=== PATIENT | male | born 1950 | race African-American/Black ===

== ENCOUNTER 2022-03-20 16:54 | Emergency (ER) | payer OTHER ==
[2022-03-20 17:55] LABS: Absolute Lymphocytes (CBC) 1.6 K/uL (0.7-4.9); Hematocrit 47.9 % (39.6-49.0); Lymphocytes % 35.6 % (15.3-44.8); MCV 83.7 fL (80-100); MPV 8.8 fL (7.6-11.3); RBC Red Blood Cell Count 5.72 M/uL (4.33-5.43)
[2022-03-20 18:05] LABS: BUN Blood Urea Nitrogen 21 mg/dL (7-18); Bicarbonate 26 mmol/L (21-32); Glomerular Filtration Rate 26 ml/min (=/>90); Potassium 4.1 mmol/L (3.5-5.1); Sodium Level 133 mmol/L (136-145)
[2022-03-20 18:06] LABS: Glucose Level 418 mg/dL (74-106)
[2022-03-20] MEDS ORDERED: INSULIN -REGULAR HUMAN 50 UNIT/0.5 ML ML ONE (20:18)
[2022-03-20] MEDS ORDERED: NA CHLORIDE 0.9% 1,000 ML ONE (20:18)
--- NOTE | 2022-03-20 21:08 | ER ---
Nurse's Notes [facility] Name: Eric Espinal Age: 71 yrs Sex: Male : 1950 Arrival Date: 03/20/2022 Time: 16:58 Bed 30 Private MD: Diagnosis: Hyperglycemia, unspecified Presentation: 03/20 17:28 Chief complaint: Patient states: high BS , over 500 today, took his insulin , went to the doctor was told to come to the hospital. Coronavirus screen: At this time, the client does not indicate any symptoms associated with coronavirus-19. Ebola Screen: Patient negative for fever greater than or equal to 101.5 degrees Fahrenheit, and additional compatible Ebola Virus Disease symptoms Patient denies exposure to infectious person. Patient denies travel to an Ebola-affected area in the 21 days before illness onset. No symptoms or risks identified at this time. Initial Sepsis Screen: Does the patient meet any 2 criteria? No. Patient's initial sepsis screen is negative. Does the patient have a suspected source of infection? No. Patient's initial sepsis screen is negative. Risk Assessment: Do you want to hurt yourself or someone else? Patient reports no desire to harm self or others. Onset of symptoms was March 20, 2022. 17:28 Method Of Arrival: Ambulatory 17:28 Acuity: BRENDA 3 iw Historical: - Allergies: 17:30 No Known Allergies; iw - Home Meds: 17:30 Lantus U-100 Insulin 100 unit/mL subcutaneous soln [Active]; iw - PMHx: 17:30 asthma-denies issues in a while; Diabetes - NIDDM; iw - Immunization history:: Adult Immunizations up to date. - Social history:: Smoking status: . Screenin:14 Abuse screen: Denies threats or abuse. Denies injuries from another. Nutritional lg3 screening: No deficits noted. Tuberculosis screening: No symptoms or risk factors identified. Fall Risk None identified. Assessment: 20:14 General: Appears in no apparent distress. comfortable, Behavior is calm, cooperative. lg3 Pain: Denies pain. Neuro: No deficits noted. Level of Consciousness is awake, alert, obeys commands, Oriented to person, place, time, situation. Cardiovascular: No deficits noted. Denies chest pain, shortness of breath, Capillary refill < 3 seconds Clubbing of nail beds is absent JVD is absent Patient's skin is warm and dry. Respiratory: No deficits noted. Airway is patent Trachea midline Respiratory effort is even, unlabored, Respiratory pattern is regular, symmetrical. GI: No deficits noted. No signs and/or symptoms were reported involving the gastrointestinal system. Abdomen is round non-distended, Bowel sounds present X 4 quads. : No deficits noted. No signs and/or symptoms were reported regarding the genitourinary system. EENT: No deficits noted. No signs and/or symptoms were reported regarding the EENT system. Derm: No deficits noted. No signs and/or symptoms reported regarding the dermatologic system. Skin is intact, is healthy with good turgor, Skin is dry, Skin temperature is warm. Musculoskeletal: No deficits noted. No signs and/or symptoms reported regarding the musculoskeletal system. Circulation, motion, and sensation intact. Range of motion: intact in all extremities. 21:15 Reassessment: Patient appears in no apparent distress at this time. No changes from lg3 previously documented assessment. Patient and/or family updated on plan of care and expected duration. Pain level reassessed. Patient is alert, oriented x 3, equal unlabored respirations, skin warm/dry/pink. Patient denies pain at this time. Patient states feeling better. Vital Signs: 17:28 BP 117 / 64; Pulse 69; Resp 16; Temp 98.2; Pulse Ox 99% on R/A; iw 21:15 BP 126 / 72; Pulse 71; Resp 16 S; Pulse Ox 99% on R/A; lg3 ED Course: 16:58 Patient arrived in ED. as 17:30 Triage completed. iw 17:30 Arm band placed on. iw 17:41 Initial lab(s) drawn, by ri, sent to lab. Inserted saline lock: 20 gauge in left iw antecubital area, using aseptic technique. 18:16 Beka Villafana NP is PHCP. pm1 18:16 Mirza Beach MD is Attending Physician. pm1 19:52 Vane Reyes, STEPHANIE is Primary Nurse. lg3 20:14 Patient has correct armband on for positive identification. Bed in low position. Call lg3 light in reach. Side rails up X 1. Client placed on continuous cardiac and pulse oximetry monitoring. NIBP monitoring applied. Door closed. Noise minimized. Warm blanket given. 21:15 No provider procedures requiring assistance completed. IV discontinued, intact, lg3 bleeding controlled, No redness/swelling at site. Pressure dressing applied. Administered Medications: 20:08 CANCELLED (Physician Discretion): Insulin Regular Human 10 units IVP once pm1 20:14 Drug: NS 0.9% 1000 ml Route: IV; Rate: 1000 ml; Site: left antecubital; lg3 20:46 Follow up: IV Status: Completed infusion; IV Intake: 1000ml lg3 21:06 CANCELLED (Physician Discretion): Insulin Regular Human 5 units IVP once pm1 Medication: 21:15 VIS not applicable for this client. lg3 Intake: 20:46 IV: 1000ml; Total: 1000ml. lg3 Outcome: 21:07 Discharge ordered by . pm1 21:15 Discharged to home ambulatory. lg3 21:15 Condition: stable 21:15 Discharge instructions given to patient, Instructed on discharge instructions, Demonstrated understanding of instructions. 21:16 Patient left the ED. lg3 Signatures: Casandra Paez Irene, STEPHANIE RN iw Beka Villafana NP RIB BENDER pm1 Vane Reyes RN RN lg3
--- NOTE | 2022-03-20 21:08 | EDPHYS ---
Physician Documentation [facility] Name: Eric Espinal Age: 71 yrs Sex: Male : 1950 Arrival Date: 03/20/2022 Time: 16:58 Bed 30 Private MD: ED Physician Mirza Beach HPI: 03/20 18:22 This 71 yrs old Black Male presents to ER via Ambulatory with complaints of High Blood pm1 Sugar. 18:22 The patient or guardian reports hyperglycemia, Treatment prior to arrival includes: pm1 taking additional insulin. Onset: The symptoms/episode began/occurred today. Associated signs and symptoms: Pertinent negatives: None. Current symptoms: In the emergency department the patient's symptoms are unchanged from the initial presentation. It is unknown whether or not the patient has had similar symptoms in the past. The patient has been recently seen by a physician: the patient's primary care provider, with similar presenting complaints, and was sent to the [facility] Emergency Department for further evaluation. Patient reports blood sugar over 500 and was seen by PCP and instructed to report to the ER for evaluation and treatment. Historical: - Allergies: 17:30 No Known Allergies; iw - Home Meds: 17:30 Lantus U-100 Insulin 100 unit/mL subcutaneous soln [Active]; iw - PMHx: 17:30 asthma-denies issues in a while; Diabetes - NIDDM; iw - Immunization history:: Adult Immunizations up to date. - Social history:: Smoking status: . ROS: 18:22 Constitutional: Negative for fever, chills, and weight loss, Cardiovascular: Negative pm1 for chest pain, palpitations, and edema, Respiratory: Negative for shortness of breath, cough, wheezing, and pleuritic chest pain, Abdomen/GI: Negative for abdominal pain, nausea, vomiting, diarrhea, and constipation, Back: Negative for injury and pain, MS/Extremity: Negative for injury and deformity, Skin: Negative for injury, rash, and discoloration, Neuro: Negative for headache, weakness, numbness, tingling, and seizure. 18:22 All other systems are negative. Exam: 18:22 Constitutional: This is a well developed, well nourished patient who is awake, alert, pm1 and in no acute distress. 18:22 Head/Face: Normocephalic, atraumatic. pm1 18:22 Back: No spinal tenderness. No costovertebral tenderness. Full range of motion. Skin: Warm, dry with normal turgor. Normal color with no rashes, no lesions, and no evidence of cellulitis. MS/ Extremity: Pulses equal, no cyanosis. Neurovascular intact. Full, normal range of motion. 18:22 Eyes: Exam is negative for acute changes, Extraocular movements: intact throughout, Conjunctiva: no acute changes, no injection. 18:22 ENT: Exam is negative for acute changes, Mouth: no acute changes, Lips: normal, moist, Oral mucosa: normal, pink and intact, moist. 18:22 Cardiovascular: Exam negative for acute changes, Rate: normal, Rhythm: regular, Pulses: no pulse deficits are appreciated. 18:22 Respiratory: Exam negative for acute changes, respiratory distress, shortness of breath. 18:22 Neuro: Exam negative for acute changes, Orientation: is normal, Mentation: is normal, Motor: is normal, moves all fours. Vital Signs: 17:28 BP 117 / 64; Pulse 69; Resp 16; Temp 98.2; Pulse Ox 99% on R/A; iw 21:15 BP 126 / 72; Pulse 71; Resp 16 S; Pulse Ox 99% on R/A; lg3 MDM: 18:21 Counseling: I had a detailed discussion with the patient and/or guardian regarding: lab pm1 results, pending ER bed for treatment with fluids and insulin. 18:36 Patient medically screened. pm1 21:06 Data reviewed: vital signs. Data interpreted: Pulse oximetry: on room air is 99 %. pm1 Interpretation: normal. Counseling: I had a detailed discussion with the patient and/or guardian regarding: the historical points, exam findings, and any diagnostic results supporting the discharge/admit diagnosis, lab results, the need for outpatient follow up, to return to the emergency department if symptoms worsen or persist or if there are any questions or concerns that arise at home. 03/20 17:32 Order name: CBC with Diff; Complete Time: 17:58 [facility] 03/20 17:32 Order name: Basic Metabolic Panel; Complete Time: 18:16 [facility] 03/20 17:32 Order name: Acetone, Serum; Complete Time: 18:16 [facility] 03/20 20:18 Order name: Glucose, Ancillary Testing; Complete Time: 20:30 [facility] 03/20 19:19 Order name: Glucose Level; Complete Time: 20:06 pm1 Administered Medications: 20:08 CANCELLED (Physician Discretion): Insulin Regular Human 10 units IVP once pm1 20:14 Drug: NS 0.9% 1000 ml Route: IV; Rate: 1000 ml; Site: left antecubital; lg3 20:46 Follow up: IV Status: Completed infusion; IV Intake: 1000ml lg3 21:06 CANCELLED (Physician Discretion): Insulin Regular Human 5 units IVP once pm1 Disposition Summary: 03/20/22 21:07 Discharge Ordered Location: Home pm1 Problem: new pm1 Symptoms: have improved pm1 Condition: Stable pm1 Diagnosis - Hyperglycemia, unspecified pm1 Followup: pm1 - With: Emergency Department - When: As needed - Reason: Worsening of condition Followup: pm1 - With: Private Physician - When: 2 - 3 days - Reason: Recheck today's complaints, Continuance of care, Re-evaluation by your physician Discharge Instructions: - Discharge Summary Sheet pm1 - Hyperglycemia pm1 - Blood Glucose Monitoring, Adult pm1 - Diabetes Mellitus and Exercise pm1 - Diabetes Mellitus and Nutrition, Adult pm1 Forms: - Medication Reconciliation Form pm1 - Thank You Letter pm1 - Antibiotic Education pm1 - Prescription Opioid Use pm1 Signatures: Dispatcher [employer]OK Alize Gupta, RN RN Mirza Barber PA PA Beka Mayfield, JD [employer] HELPER pm1 Vane Reyes RN RN lg3 Corrections: (The following items were deleted from the chart) 20:08 19:19 Insulin Regular Human 10 units IVP once ordered. pm1 pm1 21:06 20:08 Insulin Regular Human 5 units IVP once ordered. pm1 pm1
[2022-03-20 23:05] VITALS: TEMP 98.2; O2SAT 99
[2022-03-20 23:08] VITALS: BP 126/72
== END 2022-03-20 21:16 | disposition home or self-care (01) ==
LOC: ER 16:54
DX: E11.65 Type 2 diabetes mellitus with hyperglycemia (principal); Z79.4 Long term (current) use of insulin
CPT/HCPCS: 85025; 80048; 36415; 82010; 82947 ×2; 96360; 99283; J1815; J7030

== ENCOUNTER 2023-12-26 18:03 | Inpatient (IN) | payer OTHER ==
--- OUTSIDE RECORDS SUMMARY | 2023-12-26 18:08 | XMS REPORT | Continuity of Care Document ---
Author Name Unknown Address [address] [facility] [address] [place] [address] [facility] Address [address] [facility] [place] [address] Care Team Providers Care Pathology Lab Technician Name Role Phone ERWINANA ARCHIE Primary Care Physician Unavailab Isaias Odonnell Attending Clinician Unavailable Nisreen Patel RN Attending Clinician Unavailable JEROME PIEDRA Attending Clinician Unavailable Vern Johns DO Attending Clinician [phone] Amado Herring MD Attending Clinician [phone] Jerome Piedra MD Attending Clinician [phone] MOOKIE Attending Clinician Unavailable KNOW, DOES_NOT Attending Clinician Unavailable Jignesh Vargas Attending Clinician Unavailable JEROME PIEDRA Admitting Clinician Unavailable Jerome Piedra MD Admitting Clinician [phone] MOOKIE Admitting Clinician Unavailable Physician, No Primary or Family Admitting Clinic hans Unavailable Payers Payer Name Policy Type Policy Number Effective Date Expirati on Date Source ALEJANDRA C1 [id number] 2020 00:00:00 [facility] HUMANA C1 [id number] 2020 00:00:00 [facility] HUMANA C1 [id number] 2020 00:00:00 [facility] Problems Condition Name Condition Details Condition Category Status Onset Date Resolution Date Last Treatment Date Treating Clinician Comments Source Altered mental status Altered mental status Disease Active 03-17 00:00: 00 [facility] Hyperglyce demond Hyperglyce demond Disease Active 03-17 00:00: 00 [facility] Chronic kidney disease stage 3B (disorder) Stage 3b chronic kidney disease Problem [facility] [id number] Encounter for examinatio n of eyes and vision without abnormal findings Problem [facility] [id number] Other obesity due to excess calories Problem [facility] Amnesia Memory changes Problem [facility] [id number] [employer] current use of insulin Problem [facility] [id number] Type 2 diabetes mellitus with diabetic chronic kidney disease Problem [facility] [id number] Onychomyco sis Problem [facility] Emphysema Emphysema Problem Comm on [facility] Seasonal allergic rhinitis Allergic rhinitis, seasonal Problem [facility] Hyperlipid emia Hyperlipid emia Problem [facility] Chronic pain syndrome Chronic pain syndrome Problem [facility] Impotence of organic origin ED (erectile dysfunctio n) Problem [facility] Diabetic renal disease Chronic kidney disease in type 2 diabetes mellitus Problem [facility] Essential hypertensi on Benign essential HTN Problem [facility] [id number] Chronic obstructiv e pulmonary disease, unspecifie d COPD type Problem [facility] Vitamin D deficiency Vitamin D deficiency Problem [facility] Chronic kidney disease stage 3 (disorder) Stage 3 chronic kidney disease, unspecifie d whether stage 3a or 3b CKD Problem [facility] [id number] Alcohol abuse Problem [facility] [id number] Current every day smoker Problem [facility] [id number] Acute exacerbati on of emphysema Problem [facility] Allergies, Adverse Reactions, Alerts Allergy Name Allergy Type Status Severity Reaction(s) Onset Date Inactive Date Treating Clinician Comments Source No Known Allergie s DA Active U 01-20 00:00: 00 [facility] No Known Allergie s DA Active U 01-20 00:00: 00 [facility] NO KNOWN ALLERGIE S Drug Class Active [facility] Social History Social Habit Start Date Stop Date Quantity Comments Source History of Tobacco Use Current Smoker [facility] Sex Assigned At [facility] Exposure to SARS-CoV-2 (event) 2022-03-07 00:00:00 2022-03-17 17:21:00 Not sure [facility] Alcohol intake 2022-03-17 00:00:00 2022-03-17 00:00:00 Current drinker of alcohol (finding) [facility] Tobacco use and exposure 2022-03-17 00:00:00 2022-03-17 00:00:00 Smokeless tobacco non-user [facility] Smoking Status Start Date Stop Date Source Current Smoker 2023-09-23 00:00:00 [facility] Medications Ordered Medication Name Filled Medication Name Start Date Stop Date Current Medication? Ordering Clinician Indication Dosage Frequency Signature (SIG) Comments Components Source Carvedilol 25 MG Carvedilol 25 MG 09-23 00:00: 00 No 1{table t_with_ food} BID Carvedilol 25 MG Carvedilol 25 MG Carvedilol 25 MG 09-23 00:00: 00 No 1{table t_with_ food} BID Carvedilol 25 MG Carvedilol 25 MG Carvedilol 25 MG 09-23 00:00: 00 No 1{table t_with_ food} BID Carvedilol 25 MG Carvedilol 25 MG Carvedilol 25 MG 09-23 00:00: 00 No 1{table t_with_ food} BID Carvedilol 25 MG Carvedilol 25 MG Carvedilol 25 MG 09-23 00:00: 00 No 1{table t_with_ food} BID Carvedilol 25 MG Carvedilol 25 MG Carvedilol 25 MG 09-23 00:00: 00 No 1{table t_with_ food} BID Carvedilol 25 MG metFORMIN HCl ER 750 MG metFORMIN HCl ER 750 MG 2021-08 2-05 00:00: 00 No 1{table t_with_ evening _meal} QD metFORMIN HCl ER 750 MG aspirin 81 mg chewable tablet 03-18 19:32: 07 03-18 00:00 :00 No 81mg Take 81 mg by mouth in the morning. [facility] insulin glargine,jameson cedenorecAkhilanlog (LANTUS SC) 03-18 19:32: 07 03-18 00:00 :00 No 20U inject 20 Units under the skin daily. [facility] Sliding Scale Insulin - Lispro (HumaLOG) + Fsbg Testing 03-18 17:00: 00 Yes Subcutaneo us, TID MEALS+HS, First dose (after last modificati on) on Thu03/18/22 at 1200, Until Discontinu ed, Routine [facility] insulin glargine (LANTUS U-100) injection 20 Units 03-18 15:00: 00 Yes 20U 20 Units, Subcutaneo us, DAILY, First dose on Thu03/18/22 at 1000, Until Discontinu ed, Routine [facility] aspirin chewable tablet 81 mg 03-18 14:00: 00 Yes 81mg 81 mg, Oral, DAILY, First dose on Thu03/18/22 at 0900, Until Discontinu ed, Routine [facility] insulin glargine (LANTUS U-100) injection 20 Units 03-18 14:00: 00 03-18 13:50 :26 No 20U 20 Units, Subcutaneo us, DAILY, First dose (after last modificati on) on Thu03/18/22 at 0900, Until Discontinu ed [facility] Sliding Scale Insulin - Lispro (HumaLOG) + Fsbg Testing 03-18 02:00: 00 03-18 13:50 :43 No Subcutaneo us, TID MEALS+HS, First dose (after last modificati on) on Thu03/17/22 at 2100, Until Discontinu ed, Routine [facility] amLODIPine (NORVASC) tablet 5 mg 03-18 00:45: 00 Yes 5mg 5 mg, Oral, DAILY, First dose on Thu03/17/22 at 1945, Until Discontinu ed, Routine [facility] enoxaparin (LOVENOX) injection 40 mg 03-17 22:00: 00 Yes 40mg 40 mg, Subcutaneo us, DAILY, First dose on Thu03/17/22 at 1700, Until Discontinu ed, Routine [facility] NaCl 0.45% (1/2NS) IV infusion 1,000 mL 03-17 21:00: 00 Yes 1000mL at 125 mL/hr, 1,000 mL, IV Infusion, CONTINUOUS , Starting on Thu03/17/22 at 1600, Until Discontinu ed, Routine [facility] Sliding Scale Insulin - Lispro (HumaLOG) + Fsbg Testing 03-17 20:00: 00 03-18 00:50 :54 No Subcutaneo us, Q4H, First dose on Thu03/17/22 at 1500, Until Discontinu ed, Routine [facility] HYDROcodone -acetaminop hen (NORCO) 10-325 mg tablet 1 tablet 03-17 19:51: 46 Yes 1{tbl} 1 tablet, Oral, Q6HPRN, Starting on Thu03/17/22 at 1451, Until Discontinu ed, Routine, Pain (scale 7-10) [facility] HYDROcodone -acetaminop hen (NORCO 5) 5-325 mg tablet 1 tablet 03-17 19:51: 44 03-19 19:50 :44 No 1{tbl} 1 tablet, Oral, Q6HPRN, Starting on Thu03/17/22 at 1451, Until Thu03/19/22 at 1450, Routine, Pain (scale 4-6) [facility] acetaminoph en (TYLENOL) tablet 650 mg 03-17 19:51: 42 Yes 650mg 650 mg, Oral, Q6HPRN, Starting on Thu03/17/22 at 1451, Until Discontinu ed, Routine, Pain (scale 1-3) [facility] dextrose 10% (D10W) bolus infusion 250 mL 03-17 19:49: 05 Yes 250mL 250 mL, IV Infusion, PRN - SEE INSTRUCTIO NS, Administer over 60 Minutes, Other, If blood glucose is < or = 70 mg/dL and patient is unable to swallow or has mental status changes, Starting on Thu03/17/22 at 1449
If blood glucose is < or = 70 mg/dL and patient is unable to swallow or has mental status changes (Give glucagon order if patient needs fluid restrictio n): IF IV access available: Dextrose 10%. 1. 125 mL (? bag) of D10W IV infusion - equivalent to 12.5 g dextrose 2. Blood glucose - draw blood glucose 15 minutes after D10W Administra tion. 3. If blood glucose is < 80 mg/dL, repeat.
[facility] glucagon (GLUCAGEN DIAGNOSTIC KIT) injection 1 mg 03-17 19:49: 02 Yes 1mg 1 mg, Intramuscu lar, PRN, Starting on Thu03/17/22 at 1449, Until Discontinu ed, TATI, Blood Glucose < or = 70 mg/dL and patient is unable to swallow or has mental changes. [facility] insulin regular human (HUMULIN R) injection 12 Units 03-17 19:30: 00 03-17 18:41 :00 No 12U 12 Units, Subcutaneo us, ONCE, 1 dose, On Thu03/17/22 at 1430, Routine [facility] No known medications 03-17 17:21: 51 No No known medication s [facility] Pen Kaufman 32G X 4 MM Pen Kaufman 32G X 4 MM 03-01 00:00: 00 No QD Pen Kaufman 32G X 4 MM Pen Kaufman 32G X 4 MM Pen Kaufman 32G X 4 MM 0 03-01 00:00: 00 No QD Pen Kaufman 32G X 4 MM Pen Kaufman 32G X 4 MM Pen Kaufman 32G X 4 MM 0 03-01 00:00: 00 No QD Pen Kaufman 32G X 4 MM Pen Kaufman 32G X 4 MM Pen [place]aufman 32G X 4 MM 0 03-01 00:00: 00 No QD Pen Kaufman 32G X 4 MM Pen [place]aufman 32G X 4 MM Pen [place]aufman 32G X 4 MM 0 03-01 00:00: 00 No QD Pen Kaufman 32G X 4 MM Pen Kaufman 32G X 4 MM Pen Kaufman 32G X 4 MM 2020-0 03-01 00:00: 00 No QD Pen Kaufman 32G X 4 MM Pen Kaufman 32G X 4 MM Pen Kaufman 32G X 4 MM 2020-0 03-01 00:00: 00 No QD Pen Kaufman 32G X 4 MM Pen Kaufman 32G X 4 MM Pen Kaufman 32G X 4 MM 2020-0 03-01 00:00: 00 No QD Pen Kaufman 32G X 4 MM Pen Kaufman 32G X 4 MM Pen Kaufman 32G X 4 MM 2020-0 03-01 00:00: 00 No QD Pen Kaufman 32G X 4 MM Pen Kaufman 32G X 4 MM Pen Kaufman 32G X 4 MM 2020-0 03-01 00:00: 00 No QD Pen Kaufman 32G X 4 MM Pen [place]aufman 32G X 4 MM Pen Kaufman 32G X 4 MM 2020-0 03-01 00:00: 00 No QD Pen Kaufman 32G X 4 MM Pen Kaufman 32G X 4 MM Pen Kaufman 32G X 4 MM 2020-0 03-01 00:00: 00 No QD Pen Kaufman 32G X 4 MM Pen Kaufman 32G X 4 MM Pen Kaufman 32G X 4 MM 2020-0 03-01 00:00: 00 No QD Pen Kaufman 32G X 4 MM Pen Kaufman 32G X 4 MM Pen Kaufman 32G X 4 MM 2020-0 03-01 00:00: 00 No QD Pen Kaufman 32G X 4 MM Pen Kaufman 32G X 4 MM Pen Kaufman 32G X 4 MM 2020-0 03-01 00:00: 00 No QD Pen Kaufman 32G X 4 MM Pen Kaufman 32G X 4 MM Pen Kaufman 32G X 4 MM 2020-0 03-01 00:00: 00 No QD Pen Kaufman 32G X 4 MM Pen Kaufman 32G X 4 MM Pen Kaufman 32G X 4 MM 2020-0 03-01 00:00: 00 No QD Pen Kaufman 32G X 4 MM Pen Kaufman 32G X 4 MM Pen Kaufman 32G X 4 MM 2020-0 03-01 00:00: 00 No QD Pen Kaufman 32G X 4 MM Pen Kaufman 32G X 4 MM Pen Kaufman 32G X 4 MM 0 03-01 00:00: 00 No QD Pen Kaufman 32G X 4 MM Pen Kaufman 32G X 4 MM Pen Kaufman 32G X 4 MM 2020-0 03-01 00:00: 00 No QD Pen Kaufman 32G X 4 MM Pen Kaufman 32G X 4 MM Pen Kaufman 32G X 4 MM 2020-0 03-01 00:00: 00 No QD Pen Kaufman 32G X 4 MM Pen Kaufman 32G X 4 MM Pen Kaufman 32G X 4 MM 2020-0 03-01 00:00: 00 No QD Pen Kaufman 32G X 4 MM Pen Kaufman 32G X 4 MM Pen Kaufman 32G X 4 MM 2020-0 03-01 00:00: 00 No QD Pen Kaufman 32G X 4 MM Accu-Chek Bonnie Plus - Accu-Chek Bonnie Plus - 2020-0 - 00:00: 00 No BID Accu-Chek Bonnie Plus - Glucometer n/s Glucometer n/s 2020-0 4- 00:00: 00 No Glucometer n/s Accu-Chek Bonnie Plus - Accu-Chek Bonnie Plus - 2020-0 4- 00:00: 00 No BID Accu-Chek Bonnie Plus - Glucometer n/s Glucometer n/s 2020-0 4- 00:00: 00 No Glucometer n/s Glucometer n/s Glucometer n/s 2020-0 4- 00:00: 00 No Glucometer n/s Accu-Chek Bonnie Plus - Accu-Chek Bonnie Plus - 1-0 4- 00:00: 00 No BID Accu-Chek Bonnie Plus - Glucometer n/s Glucometer n/s 1-0 4- 00:00: 00 No Glucometer n/s Accu-Chek Bonnie Plus - Accu-Chek Bonnie Plus - 1-0 4- 00:00: 00 No BID Accu-Chek Bonnie Plus - Glucometer n/s Glucometer n/s 1-0 4- 00:00: 00 No Glucometer n/s Glucometer n/s Glucometer n/s 1-0 4- 00:00: 00 No Glucometer n/s Glucometer n/s Glucometer n/s 1-0 4- 00:00: 00 No Glucometer n/s Glucometer n/s Glucometer n/s 1-0 4- 00:00: 00 No Glucometer n/s Glucometer n/s Glucometer n/s 1-0 4- 00:00: 00 No Glucometer n/s Glucometer n/s Glucometer n/s 1-0 4- 00:00: 00 No Glucometer n/s Glucometer n/s Glucometer n/s 1-0 4- 00:00: 00 No Glucometer n/s Glucometer n/s Glucometer n/s 1-0 4- 00:00: 00 No Glucometer n/s Glucometer n/s Glucometer n/s 1-0 4- 00:00: 00 No Glucometer n/s Glucometer n/s Glucometer n/s 1-0 4- 00:00: 00 No Glucometer n/s Glucometer n/s Glucometer n/s 1-0 4- 00:00: 00 No Glucometer n/s Glucometer n/s Glucometer n/s 1-0 4- 00:00: 00 No Glucometer n/s Glucometer n/s Glucometer n/s 1-0 4- 00:00: 00 No Glucometer n/s Glucometer n/s Glucometer n/s 2021-0 4- 00:00: 00 No Glucometer n/s Glucometer n/s Glucometer n/s 0 4- 00:00: 00 No Glucometer n/s Glucometer n/s Glucometer n/s 0 4- 00:00: 00 No Glucometer n/s Glucometer n/s Glucometer n/s 0 4- 00:00: 00 No 1{puff} BID Glucometer n/s Accu-Chek Bonnie Plus - Accu-Chek Bonnie Plus - 0 4- 00:00: 00 No Accu-Chek Bonnie Plus - Accu-Chek Bonnie Plus w/Device Accu-Chek Bonnie Plus w/Device 0 4- 00:00: 00 No Accu-Chek Bonnie Plus w/Device Accu-Chek Bonnie Plus - Accu-Chek Bonnie Plus - 2020-0 4- 00:00: 00 No Accu-Chek Bonnie Plus - Accu-Chek Bonnie Plus w/Device Accu-Chek Bonnie Plus w/Device 2020-0 4- 00:00: 00 No Accu-Chek Bonnie Plus w/Device Accu-Chek Bonnie Plus w/Device Accu-Chek Bonnie Plus w/Device 2020-0 4- 00:00: 00 No Accu-Chek Bonnie Plus w/Device Accu-Chek Bonnie Plus - Accu-Chek Bonnie Plus - 2020-0 4- 00:00: 00 No Accu-Chek Bonnie Plus - Accu-Chek Bonnie Plus - Accu-Chek Bonnie Plus - 2020-0 4- 00:00: 00 No Accu-Chek Bonnie Plus - Accu-Chek Bonnie Plus w/Device Accu-Chek Bonnie Plus w/Device 0 4- 00:00: 00 No Accu-Chek Bonnie Plus w/Device Accu-Chek Bonnie Plus - Accu-Chek Bonnie Plus - 2020-0 4- 00:00: 00 No Accu-Chek Bonnie Plus - Accu-Chek Bonnie Plus w/Device Accu-Chek Bonnie Plus w/Device 2020-0 4- 00:00: 00 No Accu-Chek Bonnie Plus w/Device Accu-Chek Bonnie Plus - Accu-Chek Bonnie Plus - 0 4- 00:00: 00 No Accu-Chek Bonnie Plus - Accu-Chek Bonnie Plus w/Device Accu-Chek Bonnie Plus w/Device 0 4- 00:00: 00 No Accu-Chek Bonnie Plus w/Device Accu-Chek Bonnie Plus - Accu-Chek Bonnie Plus - 0 4- 00:00: 00 No Accu-Chek Bonnie Plus - Accu-Chek Bonnie Plus w/Device Accu-Chek Bonnie Plus w/Device 0 4- 00:00: 00 No Accu-Chek Bonnie Plus w/Device Accu-Chek Bonnie Plus - Accu-Chek Bonnie Plus - 0 4- 00:00: 00 No Accu-Chek Bonnie Plus - Accu-Chek Bonnie Plus w/Device Accu-Chek Bonnie Plus w/Device 0 4- 00:00: 00 No Accu-Chek Bonnie Plus w/Device Accu-Chek Bonnie Plus - Accu-Chek Bonnie Plus - 0 4- 00:00: 00 No Accu-Chek Bonnie Plus - Accu-Chek Bonnie Plus w/Device Accu-Chek Bonnie Plus w/Device 0 4- 00:00: 00 No Accu-Chek Bonnie Plus w/Device Accu-Chek Bonnie Plus - Accu-Chek Bonnie Plus - 2020-0 4- 00:00: 00 No Accu-Chek Bonnie Plus - Accu-Chek Bonnie Plus w/Device Accu-Chek Bonnie Plus w/Device 0 4- 00:00: 00 No Accu-Chek Bonnie Plus w/Device Accu-Chek Bonnie Plus - Accu-Chek Bonnie Plus - 2020-0 4- 00:00: 00 No Accu-Chek Bonnie Plus - Accu-Chek Bonnie Plus w/Device Accu-Chek Bonnie Plus w/Device 2020-0 4-01 00:00: 00 No Accu-Chek Bonnie Plus w/Device Accu-Chek Bonnie Plus w/Device Accu-Chek Bonnie Plus w/Device 0 4- 00:00: 00 No Accu-Chek Bonnie Plus w/Device Accu-Chek Bonnie Plus - Accu-Chek Bonnie Plus - 2020-0 4- 00:00: 00 No Accu-Chek Bonnie Plus - Accu-Chek Bonnie Plus w/Device Accu-Chek Bonnie Plus w/Device 2020-0 4- 00:00: 00 No Accu-Chek Bonnie Plus w/Device Accu-Chek Bonnie Plus - Accu-Chek Bonnie Plus - 0 4- 00:00: 00 No Accu-Chek Bonnie Plus - Accu-Chek Bonnie Plus w/Device Accu-Chek Bonnie Plus w/Device 0 4- 00:00: 00 No Accu-Chek Bonnie Plus w/Device Accu-Chek Bonnie Plus - Accu-Chek Bonnie Plus - 0 4- 00:00: 00 No Accu-Chek Bonnie Plus - Accu-Chek Bonnie Plus w/Device Accu-Chek Bonnie Plus w/Device 0 4- 00:00: 00 No Accu-Chek Bonnie Plus w/Device Accu-Chek Bonnie Plus - Accu-Chek Bonnie Plus - 2020-0 4- 00:00: 00 No Accu-Chek Bonnie Plus - Accu-Chek Bonnie Plus - Accu-Chek Bonnie Plus - 2020-0 4- 00:00: 00 No Accu-Chek Bonnie Plus - Accu-Chek Bonnie Plus w/Device Accu-Chek Bonnie Plus w/Device 2020-0 4- 00:00: 00 No Accu-Chek Bonnie Plus w/Device Accu-Chek Bonnie Plus - Accu-Chek Bonnie Plus - 2020-0 4-01 00:00: 00 No Accu-Chek Bonnie Plus - Accu-Chek Bonnie Plus w/Device Accu-Chek Bonnie Plus w/Device 0 4- 00:00: 00 No Accu-Chek Bonnie Plus w/Device Accu-Chek Bonnie Plus - Accu-Chek Bonnie Plus - 0 4- 00:00: 00 No Accu-Chek Bonnie Plus - Accu-Chek Bonnie Plus w/Device Accu-Chek Bonnie Plus w/Device 2020-0 4- 00:00: 00 No Accu-Chek Bonnie Plus w/Device Accu-Chek Bonnie Plus - Accu-Chek Bonnie Plus - 0 4- 00:00: 00 No Accu-Chek Bonnie Plus - Accu-Chek Bonnie Plus w/Device Accu-Chek Bonnie Plus w/Device 2020-0 4- 00:00: 00 No Accu-Chek Bonnie Plus w/Device Accu-Chek Bonnie Plus - Accu-Chek Bonnie Plus - 2020-0 4- 00:00: 00 No Accu-Chek Bonnie Plus - Accu-Chek Bonnie Plus w/Device Accu-Chek Bonnie Plus w/Device 0 4- 00:00: 00 No Accu-Chek Bonnie Plus w/Device Accu-Chek Bonnie Plus w/Device Accu-Chek Bonnie Plus w/Device 2020-0 4- 00:00: 00 No Accu-Chek Bonnie Plus w/Device Accu-Chek Bonnie Plus - Accu-Chek Bonnie Plus - 2020-0 4- 00:00: 00 No Accu-Chek Bonnie Plus - Kenalog (Triamcinol one) Kenalog (Triamcinol one) 2018-08 0-15 00:00: 00 No 40mg [facility] Kenalog (Triamcinol one) Kenalog (Triamcinol one) 2018-08 0-15 00:00: 00 No 40mg [facility] Kenalog (Triamcinol one) Kenalog (Triamcinol one) 2018-08 015 00:00: 00 No 40mg [facility] Kenalog (Triamcinol one) Kenalog (Triamcinol one) 2018-08 015 00:00: 00 No 40mg [facility] Kenalog (Triamcinol one) Kenalog (Triamcinol one) 2018-08 015 00:00: 00 No 40mg [facility] Kenalog (Triamcinol one) Kenalog (Triamcinol one) 2018-0815 00:00: 00 No 40mg [facility] Kenalog (Triamcinol one) Kenalog (Triamcinol one) 2018-08 00:00: 00 No 40mg [facility] Kenalog (Triamcinol one) Kenalog (Triamcinol one) 2018-08 00:00: 00 No 40mg [facility] Kenalog (Triamcinol one) Kenalog (Triamcinol one) 2018-0815 00:00: 00 No 40mg [facility] Kenalog (Triamcinol one) Kenalog (Triamcinol one) 2018-0815 00:00: 00 No 40mg [facility] Kenalog (Triamcinol one) Kenalog (Triamcinol one) 2018-0815 00:00: 00 No 40mg [facility] Kenalog (Triamcinol one) Kenalog (Triamcinol one) 2018-0815 00:00: 00 No 40mg [facility] Kenalog (Triamcinol one) Kenalog (Triamcinol one) 2018-08 015 00:00: 00 No 40mg [facility] Kenalog (Triamcinol one) Kenalog (Triamcinol one) 2018-08 015 00:00: 00 No 40mg [facility] Kenalog (Triamcinol one) Kenalog (Triamcinol one) 2018-08 00:00: 00 No 40mg [facility] Kenalog (Triamcinol one) Kenalog (Triamcinol one) 2018-08 00:00: 00 No 40mg [facility] Kenalog (Triamcinol one) Kenalog (Triamcinol one) 2018-08 00:00: 00 No 40mg [facility] Kenalog (Triamcinol one) Kenalog (Triamcinol one) 2018-08 00:00: 00 No 40mg [facility] Kenalog (Triamcinol one) Kenalog (Triamcinol one) 2018-08 00:00: 00 No 40mg [facility] Kenalog (Triamcinol one) Kenalog (Triamcinol one) 2018-08 00:00: 00 No 40mg [facility] Advair Diskus 250-50 MCG/DOSE Advair Diskus 250-50 MCG/DOSE No 1{puff} BID Advair Diskus 250-50 MCG/DOSE Lantus SoloStar 100 UNIT/ML Lantus SoloStar 100 UNIT/ML No QD Lantus SoloStar 100 UNIT/ML Simvastatin 20 MG Simvastatin 20 MG No Simvastati n 20 MG Tradjenta 5 MG Tradjenta 5 MG No 1{table t} QD Tradjenta 5 MG Carvedilol 25 mg Carvedilol 25 mg No 1{table t_with_ food} BID Carvedilol 25 mg Lisinopril 20 MG Lisinopril 20 MG No Lisinopril 20 MG Simvastatin 20 MG Simvastatin 20 MG No Simvastati n 20 MG Simvastatin 20 MG Simvastatin 20 MG No 1{table t_in_th e_eveni ng} QD Simvastati n 20 MG Advair Diskus 250-50 MCG/DOSE Advair Diskus 250-50 MCG/DOSE No 1{puff} BID Advair Diskus 250-50 MCG/DOSE Lantus SoloStar 100 UNIT/ML Lantus SoloStar 100 UNIT/ML No QD Lantus SoloStar 100 UNIT/ML Lisinopril 20 MG Lisinopril 20 MG No Lisinopril 20 MG Tradjenta 5 MG Tradjenta 5 MG No 1{table t} QD Tradjenta 5 MG Lisinopril 40 MG Lisinopril 40 MG No 1{table t} QD Lisinopril 40 MG Carvedilol 25 mg Carvedilol 25 mg No 1{table t_with_ food} BID Carvedilol 25 mg GNP Aspirin Low Dose 81 MG GNP Aspirin Low Dose 81 MG No GNP Aspirin Low Dose 81 MG Vitamin D (Ergocalcif clarisa) 12750 UNIT Vitamin D (Ergocalcif clarisa) 93721 UNIT No 1{capsu le} Vitamin D (Ergocalci ferol) 89530 UNIT Lantus SoloStar 100 UNIT/ML Lantus SoloStar 100 UNIT/ML No QD Lantus SoloStar 100 UNIT/ML GNP Aspirin Low Dose 81 MG GNP Aspirin Low Dose 81 MG No GNP Aspirin Low Dose 81 MG Simvastatin 20 MG Simvastatin 20 MG No Simvastati n 20 MG Lisinopril 20 MG Lisinopril 20 MG No Lisinopril 20 MG Vitamin D (Ergocalcif clarisa) 46581 UNIT Vitamin D (Ergocalcif clarisa) 81279 UNIT No 1{capsu le} Vitamin D (Ergocalci ferol) 78007 UNIT Carvedilol 25 MG Carvedilol 25 MG No Carvedilol 25 MG Lisinopril 40 MG Lisinopril 40 MG No 1{table t} QD Lisinopril 40 MG Simvastatin 20 MG Simvastatin 20 MG No Simvastati n 20 MG GNP Aspirin Low Dose 81 MG GNP Aspirin Low Dose 81 MG No GNP Aspirin Low Dose 81 MG Simvastatin 20 MG Simvastatin 20 MG No Simvastati n 20 MG Lisinopril 20 MG Lisinopril 20 MG No Lisinopril 20 MG Lantus SoloStar 100 UNIT/ML Lantus SoloStar 100 UNIT/ML No QD Lantus SoloStar 100 UNIT/ML Lisinopril 40 MG Lisinopril 40 MG No Lisinopril 40 MG Carvedilol 25 MG Carvedilol 25 MG No Carvedilol 25 MG Lantus SoloStar 100 UNIT/ML Lantus SoloStar 100 UNIT/ML No QD Lantus SoloStar 100 UNIT/ML GNP Aspirin Low Dose 81 MG GNP Aspirin Low Dose 81 MG No GNP Aspirin Low Dose 81 MG Simvastatin 20 MG Simvastatin 20 MG No 1{table t_in e_eveni ng} QD Simvastati n 20 MG metFORMIN HCl ER 750 MG metFORMIN HCl ER 750 MG No 1{table t_with_ evening _meal} QD metFORMIN HCl ER 750 MG Lisinopril 40 MG Lisinopril 40 MG No 1{table t} QD Lisinopril 40 MG Carvedilol 25 MG Carvedilol 25 MG No Carvedilol 25 MG Lantus SoloStar 100 UNIT/ML Lantus SoloStar 100 UNIT/ML No QD Lantus SoloStar 100 UNIT/ML GNP Aspirin Low Dose 81 MG GNP Aspirin Low Dose 81 MG No GNP Aspirin Low Dose 81 MG Simvastatin 20 MG Simvastatin 20 MG No 1{table t_in e_eveni ng} QD Simvastati n 20 MG metFORMIN HCl ER 750 MG metFORMIN HCl ER 750 MG No 1{table t_with_ evening _meal} QD metFORMIN HCl ER 750 MG Lisinopril 40 MG Lisinopril 40 MG No 1{table t} QD Lisinopril 40 MG Carvedilol 25 MG Carvedilol 25 MG No Carvedilol 25 MG Lantus SoloStar 100 UNIT/ML Lantus SoloStar 100 UNIT/ML No QD Lantus SoloStar 100 UNIT/ML GNP Aspirin Low Dose 81 MG GNP Aspirin Low Dose 81 MG No GNP Aspirin Low Dose 81 MG Simvastatin 20 MG Simvastatin 20 MG No 1{table t_in e_eveni ng} QD Simvastati n 20 MG metFORMIN HCl ER 750 MG metFORMIN HCl ER 750 MG No 1{table t_with_ evening _meal} QD metFORMIN HCl ER 750 MG Lisinopril 40 MG Lisinopril 40 MG No 1{table t} QD Lisinopril 40 MG Carvedilol 25 MG Carvedilol 25 MG No Carvedilol 25 MG Lantus SoloStar 100 UNIT/ML Lantus SoloStar 100 UNIT/ML No QD Lantus SoloStar 100 UNIT/ML GNP Aspirin Low Dose 81 MG GNP Aspirin Low Dose 81 MG No GNP Aspirin Low Dose 81 MG Simvastatin 20 MG Simvastatin 20 MG No 1{table t_in e_eveni ng} QD Simvastati n 20 MG metFORMIN HCl ER 750 MG metFORMIN HCl ER 750 MG No 1{table t_with_ evening _meal} QD metFORMIN HCl ER 750 MG Lisinopril 40 MG Lisinopril 40 MG No 1{table t} QD Lisinopril 40 MG Carvedilol 25 MG Carvedilol 25 MG No Carvedilol 25 MG Lantus SoloStar 100 UNIT/ML Lantus SoloStar 100 UNIT/ML No QD Lantus SoloStar 100 UNIT/ML GNP Aspirin Low Dose 81 MG GNP Aspirin Low Dose 81 MG No GNP Aspirin Low Dose 81 MG Simvastatin 20 MG Simvastatin 20 MG No 1{table t_in e_eveni ng} QD Simvastati n 20 MG metFORMIN HCl ER 750 MG metFORMIN HCl ER 750 MG No 1{table t_with_ evening _meal} QD metFORMIN HCl ER 750 MG Lisinopril 40 MG Lisinopril 40 MG No 1{table t} QD Lisinopril 40 MG Carvedilol 25 MG Carvedilol 25 MG No Carvedilol 25 MG Lantus SoloStar 100 UNIT/ML Lantus SoloStar 100 UNIT/ML No QD Lantus SoloStar 100 UNIT/ML GNP Aspirin Low Dose 81 MG GNP Aspirin Low Dose 81 MG No GNP Aspirin Low Dose 81 MG Simvastatin 20 MG Simvastatin 20 MG No 1{table t_in e_eveni ng} QD Simvastati n 20 MG metFORMIN HCl ER 750 MG metFORMIN HCl ER 750 MG No 1{table t_with_ evening _meal} QD metFORMIN HCl ER 750 MG Lisinopril 40 MG Lisinopril 40 MG No 1{table t} QD Lisinopril 40 MG Carvedilol 25 MG Carvedilol 25 MG No Carvedilol 25 MG GNP Aspirin Low Dose 81 MG GNP Aspirin Low Dose 81 MG No GNP Aspirin Low Dose 81 MG Lantus SoloStar 100 UNIT/ML Lantus SoloStar 100 UNIT/ML No Lantus SoloStar 100 UNIT/ML Carvedilol 25 MG Carvedilol 25 MG No Carvedilol 25 MG Simvastatin 20 MG Simvastatin 20 MG No 1{table t_in e_eveni ng} QD Simvastati n 20 MG Aspirin 81 81 MG Aspirin 81 81 MG No 1{table t} QD Aspirin 81 81 MG Lisinopril 40 MG Lisinopril 40 MG No 1{table t} QD Lisinopril 40 MG metFORMIN HCl ER 750 MG metFORMIN HCl ER 750 MG No 1{table t_with_ evening _meal} QD metFORMIN HCl ER 750 MG Carvedilol 25 MG Carvedilol 25 MG No Carvedilol 25 MG Lantus SoloStar 100 UNIT/ML Lantus SoloStar 100 UNIT/ML No QD Lantus SoloStar 100 UNIT/ML Lisinopril 40 MG Lisinopril 40 MG No 1{table t} QD Lisinopril 40 MG GNP Aspirin Low Dose 81 MG GNP Aspirin Low Dose 81 MG No GNP Aspirin Low Dose 81 MG Simvastatin 20 MG Simvastatin 20 MG No 1{table t_in e_eveni ng} QD Simvastati n 20 MG metFORMIN HCl ER 750 MG metFORMIN HCl ER 750 MG No 1{table t_with_ evening _meal} QD metFORMIN HCl ER 750 MG Carvedilol 25 MG Carvedilol 25 MG No Carvedilol 25 MG Lantus SoloStar 100 UNIT/ML Lantus SoloStar 100 UNIT/ML No QD Lantus SoloStar 100 UNIT/ML Lisinopril 40 MG Lisinopril 40 MG No 1{table t} QD Lisinopril 40 MG GNP Aspirin Low Dose 81 MG GNP Aspirin Low Dose 81 MG No GNP Aspirin Low Dose 81 MG Simvastatin 20 MG Simvastatin 20 MG No 1{table t_in e_eveni ng} QD Simvastati n 20 MG metFORMIN HCl ER 750 MG metFORMIN HCl ER 750 MG No 1{table t_with_ evening _meal} QD metFORMIN HCl ER 750 MG Carvedilol 25 MG Carvedilol 25 MG No Carvedilol 25 MG Lantus SoloStar 100 UNIT/ML Lantus SoloStar 100 UNIT/ML No QD Lantus SoloStar 100 UNIT/ML Lisinopril 40 MG Lisinopril 40 MG No 1{table t} QD Lisinopril 40 MG GNP Aspirin Low Dose 81 MG GNP Aspirin Low Dose 81 MG No GNP Aspirin Low Dose 81 MG Simvastatin 20 MG Simvastatin 20 MG No 1{table t_in e_eveni ng} QD Simvastati n 20 MG metFORMIN HCl ER 750 MG metFORMIN HCl ER 750 MG No 1{table t_with_ evening _meal} QD metFORMIN HCl ER 750 MG Carvedilol 25 MG Carvedilol 25 MG No Carvedilol 25 MG Lantus SoloStar 100 UNIT/ML Lantus SoloStar 100 UNIT/ML No QD Lantus SoloStar 100 UNIT/ML Lisinopril 40 MG Lisinopril 40 MG No 1{table t} QD Lisinopril 40 MG GNP Aspirin Low Dose 81 MG GNP Aspirin Low Dose 81 MG No GNP Aspirin Low Dose 81 MG Simvastatin 20 MG Simvastatin 20 MG No 1{table t_in e_eveni ng} QD Simvastati n 20 MG metFORMIN HCl ER 750 MG metFORMIN HCl ER 750 MG No 1{table t_with_ evening _meal} QD metFORMIN HCl ER 750 MG metFORMIN HCl ER 750 MG metFORMIN HCl ER 750 MG No 1{table t_with_ evening _meal} QD metFORMIN HCl ER 750 MG Simvastatin 20 MG Simvastatin 20 MG No 1{table t_in e_eveni ng} QD Simvastati n 20 MG Aspirin 81 81 MG Aspirin 81 81 MG No 1{table t} QD Aspirin 81 81 MG Lisinopril 40 MG Lisinopril 40 MG No 1{table t} QD Lisinopril 40 MG Lantus SoloStar 100 UNIT/ML Lantus SoloStar 100 UNIT/ML No QD Lantus SoloStar 100 UNIT/ML metFORMIN HCl ER 750 MG metFORMIN HCl ER 750 MG No 1{table t_with_ evening _meal} QD metFORMIN HCl ER 750 MG Simvastatin 20 MG Simvastatin 20 MG No 1{table t_in e_eveni ng} QD Simvastati n 20 MG Aspirin 81 81 MG Aspirin 81 81 MG No 1{table t} QD Aspirin 81 81 MG Lisinopril 40 MG Lisinopril 40 MG No 1{table t} QD Lisinopril 40 MG Lantus SoloStar 100 UNIT/ML Lantus SoloStar 100 UNIT/ML No QD Lantus SoloStar 100 UNIT/ML metFORMIN HCl ER 750 MG metFORMIN HCl ER 750 MG No 1{table t_with_ evening _meal} QD metFORMIN HCl ER 750 MG Simvastatin 20 MG Simvastatin 20 MG No 1{table t_in e_eveni ng} QD Simvastati n 20 MG Aspirin 81 81 MG Aspirin 81 81 MG No 1{table t} QD Aspirin 81 81 MG Lisinopril 40 MG Lisinopril 40 MG No 1{table t} QD Lisinopril 40 MG Lantus SoloStar 100 UNIT/ML Lantus SoloStar 100 UNIT/ML No QD Lantus SoloStar 100 UNIT/ML metFORMIN HCl ER 750 MG metFORMIN HCl ER 750 MG No 1{table t_with_ evening _meal} QD metFORMIN HCl ER 750 MG Simvastatin 20 MG Simvastatin 20 MG No 1{table t_in e_eveni ng} QD Simvastati n 20 MG Aspirin 81 81 MG Aspirin 81 81 MG No 1{table t} QD Aspirin 81 81 MG Lisinopril 40 MG Lisinopril 40 MG No 1{table t} QD Lisinopril 40 MG Lantus SoloStar 100 UNIT/ML Lantus SoloStar 100 UNIT/ML No QD Lantus SoloStar 100 UNIT/ML metFORMIN HCl ER 750 MG metFORMIN HCl ER 750 MG No 1{table t_with_ evening _meal} QD metFORMIN HCl ER 750 MG Simvastatin 20 MG Simvastatin 20 MG No 1{table t_in e_eveni ng} QD Simvastati n 20 MG Aspirin 81 81 MG Aspirin 81 81 MG No 1{table t} QD Aspirin 81 81 MG Lisinopril 40 MG Lisinopril 40 MG No 1{table t} QD Lisinopril 40 MG Lantus SoloStar 100 UNIT/ML Lantus SoloStar 100 UNIT/ML No QD Lantus SoloStar 100 UNIT/ML Simvastatin 20 MG Simvastatin 20 MG No 1{table t_in e_eveni ng} QD Simvastati n 20 MG metFORMIN HCl ER 750 MG metFORMIN HCl ER 750 MG No 1{table t_with_ evening _meal} QD metFORMIN HCl ER 750 MG Lisinopril 40 MG Lisinopril 40 MG No 1{table t} QD Lisinopril 40 MG Lantus SoloStar 100 UNIT/ML Lantus SoloStar 100 UNIT/ML No QD Lantus SoloStar 100 UNIT/ML Aspirin 81 81 MG Aspirin 81 81 MG No 1{table t} QD Aspirin 81 81 MG Immunizations Ordered Immunization Name Filled Immunization Name Date Status Comments Source FluAD FluAD 2020-05-31 15:02:00 Completed [facility] FluAD FluAD 2020-05-31 15:02:00 Completed [facility] FluAD FluAD 2020-05-31 15:02:00 Completed [facility] FluAD FluAD 2020-05-31 15:02:00 Completed [facility] FluAD FluAD 2020-05-31 15:02:00 Completed [facility] FluAD FluAD 2020-05-31 15:02:00 Completed [facility] FluAD FluAD 2020-05-31 15:02:00 Completed [facility] FluAD FluAD 2020-05-31 15:02:00 Completed [facility] FluAD FluAD 2020-05-31 15:02:00 Completed [facility] FluAD FluAD 2020-05-31 15:02:00 Completed [facility] FluAD FluAD 2020-05-31 15:02:00 Completed [facility] FluAD FluAD 2020-05-31 15:02:00 Completed [facility] FluAD FluAD 2020-05-31 15:02:00 Completed [facility] FluAD FluAD 2020-05-31 15:02:00 Completed [facility] FluAD FluAD 2020-05-31 15:02:00 Completed [facility] Kenalog (Triamcinolone) Kenalog (Triamcinolone) 2019-06-07 08:39:00 Completed [facility] Kenalog (Triamcinolone) Kenalog (Triamcinolone) 2019-06-07 08:39:00 Completed [facility] FluAD FluAD Unknown Completed [facility] FluAD FluAD Unknown Completed [facility] FluAD FluAD Unknown Completed [facility] FluAD FluAD Unknown Completed [facility] FluAD FluAD Unknown Completed [facility] FluAD FluAD Unknown Completed [facility] FluAD FluAD Unknown Completed [facility] FluAD FluAD Unknown Completed [facility] FluAD FluAD Unknown Completed [facility] FluAD FluAD Unknown Completed [facility] FluAD FluAD Unknown Completed [facility] FluAD FluAD Unknown Completed [facility] FluAD FluAD Unknown Completed [facility] FluAD FluAD Unknown Completed [facility] FluAD FluAD Unknown Completed [facility] FluAD FluAD Unknown Completed [facility] FluAD FluAD Unknown Completed [facility] Vital Signs Vital Name Observation Time Observation Value Comments S reddyce height 2023-09-23 14:10:00 67.5 [in_i] Comm on [facility] weight 2023-09-23 14:10:00 183.6 [lb_av] Co mmon [facility] temperature 2023-09-23 14:10:00 97.8 [degF] Com mon [facility] bmi 2023-09-23 14:10:00 28.33 kg/m2 Comm on [facility] oximetry 2023-09-23 14:10:00 99 % Commo n [facility] blood pressure systolic 2023-09-23 14:10:00 144 mm[Hg] Common [facility] blood pressure diastolic 2023-09-23 14:10:00 87 mm[Hg] Common [facility] height 2023-09-23 14:20:00 67.5 [in_i] Comm on [facility] weight 2023-09-23 14:20:00 183.6 [facility] 14:20:00 97.8 [degF] Com [facility] bmi 2023-09-23 14:20:00 28.33 kg/m2 Comm on [facility] oximetry 2023-09-23 14:20:00 99 % Commo n [facility] blood pressure systolic 2023-09-23 14:20:00 135 mm[Hg] [facility] blood pressure diastolic 2023-09-23 14:20:00 71 mm[Hg] [facility] height 2023-05-13 14:40:00 67.5 [in_i] Comm on [facility] weight 2023-05-13 14:40:00 186.0 [lb_av] Co mmon [facility] temperature 2023-05-13 14:40:00 97.7 [degF] Com [facility] bmi 2023-05-13 14:40:00 28.7 kg/m2 Commo n [facility] oximetry 2023-05-13 14:40:00 98 % Commo n [facility] respiratory rate 2023-05-13 14:40:00 18 /min Common [facility] blood pressure systolic 2023-05-13 14:40:00 124 mm[Hg] [facility] blood pressure diastolic 2023-05-13 14:40:00 70 mm[Hg] [facility] height 2022-10-09 11:20:00 67.5 [in_i] Comm on [facility] weight 2022-10-09 11:20:00 186.1 [lb_av] Co mmon [facility] temperature 2022-10-09 11:20:00 97.3 [degF] Com [facility] bmi 2022-10-09 11:20:00 28.71 kg/m2 Comm on [facility] oximetry 2022-10-09 11:20:00 98 % Commo n [facility] respiratory rate 2022-10-09 11:20:00 18 /min Common [facility] blood pressure systolic 2022-10-09 11:20:00 142 mm[Hg] [facility] blood pressure diastolic 2022-10-09 11:20:00 77 mm[Hg] [facility] height 2022-10-09 11:20:00 67.5 [in_i] Comm on [facility] weight 2022-10-09 11:20:00 186.1 [lb_av] Co mmon [facility] temperature 2022-10-09 11:20:00 97.3 [degF] Com [facility] bmi 2022-10-09 11:20:00 28.71 kg/m2 Comm on [facility] oximetry 2022-10-09 11:20:00 98 % Commo n [facility] respiratory rate 2022-10-09 11:20:00 18 /min Common [facility] blood pressure systolic 2022-10-09 11:20:00 142 mm[Hg] [facility] blood pressure diastolic 2022-10-09 11:20:00 77 mm[Hg] Common [facility] height 2022-07-28 13:00:00 67.5 [in_i] Comm on [facility] weight 2022-07-28 13:00:00 183.3 [lb_av] Co mmon [facility] temperature 2022-07-28 13:00:00 97.8 [degF] Com [facility] bmi 2022-07-28 13:00:00 28.28 kg/m2 Comm on [facility] oximetry 2022-07-28 13:00:00 96 % Commo n [facility] respiratory rate 2022-07-28 13:00:00 17 /min Common [facility] blood pressure systolic 2022-07-28 13:00:00 138 mm[Hg] [facility] blood pressure diastolic 2022-07-28 13:00:00 76 mm[Hg] [facility] height 2022-04-25 09:40:00 67.5 [in_i] Comm on [facility] weight 2022-04-25 09:40:00 179 [lb_av] Comm on [facility] temperature 2022-04-25 09:40:00 97.9 [degF] Com mon [facility] bmi 2022-04-25 09:40:00 27.62 kg/m2 Comm on [facility] oximetry 2022-04-25 09:40:00 97 % Commo n [facility] respiratory rate 2022-04-25 09:40:00 18 /min [facility] blood pressure systolic 2022-04-25 09:40:00 137 mm[Hg] [facility] blood pressure diastolic 2022-04-25 09:40:00 67 mm[Hg] [facility] Systolic blood pressure 2022-03-18 21:23:00 168 mm[Hg] [facility] Diastolic blood pressure 2022-03-18 21:23:00 90 mm[Hg] [facility] Heart rate 2022-03-18 21:23:00 63 /min [facility] Body temperature 2022-03-18 21:23:00 36.72 Corry [facility] Respiratory rate 2022-03-18 21:23:00 16 /min [facility] Oxygen saturation in Arterial blood by Pulse oximetry 2022-03-18 21:23:00 97 /min [facility] Body weight 2022-03-18 09:04:[address] [facility] BMI 2022-03-18 09:04:00 26.81 kg/m2 [facility] Body height 2022-03-17 22:24:[address] [facility] height 2022-01-31 08:40:00 68 [in_i] Commo n [facility] weight 2022-01-31 08:40:00 182.4 [lb_av] Co on [facility] temperature 2022-01-31 08:40:00 98.2 [degF] Com [facility] bmi 2022-01-31 08:40:00 27.73 kg/m2 Comm on [facility] oximetry 2022-01-31 08:40:00 98 % Commo n [facility] respiratory rate 2022-01-31 08:40:00 17 /min Common [facility] blood pressure systolic 2022-01-31 08:40:00 133 mm[Hg] Common [facility] blood pressure diastolic 2022-01-31 08:40:00 72 mm[Hg] Common [facility] height 2021-11-04 11:50:00 68 [in_i] Commo n [facility] weight 2021-11-04 11:50:00 188 [lb_av] Comm on [facility] temperature 2021-11-04 11:50:00 98 [degF] Comm on [facility] bmi 2021-11-04 11:50:00 28.58 kg/m2 Comm on [facility] blood pressure systolic 2021-11-04 11:50:00 132 mm[Hg[facility] blood pressure diastolic 2021-11-04 11:50:00 77 mm[Hg] Common [facility] height 2021-07-30 15:50:00 68 [in_i] Commo n [facility] weight 2021-07-30 15:50:00 189.4 [lb_av] Co on [facility] temperature 2021-07-30 15:50:00 97.2 [degF] Com [facility] bmi 2021-07-30 15:50:00 28.8 kg/m2 Commo n [facility] oximetry 2021-07-30 15:50:00 99 % Comm n [facility] respiratory rate 2021-07-30 15:50:00 17 /min [facility] blood pressure systolic 2021-07-30 15:50:00 142 mm[Hg] [facility] blood pressure diastolic 2021-07-30 15:50:00 80 mm[Hg] [facility] Procedures Procedure Date / Time Performed Performing Clinician Source POCT GLUCOSE (AUTOMATED) 2022-03-18 21:49:00 Bobo Piedar [facility] POCT GLUCOSE (AUTOMATED) 2022-03-18 16:35:00 Amado Herring [facility] POCT GLUCOSE (AUTOMATED) 2022-03-18 12:32:00 Amado Herring [facility] PHOSPHORUS 2022-03-18 11:21:00 [facility] MAGNESIUM 2022-03-18 11:21:00 Amado Herring [facility] BASIC METABOLIC PANEL (NA, K, CL, CO2, GLUCOSE, BUN, CREATININE, CA) 2022-03-18 11:21:00 Amado Herring [facility] CBC WITH DIFF 2022-03-18 08:40:[address] [facility] POCT GLUCOSE (AUTOMATED) 2022-03-18 04:34:00 Amado Herring [facility] POCT GLUCOSE (AUTOMATED) 2022-03-18 01:39:00 Amado Herring [facility] POCT GLUCOSE (AUTOMATED) 2022-03-17 22:21:00 Amado Herring [facility] POCT GLUCOSE (AUTOMATED) 2022-03-17 21:35:00 Amado Herring [facility] URINALYSIS 2022-03-17 20:15:00 Vern Johns [facility] URINE DRUG (IMMUNOASSAY) - COMPREHENSIVE DRUG SCREEN W/O REFLEX 2022-03-17 20:15:00 [facility] COVID-19 (ID NOW RAPID TESTING) 2022-03-17 20:02:00 Singer [facility] LAB ONLY COVID INTERPRETATION 2022-03-17 20:02:00 [facility] POCT GLUCOSE(AGE >30DAYS) 2022-03-17 19:49:00 [facility] POCT GLUCOSE (AUTOMATED) 2022-03-17 19:46:00 Amado Herring [facility] CT HEAD WO CONTRAST 2022-03-17 18:29:00 Mckayla Johns [facility] THYROID STIMULATING HORMONE 2022-03-17 18:15[facility] COMP. METABOLIC PANEL ([id number]) 2022-03-17 18:15:00 [facility] SALICYLATE 2022-03-17 18:15:00 Singer [facility] ETHANOL 2022-03-17 18:15:00 Singer [facility] CBC WITH DIFF 2022-03-17 18:15:00 [facility] GLYCOSYLATED HEMOGLOBIN (A1C) 2022-03-17 18:15[facility]00 [facility]+[id number]+[id number]+ 2022-03-17 18:15:00 , Karla [facility] LACTIC ACID WHOLE BLOOD 2022-03-17 18:15:00 Karla Johns [facility] XR CHEST 1 VW 2022-03-17 18:13:15 [facility] Encounters Start Date/Time End Date/Time Encounter Type Admission Type Attending Clinicians Care Facility Care Department Encounter ID Source 2022-07-28 13:37:01 Outpatient Cruz, [facility] [id number] [facility] 2022-07-24 13:01:01 Outpatient Anthony [facility] [id number] [facility] 2022-04-29 14:47:02 Outpatient Cruz, Isaias [facility] [id number] [facility] 2022-04-11 12:25:01 Outpatient Cruz, Isaias [facility]C ST[facility] [id number] [facility] 2021-10-29 17:14:00 Outpatient Cruz, Isaias STLC STL[facility] [id number] [facility] 2021-09-18 14:14:25 Outpatient Cruz, Isaias [facility]C ST[facility] [id number] [facility] 2021-09-18 13:39:15 Outpatient Cruz, Isaias STLC STLMLC [id number] [facility] 2021-09-18 13:35:35 Outpatient Cruz, Isaias STLC STL[facility]C [id number] [facility] 2021-09-18 13:02:14 Outpatient Cruz, Isaias STLC STLMLC [id number] [facility] 2021-09-18 13:02:08 Outpatient Cruz, Isaias STLC STLMLC [id number] [facility] 2021-09-18 12:57:54 Outpatient Cruz, Isaias STLC STLMLC [id number] [facility] 2021-09-18 12:49:19 Outpatient Cruz, Isaias STLC STLMLC [id number] [facility] 2021-09-18 12:24:40 Outpatient Cruz, Isaias STL[facility]C STL[facility]C [id number] [facility] 2021-09-18 12:24:21 Outpatient Cruz, Isaias [facility] ST[facility] [id number] [facility] 2021-09-18 12:22:02 Outpatient Cruz, Isaias STLMLC STL[facility]C [id number] [facility] 2021-09-18 11:53:29 Outpatient Isaias Cruz STLMLC STLMLC [id number] [facility] 2020-01-21 03:16:00 Inpatient HCABM KEIRA [id number] 97 [facility] 2023-11-26 00:00:00 2023-11-26 00:00:00 (TEL) STLMLC STLMLC [id number] [facility] 2023-10-30 00:00:00 2023-10-30 00:00:00 (TEL) STLMLC STLMLC [id number] [facility] 2023-10-07 00:00:00 2023-10-07 00:00:00 (TEL) STLMLC STLMLC [id number] [facility] 2023-09-23 00:00:00 2023-09-23 00:00:00 OFFICE VISIT ESTAB PT LEVEL 4 STLMLC STLMLC [id number] [facility] 2023-09-23 00:00:00 2023-09-23 00:00:00 SUB ANNUAL [facility] WELLNESS VISIT STLMLC STLMLC [id number] [facility] 2023-09-09 00:00:00 2023-09-09 00:00:00 (TEL) STLMLC STLMLC [id number] [facility] 2023-06-25 00:00:00 2023-06-25 00:00:00 (TEL) STLMLC STLMLC [id number] [facility] 2023-05-29 00:00:00 2023-05-29 00:00:00 (TEL) STLMLC STLMLC [id number] [facility] 2023-05-13 00:00:00 2023-05-13 00:00:00 OFFICE VISIT ESTAB PT LEVEL 4 [facility]LMLC STLMLC [id number] [facility] 2023-05-13 00:00:00 2023-05-13 00:00:00 (TEL) STLMLC STLMLC [id number] [facility] 2023-02-12 00:00:00 2023-02-12 00:00:00 (TEL) STLMLC STLMLC [id number] [facility] 2022-11-12 00:00:00 2022-11-12 00:00:00 (TEL) STLMLC STLMLC [id number] [facility] 2022-11-04 00:00:00 2022-11-04 00:00:00 (TEL) STLMLC STLMLC [id number] [facility] 2022-10-22 00:00:00 2022-10-22 00:00:00 (TEL) STLMLC STLMLC [id number] [facility] 2022-10-09 00:00:00 2022-10-09 00:00:00 OFFICE VISIT ESTAB PT LEVEL 4 STLMLC STLMLC [id number] [facility] 2022-10-09 00:00:00 2022-10-09 00:00:00 SUB ANNUAL [facility] WELLNESS VISIT STLMLC STLMLC [id number] [facility] 2022-10-09 00:00:00 2022-10-09 00:00:00 (TEL) STLMLC STLMLC [id number] [facility] 2022-07-28 00:00:00 2022-07-28 00:00:00 OFFICE VISIT ESTAB PT LEVEL 4 [facility]C STLMLC [id number] [facility] 2022-04-25 00:00:00 2022-04-25 00:00:00 OFFICE VISIT ESTAB PT LEVEL 4 STL[facility]C STLMLC [id number] [facility] 2022-04-17 00:00:00 2022-04-17 00:00:00 (TEL) STLMLC STLMLC [id number] [facility] 2022-04-10 00:00:00 2022-04-10 00:00:00 (TEL) STLMLC STLMLC [id number] [facility] 2022-03-31 00:00:00 2022-03-31 00:00:00 (TEL) STLC STLC [id number] [facility] 2022-03-19 00:00:00 2022-03-19 00:00:00 Transition of Care Nisreen Patel [id number] [facility] 2022-03-17 12:54:00 2022-03-18 19:20:00 Outpatient X JEROME PIEDRA [facility] [id number] [facility] 2022-03-17 12:54:00 2022-03-18 19:20:00 Emergency JohnsVern, Jerome Angel [facility] [id number] [facility] 2022-02-05 00:00:00 2022-02-05 00:00:00 (TEL) [facility] [id number] [facility] 2022-01-31 00:00:00 2022-01-31 00:00:00 (WELLNESS) Wellness Visit [facility] [id number] [facility] 2022-01-31 00:00:00 2022-01-31 00:00:00 (TEL) STLC STLC [id number] [facility] 2022-01-30 00:00:00 2022-01-30 00:00:00 (TEL) STLC STLC [id number] [facility] 2021-11-04 00:00:00 2021-11-04 00:00:00 (TELEAUD) [facility] [id number] [facility] 2021-10-29 00:00:00 2021-10-29 00:00:00 (TEL) STLMLC STLMLC [id number] [facility] 2021-09-18 04:36:00 2021-09-18 04:36:00 Outpatient BRI MOCK YANNICK LANIER [id number] 2021-07-30 00:00:00 2021-07-30 00:00:00 OFFICE VISIT ESTAB PT LEVEL 4 STLMLC STLMLC [id number] [facility] 2021-07-17 00:00:00 2021-07-17 00:00:00 (TEL) STLMLC STLMLC [id number] [facility] 2021-05-27 00:00:00 2021-05-27 00:00:00 (TEL) STLMLC STLMLC [id number] [facility] 2021-04-29 00:00:00 2021-04-29 00:00:00 (TEL) STLMLC STLMLC [id number] [facility] 2021-04-10 00:00:00 2021-04-10 00:00:00 Outpatient STLMLC STLMLC [id number] [facility] 2021-03-14 00:00:00 2021-03-14 00:00:00 Outpatient STLMLC STLMLC [id number] [facility] 2021-03-07 00:00:00 2021-03-07 00:00:00 Outpatient STLMLC STLMLC [id number] [facility] 2021-03-01 00:00:00 2021-03-01 00:00:00 Outpatient STLMLC STLMLC [id number] [facility] 2021-01-03 00:00:00 2021-01-03 00:00:00 Outpatient STLMLC STLMLC [id number] [facility] 2020-12-13 00:00:00 2020-12-13 00:00:00 Outpatient STLMLC STLMLC [id number] [facility] 2020-11-23 00:00:00 2020-11-23 00:00:00 Outpatient STLMLC STLMLC [id number] [facility] 2020-11-21 00:00:00 2020-11-21 00:00:00 Outpatient STLMLC STLMLC [id number] [facility] 2020-09-17 00:00:00 2020-09-17 00:00:00 Outpatient STLMLC STLMLC [id number] [facility] 2020-09-12 00:00:00 2020-09-12 00:00:00 Outpatient STLMLC STLMLC [id number] [facility] 2020-06-13 00:00:00 2020-06-13 00:00:00 Outpatient STLMLC STLMLC [id number] [facility] 2020-05-31 00:00:00 2020-05-31 00:00:00 Outpatient STLMLC STLMLC [id number] [facility] 2020-03-23 12:53:00 2020-03-23 12:53:00 Outpatient KNOW, DOES_NOT HCABM ADMI [id number] 00 [facility] 2020-01-21 06:57:00 2020-01-21 06:57:00 Outpatient Jignesh Vargas HCACL LABO [id number] 91 [facility] Results Test Description Test Time Test Comments Results Result Co mments Source POCT GLUCOSE (AUTOMATED)2022-03-18 21:53:29* Test Item Value Reference Range Interpretation Comme nts POCT GLU (test code = 3348559586) 67 mg/dL 70-110 L Lab Interpretation (test cod e = 13075-5) [facility] 16:39:59* Test Item Value Reference Range Interpretation Comme nts POCT GLU (test code = 1138049174) 161 mg/dL 70-110 H Lab Interpretation (test cod e = 54041-2) Abnormal [facility] (NA, K, CL, CO2, GLUCOSE, BUN, CREATININE, CA)2022-03-18 15:12:29* Test Item Value Reference Range Interpretation Comme nts NA (test code = 1269161777) 138 mmol/L 135-145 K (test code = 3567961918) 4.0 mmol/L 3.5-5 CL (test code = 2417694027) 107 mmol/L 98-108 CO2 TOTAL (test code = 9438530343) 22 mmol/L 23-31 L AGAP (test code = 9460314724) 2-16 BUN (test code = 5398177518) 17 mg/dL 7-23 GLUCOSE (test code = 1698833725) 271 mg/dL 70-110 H CREATININE (test code = 9003308045) 1.67 mg/dL 0.6-1.25 H CALCIUM (test code = 8506220530) 9.3 mg/dL 8.6-10.6 eGFR (test code = 6248386362) mL/min/1.73m2 CAROLINE (test code = CAROLINE) Association of Glomerular Filtration Rate (GFR) and Staging of Kidney Disease* + --+ --+ ------+| GFR (mL/min/1.73 m2) ?| With Kidney Damage ?| ?Without Kidney Damage+ --------+ --------+ +| ?>90 ?| ?Stage one ?| ? Normal ?+ ---+ ---+ -------+| ?60-89 ?| ?Stage two ?| ? Decreased GFR ? + --+ --+ ------+| ?30-59 ?| ?Stage three ?| ? Stage three ? + --+ --+ ------+| ?15-29 ?| ?Stage four ? | ? Stage four ?+ ---+ ---+ -------+| ?<15 (or dialysis) ? ?| ?Stage five ? | ? Stage five ?+ ---+ ---+ -------+ *Each stage assumes the associated GFR level has been in effect for at least three months. ?Stages 1 to 5, with or without kidney disease, indicate chronic kidney disease. Notes: Determination of stages one and two (with eGFR >59mL/min/1.73 m2) requires estimation of kidney damage for at least three months as defined by structural or functional abnormalities of the kidney, manifested by either:Pathological abnormalities or Markers of kidney damage (including abnormalities in the composition of the blood or urine or abnormalities in imaging tests). Lab Interpretation (test code = 97882-1) Abnormal [facility] GLUCOSE (AUTOMATED)2022-03-18 12:38:06* Test Item Value Reference Range Interpretation Comme nts POCT GLU (test code = 8994720415) 254 mg/dL 70-110 H Lab Interpretation (test cod e = 24517-0) Abnormal [facility] CenterMagnesium [id number] 11:56:02* Test Item Value Reference Range Interpretation Comme nts MAGNESIUM (test code = 8880003470) 1.8 mg/dL 1.7-2.4 Lab Interpretation (test cod e = 56554-9) Normal [facility] CenterPhosphorus [id number] 11:55:41* Test Item Value Reference Range Interpretation Comme nts PHOSPHORUS (test code = 3669888916) 3.0 mg/dL 2.5-5 Lab Interpretation (test cod e = 17664-2) Normal [facility] GLUCOSE (AUTOMATED)2022-03-18 05:03:18* Test Item Value Reference Range Interpretation Comme nts POCT GLU (test code = 2394169755) 163 mg/dL 70-110 H Lab Interpretation (test cod e = 11593-9) Abnormal [facility] GLUCOSE (AUTOMATED)2022-03-18 01:41:35* Test Item Value Reference Range Interpretation Comme nts POCT GLU (test code = 9647956106) 158 mg/dL 70-110 H Lab Interpretation (test cod e = 11386-2) Abnormal [facility] GLUCOSE (AUTOMATED)2022-03-17 22:26:12* Test Item Value Reference Range Interpretation Comme nts POCT GLU (test code = 6950367147) 276 mg/dL 70-110 H Lab Interpretation (test cod e = 32518-0) Abnormal [facility] GLUCOSE (AUTOMATED)2022-03-17 21:37:37* Test Item Value Reference Range Interpretation Comme nts POCT GLU (test code = 1218888951) 403 mg/dL 70-110 H Lab Interpretation (test cod e = 06809-6) Abnormal [facility] GLUCOSE(AGE >30DAYS)2022-03-17 21:35:00* Test Item Value Reference Range Interpretation Comme nts POCT Glu (age>30days) (test code = 3342) 403 mg/dL 70-110 A Lab Interpretation (test cod e = 19001-8) Abnormal [facility] CenterTHYROID STIMULATING [id number] 21:32:07 * Test Item Value Reference Range Interpretation Comme nts TSH (test code = 3000679347) See_Comment Biotin has been reported to cause a negative bias, interpret results relative to patient's use of biotin. [Automated message] The system which generated this result transmitted reference range: 0.45 - 4.70 mIU/L. The reference range was not used to interpret this result as normal/abnormal. Lab Interpretation (test code = 41390-6) Normal [facility]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
[2023-12-26 19:03] LABS: Absolute Basophils 0.1 K/uL (0-0.5); Absolute Eosinophils 0.1 K/uL (0-0.5); Absolute Lymphocytes (CBC) 1.3 K/uL (0.7-4.9); Absolute Neutrophil 13.9 K/uL (1.8-8.0); Basophils % 0.6 % (0-1.3); Eosinophils % 0.4 % (0-4.4); Hematocrit 51.1 % (39.6-49.0); Hemoglobin 16.8 g/dL (13.6-17.9); Lymphocytes % 8.1 % (15.3-44.8); MCH 27.3 pg (27.0-35.0); MCV 82.8 fL (80-100); MPV 8.6 fL (7.6-11.3); Monocytes % 6.1 % (3.3-12.3); Neutrophils % 84.8 % (41.7-73.7); Platelets 255 thou/uL (152-406); RBC Red Blood Cell Count 6.17 M/uL (4.33-5.43); Red Cell Distribution Width 18.1 % (12.1-15.2)
[2023-12-26 19:06] LABS: PT Prothrombin Time 14.3 SECONDS (9.5-12.5); PTT, Activated Partial Thromb 32.3 SECONDS (24.3-36.9); Protime INR 1.31
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
--- NOTE | 2023-12-26 19:10 | RAD REPORT ---
EXAM DESCRIPTION: RAD - Hip Left 2 View - 12/26/2023 6:54 pm CLINICAL HISTORY: PAIN COMPARISON: Pelvis dated 12/26/2023 FINDINGS/IMPRESSION: Left femoral neck not well evaluated which could be secondary to either fractur e and overriding of the fragments or projectional and not fractured. Consider CT to exclude a left fe moral neck fracture if clinically indicated. The left femoral head is located. Mild left acetabular d egenerative changes.
--- NOTE | 2023-12-26 19:10 | RAD REPORT ---
EXAM DESCRIPTION: RAD - Chest Single View - 12/26/2023 6:54 pm CLINICAL HISTORY: DYSPNEA COMPARISON: Chest Pa And Lat (2 Views) dated 05/13/2021; Chest Pa And Lat (2 Views) dated 01/30/2018 FINDINGS: Lines: None. Lungs: No evidence of edema or pneumonia. Mild interstitial prominence but without definite acute abn ormality. Pleural: No significant pleural effusions or pneumothorax. Cardiac: The heart size is within normal limits. Mediastinum: Within normal limits. Bones: No acute fractures. Other: None IMPRESSION: No acute cardiopulmonary disease.
[2023-12-26 19:19] LABS: SARS-CoV-2 Antigen CONTROL BLUE LINE VIS/BG OK; SARS-CoV-2 Antigen Rapid Res Negative (Negative)
[2023-12-26 19:19] LABS: Albumin 3.5 g/dL (3.4-5.0); Albumin/Globulin Ratio 0.8 (1.1-1.8); Anion Gap 10.3 mEq/L (5.0-15.0); Bilirubin Total 1.7 mg/dL (0.2-1.0); Globulin 4.3 g/dL (2.3-3.5); Potassium 5.3 mEq/L (3.5-5.1); Protein, Total 7.8 g/dL (6.4-8.2)
[2023-12-26] MEDS ORDERED: ALBUTEROL 2.5 MG/3 ML NEB SOL ONE (19:59)
[2023-12-26] MEDS ORDERED: MORPHINE 4 MG/ML SYR ONE (19:59)
[2023-12-26] MEDS ORDERED: IPRATROPIUM BROM 0.5MG/2.5ML ONE (19:59)
--- NOTE | 2023-12-26 20:35 | RAD REPORT ---
EXAM DESCRIPTION: CT - Hip Left Wo Con - 12/26/2023 7:58 pm CLINICAL HISTORY: Pain COMPARISON: No comparisons FINDINGS: Minimally displaced left subcapital femoral neck fracture. . No dislocation. No other frac tures are identified. IMPRESSION: Minimally displaced left subcapital femoral neck fracture. No dislocation.
--- NOTE | 2023-12-26 20:48 | EDPHYS ---
Physician Documentation [facility] Name: Eric Espinal Age: 73 yrs Sex: Male : 1950 Arrival Date: 12/26/2023 Time: 18:03 Bed 2 Private MD: ED Physician Leonard Carter HPI: 12/25 18:11 This 73 yrs old Black Male presents to ER via Unassigned with complaints of shortness rn of breath. 18:11 The patient has shortness of breath at rest. Onset: The symptoms/episode began/occurred rn 3 day(s) ago. Duration: The symptoms are continuous. The patient's shortness of breath is aggravated by exertion, is alleviated by nebulizer treatment. Associated signs and symptoms: Pertinent positives: productive cough, Pertinent negatives: chest pain, fever, hemoptysis. Severity of symptoms: At their worst the symptoms were moderate in the emergency department the symptoms are unchanged. The patient has experienced similar episodes in the past. Patient reports shortness of breath over the last 3 days with productive cough, no fever. Reports generalized weakness. Family called 911 because patient weak all over and not able to walk. Patient also had a fall somewhat recently, landed on left hip, painful range of motion of the left hip and states can take a few steps but unable to walk normally. No head injury. No neck pain. No back pain. . Historical: - PMHx: 18:26 asthma-denies issues in a while; Diabetes - NIDDM; Chronic obstructive lung disease; me1 - Immunization history:: Adult Immunizations unknown. - Infectious Disease History:: Denies. - Family history:: not pertinent. - Social history:: Smoking status: Patient reports the use of cigarette tobacco products, smokes one pack cigarettes per day. - Hospitalizations: : No recent hospitalization is reported. ROS: 18:11 Constitutional: Negative for fever, chills, and weight loss, Neck: Negative for injury, rn pain, and swelling, Cardiovascular: Negative for chest pain, palpitations, and edema, Respiratory: Positive for cough and shortness of breath Abdomen/GI: Negative for abdominal pain, nausea, vomiting, diarrhea, and constipation, Back: Negative for injury and pain, : Negative for injury, bleeding, discharge, and swelling, MS/Extremity: Positive for left hip pain and injury Skin: Negative for injury, rash, and discoloration, Neuro: Positive for generalized weakness, negative for headache or seizure and Exam: 18:11 Constitutional: This is a well developed, well nourished patient who is awake, alert, rn and in no acute distress. Ongoing nebulizer treatment from EMS Head/Face: Normocephalic, atraumatic. ENT: Dry mucous membranes, no stridor Neck: No midline cervical tenderness Chest/axilla: No rib tenderness or ecchymosis or crepitus Cardiovascular: Regular rate and rhythm. No pulse deficits. Respiratory: Moderate tachypnea, wheezing throughout bilaterally. No retractions. Abdomen/GI: Soft, nontender Back: No spinal tenderness. MS/ Extremity: Pulses equal, no cyanosis. Neurovascular intact. Mild painful range of motion left hip with tenderness at left anterior hip. Neuro: Awake and alert, GCS 15, oriented to person, place, time, and situation. 20:38 ECG was reviewed by the Attending Physician. ms3 Vital Signs: 18:23 BP 183 / 96; Pulse 83; Resp 28; Temp 99.1; Pulse Ox 94% on 4 lpm NC; Weight 72.57 kg; me1 Height 5 ft. 8 in. ; Pain 10/10; 19:19 BP 208 / 93; Pulse 81; Pulse Ox 96% on 3 lpm NC; tm6 19:47 BP 166 / 94; Pulse 78; Resp 25; Pulse Ox 96% on 3 lpm NC; Pain 10/10; tm6 21:39 BP 197 / 98; Pulse 81; Pulse Ox 96% on 2 lpm NC; Pain 2/10; tm6 22:10 BP 177 / 84; Pulse 79; Resp 18; Temp 99.1; Pulse Ox 96% on 2 lpm NC; Pain 0/10; bm8 18:23 Body Mass Index 24.33 (72.57 kg, 172.72 cm) me1 18:23 Pain Scale: Adult me1 19:47 Pain Scale: Adult tm6 21:39 Pain Scale: Adult tm6 22:10 Pain Scale: Adult bm8 Johnathan Coma Score: 22:10 Eye Response: spontaneous(4). Motor Response: obeys commands(6). Verbal Response: bm8 oriented(5). Total: 15. MDM: 18:09 Patient medically screened. rn 19:19 Transition of care: Care assumed from Fazal Anguiano MD. ms3 12/26 00:29 Differential diagnosis: CHF exacerbation, Chronic Obstructive Pulmonary Disease ms3 Myocardial Infarction pneumonia, pulmonary edema, Pulmonary Embolism. Data reviewed: vital signs, nurses notes, lab test result(s), EKG, radiologic studies, and as a result, I will admit patient. Consideration of Admission/Observation Patient was admitted/placed on observation. Management of patient was discussed with the following: Hospitalist: Dr Barbosa. Top Frame Fitter: Dr Best. I considered the following discharge prescriptions or medication management in the emergency department Medications were administered in the Emergency Department. See MAR. Independent interpretation of the following test(s) in the Emergency Department EKG: See my EKG interpretation above CT Scan: My interpretation is CT of Left hip images reviewed by me shows fracture. Counseling: I had a detailed discussion with the patient and/or guardian regarding the historical points, exam findings, and any diagnostic results supporting the discharge/admit diagnosis, lab results, radiology results, the need for further work-up and treatment in the hospital. ED course: . 12/25 18:09 Order name: Blood Culture Adult (2) rn 12/25 18:09 Order name: CBC with Diff; Complete Time: 19:25 rn 12/25 18:09 Order name: CMP; Complete Time: 19:25 rn 12/25 18:09 Order name: Lactate w/ 2H reflex if indic.; Complete Time: 19:25 rn 12/25 18:09 Order name: Protime (+inr); Complete Time: 19:25 rn 12/25 18:09 Order name: Ptt, Activated; Complete Time: 19:25 rn 12/25 18:09 Order name: Urinalysis w/ reflexes rn 12/25 18:09 Order name: Flu; Complete Time: 20:39 rn 12/25 18:09 Order name: SARS RAPID; Complete Time: 19:25 rn 12/25 19:58 Order name: Glucose, Ancillary Testing; Complete Time: 20:39 EDMS 12/25 20:55 Order name: Urinalysis w/ reflexes EDMS 12/25 20:55 Order name: CBC with Automated Diff EDMS 12/25 20:55 Order name: CBC with Automated Diff EDMS 12/25 20:55 Order name: Comprehensive Metabolic Panel EDMS 12/25 20:55 Order name: Comprehensive Metabolic Panel EDMS 12/25 20:55 Order name: Magnesium EDMS 12/25 20:55 Order name: Magnesium EDMS 12/25 20:55 Order name: Phosphorus EDMS 12/25 20:55 Order name: Phosphorus EDMS 12/25 18:09 Order name: Chest Single View XRAY; Complete Time: 19:25 rn 12/25 18:10 Order name: XRAY Hip LEFT 2 view; Complete Time: 19:25 rn 12/25 18:10 Order name: XRAY Pelvis; Complete Time: 19:25 rn 12/25 19:34 Order name: Hip Left Wo Con; Complete Time: 20:39 EDMS 12/25 18:09 Order name: Accucheck; Complete Time: 19:47 rn 12/25 18:09 Order name: Cardiac monitoring; Complete Time: 19:44 rn 12/25 18:09 Order name: EKG - Nurse/Tech; Complete Time: 19:44 rn 12/25 18:09 Order name: IV Saline Lock - Large Bore; Complete Time: 19:01 rn 12/25 18:09 Order name: Labs collected and sent; Complete Time: 19:01 rn 12/25 18:09 Order name: O2 Per Protocol; Complete Time: 19:01 rn 12/25 18:09 Order name: O2 Sat Monitoring; Complete Time: 19:01 rn 12/25 18:09 Order name: Vital Signs; Complete Time: 18:31 rn EC/04 20:38 Rate is 80 beats/min. Rhythm is regular. QRS Mclean is Normal. WA interval is normal. QRS ms3 interval is normal. Clinical impression: Normal ECG. Interpreted by me. Reviewed by me. Administered Medications: 20:06 Drug: DuoNeb Nebulize (2.5 mg - 0.5 mg) 3 ml Nebulizer once Route: Nebulizer; tm6 22:12 Follow up: Response: No adverse reaction bm8 20:06 Drug: morphine IVP or IV 4 mg IVP once over 4 mins Route: IVP; Infused Over: 4 mins; tm6 Site: right antecubital; 22:11 Follow up: Response: No adverse reaction bm8 21:03 Drug: MethylPrednisoLONE IVP 125 mg IVP once Route: IVP; Site: right antecubital; tm6 22:11 Follow up: Response: No adverse reaction bm8 Disposition Summary: 12/26/23 20:47 Hospitalization Ordered Notes: Hospitalization Status: Inpatient Admission ms3 Provider: Tung Barbosa ms3 Location: Telemetry/MedSurg (Inpatient) ms3 Condition: Stable ms3 Problem: new ms3 Symptoms: are unchanged ms3 Bed/Room Type: Standard ms3 Room Assignment: 215(12/26/23 21:18) rv1 Diagnosis - COPD/ Chronic obstructive pulmonary disease with (acute) exacerbation ms3 - Left Subcapital femoral neck fracture with displacement ms3 Forms: - Medication Reconciliation Form ms3 - SBAR form ms3 - Leadership Thank You Letter ms3 Signatures: Dispatcher [employer] EDMS Fazal Anguiano MD MD rn Leonard Carter DO DO ms3 Andree Hanks rv1 Maria Luisa Hernandez RN RN me1 Ezar Azevedo RN RN tm6 Paramjit Best RN bm8 Corrections: (The following items were deleted from the chart) 18:10 18:10 BLOOD CULTURE*+BA.LAB.BRZ ordered. EDMS EDMS 18:10 18:10 CBC+H.LAB.BRZ ordered. EDMS EDMS 18:10 18:10 COMPREHENSIVE METABOLIC PANEL+C.LAB.BRZ ordered. EDMS EDMS 18:10 18:10 LACTATE+C.LAB.BRZ ordered. EDMS EDMS 18:10 18:10 PROTIME (+INR)+COAG.LAB.BRZ ordered. EDMS EDMS 18:10 18:10 PTT, ACTIVATED+COAG.LAB.BRZ ordered. EDMS EDMS 18:10 18:10 Urinalysis+U.LAB.BRZ ordered. EDMS EDMS 18:10 18:10 Influenza Screen (A \T\ B)+BA.LAB.BRZ ordered. EDMS EDMS 18:10 18:10 SARS-COV-2 Antigen Rapid+I.LAB.BRZ ordered. EDMS EDMS 18:11 18:11 Chest Single View+RAD.RAD.BRZ ordered. EDMS EDMS 18:11 18:11 Hip Left 2 View+RAD.RAD.BRZ ordered. EDMS EDMS 18:11 18:11 Pelvis+RAD.RAD.BRZ ordered. EDMS EDMS 19:34 19:31 CT LEFT HIP WO CONTRAST ordered. EDMS EDMS 21:18 20:47 ms3 rv1
--- NOTE | 2023-12-26 20:48 | ER ---
Nurse's Notes [facility] Name: Eric Espinal Age: 73 yrs Sex: Male : 1950 Arrival Date: 12/26/2023 Time: 18:03 Bed 2 Private MD: Diagnosis: COPD/ Chronic obstructive pulmonary disease with (acute) exacerbation;Left Subcapital femoral neck fracture with displacement Presentation: 12/25 18:23 Chief complaint: EMS states: toned out for generalized weakness, sob and L hip pain me1 from a fall yesterday. Coronavirus screen: Vaccine status: Patient reports being unvaccinated. Ebola Screen: No symptoms or risks identified at this time. Initial Sepsis Screen: Does the patient meet any 2 criteria? No. Patient's initial sepsis screen is negative. Does the patient have a suspected source of infection? No. Patient's initial sepsis screen is negative. Risk Assessment: Do you want to hurt yourself or someone else? Patient reports no desire to harm self or others. Onset of symptoms was December 26, 2023. 18:23 Method Of Arrival: EMS: [facility] wa1 18:23 Acuity: BRENDA 3 wa1 18:26 Care prior to arrival: Medication(s) given: Albuterol Neb x 1, Atrovent Neb x 1. me1 Triage Assessment: 18:26 General: Appears uncomfortable, well developed, well nourished, Behavior is calm, me1 cooperative, appropriate for age, Reports generalized weakness, unable to stand. SOB. L hip pain from a fall yesterday. Pain: Complains of pain in left hip Pain does not radiate. Pain currently is 10 out of 10 on a pain scale. Quality of pain is described as sharp, Pain began suddenly, 1 day ago. Is continuous. EENT: No signs and/or symptoms were reported regarding the EENT system. Neuro: Level of Consciousness is awake, alert, obeys commands, Oriented to person, place, time, situation, Appropriate for age. Cardiovascular: Patient's skin is warm and dry. Respiratory: Airway is patent Respiratory effort is even, labored, Respiratory pattern is regular, tachypnea. GI: No signs and/or symptoms were reported involving the gastrointestinal system. : No signs and/or symptoms were reported regarding the genitourinary system. Derm: Skin is intact, is healthy with good turgor, Skin is pink, warm \T\ dry. Musculoskeletal: Reports pain in left hip since yesterday. Injury Description: fall. Historical: - PMHx: 18:26 asthma-denies issues in a while; Diabetes - NIDDM; Chronic obstructive lung disease; me1 - Immunization history:: Adult Immunizations unknown. - Infectious Disease History:: Denies. - Family history:: not pertinent. - Social history:: Smoking status: Patient reports the use of cigarette tobacco products, smokes one pack cigarettes per day. - Hospitalizations: : No recent hospitalization is reported. Screenin:30 [facility] ED Fall Risk Assessment (Adult) History of falling in the last 3 months, wa1 including since admission Yes- single mechanical fall (1 pt) Confusion or Disorientation No (0 pts) Intoxicated or Sedated No (0 pts) Impaired Gait Yes (1 pt) Mobility Assist Device Used No (0 pt) Altered Elimination No (0 pt) Score/Fall Risk Level 0 - 2 = Low Risk Maintained a safe environment, Provided non-skid footwear, Hourly rounding (assess needs \T\ fall precautionary measures) done. Abuse screen: Denies threats or abuse. Nutritional screening: No deficits noted. Tuberculosis screening: No symptoms or risk factors identified. Assessment: 18:30 General: See triage assessment . me1 19:20 Reassessment: Patient is alert, oriented x 3, equal unlabored respirations, skin tm6 warm/dry/pink. 21:38 Reassessment: report faxed to 2nd floor. Confirmed by Felipa BROWN. tm6 21:40 Reassessment: Patient and/or family updated on plan of care and expected duration. Pain tm6 level reassessed. Patient is alert, oriented x 3, equal unlabored respirations, skin warm/dry/pink. Vital Signs: 18:23 BP 183 / 96; Pulse 83; Resp 28; Temp 99.1; Pulse Ox 94% on 4 lpm NC; Weight 72.57 kg; me1 Height 5 ft. 8 in. ; Pain 10/10; 19:19 BP 208 / 93; Pulse 81; Pulse Ox 96% on 3 lpm NC; tm6 19:47 BP 166 / 94; Pulse 78; Resp 25; Pulse Ox 96% on 3 lpm NC; Pain 10/10; tm6 21:39 BP 197 / 98; Pulse 81; Pulse Ox 96% on 2 lpm NC; Pain 2/10; tm6 22:10 BP 177 / 84; Pulse 79; Resp 18; Temp 99.1; Pulse Ox 96% on 2 lpm NC; Pain 0/10; bm8 18:23 Body Mass Index 24.33 (72.57 kg, 172.72 cm) me1 18:23 Pain Scale: Adult me1 19:47 Pain Scale: Adult tm6 21:39 Pain Scale: Adult tm6 22:10 Pain Scale: Adult bm8 Porcupine Coma Score: 22:10 Eye Response: spontaneous(4). Motor Response: obeys commands(6). Verbal Response: bm8 oriented(5). Total: 15. ED Course: 18:05 Patient arrived in ED. rn 18:05 Fazal Anguiano MD is Attending Physician. rn 18:23 Maria Luisa Hernandez, STEPHANIE is Primary Nurse. wa1 18:26 Triage completed. [facility] 18:26 Arm band placed on Patient placed in an exam room. me1 18:30 Patient has correct armband on for positive identification. Bed in low position. Call [facility] light in reach. Side rails up X2. Provided Education on: POC. Verbalized understanding. . Client placed on continuous cardiac and pulse oximetry monitoring. NIBP monitoring applied. Pulse ox on. NIBP on. 18:30 No provider procedures requiring assistance completed. me1 18:45 Initial lab(s) drawn, by wa, sent to lab. First set of blood cultures drawn by wa, [facility] COVID swab sent to lab. Flu and/or RSV swab sent to lab. 18:48 Inserted saline lock: 20 gauge in right antecubital area, using aseptic technique. me1 18:56 Chest Single View XRAY In Process Unspecified. EDMS 18:56 XRAY Hip LEFT 2 view In Process Unspecified. EDMS 18:56 XRAY Pelvis In Process Unspecified. EDMS 18:57 Second set of blood cultures drawn by wa. me1 19:01 SARS RAPID Sent. me1 19:01 Flu Sent. me1 19:01 Blood Culture Adult (2) Sent. me1 19:01 CBC with Diff Sent. me1 19:01 CMP Sent. wa1 19:01 Lactate w/ 2H reflex if indic. Sent. me1 19:01 Protime (+inr) Sent. me1 19:01 Ptt, Activated Sent. me1 19:19 Attending Physician role handed off by Fazal Anguiano MD ms3 19:19 Leonard Carter DO is Attending Physician. ms3 19:30 Cleaned of incontinence. Linen changed. One-on-one care X 30 minutes. tm6 19:44 monitor car operator on. Door closed. Noise minimized. Warm blanket given. tm6 19:44 EKG done, by ED staff, reviewed by Leonard Carter DO. tm6 20:00 Hip Left Wo Con In Process Unspecified. EDMS 20:46 Tung Barbosa MD is Hospitalizing Provider. ms3 21:40 Pillow given. PO fluids given. tm6 22:10 Patient admitted, IV remains in place. bm8 Administered Medications: 20:06 Drug: DuoNeb Nebulize (2.5 mg - 0.5 mg) 3 ml Nebulizer once Route: Nebulizer; tm6 22:12 Follow up: Response: No adverse reaction bm8 20:06 Drug: morphine IVP or IV 4 mg IVP once over 4 mins Route: IVP; Infused Over: 4 mins; tm6 Site: right antecubital; 22:11 Follow up: Response: No adverse reaction bm8 21:03 Drug: MethylPrednisoLONE IVP 125 mg IVP once Route: IVP; Site: right antecubital; tm6 22:11 Follow up: Response: No adverse reaction bm8 Medication: 18:30 VIS not applicable for this client. me1 Outcome: 20:47 Decision to Hospitalize by Provider. ms3 22:10 Admitted to Med/surg accompanied by nurse, via stretcher, room 215, bm8 22:10 Condition: stable 22:10 Instructed on the need for admit, 22:12 Patient left the ED. bm8 Signatures: Dispatcher [employer] EDMS Fazal Anguiano MD MD rn Sims, Marcus, DO DO ms3 Maria Luisa Hernandez, RN RN me1 Ezra Azevedo RN RN tm6 Paramjit Best RN RN bm8
[2023-12-26] MEDS ORDERED: ACETAMINOPHEN 325 MG TABLET PO PRN (20:51)
[2023-12-26] MEDS ORDERED: ONDANSETRON 4 MG/2 ML VIAL IV PRN (20:51)
--- NOTE | 2023-12-26 20:55 | P.HP ---
Certification for Inpatient Patient admitted to: Inpatient With expected LOS: >2 Midnights Practitioner: I am a practitioner with admitting privileges, knowledge of patient current condition, hospital course, and medical plan of care. Services: Services provided to patient in accordance with Admission requirements found in Title 42 Section 412.3 of the Code of Federal Regulations Patient History Date of Service: 12/27/23 Reason for admission: Shortness of breath , Left hip pain History of Present Illness: 73 yrs old Male with past medical history of diabetes, hypertension, COPD, came to ER with shortness of breath which has been progressively getting worse over the last 3 to 4 days. Symptoms started insidiously. Patient is a poor historian hence most of the history is obtained from the chart review and also talking to the ER physician and family member at the bedside. Denies any fever or chills. Started having shortness of breath and has been treated with nebulizers without much changes. Denies any chest pain. No fever or chills. No nausea vomiting or diarrhea. Associated with cough with mucoid expectoration denies any hemoptysis. He had a recent fall but has been moving around without much difficulty except for pain in the left hip. Denies any history of head injury. Patient was assessed in the ER and is admitted for further management of COPD exacerbation and left hip fracture. Allergies No Known Drug Allergies Allergy (Verified 12/26/23 22:30) Unknown No Known Allergies Allergy (Uncoded 08/04/17 21:40) Unknown Home medications list reviewed: Yes Home Medications: Aspirin Chewable [Aspirin Chewable*] 81 mg PO DAILY 12/26/23 Atorvastatin Calcium 40 mg PO BEDTIME 12/26/23 Insulin Glargine,Hum.rec.anlog [Lantus] 20 unit SQ BEDTIME 12/26/23 Insulin Glargine,Hum.rec.anlog [Lantus] 40 unit SQ BREAKFAST 12/26/23 Lisinopril [Zestril] 40 mg PO DAILY 12/26/23 Hydrocodone 7.5/APAP 325 [[place] 7.5/325 mg*] 1 tab PO Q6HP PRN 12/27/23 - Past Medical/Surgical History Diabetic: Yes Past Medical History: Reviewed- Non-Contributory -: Diabetes mellitus type 2 -: Hypertension -: Coronary artery disease -: Hyperlipidemia -: Chronic renal disease -: Tobacco abuse -: Alcohol use Past Surgical History: Reviewed- Non-Contributory -: Heart catheterization Psychosocial/ Personal History: Patient is . He has 2 children. He does not work. - Family History Family History: Reviewed- Non-Contributory - Family History Father -: Cancer - Social History Smoking Status: Never smoker Alcohol use: Yes CD- Drugs: No Caffeine use: No Review of Systems 10-point ROS is otherwise unremarkable Physical Examination - Vital Signs Temperature: 98.8 F Blood Pressure: 162/78 Pulse: 78 Respirations: 18 Pulse Ox (%): 94 - Physical Exam General: Alert, Oriented x3, Cooperative, Mild distress HEENT: Atraumatic, Normocephalic Neck: Supple, No Thyromegaly Respiratory: Diminished, Crackles/rales, Expiratory wheezes Cardiovascular: Regular rate/rhythm, Normal S1 S2 Capillary refill: <2 Seconds Gastrointestinal: Soft and benign, W/out hepatosplenomegaly, No ascites, No tenderness Musculoskeletal: No clubbing, No swelling Integumentary: No rashes Neurological: Normal speech, Normal strength at 5/5 x4 extr, Cranial nerves 3-12 intact, Normal reflexes 2+ Lymphatics: No axilla or inguinal lymphadenopathy - Studies Laboratory Data (last 24 hrs) 12/26/23 12/26/23 12/26/23 18:45 18:45 18:45 WBC 16.40 H Hgb 16.8 Hct 51.1 H Plt Count 255 PT 14.3 H INR 1.31 APTT 32.3 Sodium 138 Potassium 5.3 H BUN 24 H Creatinine 2.22 H Glucose 97 Total Bilirubin 1.7 H AST 18 ALT 21 Alkaline Phosphatase 90 Microbiology Data (last 24 hrs): 12/26/23 18:34 Nasopharnyx Influenza Type A Antigen Screen - Final 12/26/23 18:34 Nasopharnyx Influenza Type B Antigen Screen - Final Assessment and Plan - Problems (Diagnosis) (1) COPD (chronic obstructive pulmonary disease) Onset Date: 08/05/17 Current Visit: No Status: Suspected Plan: COPD exacerbation Monitor closely on telemetry Started on bronchodilators Oxygen supplementation Steroids added Chest x-ray findings noted Pulmonology consult if not better in the a.m. Hip fracture CT findings noted Consulted orthopedics Pain control Acute hypoxic respiratory failure Oxygen supplementation Will try to wean down oxygen requirement Hypertension Antihypertensives titrated Continue home medications and titrate as needed Hyperlipidemia Continue statin Acute kidney injury on CKD stage II Monitor renal parameters Electrolytes monitor and replace accordingly May consider nephrology consult if renal parameters are not improving Hyperkalemia Monitor closely telemetry Watch potassium levels GI/DVT prophylaxis Advanced directive full code Qualifiers: COPD type: chronic bronchitis Chronic bronchitis type: unspecified Qualified Code(s): J42 - Unspecified chronic bronchitis Discharge Plan: Home Plan to discharge in: Greater than 2 days - Advance Directives Does patient have a Living Will: No Does patient have a Durable POA for Healthcare: No - Code Status/Comfort Care Code Status: Full Code Time Spent Managing Pts Care (In Minutes): 48
[2023-12-26] MEDS ORDERED: METHYLPREDNISOLONE 125 MG INJ ONE (20:58)
[2023-12-26] MEDS: NA CHLORIDE 0.9% 1,000 ML IV SCH (21:00)
[2023-12-26 22:50] VITALS: BMI 27.9
[2023-12-26] MEDS ORDERED: BENZONATATE 100 MG CAP PO PRN (23:22)
[2023-12-26] MEDS ORDERED: MORPHINE 2 MG/ML SYR IV PRN (23:24)
[2023-12-26] MEDS ORDERED: GLUCAGON 1 MG/VIAL IM PRN (23:24)
[2023-12-26] MEDS ORDERED: D50W 25 GM/50 ML SYRINGE IV PRN (23:24)
[2023-12-26] MEDS ORDERED: D10W 125 ML IV PRN (23:36)
[2023-12-27] MEDS: CEFAZOLIN 1 GM in NA CHLORIDE 0.9% 50 ML IVPB SCH (00:27)
[2023-12-27] MEDS: ALBUTEROL 2.5 MG/3 ML NEB SOL NEB SCH ×2 (02:39→13:00)
[2023-12-27] MEDS: IPRATROPIUM BROM 0.5MG/2.5ML NEB SCH ×2 (02:39→13:00)
[2023-12-27 04:35] LABS: Absolute Lymphocytes (CBC) 0.6 K/uL (0.7-4.9); Absolute Monocytes 0.1 K/uL (0.1-1.3); Absolute Neutrophil 12.8 K/uL (1.8-8.0); Basophils % 0.3 % (0-1.3); Eosinophils % 0.1 % (0-4.4); Hematocrit 48.3 % (39.6-49.0); Hemoglobin 15.9 g/dL (13.6-17.9); Lymphocytes % 4.1 % (15.3-44.8); MCH 27.4 pg (27.0-35.0); MCHC 32.9 g/dL (32.0-36.0); MCV 83.1 fL (80-100); MPV 8.5 fL (7.6-11.3); Monocytes % 1.1 % (3.3-12.3); Neutrophils % 94.4 % (41.7-73.7); Platelets 231 thou/uL (152-406); RBC Red Blood Cell Count 5.81 M/uL (4.33-5.43); Red Cell Distribution Width 17.8 % (12.1-15.2)
[2023-12-27 05:03] LABS: Albumin/Globulin Ratio 0.8 (1.1-1.8); Anion Gap 8.6 mEq/L (5.0-15.0); Magnesium 2.2 mg/dL (1.6-2.4); Phosphorus 3.4 mg/dL (2.5-4.9); Potassium 4.6 mEq/L (3.5-5.1)
[2023-12-27 05:14] LABS: Specific Gravity 1.016 (1.005-1.030); Sqamous Epithelial <5 /HPF (None Seen); Urine Bacteria None Seen /HPF (<20); Urine Bilirubin NEGATIVE (Negative); Urine Blood 2+ (Negative); Urine Clarity Turbid (Clear); Urine Color Yellow (Yellow); Urine Culture Reflex Order NOT NEEDED; Urine Glucose NEGATIVE (Negative); Urine Ketones NEGATIVE (Negative); Urine Microscopic Reflex YN ORDER UMIC; Urine Mucus Slight /HPF (None Seen); Urine Nitrite NEGATIVE (Negative); Urine Protein 3+ (Negative); Urine RBC <5 /HPF (None Seen); Urine Urobilinogen Normal (Normal); Urine WBC <5 /HPF (<5)
[2023-12-27] MEDS: METHYLPREDNISOLONE 40 MG INJ IV ONE (07:25)
[2023-12-27] MEDS: INSULIN GLARGINE 100 UNIT/ML SQ SCH ×2 (08:08→20:29)
[2023-12-27] MEDS: DULERA 200/5 (MOMETASONE/FORMOTEROL) INHALER IH SCH (08:09)
--- NOTE | 2023-12-27 08:35 | P.PN ---
Subjective Date of Service: 12/27/23 Chief Complaint: Shortness of breath , Left hip pain ER and is admitted for further management of COPD exacerbation and left hip fracture. - Physical Exam General: Alert, Oriented x3, Cooperative, Mild distress HEENT: Atraumatic, Normocephalic Neck: Supple, No Thyromegaly Respiratory: Diminished, Crackles/rales, Expiratory wheezes Cardiovascular: Regular rate/rhythm, Normal S1 S2 Capillary refill: <2 Seconds Gastrointestinal: Soft and benign, W/out hepatosplenomegaly, No ascites, No tenderness Musculoskeletal: No clubbing, No swelling Integumentary: No rashes Neurological: Normal speech, Normal strength at 5/5 x4 extr, Cranial nerves 3-12 intact, Normal reflexes 2+ Lymphatics: No axilla or inguinal lymphadenopathy <Lexi Aldrich - Last Filed: 12/27/23 08:29> Date of Service: 12/27/23 <Jennyfer Carcamo - Last Filed: 12/28/23 16:52> Review of Systems Per HPI <Lexi Aldrich - Last Filed: 12/27/23 08:29> Physical Examination - Vital Signs Temperature: 98.8 F Blood Pressure: 162/78 Pulse: 78 Respirations: 18 Pulse Ox (%): 94 - Studies Laboratory Data (last 24 hrs) 12/26/23 12/26/23 12/26/23 18:45 18:45 18:45 WBC 16.40 H Hgb 16.8 Hct 51.1 H Plt Count 255 PT 14.3 H INR 1.31 APTT 32.3 Sodium 138 Potassium 5.3 H BUN 24 H Creatinine 2.22 H Glucose 97 Total Bilirubin 1.7 H AST 18 ALT 21 Alkaline Phosphatase 90 Microbiology Data (last 24 hrs): 12/26/23 18:34 Nasopharnyx Influenza Type A Antigen Screen - Final 12/26/23 18:34 Nasopharnyx Influenza Type B Antigen Screen - Final <Lexi Aldrich - Last Filed: 12/27/23 08:29> Assessment And Plan - Plan Assessment and Plan Acute hypoxic respiratory failure secondary to COPD exacerbation COPD exacerbation Leukocytosis likely secondary from steroid use Monitor closely on telemetry Started on bronchodilators Oxygen supplementation Steroids added Chest x-ray findings noted Pulmonology consult if not better in the a.m. Oxygen supplementation Will try to wean down oxygen requirement Chest x-ray IMPRESSION: No acute cardiopulmonary disease Hip fracture CT findings noted Consulted orthopedics Dr. Best Pain control Pelvis x-ray FINDINGS/IMPRESSION: No pelvic fracture identified. Both hips are located . Bilateral acetabular degenerative changes. Degenerate changes are also present lower spine Hip x-ray FINDINGS/IMPRESSION: Left femoral neck not well evaluated which could be secondary to either fracture and overriding of the fragments or projectional and not fractured. Consider CT to exclude a left femoral neck fracture if clinically indicated. The left femoral head is located. Mild left acetabular degenerative changes. Hip CT IMPRESSION: Minimally displaced left subcapital femoral neck fracture. No dislocation Hypertension Antihypertensives titrated Continue home medications and titrate as needed Hyperlipidemia Continue statin Acute kidney injury on CKD stage II Monitor renal parameters Electrolytes monitor and replace accordingly May consider nephrology consult if renal parameters are not improving Hyperkalemia Monitor closely telemetry Watch potassium levels GI/DVT prophylaxis Advanced directive full code - Code Status/Comfort Care Code Status: Full Code Critical Care: No Time Spent Managing PTS Care (In Minutes): 35 <Lexi Aldrich - Last Filed: 12/27/23 08:29> Date of Service: 12/27/23 Patient was seen and examined. Events of the last 24 hours have been noted. Spoke with with JAZMYN regarding patient's clinical picture after evaluating and examining the patient independently. At this time, we are awaiting for Pulmonary to see if patient's cardiopulmonary status is stable and if risk is acceptable for emergency surgery. I performed a substantial part of the MDM during this patient's care today. I personally made or approved the documented management plan and acknowledge its risk of complications. I agree with the findings and documentation provided in the JAZMYN's notes. <Jennyfer Carcamo - Last Filed: 12/28/23 16:52>
--- NOTE | 2023-12-27 11:36 | P.CNS ---
Date of Consult: 12/27/23 Reason for Consult: Shortness of breath Chief Complaint: Shortness of breath , Left hip pain History of Present Illness: Patient is 73 years of age metabolic syndrome has had progressive dyspnea and recent history of fall according to the family members patient is very noncompliant and has had progressive dyspnea prior to her recent fall he was very active to take care of himself history obtained mostly from family members he is a heavy smoker does not use any bronchodilators at home admitted with a fracture of the left hip no prior history of coronary artery disease Allergies No Known Drug Allergies Allergy (Verified 12/26/23 22:30) Unknown No Known Allergies Allergy (Uncoded 08/04/17 21:40) Unknown Home Medications: Aspirin Chewable [Aspirin Chewable*] 81 mg PO DAILY 12/26/23 Atorvastatin Calcium 40 mg PO BEDTIME 12/26/23 Insulin Glargine,Hum.rec.anlog [Lantus] 20 unit SQ BEDTIME 12/26/23 Insulin Glargine,Hum.rec.anlog [Lantus] 40 unit SQ BREAKFAST 12/26/23 Lisinopril [Zestril] 40 mg PO DAILY 12/26/23 Hydrocodone 7.5/APAP 325 [[place] 7.5/325 mg*] 1 tab PO Q6HP PRN 12/27/23 - Past Medical/Surgical History Diabetic: Yes -: Diabetes mellitus type 2 -: Hypertension -: Coronary artery disease -: Hyperlipidemia -: Chronic renal disease -: Tobacco abuse -: Alcohol use -: Heart catheterization Psychosocial/ Personal History: Patient is . He has 2 children. He does not work. - Family History Father Medical History: Cancer - Social History Smoking Status: Current every day smoker Alcohol use: Yes CD- Drugs: No Caffeine use: No Place of Residence: Home Review of Systems General: Weakness Respiratory: Shortness of Breath Musculoskeletal: Other (Pain in the left hip) Physical Examination Temp Pulse Resp BP Pulse Ox 98.8 F 78 18 162/78 H 94 12/27/23 08:35 12/27/23 08:35 12/27/23 08:35 12/27/23 08:35 12/27/23 08:35 General: Alert, Oriented x3 Respiratory: Clear to auscultation bilaterally, Expiratory wheezes Cardiovascular: No edema, Regular rate/rhythm, Normal S1 S2 Gastrointestinal: Normal bowel sounds, Soft and benign Musculoskeletal: No clubbing, No swelling Integumentary: No rashes, No breakdown Laboratory Data (last 24 hrs) 12/26/23 12/26/23 12/26/23 18:45 18:45 18:45 WBC 16.40 H Hgb 16.8 Hct 51.1 H Plt Count 255 PT 14.3 H INR 1.31 APTT 32.3 Sodium 138 Potassium 5.3 H BUN 24 H Creatinine 2.22 H Glucose 97 Total Bilirubin 1.7 H AST 18 ALT 21 Alkaline Phosphatase 90 - Problems (1) COPD (chronic obstructive pulmonary disease) Onset Date: 08/05/17 Current Visit: No Status: Suspected Plan: Patient is 73 years of age with history of heavy tobacco abuse admitted with chronic dyspnea which has been progressive most likely his underlying COPD labs chemistries reviewed patient has underlying chronic renal failure white count is mildly elevated chest x-ray no obvious evidence of pneumonia or obvious heart failure patient's blood pressure is elevated is mildly hypoxic add steroids and bronchodilators for now Qualifiers: COPD type: chronic bronchitis Chronic bronchitis type: unspecified Qualified Code(s): J42 - Unspecified chronic bronchitis (2) Chronic renal disease Onset Date: 08/05/17 Current Visit: No Status: Acute Plan: Patient has chronic renal disease will order ultrasound of the kidneys urinalysis is negative reduce rate of IV fluids continue with diuretics renal function to be monitored Qualifiers: Chronic kidney disease stage: stage 3 (moderate)
[2023-12-27] MEDS ORDERED: GLUCAGON 1 MG/VIAL IM PRN (11:40)
[2023-12-27] MEDS ORDERED: D50W 25 GM/50 ML SYRINGE IV PRN (11:40)
[2023-12-27] MEDS ORDERED: PNEUMOCOCCAL VACCINE 0.5 ML IMVAC ONE (12:00)
[2023-12-27] MEDS: FUROSEMIDE 40 MG/4 ML VIAL IV SCH (12:40)
[2023-12-27] MEDS: METHYLPREDNISOLONE 40 MG INJ IV SCH (12:41)
[2023-12-27] MEDS: INSULIN REGULAR (HUMAN) 100 UNIT/ML SQ SCH (12:49)
--- NOTE | 2023-12-27 13:53 | CON ---
Reason For Consultation: Mr. Espinal is a 73-year-old gentleman who sustained a left femoral neck fra cture. Fracture occurred a couple of days prior to his presentation. He was admitted for COPD exace rbation and secondary concern that his hip was painful. X-rays revealed a left femoral neck fracture . Plan: Will be to proceed with a left hip hemiarthroplasty after medical clearance. JOSE MIGUEL/LANE Voice ID: [id number] Report ID: [id number]
[2023-12-27] MEDS ORDERED: INSULIN REGULAR (HUMAN) 100 UNIT/ML SQ SCH ×2 (16:30)
[2023-12-27] MEDS: ATORVASTATIN 40 MG TAB PO SCH (20:29)
[2023-12-28] MEDS: HYDROCODONE/APAP 7.5/325 MG TAB PO PRN (00:08)
[2023-12-28] MEDS: INSULIN GLARGINE 100 UNIT/ML SQ SCH (07:45)
[2023-12-28] MEDS: NA CHLORIDE 0.9% 1,000 ML IV SCH (07:58)
[2023-12-28 08:09] LABS: Absolute Lymphocytes (CBC) 0.6 K/uL (0.7-4.9); Absolute Monocytes 0.7 K/uL (0.1-1.3); Absolute Neutrophil 18.8 K/uL (1.8-8.0); Basophils % 0.2 % (0-1.3); Hemoglobin 14.7 g/dL (13.6-17.9); Lymphocytes % 3.1 % (15.3-44.8); MCHC 32.7 g/dL (32.0-36.0); MCV 82.4 fL (80-100); MPV 8.7 fL (7.6-11.3); Monocytes % 3.4 % (3.3-12.3); Neutrophils % 93.3 % (41.7-73.7); Nucleated Red Blood Cells % 0.1 % (0-0); Platelets 226 thou/uL (152-406); RBC Red Blood Cell Count 5.46 M/uL (4.33-5.43); Red Cell Distribution Width 18.1 % (12.1-15.2)
[2023-12-28 08:14] LABS: Anion Gap 8.3 mEq/L (5.0-15.0); Magnesium 2.5 mg/dL (1.6-2.4); Potassium 4.3 mEq/L (3.5-5.1)
--- NOTE | 2023-12-28 08:25 | P.PN ---
Subjective Date of Service: 12/28/23 Chief Complaint: Shortness of breath , Left hip pain Subjective: Improving (doing better) Review of Systems Unremarkable Respiratory: Shortness of Breath Physical Examination - Vital Signs Temperature: 97.5 F Blood Pressure: 180/88 Pulse: 86 Respirations: 16 Pulse Ox (%): 94 - Physical Exam General: Alert, In no apparent distress, Oriented x3 Respiratory: Clear to auscultation bilaterally, Diminished Cardiovascular: No edema, Normal pulses, Regular rate/rhythm Assessment And Plan - Current Problems (Diagnosis) (1) COPD (chronic obstructive pulmonary disease) Onset Date: 08/05/17 Current Visit: No Status: Suspected Plan: Doing better dyspnea has improved. / cleared for surgery. change to PO pred. BS elevated Qualifiers: COPD type: chronic bronchitis Chronic bronchitis type: unspecified Qualified Code(s): J42 - Unspecified chronic bronchitis (2) Chronic renal disease Onset Date: 08/05/17 Current Visit: No Status: Acute Plan: Renal function worse/ US of kidneys/ Reduce IV fluids. Add amlodipine and Clonidine patch for now Qualifiers: Chronic kidney disease stage: stage 3 (moderate)
--- NOTE | 2023-12-28 08:48 | P.PN ---
Subjective Date of Service: 12/28/23 Chief Complaint: Shortness of breath , Left hip pain Subjective: Improving (awaiting surgery today for left hip) <Radha Pinedamaddie Gracia - Last Filed: 12/28/23 08:45> Date of Service: 12/28/23 <Juan C Davis Imelda - Last Filed: 12/28/23 12:46> Review of Systems 10-point ROS is otherwise unremarkable General: As per HPI Respiratory: As per HPI Musculoskeletal: As per HPI <PinedaArline Gracia - Last Filed: 12/28/23 08:45> Physical Examination - Vital Signs Temperature: 97.5 F Blood Pressure: 180/88 Pulse: 86 Respirations: 16 Pulse Ox (%): 94 - Physical Exam General: Alert, In no apparent distress, Oriented x3 HEENT: Atraumatic, Normocephalic Neck: JVD not distended Respiratory: Normal air movement, Other (no O2 presently) Cardiovascular: Normal pulses, Regular rate/rhythm Capillary refill: <2 Seconds Gastrointestinal: Soft and benign, Other (NPO for surgery today) Musculoskeletal: No clubbing, Other (left hip tenderness with movement) Integumentary: No rashes Neurological: Normal speech Lymphatics: No axilla or inguinal lymphadenopathy External genitalia: Deferred Rectal: Deferred <PinedaRadhamaddie Gracia - Last Filed: 12/28/23 08:45> Assessment And Plan - Plan (1) COPD (chronic obstructive pulmonary disease) Onset Date: 08/05/17 Current Visit: No Status: Suspected Plan: COPD exacerbation Monitor closely on telemetry Started on bronchodilators Oxygen supplementation Steroids added Chest x-ray findings noted Pulmonology consult if not better in the a.m. Hip fracture CT findings noted Consulted orthopedics Pain control Acute hypoxic respiratory failure Oxygen supplementation Will try to wean down oxygen requirement Hypertension Antihypertensives titrated Continue home medications and titrate as needed Hyperlipidemia Continue statin Acute kidney injury on CKD stage II Monitor renal parameters Electrolytes monitor and replace accordingly May consider nephrology consult if renal parameters are not improving Hyperkalemia Monitor closely telemetry Watch potassium levels GI/DVT prophylaxis Advanced directive full code Qualifiers: COPD type: chronic bronchitis Chronic bronchitis type: unspecified Qualified Code(s): J42 - Unspecified chronic bronchitis Discharge Plan: Home Plan to discharge in: Greater than 2 days - Code Status/Comfort Care Code Status Assessed: Yes (Full) <Arline Pineda - Last Filed: 12/28/23 08:45> - Plan Pt seen and examined. I agree with the note by the HR ADMINISTRATOR. Pulm cleared pt for surgery. Will monitor renal function and control blood sugar. Stop ancef due to TRUPTI. Continue rocephin. Follow up renal ultrasound. <Juan C Davis - Last Filed: 12/28/23 12:46>
[2023-12-28 08:49] LABS: Anisocytosis 2+; Blood Morphology Comment NOTED (NOT SEEN); Hypochromasia 2+; Platelet Estimate ADEQ; White Blood Cell Scan OK (OK)
[2023-12-28] MEDS: predniSONE 20 MG TAB PO SCH (09:00)
--- NOTE | 2023-12-28 09:11 | RAD REPORT ---
EXAM DESCRIPTION: Clif Single View12/28/2023 9:05 am CLINICAL HISTORY: COPD COMPARISON: December 26, 2023 FINDINGS: Lungs are mildly to moderately hyperaerated The lungs appear clear of acute infiltrate. The heart is normal size IMPRESSION: COPD without visualization of an acute abnormality
[2023-12-28] MEDS: AMLODIPINE 5 MG TAB PO SCH (09:17)
[2023-12-28] MEDS: HYDRALAZINE HCL 20 MG/ML VIAL IV ONE (09:17)
[2023-12-28] MEDS: CLONIDINE 0.1 MG/PATCH TD SCH (09:18)
--- NOTE | 2023-12-28 12:19 | RAD REPORT ---
EXAM DESCRIPTION: US - Renal Ultrasound-Complete - 12/28/2023 9:00 am CLINICAL HISTORY: Renal failure COMPARISON: 2017 FINDINGS: The evaluation of the kidneys is suboptimal. The right kidney measures 10 cm with a normal echotexture. The left kidney measures 10 cm with a normal echotexture. No gross hydronephrosis seen No gross abnormality of bladder. Prostate gland appears enlarged IMPRESSION: Suboptimal evaluation of the kidneys No gross hydronephrosis seen Unenhanced CT scan may be of value to better evaluate the kidneys
[2023-12-28] MEDS: CEFTRIAXONE 1,000 MG in NA CHLORIDE 0.9% 50 ML IVPB SCH (12:38)
--- NOTE | 2023-12-28 14:43 | EKG ---
Test Date: 2023-12-26 Test Time: 19:41:23 Reel Tender: [facility] MEASUREMENT RESULTS: Intervals: Rate: 80 ME: 160 QRSD: 86 QT: 412 QTc: 475 [place]: P: 67 ME: 160 QRS: 44 T: 77 INTERPRETIVE STATEMENTS: Normal sinus rhythm Normal ECG Compared to ECG 08/04/2017 12:50:27 Sinus tachycardia no longer present Electronically Signed On 12-28-23 14:38:30 CDT by Gabriel Mejia
[2023-12-28] MEDS: SUCCINYLCHOLINE 20 MG/ML (10 ML) IV ONE (16:22)
[2023-12-28] MEDS ORDERED: propofoL 200 MG/20 ML VIAL IV ONE (16:27)
[2023-12-28] MEDS ORDERED: ROCURONIUM 50 MG/5 ML VIAL IV ONE (16:27)
[2023-12-28] MEDS ORDERED: FENTANYL CITR 100 MCG/2 ML ONE (16:27)
[2023-12-28] MEDS: CEFAZOLIN SODIUM 2 GM/VIAL ONE (16:52)
[2023-12-28] MEDS: TRANEXAMIC ACID 1,000 MG/10 ML VIAL IV ONE ×2 (16:53→18:04)
[2023-12-28] MEDS: NA CHLORIDE 0.9% 1,000 ML ONE (17:23)
[2023-12-28] MEDS ORDERED: EPHEDRINE SULF 50 MG/ML VIAL ONE (18:06)
[2023-12-28] MEDS ORDERED: NEOSTIGMINE 1 MG/ML -10 ML VIAL ONE (18:10)
[2023-12-28] MEDS ORDERED: GLYCOPYRROLATE 0.2 MG/ML SYR ONE ×2 (18:11)
[2023-12-28] MEDS ORDERED: ONDANSETRON 4 MG/2 ML VIAL IV PRN (18:41)
[2023-12-28] MEDS: FENTANYL CITR 100 MCG/2 ML ONE (18:52)
[2023-12-28] MEDS ORDERED: NA CHLORIDE 0.9% 1,000 ML IV SCH (19:00)
[2023-12-28] MEDS: KETOROLAC 30 MG/ML INJ ONE (19:01)
[2023-12-28] MEDS: HYDROMORPHONE HCL 1 MG/ML INJ ONE (19:07)
--- NOTE | 2023-12-28 19:09 | RAD REPORT ---
EXAM DESCRIPTION: RAD - Pelvis - 12/28/2023 6:55 pm CLINICAL HISTORY: s/p left bipolar hip COMPARISON: Pelvis dated 12/26/2023 FINDINGS: Left total hip arthroplasty has been performed. Lateral skin talat noted. No hardware ab normality.
[2023-12-28] MEDS: ASPIRIN EC 325 MG TABLET PO SCH (21:32)
[2023-12-28] MEDS: MORPHINE 4 MG/ML SYR IV PRN (21:34)
[2023-12-28] MEDS: NACHLORIDE 0.45% 1,000 ML IV SCH (21:46)
[2023-12-28] MEDS: NICOTINE 14 MG/PAT TD SCH (21:48)
[2023-12-28] MEDS: LORAZEPAM 0.5 MG TABLET PO ONE (23:16)
[2023-12-29] MEDS: HYDROCODONE/APAP 10/325 TAB PO PRN (01:13)
[2023-12-29] MEDS: CEFAZOLIN 1 GM in NA CHLORIDE 0.9% 50 ML IVPB SCH (01:13)
--- NOTE | 2023-12-29 05:27 | OP ---
Surgeon: Buster Best MD Body Designer: Medical Planner, none. Preoperative Diagnosis: Left femoral neck fracture. Postoperative Diagnosis: Left femoral neck fracture. Procedure Performed: Left hip hemiarthroplasty. Anesthesia: General. Disposition: Recovery room, stable. Estimated Blood Loss: Minimal. Procedure In Detail: The patient was taken to the operative suite, placed in the supine position, in duced with anesthesia. Left hip was prepped and draped in usual sterile fashion. A posterior approa ch to the hip was utilized. External rotators tagged for later reattachment. Brogali and rejessica techni que for the femur would allow to 16. A trial with a standard offset gave excellent range of motion w ith a -6. Permanent implant was placed. The ball that was delivered was 15 mm. A -6 15 mm ball was then placed. A layered closure was performed including repair of external rotators through drill ho les in bone. The patient tolerated the procedure well. He is being reversed from anesthesia and julieta uld be in the recovery room shortly. JOSE MIGUEL/LANE Voice ID: [id number] Report ID: [id number]
[2023-12-29 06:06] LABS: Absolute Lymphocytes (CBC) 0.3 K/uL (0.7-4.9); Absolute Monocytes 0.4 K/uL (0.1-1.3); Absolute Neutrophil 18.2 K/uL (1.8-8.0); Basophils % 0.1 % (0-1.3); Eosinophils % 0.1 % (0-4.4); Hematocrit 43.4 % (39.6-49.0); Hemoglobin 14.4 g/dL (13.6-17.9); Lymphocytes % 1.5 % (15.3-44.8); MCH 27.4 pg (27.0-35.0); MCHC 33.2 g/dL (32.0-36.0); MCV 82.5 fL (80-100); MPV 8.3 fL (7.6-11.3); Monocytes % 1.9 % (3.3-12.3); Neutrophils % 96.4 % (41.7-73.7); Nucleated Red Blood Cells % 0.1 % (0-0); Platelets 222 thou/uL (152-406); RBC Red Blood Cell Count 5.26 M/uL (4.33-5.43); Red Cell Distribution Width 18.1 % (12.1-15.2)
[2023-12-29 06:21] LABS: Anion Gap 8.2 mEq/L (5.0-15.0); Potassium 4.2 mEq/L (3.5-5.1)
--- NOTE | 2023-12-29 07:38 | RAD REPORT ---
EXAM DESCRIPTION: RAD - Chest Single View - 12/29/2023 4:26 am CLINICAL HISTORY: COPD Chest pain. COMPARISON: Chest Single View dated 12/28/2023; Chest Single View dated 12/26/2023; Chest Pa And Lat (2 Views) dated 05/13/2021; Chest Pa And Lat (2 Views) dated 01/30/2018 FINDINGS: Portable technique limits examination quality. Mild bilateral interstitial prominence may represent interstitial pulmonary edema or bronchitis. The heart is mildly enlarged in size. No displaced fractures. IMPRESSION: Mild CHF pattern is possible.
[2023-12-29] MEDS: DIAZEPAM 5 MG TABLET PO ONE (08:32)
--- NOTE | 2023-12-29 08:57 | P.PN ---
Subjective Date of Service: 12/29/23 Chief Complaint: Shortness of breath , Left hip pain Subjective: No new changes (states he is restless and agitated. Lying on his back, no c/o pain, with adduction pillow in place) <Arline Pinedalen - Last Filed: 12/29/23 08:53> Date of Service: 12/29/23 <Juan C Davis Imelda - Last Filed: 12/29/23 11:51> Review of Systems 10-point ROS is otherwise unremarkable General: As per HPI Musculoskeletal: As per HPI Neurological: As per HPI <Radha Pineday Basil - Last Filed: 12/29/23 08:53> Physical Examination - Vital Signs Temperature: 97.8 F Blood Pressure: 162/82 Pulse: 66 Respirations: 21 Pulse Ox (%): 93 - Physical Exam General: Alert, In no apparent distress, Oriented x3 HEENT: Atraumatic, Normocephalic Neck: Supple Respiratory: Normal air movement Cardiovascular: Normal pulses, Regular rate/rhythm Capillary refill: <2 Seconds Gastrointestinal: Soft and benign Musculoskeletal: No swelling, No contractures, Other (adduction pillow in place, dressing to left hip dry and intact) Integumentary: No rashes Neurological: Normal speech, Normal tone Lymphatics: No axilla or inguinal lymphadenopathy External genitalia: Deferred Rectal: Deferred <Arline Pineda - Last Filed: 12/29/23 08:53> Assessment And Plan - Plan (1) COPD (chronic obstructive pulmonary disease) Onset Date: 08/05/17 Current Visit: No Status: Suspected Plan: COPD exacerbation Monitor closely on telemetry Started on bronchodilators Oxygen supplementation Steroids added Chest x-ray findings noted Pulmonology consult if not better in the a.m. Hip fracture CT findings noted Dr. Grace repaired left hip 12/28/23 in [place] 12/29/23 pt without c/o - denies pain Pain control Acute hypoxic respiratory failure Oxygen supplementation Will try to wean down oxygen requirement Hypertension Antihypertensives titrated Continue home medications and titrate as needed Hyperlipidemia Continue statin Acute kidney injury on CKD stage II Monitor renal parameters Electrolytes monitor and replace accordingly May consider nephrology consult if renal parameters are not improving Hyperkalemia Monitor closely telemetry Watch potassium levels GI/DVT prophylaxis Advanced directive full code Qualifiers: COPD type: chronic bronchitis Chronic bronchitis type: unspecified Qualified Code(s): J42 - Unspecified chronic bronchitis Discharge Plan: Home Plan to discharge in: Greater than 2 days <Arline Pineda - Last Filed: 12/29/23 08:53> - Plan Pt seen and examined. I agree with the note by the COMPENSATION MANAGER. Pt had left hip surgery on 11/28/23. He is doing well post op. Will continue aspirin, PT and prn pain med. Pt will dc home when cleared by Ortho. <Juan C Davis - Last Filed: 12/29/23 11:51>
--- NOTE | 2023-12-29 12:25 | P.PN ---
Subjective Date of Service: 12/29/23 Chief Complaint: COPD s/p left hip repair Subjective: Improving (Patient is improving doing better pain is under control shortness of breath has improved) Review of Systems Unremarkable General: Weakness Respiratory: Shortness of Breath Physical Examination - Vital Signs Temperature: 97.8 F Blood Pressure: 147/77 Pulse: 70 Respirations: 18 Pulse Ox (%): 93 - Physical Exam General: Alert, Oriented x3 Respiratory: Clear to auscultation bilaterally Cardiovascular: No edema, Normal pulses, Regular rate/rhythm, Normal S1 S2 Assessment And Plan - Current Problems (Diagnosis) (1) COPD (chronic obstructive pulmonary disease) Onset Date: 08/05/17 Current Visit: No Status: Suspected Plan: Patient admitted with COPD exacerbation doing better reduced dose of prednisone add Dulera Qualifiers: COPD type: chronic bronchitis Chronic bronchitis type: unspecified Qualified Code(s): J42 - Unspecified chronic bronchitis (2) Chronic renal disease Onset Date: 08/05/17 Current Visit: No Status: Acute Plan: Chronic renal failure no evidence of volume overload can DC diuretic Qualifiers: Chronic kidney disease stage: stage 3 (moderate)
[2023-12-29] MEDS ORDERED: ALBUTEROL 2.5 MG/3 ML NEB SOL NEB PRN (12:27)
[2023-12-29] MEDS: predniSONE 20 MG TAB PO SCH (21:17)
[2023-12-30 07:25] LABS: Absolute Basophils 0.1 K/uL (0-0.5); Absolute Lymphocytes (CBC) 0.5 K/uL (0.7-4.9); Absolute Neutrophil 9.8 K/uL (1.8-8.0); Basophils % 0.5 % (0-1.3); Eosinophils % 0.1 % (0-4.4); Hematocrit 43.9 % (39.6-49.0); Hemoglobin 14.4 g/dL (13.6-17.9); Lymphocytes % 4.7 % (15.3-44.8); MCH 27.1 pg (27.0-35.0); MCHC 32.7 g/dL (32.0-36.0); MCV 82.8 fL (80-100); MPV 8.5 fL (7.6-11.3); Monocytes % 8.9 % (3.3-12.3); Neutrophils % 85.8 % (41.7-73.7); Nucleated RBC Absolute Count 0.1 (0-0); Nucleated Red Blood Cells % 0.4 % (0-0); Platelets 198 thou/uL (152-406); Red Cell Distribution Width 18.2 % (12.1-15.2)
[2023-12-30 07:43] LABS: Anion Gap 7.2 mEq/L (5.0-15.0); Potassium 4.2 mEq/L (3.5-5.1)
[2023-12-30 08:58] VITALS: O2SAT 93
[2023-12-30 12:42] VITALS: BP 148/78; TEMP 97.8
--- NOTE | 2023-12-30 14:10 | P.DS ---
Admission Date: 12/26/23 Discharge Date: 12/30/23 Disposition: DC HOME/HOME HEALTH CARE Discharge Condition: GOOD Reason for Admission: COPD s/p left hip repair Brief History of Present Illness: 73 yrs old Male with past medical history of diabetes, hypertension, COPD, came to ER with shortness of breath which has been progressively getting worse over the last 3 to 4 days. Symptoms started insidiously. Patient is a poor historian hence most of the history is obtained from the chart review and also talking to the ER physician and family member at the bedside. Denies any fever or chills. Started having shortness of breath and has been treated with nebulizers without much changes. Denies any chest pain. No fever or chills. No nausea vomiting or diarrhea. Associated with cough with mucoid expectoration denies any hemoptysis. He had a recent fall but has been moving around without much difficulty except for pain in the left hip. Denies any history of head injury. Patient was assessed in the ER and is admitted for further management of COPD exacerbation and left hip fracture. Hospital Course: Pt is a 73 yo male with past medical history of diabetes, hypertension, and COPD who presented with SOB and left hip pain. the SOB progressively worsened and pt came to the ER for evaluation. Of note, pt started having left hip pain after a fall at home. X-ray showed left femur fracture and we consulted Ortho. We treated pt for acute COPD exacerbation with steroid, nebulizer and oxygen. Pulm cleared pt for surgery. Dr. Best did Left hip hemiarthroplasty on 12/28/23. Pt did well post-op. We continued PT and prn pain med. We repleted electrolytes and continued home med for other chronic medical problems. Pt was in NAD prior to discharge. Vital Signs/Physical Exam: Temp Pulse Resp BP Pulse Ox 97.8 F 79 16 148/78 H 96 12/30/23 12:00 12/30/23 12:00 12/30/23 12:00 12/30/23 12:00 12/30/23 12:00 Laboratory Data at Discharge: WBC 11.40 thou/uL (4.3-10.9) H 12/30/23 07:18 Hgb 14.4 g/dL (13.6-17.9) 12/30/23 07:18 Hct 43.9 % (39.6-49.0) 12/30/23 07:18 Plt Count 198 thou/uL (152-406) 12/30/23 07:18 PT 14.3 SECONDS (9.5-12.5) H 12/26/23 18:45 INR 1.31 12/26/23 18:45 APTT 32.3 SECONDS (24.3-36.9) 12/26/23 18:45 Sodium 139 mEq/L (136-145) D 12/30/23 07:18 Potassium 4.2 mEq/L (3.5-5.1) 12/30/23 07:18 BUN 51 mg/dL (7-18) H 12/30/23 07:18 Creatinine 2.25 mg/dL (0.70-1.30) H 12/30/23 07:18 Glucose 150 mg/dL (74-106) H 12/30/23 07:18 Phosphorus 3.4 mg/dL (2.5-4.9) 12/27/23 03:49 Magnesium 2.5 mg/dL (1.6-2.4) H 12/28/23 07:32 Total Bilirubin 1.0 mg/dL (0.2-1.0) 12/27/23 03:49 AST 17 U/L (15-37) 12/27/23 03:49 ALT 19 U/L (16-61) 12/27/23 03:49 Alkaline Phosphatase 81 U/L (45-117) 12/27/23 03:49 Home Medications: Aspirin Chewable [Aspirin Chewable*] 81 mg PO DAILY 12/26/23 Atorvastatin Calcium 40 mg PO BEDTIME 12/26/23 Insulin Glargine,Hum.rec.anlog [Lantus] 20 unit SQ BEDTIME 12/26/23 Insulin Glargine,Hum.rec.anlog [Lantus] 40 unit SQ BREAKFAST 12/26/23 Lisinopril [Zestril] 40 mg PO DAILY 12/26/23 Hydrocodone 7.5/APAP 325 [Lohn 7.5/325 mg*] 1 tab PO Q6HP PRN 12/27/23 Aspirin Enteric Coated [Ecotrin*] 325 mg PO BID 30 Days #60 tab 12/30/23 Atorvastatin Calcium [Lipitor] 40 mg PO BEDTIME 30 Days #30 tab 12/30/23 Hydrocodone 10/APAP 325 [Lohn 10/325*] 1 tab PO Q4HP PRN 3 Days #18 tab 12/30/23 Nicotine [Nicoderm*] 14 mg TD Q24H 42 Days #42 patch 12/30/23 predniSONE [Prednisone*] 10 mg PO BID 3 Days #6 tab 12/30/23 New Medications: Hydrocodone 10/APAP 325 [Lohn 10/325*] 1 tab PO Q4HP PRN 3 Days #18 tab PRN Reason: Pain Scale 5-7 (Moderate) Aspirin Enteric Coated [Ecotrin*] 325 mg PO BID 30 Days #60 tab Atorvastatin Calcium [Lipitor] 40 mg PO BEDTIME 30 Days #30 tab Nicotine [Nicoderm*] 14 mg TD Q24H 42 Days #42 patch predniSONE [Prednisone*] 10 mg PO BID 3 Days #6 tab Physician Discharge Instructions: Continue ad april activity with a rolling walker. Take prn pain med and other home meds. Follow up with Dr. Best and PCP in 2 weeks [facility] P:[phone] F:[phone] [facility] Patient P:[phone] Diet: AHA Activity: Ad april Followup: Buster Best MD [ACTIVE - CAN ADMIT] - 1-2 Weeks Isaias Cruz DO [Primary Care Provider] - 1-2 Weeks
== END 2023-12-30 15:46 | disposition home health service (06) | DRG 981 ==
LOC: ER 18:03 → ERHOLD 20:51 → 2ND 22:05
PROVIDERS: ADMIT Family Medicine; ATTEND Hospitalist
PROC: 0SRS0JZ Replacement of Left Hip Joint, Femoral Surface with Synthetic Substitute, Open Approach (ICD-10-PCS; principal; 2023-12-28 16:30)
DX: J44.1 Chronic obstructive pulmonary disease with (acute) exacerbation (principal); J96.01 Acute respiratory failure with hypoxia; S72.012A Unspecified intracapsular fracture of left femur, initial encounter for closed fracture; N17.9 Acute kidney failure, unspecified; I12.9 Hypertensive chronic kidney disease with stage 1 through stage 4 chronic kidney disease, or unspecified chronic kidney disease; N18.30 Chronic kidney disease, stage 3 unspecified; E11.22 Type 2 diabetes mellitus with diabetic chronic kidney disease; E87.5 Hyperkalemia; E78.5 Hyperlipidemia, unspecified; D72.829 Elevated white blood cell count, unspecified; I25.10 Atherosclerotic heart disease of native coronary artery without angina pectoris; T38.0X5A Adverse effect of glucocorticoids and synthetic analogues, initial encounter; F17.210 Nicotine dependence, cigarettes, uncomplicated; Z79.4 Long term (current) use of insulin; Z11.52 Encounter for screening for COVID-19; Z79.82 Long term (current) use of aspirin; Z79.899 Other long term (current) drug therapy; Z91.199 Patient's noncompliance with other medical treatment and regimen due to unspecified reason; W18.30XA Fall on same level, unspecified, initial encounter; Y93.9 Activity, unspecified; Y92.019 Unspecified place in single-family (private) house as the place of occurrence of the external cause; Y99.9 Unspecified external cause status
CPT/HCPCS: 36415; 71045; 72170; 73700; 76770; 80048; 80053; 81001; 82947; 83605; 83735; 84100; 85025; 85610; 85730; 87040; 87804; 87811; 88305; 88311; 93005; 93306; 94640; 94760; 96374; 96375; 97110; 97116; 97161; 97530; 99285; J0360; J0690; J0696; J1170; J1815; J1940; J2704; J2710; J2919; J2920; J3010; J3535; J7030; J7512; J7613; J7644

== ENCOUNTER 2024-05-01 21:43 | Inpatient (IN) | payer OTHER ==
--- OUTSIDE RECORDS SUMMARY | 2024-05-01 21:47 | XMS REPORT | Continuity of Care Document ---
Author Name Unknown Address [address] [facility] [address] [place] [address] [facility] Address [address] [facility] [address] [place] [address] Care Team Providers Care Physicist [employer] Name Role Phone Franko Jessica Primary Care Physician [phone] Isaias Cruz Attending Clinician Unavailable Chhaya Morocho MD Attending Clinician [phone] CHHAYA MOROCHO Attending Clinician UnavailCHHAYA Lindquist Attending Clinician Unavaillesly Patel RN, Nisreen Attending Clinician Unavailable JEROME PIEDRA Attending Clinician Unavailable Vern Johns DO Attending Clinician [phone] Amado Herring MD Attending Clinician [phone] Jerome Piedra MD Attending Clinician [phone] MOOKIE Attending Clinician Unavailable KNOW, DOES_NOT Attending Clinician Unavailable Jignesh Vargas Attending Clinician Unavailable JEROME PIEDRA Admitting Clinician Unavailable Jerome Piedra MD Admitting Clinician [phone] MOOKIE Admitting Clinician Unavailable Physician, No Primary or Family Admitting Clinic hans Unavailable Payers Payer Name Policy Type Policy Number Effective Date Expirati on Date Source [employer] 53 [id number] 2023 00:00:00 [facility] C1 [id number] 2020 00:00:00 [facility] C1 [id number] 2020 00:00:00 [facility] C1 [id number] 2020 00:00:00 [facility] Problems Condition Name Condition Details Condition Category Status Onset Date Resolution Date Last Treatment Date Treating Clinician Comments Source Altered mental status Altered mental status Disease Active 03-17 00:00: 00 [facility] Hyperglyce demond Hyperglyce demond Disease Active 03-17 00:00: 00 [facility] Chronic kidney disease stage 3B (disorder) Stage 3b chronic kidney disease Problem [facility] [id number] Encounter for examinatio n of eyes and vision without abnormal findings Problem [facility] [id number] Other obesity due to excess calories Problem [facility] Amnesia Memory changes Problem [facility] [id number] [facility] current use of insulin Problem [facility] [id number] Type 2 diabetes mellitus with diabetic chronic kidney disease Problem [facility] [id number] Onychomyco sis Problem [facility] Emphysema Emphysema Problem Comm on [facility] Seasonal allergic rhinitis Allergic rhinitis, seasonal Problem [facility] Hyperlipid emia Hyperlipid emia Problem [facility] Chronic pain syndrome Chronic pain syndrome Problem [facility] Impotence of organic origin ED (erectile dysfunctio n) Problem [facility] Diabetic renal disease Chronic kidney disease in type 2 diabetes mellitus Problem [facility] Essential hypertensi on Benign essential HTN Problem [facility] [id number] Chronic obstructiv e pulmonary disease, unspecifie d COPD type Problem [facility] Vitamin D deficiency Vitamin D deficiency Problem [facility] Chronic kidney disease stage 3 (disorder) Stage 3 chronic kidney disease, unspecifie d whether stage 3a or 3b CKD Problem [facility] [id number] Alcohol abuse Problem [facility] [id number] Current every day smoker Problem [facility] [id number] Acute exacerbati on of emphysema Problem [facility] Allergies, Adverse Reactions, Alerts Allergy Name Allergy Type Status Severity Reaction(s) Onset Date Inactive Date Treating Clinician Comments Source No Known Allergie s DA Active U 01-20 00:00: 00 [facility] No Known Allergie s DA Active U 01-20 00:00: 00 [facility] NO KNOWN ALLERGIE S Drug Class Active [facility] Social History Social Habit Start Date Stop Date Quantity Comments Source Sexual orientation U [facility] History of Tobacco Use Current Smoker [facility] Sex Assigned At [facility] Alcoholic beverage intake 2024-02-15 00:00:00 2024-02-15 00:00:00 Current drinker of alcohol (finding) [facility] History of Social function 2024-02-15 00:00:00 2024-02-15 00:00:00 [facility] Exposure to SARS-CoV-2 (event) 2022-03-07 00:00:00 2022-03-17 17:21:[address] [facility] Alcohol intake 2022-03-17 00:00:00 2022-03-17 00:00:00 Current drinker of alcohol (finding) [facility] Tobacco use and exposure 2022-03-17 00:00:00 2022-03-17 00:00:00 Smokeless tobacco non-user [facility] Smoking Status Start Date Stop Date Source Smokes tobacco daily 2022-03-17 00:00:00 [facility] Medications Ordered Medication Name Filled Medication Name [...] _meal} QD metFORMIN HCl ER 750 MG lisinopriL 40 mg tablet 03-18 19:32: 03-18 00:00 :00 No 40mg Take 40 mg by mouth in the morning. [facility] aspirin 81 mg chewable tablet 03-18 19:32: 03-18 00:00 :00 No 81mg Take 81 mg by mouth in the morning. [facility] simvastatin 20 mg tablet 03-18 19:: 03-18 00:00 :00 No 20mg Take 20 mg by mouth at bedtime. [facility] insulin glarginejamesonrec.anlog (LANTUS SC) 03-18 19:: 03-18 00:00 :00 No 20U inject 20 Units under the skin daily. [facility] Sliding Scale Insulin - Lispro (HumaLOG) + Fsbg Testing 03-18 17:00: 00 Yes Subcutaneo us, TID MEALS+HS, First dose (after last modificati on) on Thu03/18/22 at 1200, Until Discontinu ed, Routine [facility] insulin glargine (LANTUS U-100) injection 20 Units 03-18 15:00: 00 Yes 20U 20 Units, Subcutaneo us, DAILY, First dose on Thu03/18/22 at 1000, Until Discontinu ed, Routine [facility] aspirin chewable tablet 81 mg 03-18 14:00: 00 Yes 81mg 81 mg, Oral, DAILY, First dose on Thu03/18/22 at 0900, Until Discontinu ed, Routine [facility] insulin glargine (LANTUS U-100) injection 20 Units 03-18 14:00: 00 03-18 13:50 :26 No 20U 20 Units, Subcutaneo us, DAILY, First dose (after last modificati on) on Thu03/18/22 at 0900, Until Discontinu ed [facility] simvastatin (ZOCOR) tablet 20 mg 03-18 02:00: 00 Yes 20mg 20 mg, Oral, QHS, First dose on Thu03/17/22 at 2100, Until Discontinu ed, Routine [facility] Sliding Scale Insulin - Lispro (HumaLOG) + Fsbg Testing 03-18 02:00: 00 03-18 13:50 :43 No Subcutaneo us, TID MEALS+HS, First dose (after last modificati on) on Thu03/17/22 at 2100, Until Discontinu ed, Routine [facility] amLODIPine (NORVASC) tablet 5 mg 03-18 00:45: 00 Yes 5mg 5 mg, Oral, DAILY, First dose on Thu03/17/22 at 1945, Until Discontinu ed, Routine [facility] enoxaparin (LOVENOX) injection 40 mg 03-17 22:00: 00 Yes 40mg 40 mg, Subcutaneo us, DAILY, First dose on Thu03/17/22 at 1700, Until Discontinu ed, Routine [facility] NaCl 0.45% (1/2NS) IV infusion 1,000 mL 03-17 21:00: 00 Yes 1000mL at 125 mL/hr, 1,000 mL, IV Infusion, CONTINUOUS , Starting on Thu03/17/22 at 1600, Until Discontinu ed, Routine [facility] Sliding Scale Insulin - Lispro (HumaLOG) + Fsbg Testing 03-17 20:00: 00 03-18 00:50 :54 No Subcutaneo us, Q4H, First dose on Thu03/17/22 at 1500, Until Discontinu ed, Routine [facility] HYDROcodone -acetaminop hen (NORCO) 10-325 mg tablet 1 tablet 03-17 19:51: 46 Yes 1{tbl} 1 tablet, Oral, Q6HPRN, Starting on Thu03/17/22 at 1451, Until Discontinu ed, Routine, Pain (scale 7-10) [facility] HYDROcodone -acetaminop hen (NORCO 5) 5-325 mg tablet 1 tablet 03-17 19:51: 44 03-19 19:50 :44 No 1{tbl} 1 tablet, Oral, Q6HPRN, Starting on Thu03/17/22 at 1451, Until Thu03/19/22 at 1450, Routine, Pain (scale 4-6) [facility] acetaminoph en (TYLENOL) tablet 650 mg 03-17 19:51: 42 Yes 650mg 650 mg, Oral, Q6HPRN, Starting on Thu03/17/22 at 1451, Until Discontinu ed, Routine, Pain (scale 1-3) [facility] dextrose 10% (D10W) bolus infusion 250 mL [...] blood glucose is < 80 mg/dL, repeat.
[facility] glucagon (GLUCAGEN DIAGNOSTIC KIT) injection 1 mg 03-17 19:49: 02 Yes 1mg 1 mg, Intramuscu lar, PRN, Starting on Thu03/17/22 at 1449, Until Discontinu ed, TATI, Blood Glucose < or = 70 mg/dL and patient is unable to swallow or has mental changes. [facility] insulin regular human (HUMULIN R) injection 12 Units 03-17 19:30: 00 03-17 18:41 :00 No 12U 12 Units, Subcutaneo us, ONCE, 1 dose, On Thu03/17/22 at 1430, Routine [facility] No known medications 03-17 17:21: 51 No No known medication s [facility] Pen [place] 32G X 4 MM [place] 32G X 4 MM 03-01 00:00: 00 No QD [place] 32G X 4 MM Accu-Chek SoftClix Lancet 1 Accu-Chek SoftClix Lancet 1 - 00:00: 00 No 1{puff} BID Accu-Chek SoftClix Lancet 1 Accu-Chek Bonnie Plus - Accu-Chek Bonnie Plus - - 00:00: 00 No Accu-Chek Bonnie Plus - Accu-Chek Bonnie Plus w/Device Accu-Chek Bonnie Plus w/Device 4- 00:00: 00 No Accu-Chek Bonnie Plus w/Device Kenalog (Triamcinol one) Kenalog (Triamcinol one) 2018-08 0-15 00:00: 00 No 40mg [facility] Lantus SoloStar 100 UNIT/ML Lantus SoloStar 100 UNIT/ML No QD Lantus SoloStar 100 UNIT/ML Simvastatin 20 MG Simvastatin 20 MG No 1{table t_in_th e_eveni ng} QD Simvastati n 20 MG Lisinopril 40 MG Lisinopril 40 MG No 1{table t} QD Lisinopril 40 MG Aspirin 81 81 MG Aspirin 81 81 MG No 1{table t} QD Aspirin 81 81 MG Immunizations Ordered Immunization Name Filled Immunization Name Date Status Comments Source FluAD FluAD 2020-05-31 15:02:00 Completed [facility] FluAD FluAD 2020-05-31 15:02:00 Completed [facility] FluAD FluAD 2020-05-31 15:02:00 Completed [facility] FluAD FluAD 2020-05-31 15:02:00 Completed [facility] FluAD FluAD 2020-05-31 15:02:00 Completed [facility] FluAD FluAD 2020-05-31 15:02:00 Completed [facility] FluAD FluAD 2020-05-31 15:02:00 Completed [facility] FluAD FluAD 2020-05-31 15:02:00 Completed [facility] FluAD FluAD 2020-05-31 15:02:00 Completed [facility] FluAD FluAD 2020-05-31 15:02:00 Completed [facility] FluAD FluAD 2020-05-31 15:02:00 Completed [facility] FluAD FluAD 2020-05-31 15:02:00 Completed [facility] FluAD FluAD 2020-05-31 15:02:00 Completed [facility] FluAD FluAD 2020-05-31 15:02:00 Completed [facility] FluAD FluAD 2020-05-31 15:02:00 Completed [facility] Kenalog (Triamcinolone) Kenalog (Triamcinolone) 2019-06-07 08:39:00 Completed [facility] Kenalog (Triamcinolone) Kenalog (Triamcinolone) 2019-06-07 08:39:00 Completed [facility] FluAD FluAD Unknown Completed [facility] FluAD FluAD Unknown Completed [facility] FluAD FluAD Unknown Completed [facility] FluAD FluAD Unknown Com[facility] FluAD FluAD Unknown Com[facility] FluAD FluAD Unknown Com[facility] FluAD FluAD Unknown Completed [facility] FluAD FluAD Unknown Completed [facility] FluAD FluAD Unknown Completed [facility] FluAD FluAD Unknown Completed [facility] FluAD FluAD Unknown Completed [facility] FluAD FluAD Unknown Completed [facility] FluAD FluAD Unknown Completed [facility] FluAD FluAD Unknown Completed [facility] FluAD FluAD Unknown Completed [facility] FluAD FluAD Unknown Completed [facility] FluAD FluAD Unknown Completed [facility] FluAD FluAD Unknown Completed [facility] FluAD FluAD Unknown Completed [facility] Vital Signs Vital Name Observation Time Observation Value Comments S ource Body height 2024-02-15 20:49:00 172.7 cm [facility] Body weight 2024-02-15 20:49:00 82.101 kg [facility] BMI 2024-02-15 20:49:00 27.52 kg/m2 [facility] height 2023-09-23 14:10:00 67.5 [in_i] Comm on [facility] weight 2023-09-23 14:10:00 183.6 [lb_av] Co mmon [facility] temperature 2023-09-23 14:10:00 97.8 [degF] Com mon [facility] bmi 2023-09-23 14:10:00 28.33 kg/m2 Comm on [facility] oximetry 2023-09-23 14:10:00 99 % Commo n [facility] blood pressure systolic 2023-09-23 14:10:00 144 mm[Hg] [facility] blood pressure diastolic 2023-09-23 14:10:00 87 mm[Hg] [facility] height 2023-09-23 14:20:00 67.5 [in_i] Comm on [facility] weight 2023-09-23 14:20:00 183.6 [lb_av] Co mmon [facility] temperature 2023-09-23 14:20:00 97.8 [degF] Com mon [facility] bmi 2023-09-23 14:20:00 28.33 kg/m2 Comm on [facility] oximetry 2023-09-23 14:20:00 99 % Commo n [facility] blood pressure systolic 2023-09-23 14:20:00 135 mm[Hg] [facility] blood pressure diastolic 2023-09-23 14:20:00 71 mm[Hg] [facility] height 2023-05-13 14:40:00 67.5 [in_i] Comm on [facility] weight 2023-05-13 14:40:00 186.0 [lb_av] Co mmon [facility] temperature 2023-05-13 14:40:00 97.7 [degF] Com mon [facility] bmi 2023-05-13 14:40:00 28.7 kg/m2 Commo n [facility] oximetry 2023-05-13 14:40:00 98 % Commo n [facility] respiratory rate 2023-05-13 14:40:00 18 /min [facility] blood pressure systolic 2023-05-13 14:40:00 124 mm[Hg] [facility] blood pressure diastolic 2023-05-13 14:40:00 70 mm[Hg] [facility] height 2022-10-09 11:20:00 67.5 [in_i] Comm on [facility] weight 2022-10-09 11:20:00 186.1 [lb_av] Co mmon [facility] temperature 2022-10-09 11:20:00 97.3 [degF] Com [facility] bmi 2022-10-09 11:20:00 28.71 kg/m2 Comm on [facility] oximetry 2022-10-09 11:20:00 98 % Commo n [facility] respiratory rate 2022-10-09 11:20:00 18 /min Common [facility] blood pressure systolic 2022-10-09 11:20:00 142 mm[Hg] [facility] blood pressure diastolic 2022-10-09 11:20:00 77 mm[Hg] [facility] height 2022-10-09 11:20:00 67.5 [in_i] Comm on [facility] weight 2022-10-09 11:20:00 186.1 [lb_av] Co mmon [facility] temperature 2022-10-09 11:20:00 97.3 [degF] Com [facility] bmi 2022-10-09 11:20:00 28.71 kg/m2 Comm on [facility] oximetry 2022-10-09 11:20:00 98 % Commo n [facility] respiratory rate 2022-10-09 11:20:00 18 /min [facility] blood pressure systolic 2022-10-09 11:20:00 142 mm[Hg] [facility] blood pressure diastolic 2022-10-09 11:20:00 77 mm[Hg] [facility] height 2022-07-28 13:00:00 67.5 [in_i] Comm on [facility] weight 2022-07-28 13:00:00 183.3 [lb_av] Co mmon [facility] temperature 2022-07-28 13:00:00 97.8 [degF] Com [facility] bmi 2022-07-28 13:00:00 28.28 kg/m2 Comm on [facility] oximetry 2022-07-28 13:00:00 96 % Commo n [facility] respiratory rate 2022-07-28 13:00:00 17 /min [facility] blood pressure systolic 2022-07-28 13:00:00 138 mm[Hg] [facility] blood pressure diastolic 2022-07-28 13:00:00 76 mm[Hg] [facility] height 2022-04-25 09:40:00 67.5 [in_i] Comm on [facility] weight 2022-04-25 09:40:00 179 [lb_av] Comm on [facility] temperature 2022-04-25 09:40:00 97.9 [degF] Com mon [facility] bmi 2022-04-25 09:40:00 27.62 kg/m2 Comm on [facility] oximetry 2022-04-25 09:40:00 97 % Commo n [facility] respiratory rate 2022-04-25 09:40:00 18 /min [facility] blood pressure systolic 2022-04-25 09:40:00 137 mm[Hg] [facility] blood pressure diastolic 2022-04-25 09:40:00 67 mm[Hg] [facility] Systolic blood pressure 2022-03-18 21:23:00 168 mm[Hg] [facility] Diastolic blood pressure 2022-03-18 21:23:00 90 mm[Hg] [facility] Heart rate 2022-03-18 21:23:00 63 /min [facility]ive [facility] Body temperature 2022-03-18 21:23:[address] [facility] Respiratory rate 2022-03-18 21:23:00 16 /min [facility] Oxygen saturation in Arterial blood by Pulse oximetry 2022-03-18 21:23:00 97 /min [facility] Body weight 2022-03-18 09:04:00 79.969 kg [facility] BMI 2022-03-18 09:04:00 26.81 kg/m2 [facility] Body height 2022-03-17 22:24:00 172.7 cm [facility] height 2022-01-31 08:40:00 68 [in_i] Commo n [facility] weight 2022-01-31 08:40:00 182.4 [lb_av] Co mmon [facility] temperature 2022-01-31 08:40:00 98.2 [degF] Com mon [facility] bmi 2022-01-31 08:40:00 27.73 kg/m2 Comm on [facility] oximetry 2022-01-31 08:40:00 98 % Commo n [facility] respiratory rate 2022-01-31 08:40:00 17 /min [facility] blood pressure systolic 2022-01-31 08:40:00 133 mm[Hg] [facility] blood pressure diastolic 2022-01-31 08:40:00 72 mm[Hg] [facility] height 2021-11-04 11:50:00 68 [in_i] Commo n [facility] weight 2021-11-04 11:50:00 188 [lb_av] Comm on [facility] temperature 2021-11-04 11:50:00 98 [degF] Comm on [facility] bmi 2021-11-04 11:50:00 28.58 kg/m2 Comm on [facility] blood pressure systolic 2021-11-04 11:50:00 132 mm[Hg] [facility] blood pressure diastolic 2021-11-04 11:50:00 77 mm[Hg] [facility] height 2021-07-30 15:50:00 68 [in_i] Commo n [facility] weight 2021-07-30 15:50:00 189.4 [lb_av] Co mmon [facility] temperature 2021-07-30 15:50:00 97.2 [degF] Com mon [facility] bmi 2021-07-30 15:50:00 28.8 kg/m2 Commo n [facility] oximetry 2021-07-30 15:50:00 99 % Commo n [facility] respiratory rate 2021-07-30 15:50:00 17 /min [facility] blood pressure systolic 2021-07-30 15:50:00 142 mm[Hg] [facility] blood pressure diastolic 2021-07-30 15:50:00 80 mm[Hg] [facility] Procedures Procedure Date / Time Performed Performing Clinician Source POCT GLUCOSE (AUTOMATED) 2022-03-18 21:49:[address] [facility] POCT GLUCOSE (AUTOMATED) 2022-03-18 16:35:[address] [facility] POCT GLUCOSE (AUTOMATED) 2022-03-18 12:32:[address] [facility] PHOSPHORUS 2022-03-18 11:21:00 Amado Herring [facility] MAGNESIUM 2022-03-18 11:21:00 Amado Herring [facility] BASIC METABOLIC PANEL (NA, K, CL, CO2, GLUCOSE, BUN, CREATININE, CA) 2022-03-18 11:21:[address] [facility] CBC WITH DIFF 2022-03-18 08:40:00 Amado Herring [facility] POCT GLUCOSE (AUTOMATED) 2022-03-18 04:34:[address] [facility] POCT GLUCOSE (AUTOMATED) 2022-03-18 01:39:[address] [facility] POCT GLUCOSE (AUTOMATED) 2022-03-17 22:21:[address] [facility] POCT GLUCOSE (AUTOMATED) 2022-03-17 21:35:[address] [facility] URINALYSIS 2022-03-17 20:15:[address] [facility] URINE DRUG (IMMUNOASSAY) - COMPREHENSIVE DRUG SCREEN W/O REFLEX 2022-03-17 20:15:00 Singer [facility] COVID-19 (ID NOW RAPID TESTING) 2022-03-17 20:02:00 Singer [facility] LAB ONLY COVID INTERPRETATION 2022-03-17 20:02:00 Singer [facility] POCT GLUCOSE(AGE >30DAYS) 2022-03-17 19:49:00 Singer [facility] POCT GLUCOSE (AUTOMATED) 2022-03-17 19:46[facility] 2022-03-17 18:29:[address] [facility] THYROID STIMULATING HORMONE 2022-03-17 18:15:[facility] COMP. METABOLIC PANEL ([id number]) 2022-03-17 18:15:00 Singer [facility] SALICYLATE 2022-03-17 18:15:[address] [facility] ETHANOL 2022-03-17 18:15:00 [facility] CBC WITH DIFF 2022-03-17 18:15:00 Singer [facility] GLYCOSYLATED HEMOGLOBIN (A1C) 2022-03-17 18:15:[address] [facility] VBG+VCOOX+NA+K+GLU+CA2+ 2022-03-17 18:15:00 Karla Johns [facility] LACTIC ACID WHOLE BLOOD 2022-03-17 18:15:00 Karla Johns [facility] XR CHEST 1 VW 2022-03-17 18:13:15 Singer [facility] Encounters Start Date/Time End Date/Time Encounter Type Admission Type [facility] Care Department Encounter ID Source 2024-02-22 14:35:00 Outpatient Cruz, Isaias STLMLC ST[facility] [id number] [facility] 2024-02-11 14:48:00 Outpatient Cruz, Isaias STLML[facility] ST[facility] [id number] [facility] 2024-02-05 13:59:00 Outpatient Cruz, Isaias STLMLC STL[facility] [id number] [facility] 2022-07-28 13:37:01 Outpatient Cruz, Isaias STLMLC STL[facility] [id number] [facility] 2022-07-24 13:01:01 Outpatient Cruz, Isaias STLMLC STLMLC [id number] [facility] 2022-04-29 14:47:02 Outpatient Cruz, Isaias STLC STLMLC [id number] [facility] 2022-04-11 12:25:01 Outpatient Cruz, Isaias STLC STLMLC [id number] [facility] 2021-10-29 17:14:00 Outpatient Cruz, Isaias STLC STLMLC [id number] [facility] 2021-09-18 14:14:25 Outpatient Cruz, Isaias STLC STLMLC [id number] [facility] 2021-09-18 13:39:15 Outpatient Cruz, Isaias STLMLC STLMLC [id number] [facility] 2021-09-18 13:35:35 Outpatient Cruz, Isaias STLMLC STLMLC [id number] [facility] 2021-09-18 13:02:14 Outpatient Cruz, Isaias STLMLC STLMLC [id number] [facility] 2021-09-18 13:02:08 Outpatient Cruz, Isaias STLMLC STLMLC [id number] [facility] 2021-09-18 12:57:54 [facility] [id number] [facility] 2021-09-18 12:49:19 [facility] [id number] [facility] 2021-09-18 12:24:40 [facility] [id number] [facility] 2021-09-18 12:24:21 [facility] [id number] [facility] 2021-09-18 12:22:02 [facility] [id number] [facility] 2021-09-18 11:53:29 [facility] [id number] [facility] 2020-01-21 03:16:00 Inpatient HCABM KEIRA [id number] [facility] 2024-03-24 00:00:00 2024-03-24 00:00:00 (TEL) STLMLC STLMLC [id number] [facility] 2024-02-22 00:00:00 2024-02-22 00:00:00 (TEL) STLC STLMLC [id number] [facility] 2024-02-16 00:00:00 2024-02-16 16:26:55 Telephone Chhaya Morocho [facility] 1.2.840.114 350.1.13.10 4.2.7.2.686 [id number] [facility] 2024-02-15 15:49:13 2024-02-15 23:59:00 Outpatient R CHHAYA MOROCHO [facility] [id number] [facility] 2024-02-15 15:49:13 2024-02-15 23:59:00 Hospital Encounter Chhaya Morocho [facility] 1.2.840.114 350.1.13.10 4.2.7.2.686 [id number] [facility] 2024-02-15 15:30:00 2024-02-15 15:45:00 Office Visit Chhaya Morocho [facility] 1.2.840.114 350.1.13.10 4.2.7.2.686 [id number] [facility] 2024-02-05 00:00:00 2024-02-05 00:00:00 (TEL) STLMLC STLMLC [id number] [facility] 2024-01-28 00:00:00 2024-01-29 10:55:53 [facility] 1.2.840.114 350.1.13.10 4.2.7.2.686 [id number] [facility] 2024-01-20 00:00:00 2024-01-20 00:00:00 (TEL) STLMLC STLMLC [id number] [facility] 2024-01-14 00:00:00 2024-01-14 00:00:00 (TEL) STLMLC STLMLC [id number] [facility] 2024-01-12 00:00:00 2024-01-12 12:18:13 Telephone Chhaya Morocho [facility] 1.2.840.114 350.1.13.10 4.2.7.2.686 [id number] [facility] 2024-01-12 00:00:00 2024-01-12 00:00:00 (TEL) STLMLC STLMLC [id number] [facility] - [facility] 2024-01-01 00:00:00 2024-01-01 09:18:37 [facility] 1.2.840.114 350.1.13.10 4.2.7.2.686 [id number] [facility] 2023-11-26 00:00:00 2023-11-26 00:00:00 (TEL) STLMLC STLMLC [id number] [facility] 2023-10-30 00:00:00 2023-10-30 00:00:00 (TEL) STLMLC STLMLC [id number] [facility] 2023-10-07 00:00:00 2023-10-07 00:00:00 (TEL) STLMLC STLMLC [id number] [facility] 2023-09-23 00:00:00 2023-09-23 00:00:00 OFFICE VISIT ESTAB PT LEVEL 4 STLMLC STLMLC [id number] [facility] 2023-09-23 00:00:00 2023-09-23 00:00:00 [facility] STLMLC STLMLC [id number] [facility] 2023-09-09 00:00:00 2023-09-09 00:00:00 (TEL) STLMLC STLMLC [id number] [facility] 2023-06-25 00:00:00 2023-06-25 00:00:00 (TEL) STLMLC STLMLC [id number] [facility] 2023-05-29 00:00:00 2023-05-29 00:00:00 (TEL) STLMLC STLMLC [id number] [facility] 2023-05-13 00:00:00 2023-05-13 00:00:00 OFFICE VISIT ESTAB PT LEVEL 4 STLMLC STLMLC [id number] [facility] 2023-05-13 00:00:00 2023-05-13 00:00:00 (TEL) STLMLC STLMLC [id number] [facility] 2023-02-12 00:00:00 2023-02-12 00:00:00 (TEL) STLMLC STLMLC [id number] [facility] 2022-11-12 00:00:00 2022-11-12 00:00:00 (TEL) STLMLC STLMLC [id number] [facility] 2022-11-04 00:00:00 2022-11-04 00:00:00 (TEL) STLMLC STLMLC [id number] [facility] 2022-10-22 00:00:00 2022-10-22 00:00:00 (TEL) STLMLC STLMLC [id number] [facility] 2022-10-09 00:00:00 2022-10-09 00:00:00 OFFICE VISIT ESTAB PT LEVEL 4 STLMLC STLMLC [id number] [facility] 2022-10-09 00:00:00 2022-10-09 00:00:00 [facility] STLMLC STLMLC [id number] [facility] 2022-10-09 00:00:00 2022-10-09 00:00:00 (TEL) STLMLC STLMLC [id number] [facility] 2022-07-28 00:00:00 2022-07-28 00:00:00 OFFICE VISIT ESTAB PT LEVEL 4 STLMLC STLMLC [id number] [facility] 2022-04-25 00:00:00 2022-04-25 00:00:00 OFFICE VISIT ESTAB PT LEVEL 4 STLMLC STLMLC [id number] [facility] 2022-04-17 00:00:00 2022-04-17 00:00:00 (TEL) STLMLC STLMLC [id number] [facility] 2022-04-10 00:00:00 2022-04-10 00:00:00 (TEL) STLMLC STLMLC [id number] [facility] 2022-03-31 00:00:00 2022-03-31 00:00:00 (TEL) STLMLC STLMLC [id number] [facility] 2022-03-19 00:00:00 2022-03-19 00:00:00 Transition of Care Nisreen Patel 1.2.840.114 350.1.13.10 4.2.7.2.686 [id number] [facility] 2022-03-17 12:54:00 2022-03-18 19:20:00 Outpatient X JEROME PIEDRA [facility] [id number] [facility] 2022-03-17 12:54:00 2022-03-18 19:20:00 Emergency JohnsVern Yaman [place], Jelani [facility] 1.2.840.114 350.1.13.10 4.2.7.2.686 [id number] [facility] 2022-02-05 00:00:00 2022-02-05 00:00:00 (TEL) STLMLC STLMLC [id number] [facility] 2022-01-31 00:00:00 2022-01-31 00:00:00 (WELLNESS) Wellness Visit STLMLC STLMLC [id number] [facility] 2022-01-31 00:00:00 2022-01-31 00:00:00 (TEL) STLMLC STLMLC [id number] [facility] 2022-01-30 00:00:00 2022-01-30 00:00:00 (TEL) STLMLC STLMLC [id number] [facility] 2021-11-04 00:00:00 2021-11-04 00:00:00 (TELEAUD) AUDIO TELEMEDICI NE STLMLC STLMLC [id number] [facility] 2021-10-29 00:00:00 2021-10-29 00:00:00 (TEL) STLMLC STLMLC [id number] [facility] 2021-09-18 04:36:00 2021-09-18 04:36:00 Outpatient BRI MOCK YANNICK LANIER [id number] [facility] 2021-07-30 00:00:00 2021-07-30 00:00:00 OFFICE VISIT ESTAB PT LEVEL 4 STLMLC STLMLC [id number] [facility] 2021-07-17 00:00:00 2021-07-17 00:00:00 (TEL) STLMLC STLMLC [id number] [facility] 2021-05-27 00:00:00 2021-05-27 00:00:00 (TEL) STLMLC STLMLC [id number] [facility] 2021-04-29 00:00:00 2021-04-29 00:00:00 (TEL) STLMLC STLMLC [id number] [facility] 2021-04-10 00:00:00 2021-04-10 00:00:00 Outpatient STLMLC STLMLC [id number] [facility] 2021-03-14 00:00:00 2021-03-14 00:00:00 Outpatient STLMLC STLMLC [id number] [facility] 2021-03-07 00:00:00 2021-03-07 00:00:00 Outpatient STLMLC STLMLC [id number] [facility] 2021-03-01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
--- NOTE | 2024-05-01 22:11 | RAD REPORT ---
EXAM DESCRIPTION: CT - Ct Stroke Brain Wo Cont - 05/01/2024 9:56 pm CLINICAL HISTORY: STROKE ALERT Headache, CVA COMPARISON: No comparisons TECHNIQUE: All CT scans are performed using dose optimization technique as appropriate and may inclu de automated exposure control or mA/KV adjustment according to patient size. FINDINGS: No intracranial hemorrhage, hydrocephalus or extra-axial fluid collection.Mild generalized brain atrophy is present with moderate periventricular and deep white matter chronic microvascular i schemic changes.No areas of brain edema or evidence of midline shift. Imej-wm-mdgimxos polypoid mucosal thickening involves the paranasal sinuses. The calvarium is intact. IMPRESSION: No acute intracranial abnormality. The findings were discussed with Dr. Andino On 05/01/24 at 10:06 p.m. by telephone.
--- NOTE | 2024-05-01 22:12 | RAD REPORT ---
EXAM DESCRIPTION: CT - Head angio - 05/01/2024 10:06 pm CLINICAL HISTORY: STROKE ALERT Headache, CVA COMPARISON: Ct Stroke Brain Wo Cont dated 05/01/2024 TECHNIQUE: CT angiography of the head was performed with MIPs. All CT scans are performed using dose optimization technique as appropriate and may include automated exposure control or mA/KV adjustment according to patient size. FINDINGS: No evidence of large vessel occlusion. No evidence of aneurysm is detected. No flow-limiti ng stenosis or vascular malformation identified. Antegrade flow is seen in the vertebral arteries. The right vertebral artery is mildly dominant. The visualized dural venous sinuses are patent. IMPRESSION: No significant flow abnormality is detected.
--- NOTE | 2024-05-01 22:13 | RAD REPORT ---
EXAM DESCRIPTION: CT - Neck Angio - 05/01/2024 10:06 pm CLINICAL HISTORY: stroke aler Headache, drowsiness, CVA symptomology COMPARISON: No comparisons TECHNIQUE: CT angiography of the neck vessels was performed with MIPs. All CT scans are performed using dose optimization technique as appropriate and may include automated exposure control or mA/KV adjustment according to patient size. FINDINGS: A left aortic arch is identified with normal three vessel configuration of the great vesse ls. No significant flow abnormality is seen of the common carotid bilaterally. No significant stenosis is identified involving the cervical segments of both internal carotid arteri es. Mild mixed plaque is seen proximal left ICA. The right vertebral artery is dominant. Antegrade flow is present in both vertebral arteries. IMPRESSION: No significant flow abnormality of the neck vessels is identified. NASCET criteria used. Mild 0-49% stenosis Moderate 50-69% stenosis Severe 70-99% stenosis
[2024-05-01 22:22] LABS: Absolute Basophils 0.1 K/uL (0-0.5); Absolute Lymphocytes (CBC) 1.5 K/uL (0.7-4.9); Absolute Monocytes 0.6 K/uL (0.1-1.3); Absolute Neutrophil 6.4 K/uL (1.8-8.0); Basophils % 0.7 % (0-1.3); Eosinophils % 0.4 % (0-4.4); Hematocrit 50.2 % (39.6-49.0); Hemoglobin 16.4 g/dL (13.6-17.9); Lymphocytes % 17.8 % (15.3-44.8); MCH 26.8 pg (27.0-35.0); MCHC 32.7 g/dL (32.0-36.0); MCV 81.9 fL (80-100); MPV 7.9 fL (7.6-11.3); Monocytes % 6.5 % (3.3-12.3); Neutrophils % 74.6 % (41.7-73.7); Nucleated Red Blood Cells % 0.1 % (0-0); Platelets 336 thou/uL (152-406); RBC Red Blood Cell Count 6.13 M/uL (4.33-5.43); Red Cell Distribution Width 19.1 % (12.1-15.2)
[2024-05-01 22:24] LABS: PT Prothrombin Time 11.5 SECONDS (9.4-12.5); PTT, Activated Partial Thromb 31.7 SECONDS (24.3-36.9); Protime INR 1.03
--- NOTE | 2024-05-01 22:33 | RAD REPORT ---
EXAM DESCRIPTION: RAD - Chest Single View - 05/01/2024 10:25 pm CLINICAL HISTORY: stroke aler Chest pain. COMPARISON: Chest Single View dated 12/29/2023; Chest Single View dated 12/28/2023; Chest Single View da ruby 12/26/2023; Chest Pa And Lat (2 Views) dated 05/13/2021 FINDINGS: Portable technique limits examination quality. Mild interstitial pulmonary edema suspected. The heart is mildly prominent in size. No displaced frac tures. IMPRESSION: Mild CHF.
[2024-05-01 22:44] LABS: Albumin 3.4 g/dL (3.4-5.0); Albumin/Globulin Ratio 0.8 (1.1-1.8); Alkaline Phosphatase 97 U/L (45-117); Anion Gap 11.5 mEq/L (5.0-15.0); BUN Blood Urea Nitrogen 14 mg/dL (7-18); Bicarbonate 23 mEq/L (21-32); Bilirubin Direct 0.2 mg/dL (0-0.2); Bilirubin Indirect, Calculated 0.4 mg/dL (0.2-0.8); Bilirubin Total 0.6 mg/dL (0.2-1.0); Globulin 4.3 g/dL (2.3-3.5); Glomerular Filtration Rate 38 ml/min (=/>90); Glucose Level 86 mg/dL (74-106); Potassium 3.5 mEq/L (3.5-5.1); Protein, Total 7.7 g/dL (6.4-8.2); Sodium Level 139 mEq/L (136-145); Troponin High Sensitivity 19.6 pg/mL (<58.9)
[2024-05-01 22:48] LABS: ALT/SGPT < 14 U/L (16-61); AST/SGOT < 10 U/L (15-37)
--- NOTE | 2024-05-01 23:53 | EDPHYS ---
Physician Documentation [facility] Name: Eric Espinal Age: 73 yrs Sex: Male : 1950 Arrival Date: 05/01/2024 Time: 21:43 Bed 4 Private MD: ED Physician Dustin Andino HPI: 05/01 21:48 This 73 yrs old Black Male presents to ER via Ambulatory with complaints of slurred ec2 speech. 21:48 Patient arrives with concern for strokelike symptoms with a last known well prior to ec2 arrival. Patient reportedly with sudden onset slurred speech as well as facial droop. History limited due to patient's poor articulation. Family en route.. Historical: - Allergies: 21:43 No Known Allergies; al5 - PMHx: 21:43 asthma-denies issues in a while; Chronic obstructive lung disease; Diabetes - NIDDM; al5 - PSHx: 21:43 None; al5 - Immunization history:: Adult Immunizations up to date. - Infectious Disease History:: Denies. - Social history:: Smoking status: Patient denies any tobacco usage or history of. ROS: 21:49 Constitutional: as per hpi ec2 Exam: 21:49 Constitutional: GEN: NAD Head: atraumatic Eyes: EOMI Ears: External ears are ec2 normal. CV: regular rate LUNGS: no respiratory distress ABD: non-distended SKIN: no evidence of rashes MSK: no evidence of trauma. Neuro: Facial droop noted in the right face, diminished right strength in the right upper extremity Vital Signs: 22:15 BP 191 / 113; Pulse 90; Resp 19; Pulse Ox 96% ; vc1 22:30 BP 213 / 106; Pulse 91; Resp 16; Pulse Ox 96% on R/A; al5 23:00 BP 208 / 108; Pulse 89; Resp 16; Pulse Ox 96% on R/A; al5 23:20 Temp 98.4(O); Weight 83.01 kg; al5 23:30 BP 198 / 101; Pulse 90; Resp 15; Pulse Ox 96% on R/A; al5 05/02 00:00 BP 206 / 103; Pulse 93; Resp 19; Pulse Ox 95% on R/A; al5 00:30 BP 208 / 107; Pulse 92; Resp 17; Pulse Ox 98% on R/A; al5 01:00 BP 182 / 105; Pulse 92; Resp 19; Pulse Ox 96% on R/A; al5 01:30 BP 199 / 96; Pulse 102; Resp 19; Pulse Ox 96% on R/A; al5 05/01 22:30 md aware of BP, parameter to treat sbp of 220 al5 NIH Stroke Scale Scores: 21:44 NIHSS Score: 2 al5 21:49 NIHSS Score: 5 ec2 MDM: 21:47 Patient medically screened. ec2 21:49 Data reviewed: vital signs. ED course: Patient arrives today with strokelike symptoms ec2 with NIH of 5 and neurologic examination as noted above. Will obtain stroke workup, obtain additional history from family. 21:56 ED course: Additional history gathered from , patient with last known well of ec2 approximately 12 hours prior to arrival. Patient at baseline has some slurred speech however worsened today.. 22:14 ED course: EKG independently reviewed and interpreted by me, shows normal sinus rhythm, ec2 rate of 90, no acute ST segment elevations, intervals are nonactionable. . 22:15 ED course: I discussed the CT scan of the head with radiology who reports a negative ec2 image.. 22:26 ED course: CBC is reassuring. Coagulation profile nonactionable, CT angio of the head ec2 and neck showed no flow-limiting stenosis. CT of the head shows no acute intracranial abnormality. . 23:50 ED course: On reassessment patient remains with slurred speech and facial droop, will ec2 admit to hospitalist for further neurowork-up. Return precautions given.. 05/01 21:48 Order name: Basic Metabolic Panel; Complete Time: 23:28 ec2 05/01 21:48 Order name: CBC with Diff; Complete Time: 22:25 ec2 05/01 21:48 Order name: High Sensitivity Troponin; Complete Time: 23:28 ec2 05/01 21:48 Order name: Protime (+inr); Complete Time: 22:25 ec2 05/01 21:48 Order name: Ptt, Activated; Complete Time: 22:25 ec2 05/01 21:48 Order name: UDS ec2 05/01 21:48 Order name: LFT's; Complete Time: 23:28 ec2 05/01 21:48 Order name: UAM ec2 05/01 22:00 Order name: Glucose, Ancillary Testing; Complete Time: 22:03 EDMS 05/02 00:32 Order name: Anti-Thrombin III Activity EDMS 05/02 00:32 Order name: C-ANCA Anti-Proteinase 3 EDMS 05/02 00:32 Order name: Cardiolipin Antibodies G,M EDMS 05/02 00:32 Order name: Factor V Leiden Mutation EDMS 05/02 00:32 Order name: Homocysteine EDMS 05/02 00:32 Order name: Miscellaneous Test Lab EDMS 05/02 00:32 Order name: P-ANCA Anti-Myeloperoxidase Ab EDMS 05/02 00:32 Order name: Protein C Antigen EDMS 05/02 00:32 Order name: Protein Electo w/M Bharath Serum EDMS 05/02 00:32 Order name: Protein S (Total EDMS 05/02 00:32 Order name: PROTHROMBIN GENE ANALYSIS (F2) EDMS 05/02 00:32 Order name: RPR EDMS 05/02 00:32 Order name: Vitamin B12 Level EDMS 05/02 00:32 Order name: Vitamin D, 25 (OH), TOTAL EDMS 05/02 00:32 Order name: CBC with Automated Diff EDMS 05/02 00:32 Order name: CBC with Automated Diff EDMS 05/02 00:32 Order name: Comprehensive Metabolic Panel EDMS 05/02 00:32 Order name: Comprehensive Metabolic Panel EDMS 05/02 00:32 Order name: Lipid Profile EDMS 05/02 00:32 Order name: Lipid Profile EDMS 05/02 00:32 Order name: Magnesium EDMS 05/02 00:32 Order name: Magnesium EDMS 05/02 00:32 Order name: Troponin High Sensitivity EDMS 05/02 00:32 Order name: Troponin High Sensitivity EDMS 05/01 21:48 Order name: CT Neck Angio; Complete Time: 22:25 ec2 05/01 21:48 Order name: CT Stroke Brain w/o Contrast; Complete Time: 22:25 ec2 05/01 21:48 Order name: Stroke CXR 1 View; Complete Time: 22:34 ec2 05/01 21:57 Order name: Head angio; Complete Time: 22:25 EDMS 05/02 00:32 Order name: Echo with Doppler EDMS 05/02 00:32 Order name: Stroke Protocol EDMS 05/02 00:32 Order name: CONS Physician Consult EDDC 05/02 00:32 Order name: IRF Screen EDDC 05/02 00:32 Order name: Physical Therapy Consult EDDC 05/02 00:32 Order name: EKG Electrocardiogram EDDC 05/02 00:32 Order name: Speech Therapy Consult [facility] 05/01 21:48 Order name: Accucheck; Complete Time: 22:07 ec2 05/01 21:48 Order name: Cardiac monitoring; Complete Time: 22:28 ec2 05/01 21:48 Order name: EKG - Nurse/Tech; Complete Time: 22:13 ec2 05/01 21:48 Order name: IV Saline Lock; Complete Time: 22:07 ec2 05/01 21:48 Order name: Labs collected and sent; Complete Time: 22:07 ec2 05/01 21:48 Order name: NPO; Complete Time: 22:07 ec2 05/01 21:48 Order name: O2 Per Protocol; Complete Time: 22:07 ec2 05/01 21:48 Order name: O2 Sat Monitoring; Complete Time: 22:28 ec2 05/01 21:48 Order name: Stroke Swallow Screen; Complete Time: 23:23 ec2 05/01 21:48 Order name: Cath; Complete Time: 22:27 ec2 Administered Medications: No medications were administered Point of Care Testing: Blood Glucose: 21:48 Blood Glucose: 98 mg/dL; al5 Ranges: Critical Glucose Levels:Adult <50 mg/dl or >400 mg/dl <40 mg/dl or >180 mg/dl Disposition Summary: 05/01/24 23:52 Hospitalization Ordered Notes: Hospitalization Status: Inpatient Admission ec2 Provider: Sanjay Capone ec2 Location: Telemetry/MedSurg (Inpatient) ec2 Condition: Stable ec2 Problem: an acute exacerbation ec2 Symptoms: are unchanged ec2 Bed/Room Type: Standard ec2 Room Assignment: 415(05/02/24 00:53) kl Diagnosis - Slurred speech ec2 Forms: - Medication Reconciliation Form ec2 - SBAR form ec2 - Leadership Thank You Letter ec2 NIH Stroke Scale - NIH Stroke Score Date: 05/01/2024 Time: 21:44 Total Score = 2 10. Dysarthria (speech clarity - read or repeat words) - 1(Mild to Moderate) 11. Extinction and Inattention (visual/tactile/auditory/spatial/personal) - 0(No abnormality) 1a. Level of Consciousness (LOC) - 0(Alert) 1b. Level of Consciousness (LOC) (Month \T\ Age) - 0(Both) 1c. LOC Commands (Open \T\ Closes Eyes/Biogeographer) - 0(Both) 2. Best Gaze (Lateral Gaze Paresis) - 0(Normal) 3. Visual Field Loss - 0(No visual loss) 4. Facial Palsy - 1(Minor Paralysis) 5a. Left Arm: Motor (10-second hold) - 0(No drift) 5b. Right Arm: Motor (10-second hold) - 0(No drift) 6a. Left Leg: Motor (5-second hold - always test supine) - 0(No drift) 6b. Right Leg: Motor (5-second hold - always test supine) - 0(No drift) 7. Limb Ataxia (finger/nose \T\ heel/garvey - test with eyes open) - 0(Absent) 8. Sensory Loss (pinprick arms/legs/face) - 0(Normal) 9. Best Language: Aphasia (description/naming/reading) - 0(No aphasia) Initials: al5 NIH Stroke Scale - NIH Stroke Score Date: 05/01/2024 Time: 21:49 Total Score = 5 10. Dysarthria (speech clarity - read or repeat words) - 2(Severe) 11. Extinction and Inattention (visual/tactile/auditory/spatial/personal) - 0(No abnormality) 1a. Level of Consciousness (LOC) - 0(Alert) 1b. Level of Consciousness (LOC) (Month \T\ Age) - 0(Both) 1c. LOC Commands (Open \T\ Closes Eyes/Biogeographer) - 0(Both) 2. Best Gaze (Lateral Gaze Paresis) - 0(Normal) 3. Visual Field Loss - 0(No visual loss) 4. Facial Palsy - 2(Partial paralysis) 5a. Left Arm: Motor (10-second hold) - 0(No drift) 5b. Right Arm: Motor (10-second hold) - 1(Drift) 6a. Left Leg: Motor (5-second hold - always test supine) - 0(No drift) 6b. Right Leg: Motor (5-second hold - always test supine) - 0(No drift) 7. Limb Ataxia (finger/nose \T\ heel/garvey - test with eyes open) - 0(Absent) 8. Sensory Loss (pinprick arms/legs/face) - 0(Normal) 9. Best Language: Aphasia (description/naming/reading) - 0(No aphasia) Initials: ec2 Signatures: Dispatcher [employer] EDDC Margoth Dash RN RN kl Mary Velásquez Edwin, MD MD 2 Alycia Sebastian RN RN al5 Corrections: (The following items were deleted from the chart) 21:49 21:49 BASIC METABOLIC PANEL+C.LAB.BRZ ordered. EDDC EDDC 21:49 21:49 CBC+H.LAB.BRZ ordered. EDDC EDDC 21:49 21:49 Troponin High Sensitivity+C.LAB.BRZ ordered. EDDC EDDC 21:49 21:49 PROTIME (+INR)+COAG.LAB.BRZ ordered. EDDC EDDC 21:49 21:49 PTT, ACTIVATED+COAG.LAB.BRZ ordered. EDDC EDDC 21:49 21:49 URINE DRUG SCREEN+UC.LAB.BRZ ordered. EDDC EDDC 21:49 21:49 HEPATIC FUNCTION+C.LAB.BRZ ordered. EDDC EDDC 21:49 21:49 Urinalysis W/Microscopic+U.LAB.BRZ ordered. EDDC EDDC 21:49 21:49 Neck Angio+CT.RAD.BRZ ordered. EDDC EDDC 21:49 21:49 CT-STROKE BRAIN W/O CONTRAST+CT.RAD.BRZ ordered. EDDC EDDC 21:49 21:49 Chest Single View+RAD.RAD.BRZ ordered. EDDC EDDC 21:49 21:48 Patient arrives with concern for strokelike symptoms with a last known ec2 well prior to arrival. Patient reportedly with sudden onset slurred speech as well as facial droop. History limited due to patient's poor articulation. Family and route.. ec2 05/02 00:47 05/01 23:52 ec2 sp 05/02 00:49 00:32 Chest Pa And Lat (2 Views) ordered. [facility] EDDC 00:49 00:47 228 sp kl 00:50 00:49 kl sp 00:53 00:50 228 sp kl
--- NOTE | 2024-05-01 23:53 | ER ---
Nurse's Notes [facility] Name: Eric Espinal Age: 73 yrs Sex: Male : 1950 Arrival Date: 05/01/2024 Time: 21:43 Bed 4 Private MD: Diagnosis: Slurred speech Presentation: 05/01 21:43 Chief complaint: Spouse and/or significant other states: He started slurring his speech al5 and having right sided weakness around dinner. 21:43 Coronavirus screen: Client denies travel out of the [place] in the last 14 days. At this al5 time, the client does not indicate any symptoms associated with coronavirus-19. Ebola Screen: Patient negative for fever greater than or equal to 101.5 degrees Fahrenheit, and additional compatible Ebola Virus Disease symptoms Patient denies exposure to infectious person. Patient denies travel to an Ebola-affected area in the 21 days before illness onset. No symptoms or risks identified at this time. An acute neurological deficit is present. The charge nurse has been notified. The patient has been moved to a treatment area. Pre-hospital glucose is not applicable to this patient. Initial Sepsis Screen: Does the patient meet any 2 criteria? RR > 20 per min. Does the patient have a suspected source of infection? No. Patient's initial sepsis screen is negative. Risk Assessment: Do you want to hurt yourself or someone else? Patient reports no desire to harm self or others. Onset of symptoms was May 01, 2024 at 10:00. Care prior to arrival: None. Activity prior to arrival: slurred speech. Mechanism of Injury: No Mechanism of Injury. Transition of care: patient was not received from another setting of care. 21:43 Method Of Arrival: Wheelchair al5 21:43 Acuity: BRENDA 2 al5 Triage Assessment: 21:44 The onset of the patients symptoms was May 01, 2024 at 10:00. General: Appears in al5 no apparent distress. Behavior is cooperative. Pain: Denies pain. EENT: No signs and/or symptoms were reported regarding the EENT system. Neuro: Level of Consciousness is awake, alert, obeys commands, Oriented to person, place, time, situation, Machine Stuffer Automatic are equal bilaterally Moves all extremities. Speech is slurred, Facial droop on right, Pupils are PERRLA, Intact. Cardiovascular: Capillary refill < 3 seconds Patient's skin is warm and dry. Respiratory: Airway is patent Respiratory effort is even, unlabored, Respiratory pattern is regular, symmetrical. GI: No signs and/or symptoms were reported involving the gastrointestinal system. : No signs and/or symptoms were reported regarding the genitourinary system. Derm: Skin is intact, Skin is pink, warm \T\ dry. normal. Musculoskeletal: No signs and/or symptoms reported regarding the musculoskeletal system. 21:44 Neuro: Reports per , patient was last seen normal at 1000 this morning but got al5 worse around dinner time.. Stroke Activation: Symptom onset > 6 hours Physician: ED Attending; Name: Dr. Dustin Andino; Notified At: 21:43; Arrived At: 21:43 Physician: Mid-Level Provider; Name: ; Notified At: 21:43; Arrived At: Physician: [not used]; Name: ; Notified At: ; Arrived At: Physician: [not used]; Name: ; Notified At: ; Arrived At: Physician: [not used]; Name: ; Notified At: ; Arrived At: Historical: - Allergies: 21:43 No Known Allergies; al5 - PMHx: 21:43 asthma-denies issues in a while; Chronic obstructive lung disease; Diabetes - NIDDM; al5 - PSHx: 21:43 None; al5 - Immunization history:: Adult Immunizations up to date. - Infectious Disease History:: Denies. - Social history:: Smoking status: Patient denies any tobacco usage or history of. Screenin:21 [facility] ED Fall Risk Assessment (Adult) History of falling in the last 3 months, al5 including since admission No falls in past 3 months (0 pts) Confusion or Disorientation No (0 pts) Intoxicated or Sedated No (0 pts) Impaired Gait Yes (1 pt) Mobility Assist Device Used No (0 pt) Altered Elimination No (0 pt) Score/Fall Risk Level 3 or more points = High Risk Oriented to surroundings, Maintained a safe environment, Provided non-skid footwear, Hourly rounding (assess needs \T\ fall precautionary measures) done, Apply high fall risk patient identification: yellow non skid footwear/ fall signage. Abuse screen: Denies threats or abuse. Denies injuries from another. Nutritional screening: No deficits noted. Tuberculosis screening: No symptoms or risk factors identified. Assessment: 21:44 VAN Scoring: Arm Drift: Patients demonstrates NO arm weakness. Patient is VAN Negative. al5 Visual Disturbance: No visual disturbance noted. Aphasia: No aphasia noted. Neglect: No neglect noted. [employer] Swallow Protocol Exclusion Criteria: NPO for medical/surgical reason by provider order Yes Brief Cognitive Screen What is your name? Oral Mechanism Examination Facial Symmetry: r side facial droop Motion: Note can move tongue more over to the l side than r side Lip Closure: Note was able to puff cheeks out but unable to hold the air in Result: FAIL MD Notified: Dustin Andino MD. [employer] Swallow Protocol Exclusion Criteria: Brief Cognitive Screen What is your name? Normal, Where are you right now? Normal, What year is it? Normal. TNKase (Tenecteplase) Screening: Contraindications: Patient reports onset of signs and symptoms of stroke greater than 6 hours ago: Yes. General: Appears in no apparent distress. Behavior is calm, cooperative. Pain: Denies pain. Neuro: Level of Consciousness is awake, alert, obeys commands, Oriented to person, place, time, situation, Machine Stuffer Automatic are equal bilaterally Moves all extremities. Speech is normal, Facial droop on right, Pupils are PERRLA, Intact slurred speech, but is comprehensible.. Cardiovascular: Capillary refill < 3 seconds Patient's skin is warm and dry. Respiratory: Airway is patent Respiratory effort is even, unlabored, Respiratory pattern is regular, symmetrical. GI: No signs and/or symptoms were reported involving the gastrointestinal system. : No signs and/or symptoms were reported regarding the genitourinary system. EENT: No signs and/or symptoms were reported regarding the EENT system. Derm: Skin is intact, Skin is pink, warm \T\ dry. normal. Musculoskeletal: No signs and/or symptoms reported regarding the musculoskeletal system. 23:00 Reassessment: Patient appears in no apparent distress at this time. No changes from al5 previously documented assessment. Patient and/or family updated on plan of care and expected duration. Pain level reassessed. Patient is alert, oriented x 3, equal unlabored respirations, skin warm/dry/pink. 05/02 01:36 Reassessment: Patient appears in no apparent distress at this time. No changes from al5 previously documented assessment. Patient and/or family updated on plan of care and expected duration. Pain level reassessed. Patient is alert, oriented x 3, equal unlabored respirations, skin warm/dry/pink. Vital Signs: 05/01 22:15 BP 191 / 113; Pulse 90; Resp 19; Pulse Ox 96% ; vc1 22:30 BP 213 / 106; Pulse 91; Resp 16; Pulse Ox 96% on R/A; al5 23:00 BP 208 / 108; Pulse 89; Resp 16; Pulse Ox 96% on R/A; al5 23:20 Temp 98.4(O); Weight 83.01 kg; al5 23:30 BP 198 / 101; Pulse 90; Resp 15; Pulse Ox 96% on R/A; al5 05/02 00:00 BP 206 / 103; Pulse 93; Resp 19; Pulse Ox 95% on R/A; al5 00:30 BP 208 / 107; Pulse 92; Resp 17; Pulse Ox 98% on R/A; al5 01:00 BP 182 / 105; Pulse 92; Resp 19; Pulse Ox 96% on R/A; al5 01:30 BP 199 / 96; Pulse 102; Resp 19; Pulse Ox 96% on R/A; al5 05/01 22:30 md aware of BP, parameter to treat sbp of 220 al5 NIH Stroke Scale Scores: 21:44 NIHSS Score: 2 al5 21:49 NIHSS Score: 5 ec2 ED Course: 21:44 Arm band placed on right wrist. Patient placed in the treatment room, on a stretcher. al5 21:47 Patient arrived in ED. ec2 21:47 Dustin Andino MD is Attending Physician. ec2 21:54 No provider procedures requiring assistance completed. Inserted saline lock: 20 gauge al5 in right antecubital area, using aseptic technique. 21:58 CT Stroke Brain w/o Contrast In Process Unspecified. EDMS 22:06 Alycia Sebastian, STEPHANIE is Primary Nurse. al5 22:08 CT Neck Angio In Process Unspecified. EDMS 22:08 Head angio In Process Unspecified. EDMS 22:30 Stroke CXR 1 View In Process Unspecified. EDMS 22:30 Triage completed. al5 23:21 Patient has correct armband on for positive identification. Placed in gown. Bed in low al5 position. Call light in reach. Side rails up X2. Provided Education on: processes and procedures. 23:52 Sanjay Capone MD is Hospitalizing Provider. ec2 05/02 01:35 Patient admitted, IV remains in place. al5 Administered Medications: No medications were administered Medication: 01:35 VIS not applicable for this client. al5 Point of Care Testing: Blood Glucose: 05/01 21:48 Blood Glucose: 98 mg/dL; al5 Ranges: Outcome: 23:52 Decision to Hospitalize by Provider. ec2 05/02 02:15 Admitted to Tele accompanied by tech, via stretcher, room 415, with chart, Report al5 called to stephanie crain Condition: stable Instructed on the need for admit, 02:15 Patient left the ED. al5 NIH Stroke Scale - NIH Stroke Score Date: 05/01/2024 Time: 21:44 Total Score = 2 10. Dysarthria (speech clarity - read or repeat words) - 1(Mild to Moderate) 11. Extinction and Inattention (visual/tactile/auditory/spatial/personal) - 0(No abnormality) 1a. Level of Consciousness (LOC) - 0(Alert) 1b. Level of Consciousness (LOC) (Month \T\ Age) - 0(Both) 1c. LOC Commands (Open \T\ Closes Eyes/Fruit And Vegetable Packer) - 0(Both) 2. Best Gaze (Lateral Gaze Paresis) - 0(Normal) 3. Visual Field Loss - 0(No visual loss) 4. Facial Palsy - 1(Minor Paralysis) 5a. Left Arm: Motor (10-second hold) - 0(No drift) 5b. Right Arm: Motor (10-second hold) - 0(No drift) 6a. Left Leg: Motor (5-second hold - always test supine) - 0(No drift) 6b. Right Leg: Motor (5-second hold - always test supine) - 0(No drift) 7. Limb Ataxia (finger/nose \T\ heel/garvey - test with eyes open) - 0(Absent) 8. Sensory Loss (pinprick arms/legs/face) - 0(Normal) 9. Best Language: Aphasia (description/naming/reading) - 0(No aphasia) Initials: al5 NIH Stroke Scale - NIH Stroke Score Date: 05/01/2024 Time: 21:49 Total Score = 5 10. Dysarthria (speech clarity - read or repeat words) - 2(Severe) 11. Extinction and Inattention (visual/tactile/auditory/spatial/personal) - 0(No abnormality) 1a. Level of Consciousness (LOC) - 0(Alert) 1b. Level of Consciousness (LOC) (Month \T\ Age) - 0(Both) 1c. LOC Commands (Open \T\ Closes Eyes/Fruit And Vegetable Packer) - 0(Both) 2. Best Gaze (Lateral Gaze Paresis) - 0(Normal) 3. Visual Field Loss - 0(No visual loss) 4. Facial Palsy - 2(Partial paralysis) 5a. Left Arm: Motor (10-second hold) - 0(No drift) 5b. Right Arm: Motor (10-second hold) - 1(Drift) 6a. Left Leg: Motor (5-second hold - always test supine) - 0(No drift) 6b. Right Leg: Motor (5-second hold - always test supine) - 0(No drift) 7. Limb Ataxia (finger/nose \T\ heel/garvey - test with eyes open) - 0(Absent) 8. Sensory Loss (pinprick arms/legs/face) - 0(Normal) 9. Best Language: Aphasia (description/naming/reading) - 0(No aphasia) Initials: ec2 Signatures: Dispatcher [employer] Dana Vargas RN RN vc1 Dustin Andino MD MD ec2 Alycia Sebastian RN RN al5 Corrections: (The following items were deleted from the chart) 01:39 05/01 22:31 Neuro: Reports al5 al5
[2024-05-02] MEDS ORDERED: ZOLPIDEM TARTRATE 5 MG TABLET PO PRN (00:23)
[2024-05-02] MEDS ORDERED: ONDANSETRON 4 MG/2 ML VIAL IV PRN (00:23)
[2024-05-02] MEDS ORDERED: MAGNESIUM HYDROXIDE 8% 30 ML PO PRN (00:23)
[2024-05-02] MEDS ORDERED: MORPHINE 2 MG/ML SYR IV PRN (00:23)
--- NOTE | 2024-05-02 00:23 | P.HP ---
Certification for Inpatient With expected LOS: >2 Midnights Patient will require the following post-hospital care: None Practitioner: I am a practitioner with admitting privileges, knowledge of patient current condition, hospital course, and medical plan of care. Services: Services provided to patient in accordance with Admission requirements found in Title 42 Section 412.3 of the Code of Federal Regulations Patient History Date of Service: 05/02/24 Reason for admission: Right facial droop and right-sided weakness History of Present Illness: 74-year-old male with past medical history of hypertension/diabetes/CAD/COPD, recent COPD exacerbation 3 months ago who developed slurred speech as well as right-sided weakness while at dinner with the family. Symptoms started about 3 hours prior to presenting. symptoms were noted by the family and patient was brought to the emergency room. No similar episodes in the past. No reported headache loss of consciousness or dizziness. reports patient was fine this morning at 9 AM when she gave him his medications. Patient has been with the daughter all day and reportedly had a poor p.o. intake. Daughter did not notice the facial droop on the spouse return back from work this evening and noticed DVT. On arrival in the ED blood pressure was elevated at 191/113, pulse of 90 respiratory rate of 18. Afebrile. Head CT shows no acute intracranial pathology. CT of the head and neck also was normal with normal flow. CBC was unremarkable, BMP shows creatinine of 1.87 about baseline EKG was unremarkable. Initial NIH score of 5 Patient has been admitted for presumed right-sided CVA Allergies No Known Drug Allergies Allergy (Verified 05/02/24 02:26) Unknown Home Medications: Aspirin Chewable [Aspirin Chewable*] 81 mg PO DAILY 12/26/23 Insulin Glargine,Hum.rec.anlog [Lantus] 20 unit SQ BEDTIME 12/26/23 Insulin Glargine,Hum.rec.anlog [Lantus] 40 unit SQ BREAKFAST 12/26/23 Lisinopril [Zestril] 40 mg PO DAILY 12/26/23 Hydrocodone 7.5/APAP 325 [[place] 7.5/325 mg*] 1 tab PO BID 12/27/23 Atorvastatin Calcium [Lipitor] 40 mg PO BEDTIME 30 Days #30 tab 12/30/23 - Past Medical/Surgical History Diabetic: Yes -: Diabetes mellitus type 2 -: Hypertension -: Coronary artery disease -: Hyperlipidemia -: Chronic renal disease -: Tobacco abuse -: Alcohol use -: Heart catheterization Psychosocial/ Personal History: Patient is . He has 2 children. He does not work. - Family History Father -: Cancer - Social History Smoking Status: Former smoker Counseled patient to stop smoking for: less than 10 minutes Smoking therapy provided: No Patient receptive to therapy: No Alcohol use: Yes CD- Drugs: No Caffeine use: No Place of Residence: Home Review of Systems Neurological: Weakness Physical Examination - Physical Exam General: Alert, In no apparent distress, Oriented x3, Cooperative HEENT: Atraumatic, Normocephalic, PERRLA Neck: Supple, 2+ carotid pulse no bruit, JVD not distended Respiratory: Clear to auscultation bilaterally, Normal air movement Cardiovascular: Normal pulses, Regular rate/rhythm, Normal S1 S2 Gastrointestinal: Normal bowel sounds, Soft and benign, Non-distended, No ascites, No tenderness Musculoskeletal: No clubbing, No swelling Integumentary: No rashes, No breakdown, No significant lesion Neurological: Abnormal speech (Mild dysphasia), Abnormal strength (Mild right- sided pronator drift, right facial droop), Abnormal cranial nerve function (Right facial droop) - Studies Laboratory Data (last 24 hrs) 05/01/24 05/01/24 05/01/24 21:50 21:50 21:50 WBC 8.50 Hgb 16.4 Hct 50.2 H Plt Count 336 PT 11.5 INR 1.03 APTT 31.7 Sodium 139 Potassium 3.5 BUN 14 Creatinine 1.87 H Glucose 86 Total Bilirubin 0.6 AST < 10 L ALT < 14 L Alkaline Phosphatase 97 Assessment and Plan - Problems (Diagnosis) (1) Alcohol use Onset Date: 08/05/17 Current Visit: No Status: Chronic (2) Diabetes mellitus Onset Date: 08/05/17 Current Visit: No Status: Chronic Qualifiers: (3) Hyperlipidemia Onset Date: 08/05/17 Current Visit: No Status: Chronic Qualifiers: (4) COPD (chronic obstructive pulmonary disease) Onset Date: 08/05/17 Current Visit: No Status: Suspected Qualifiers: - Plan Impression Right facial drooplikely due to right CVA versus TIA Hypertension Diabetes mellitus History of COPD History of CAD History of tobacco use CKD stage III Plan Will admit patient to inpatient Neurology consult in a.m. Plan MRI Start patient on aspirin and Plavix Allow for permissive hypertension but initiate hydralazine as needed MAP being above 110 Neurochecks Q6 Bedside swallow eval Full code Subcutaneous Lovenox for DVT prophylaxis Plan for echo in a.m. if CVA PT and OT eval Total time spent in evaluation greater than 65 minutes Addendum2:40 AM Patient continues to have persistent elevated blood pressure with systolic above 210, status post IV hydralazine but still high blood pressure, IV labetalol given. Patient had a bedside swallow eval weakness by me, swallowing appears to be okay but seems to be slow. We hold off p.o. intake for now until formal speech swallow eval. Also noted with low glucose at 64, IV fluids switched to D5 LR - Advance Directives Does patient have a Living Will: No Does patient have a Durable POA for Healthcare: No
[2024-05-02] MEDS: NA CHLORIDE 0.9% 1,000 ML IV SCH ×2 (01:00)
[2024-05-02] MEDS ORDERED: HYDRALAZINE HCL 20 MG/ML VIAL ONE (01:20)
[2024-05-02] MEDS: HYDRALAZINE HCL 20 MG/ML VIAL IV PRN (01:20)
[2024-05-02 02:33] LABS: Barbiturates NEGATIVE (NEGATIVE); Benzodiazepines NEGATIVE (NEGATIVE); Cocaine NEGATIVE (NEGATIVE); METHAMPHETAM NEGATIVE (NEGATIVE); Methadone NEGATIVE (NEGATIVE); Opiates NEGATIVE (NEGATIVE); Phencyclidine NEGATIVE (NEGATIVE); Specific Gravity > 1.030 (1.005-1.030); Sqamous Epithelial None Seen /HPF (None Seen); THC Cannibis NEGATIVE (NEGATIVE); Urine Bacteria None Seen /HPF (<20); Urine Bilirubin NEGATIVE (Negative); Urine Blood Trace (Negative); Urine Clarity Clear (Clear); Urine Color Light-Yellow (Yellow); Urine Culture Reflex Order NOT NEEDED; Urine Glucose NEGATIVE (Negative); Urine Ketones NEGATIVE (Negative); Urine Micro Reflex YN NO BILL MICROSCOPIC; Urine Mucus Slight /HPF (None Seen); Urine Nitrite NEGATIVE (Negative); Urine Protein 2+ (Negative); Urine Urobilinogen 1+ (Normal); Urine pH 6.5 (5.0-7.0)
[2024-05-02] MEDS: ASPIRIN 325 MG TAB ONE (02:41)
[2024-05-02] MEDS: CLOPIDOGREL 75 MG TABLET ONE (02:41)
[2024-05-02] MEDS: NICOTINE 14 MG/PAT TD SCH (02:47)
[2024-05-02] MEDS: ASPIRIN 325 MG TAB PO ONE (02:48)
[2024-05-02] MEDS: CLOPIDOGREL 75 MG TABLET PO SCH (02:48)
[2024-05-02] MEDS ORDERED: Ringers Lactate 1,000 ML IV SCH (03:00)
[2024-05-02] MEDS: LABETALOL 20 MG/4ML SYRINGE IV ONE ×2 (03:25→21:36)
[2024-05-02] MEDS: D5LR 1,000 ML IV SCH (03:25)
[2024-05-02 04:11] VITALS: BMI 27.8
[2024-05-02] MEDS: INSULIN REGULAR (HUMAN) 100 UNIT/ML SQ SCH (06:00)
[2024-05-02 07:43] LABS: Magnesium 2.1 mg/dL (1.6-2.4); Phosphorus 2.8 mg/dL (2.5-4.9); Potassium 3.5 mEq/L (3.5-5.1)
[2024-05-02] MEDS: ASPIRIN EC 81 MG TAB PO SCH (08:21)
[2024-05-02] MEDS: lisinopriL 20 MG TAB PO SCH (08:23)
[2024-05-02] MEDS: FAMOTIDINE 20 MG/2 ML VIAL IV SCH (08:23)
[2024-05-02] MEDS: ENOXAPARIN 40 MG/0.4 ML SQ SCH (08:23)
--- NOTE | 2024-05-02 12:32 | P.PN ---
Date of Service: 05/02/24 Pt seen and examined. Pt is a 73 yo male with past medical history of hypertension/diabetes/CAD/COPD, and COPD exacerbation who developed slurred speech and right-sided weakness while at dinner with the family. A/P: Right facial drooplikely due to right CVA versus TIA: CT head and CTA head and neck are unremarkable. Will f/u MRI brain. Allow permissive Htn. Continue prn hydralazine for BP > 220/120. Consulted Neurology/ PT/ Speech therapist. Will f/u Echo. Continue aspirin, plavix, and statin when able to swallow. Hypertension: Will allow permissive htn Diabetes mellitus: Continue accuchek, SSI and ADA diet. History of COPD: stable. Not in exacerbation. History of CAD: Continue home meds when cleared to swallow. History of tobacco use: Pt was advised to quit smoking. Will give nicotine patch. CKD stage III: cr is 1.87. Will avoid nephrotoins and monitor renal function. Code: Full code DVT ppx: Lovenox Dispo: pending hospital course.
--- NOTE | 2024-05-02 15:26 | RAD REPORT ---
EXAM DESCRIPTION: MRI - Brain Wo Cont - 05/02/2024 3:06 pm CLINICAL HISTORY: CVA COMPARISON: Head CT May 01, 2024 TECHNIQUE: Axial, sagittal, and coronal magnetic resonance images of the brain were obtained. FINDINGS: Moderate signal within periventricular, deep and subcortical white matter probably ischemi c changes secondary to small vessel disease Diffusion-weighted/ADC mapping demonstrates a 2.7 centimeter area of abnormal signal within the left basal ganglia extending into left periventricular white matter compatible with acute infarction A couple of punctate areas of low signal are present within the brain bilaterally probably old micro bleeds The ventricles are normal caliber. An extra-axial fluid collection is not noted. Acute sinusitis IMPRESSION: 2.7 centimeter acute infarction left basal ganglia/left periventricular white matter
[2024-05-02] MEDS: ATORVASTATIN 20 MG TAB PO SCH (20:36)
[2024-05-03 02:16] LABS: RPR (Rapid Plasma Reagin) NON-REACT (NON-REACT)
[2024-05-03 06:24] LABS: Absolute Basophils 0.1 K/uL (0-0.5); Absolute Eosinophils 0.1 K/uL (0-0.5); Absolute Lymphocytes (CBC) 2.2 K/uL (0.7-4.9); Absolute Neutrophil 5.6 K/uL (1.8-8.0); Basophils % 0.7 % (0-1.3); Eosinophils % 0.8 % (0-4.4); Hematocrit 48.6 % (39.6-49.0); Hemoglobin 15.9 g/dL (13.6-17.9); Lymphocytes % 24.6 % (15.3-44.8); MCH 26.7 pg (27.0-35.0); MCHC 32.8 g/dL (32.0-36.0); MCV 81.5 fL (80-100); MPV 7.7 fL (7.6-11.3); Monocytes % 11.2 % (3.3-12.3); Neutrophils % 62.7 % (41.7-73.7); Nucleated Red Blood Cells % 0.1 % (0-0); Platelets 322 thou/uL (152-406); RBC Red Blood Cell Count 5.96 M/uL (4.33-5.43); Red Cell Distribution Width 19.5 % (12.1-15.2)
[2024-05-03 07:14] LABS: Albumin 3.1 g/dL (3.4-5.0); Albumin/Globulin Ratio 0.7 (1.1-1.8); Anion Gap 12.8 mEq/L (5.0-15.0); Bilirubin Total 0.9 mg/dL (0.2-1.0); Globulin 4.2 g/dL (2.3-3.5); Magnesium 1.9 mg/dL (1.6-2.4); Potassium 3.8 mEq/L (3.5-5.1); Protein, Total 7.3 g/dL (6.4-8.2); Troponin High Sensitivity 33.6 pg/mL (<58.9)
[2024-05-03] MEDS: POTASSIUM 25 MEQ EFFERV TAB PO ONE (09:00)
--- NOTE | 2024-05-03 09:53 | P.PN ---
Subjective Date of Service: 05/03/24 Chief Complaint: Right facial droop and right-sided weakness Pt is resting comfortably in bed. He was sleeping when I saw him. Pt has rightfacial droop. 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 BP is elevated. Will optimize BP regimen with lisinopril and meto prolol. Pt will benefit from rehab placement. No other complaints. Review of Systems General: Unremarkable Eyes: Unremarkable ENT: Unremarkable Respiratory: Unremarkable Cardiovascular: Unremarkable Gastrointestinal: Unremarkable Genitourinary: Unremarkable Musculoskeletal: Unremarkable Integumentary: Unremarkable Neurological: Weakness, Other (right facial droop) Lymphatics: Unremarkable Physical Examination - Vital Signs Temperature: 98.0 F Blood Pressure: 205/94 Pulse: 75 Respirations: 20 Pulse Ox (%): 98 - Physical Exam General: In no apparent distress, Oriented x3 HEENT: Atraumatic, Normocephalic, PERRLA Neck: Supple, 2+ carotid pulse no bruit Respiratory: Clear to auscultation bilaterally, Normal air movement Cardiovascular: No edema, Normal pulses, Regular rate/rhythm, Normal S1 S2 Capillary refill: <2 Seconds Gastrointestinal: Normal bowel sounds, Soft and benign, Non-distended Musculoskeletal: No clubbing, No swelling, No contractures Integumentary: No rashes, No breakdown, No significant lesion, No tenderness/swelling Neurological: Other (right facial droop), Abnormal strength Lymphatics: No axilla or inguinal lymphadenopathy Assessment And Plan - Plan Right facial drooplikely due to right CVA versus TIA: CT head and CTA head and neck are unremarkable. MRI brain shows 2.7cm acute infacrtion in the left basal ganglia. Allow permissive Htn. Continue prn hydralazine for BP > 220/120. Consulted Neurology/ PT/ Speech therapist. Will f/u Echo. Continue aspirin, plavix, and statin when able to swallow. Hypertension: Will allow permissive htn Diabetes mellitus: Continue accuchek, SSI and ADA diet. History of COPD: stable. Not in exacerbation. History of CAD: Continue home meds when cleared to swallow. History of tobacco use: Pt was advised to quit smoking. Will give nicotine patch. CKD stage III: Cr is 1.75<- 1.87. Will avoid nephrotoins and monitor renal function. Code: Full code DVT ppx: Lovenox Dispo: pending hospital course.
[2024-05-03] MEDS: METOPROLOL XL 25 MG TAB PO SCH (11:47)
[2024-05-03] MEDS: FOLIC ACID 1 MG TABLET PO SCH (11:47)
--- NOTE | 2024-05-03 14:36 | ECHO ---
HEIGHT: 5 ft 8 in WEIGHT: 183 lb 0 oz DATE OF STUDY: 05/03/[address]: Sanjay Capone MD 2-DIMENSIONAL: YES M.MODE: YES DOPPLER: YES COLOR FLOW: YES TDS: PORTABLE: YES DEFINITY: BUBBLE STUDY: DIAGNOSIS: STROKE CARDIAC HISTORY: CATHERIZATION: NO SURGERY: NO PROSTHETIC VALVE: NO PACEMAKER: NO MEASUREMENTS (cm) DIASTOLIC (NORMALS) SYSTOLIC (NORMALS) IVSd 1.3 (0.6-1.2) LA Diam 2.7 (1.9-4.0) LVEF 60-65% LVIDd 3.3 (3.5-5.7) LVIDs 2.4 (2.0-3.5) %FS 26% LVPWd 1.3 (0.6-1.2) Ao Diam 2.9 (2.0-3.7) 2 DIMENSIONAL ASSESSMENT: RIGHT ATRIUM: NORMAL LEFT ATRIUM: NORMAL RIGHT VENTRICLE: NORMAL LEFT VENTRICLE: NORMAL TRICUSPID VALVE: NORMAL MITRAL VALVE: NORMAL PULMONIC VALVE: NORMAL AORTIC VALVE: NORMAL PERICARDIAL EFFUSION: NONE AORTIC ROOT: NORMAL LEFT VENTRICULAR WALL MOTION: NORMAL DOPPLER/COLOR FLOW: GRADE I DIASTOLIC DYSFUNCTION COMMENTS: 1. NORMAL LEFT VENTRICULAR SYSTOLIC FUNCTION, EJECTION FRACTION 60-65%, NORMAL WALL MOTION 2. GRADE I DIASTOLIC DYSFUNCTION TECHNOLOGIST: GONZALES MONTALVO
--- NOTE | 2024-05-03 16:58 | EKG ---
Test Date: 2024-05-01 Test Time: 22:10:36 Non Destructive Evaluation Manager: KARIE MEASUREMENT RESULTS: Intervals: Rate: 90 MA: 172 QRSD: 80 QT: 394 QTc: 481 [place]: P: 68 MA: 172 QRS: 55 T: 33 INTERPRETIVE STATEMENTS: Normal sinus rhythm Prolonged QT Abnormal ECG Compared to ECG 12/26/2023 19:41:23 Prolonged QT interval now present Electronically Signed On 05-03-24 16:53:35 CDT by Gabriel Mejia
[2024-05-03] MEDS: AMLODIPINE 10 MG TAB PO SCH (18:42)
[2024-05-04] MEDS: LORazepam 2 MG/ML VIAL IV ONE (00:11)
[2024-05-04 07:15] LABS: Absolute Basophils 0.1 K/uL (0-0.5); Absolute Eosinophils 0.2 K/uL (0-0.5); Absolute Lymphocytes (CBC) 1.9 K/uL (0.7-4.9); Absolute Monocytes 0.8 K/uL (0.1-1.3); Absolute Neutrophil 4.3 K/uL (1.8-8.0); Basophils % 0.9 % (0-1.3); Eosinophils % 2.3 % (0-4.4); Hematocrit 45.6 % (39.6-49.0); Hemoglobin 15.4 g/dL (13.6-17.9); Lymphocytes % 26.3 % (15.3-44.8); MCH 27.3 pg (27.0-35.0); MCHC 33.7 g/dL (32.0-36.0); MCV 80.9 fL (80-100); MPV 7.6 fL (7.6-11.3); Monocytes % 10.7 % (3.3-12.3); Neutrophils % 59.8 % (41.7-73.7); Nucleated Red Blood Cells % 0.1 % (0-0); Platelets 314 thou/uL (152-406); RBC Red Blood Cell Count 5.63 M/uL (4.33-5.43); Red Cell Distribution Width 18.9 % (12.1-15.2)
[2024-05-04 07:30] LABS: Albumin 2.9 g/dL (3.4-5.0); Albumin/Globulin Ratio 0.8 (1.1-1.8); Anion Gap 11.9 mEq/L (5.0-15.0); Bilirubin Total 0.8 mg/dL (0.2-1.0); Globulin 3.7 g/dL (2.3-3.5); Magnesium 1.9 mg/dL (1.6-2.4); Phosphorus 2.9 mg/dL (2.5-4.9); Potassium 3.9 mEq/L (3.5-5.1); Protein, Total 6.6 g/dL (6.4-8.2)
[2024-05-04 09:47] LABS: Blood Morphology Comment NOT SEEN (NOT SEEN); Platelet Estimate ADEQ; White Blood Cell Scan OK (OK)
--- NOTE | 2024-05-04 11:51 | P.PN ---
Subjective Date of Service: 05/04/24 Chief Complaint: Right facial droop and right-sided weakness Pt is resting comfortably in bed. He was sleeping when I saw him. Pt has right facial droop. 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 BP is elevated. Will optimize BP regimen. Echo shows EF 60 - 65% with grade I diastolic dysfunction. Pt will benefit from rehab placement. No other complaints. Review of Systems General: Unremarkable Eyes: Unremarkable ENT: Unremarkable Respiratory: Unremarkable Cardiovascular: Unremarkable Gastrointestinal: Unremarkable Genitourinary: Unremarkable Musculoskeletal: Unremarkable Integumentary: Unremarkable Neurological: Weakness Lymphatics: Unremarkable Physical Examination - Vital Signs Temperature: 97.7 F Blood Pressure: 171/90 Pulse: 76 Respirations: 16 Pulse Ox (%): 96 - Physical Exam General: Alert, In no apparent distress, Oriented x2 HEENT: Atraumatic, Normocephalic, PERRLA Neck: Supple, 2+ carotid pulse no bruit, JVD not distended Respiratory: Clear to auscultation bilaterally, Normal air movement Cardiovascular: No edema, Normal pulses, Regular rate/rhythm Capillary refill: <2 Seconds Gastrointestinal: Normal bowel sounds, Soft and benign, Non-distended Musculoskeletal: No clubbing, No swelling, No contractures, No erythema Integumentary: No rashes, No breakdown, No significant lesion, No tenderness/swelling Neurological: Normal gait, Normal speech, Normal strength at 5/5 x4 extr Lymphatics: No axilla or inguinal lymphadenopathy Assessment And Plan - Plan Right facial drooplikely due to right CVA versus TIA: CT head and CTA head and neck are unremarkable. 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 Allow permissive Htn. Continue prn hydralazine for BP > 220/120. Consulted Neurology/ PT/ Speech therapist. Echo shows EF 60 -65 % with grade I diastolic dysfuntion. Continue aspirin, plavix, and statin when able to swallow. Hypertension: Will allow permissive htn Diabetes mellitus: Continue accuchek, SSI and ADA diet. History of COPD: stable. Not in exacerbation. History of CAD: Continue home meds when cleared to swallow. History of tobacco use: Pt was advised to quit smoking. Will give nicotine patch. CKD stage III: Cr is 1.78<- 1.75<- 1.87. Will avoid nephrotoins and monitor renal function. Code: Full code DVT ppx: Lovenox Dispo: pending hospital course. Will benefit from rehab placement
[2024-05-04 19:02] LABS: Phosphatidylser & Prothrom IgG <9 U (<=30); Phosphatidylser & Prothrom IgM <9 U (<=30)
[2024-05-04 19:35] LABS: Abnormal Protein Band 1 REPORT; Albumin, (SPE) 3.9 g/dL (3.8-4.8); Alpha-1-Globulins 0.3 g/dL (0.2-0.3); Alpha-2-Globulins 0.8 g/dL (0.5-0.9); Beta 1 Globulin 0.4 g/dL (0.4-0.6); Gamma Globulins 1.3 g/dL (0.8-1.7); INTERPRETATION REPORT; Total Protein 7.1 g/dL (6.1-8.1)
[2024-05-04] MEDS: HYDRALAZINE HCL 20 MG/ML VIAL IV PRN (23:50)
[2024-05-05] MEDS: ALBUTEROL 2.5 MG/3 ML NEB SOL NEB PRN (00:38)
[2024-05-05 03:22] LABS: C-ANCA Anti-Proteinase 3 <1.0 AI (<1.0); P-ANCA Anti-Myeloperoxidase Ab <1.0 AI (<1.0)
[2024-05-05 06:08] LABS: Anti-Thrombin III Activity 100 % normal (80-135)
[2024-05-05 07:07] LABS: Absolute Basophils 0.1 K/uL (0-0.5); Absolute Eosinophils 0.2 K/uL (0-0.5); Absolute Lymphocytes (CBC) 2.5 K/uL (0.7-4.9); Absolute Monocytes 1.1 K/uL (0.1-1.3); Absolute Neutrophil 6.2 K/uL (1.8-8.0); Basophils % 0.8 % (0-1.3); Eosinophils % 1.8 % (0-4.4); Hemoglobin 15.3 g/dL (13.6-17.9); Lymphocytes % 24.7 % (15.3-44.8); MCHC 33.2 g/dL (32.0-36.0); MCV 81.3 fL (80-100); MPV 7.5 fL (7.6-11.3); Neutrophils % 61.7 % (41.7-73.7); Nucleated Red Blood Cells % 0.1 % (0-0); Platelets 331 thou/uL (152-406); RBC Red Blood Cell Count 5.65 M/uL (4.33-5.43); Red Cell Distribution Width 19.6 % (12.1-15.2)
[2024-05-05 07:23] LABS: AST/SGOT 12 U/L (15-37); Albumin/Globulin Ratio 0.7 (1.1-1.8); Alkaline Phosphatase 82 U/L (45-117); BUN Blood Urea Nitrogen 19 mg/dL (7-18); Bicarbonate 23 mEq/L (21-32); Globulin 4.1 g/dL (2.3-3.5); Glomerular Filtration Rate 38 ml/min (=/>90); Glucose Level 128 mg/dL (74-106); Protein, Total 7.1 g/dL (6.4-8.2); Sodium Level 141 mEq/L (136-145)
[2024-05-05 07:29] LABS: ALT/SGPT < 14 U/L (16-61)
--- NOTE | 2024-05-05 11:40 | P.PN ---
Subjective Date of Service: 05/05/24 Chief Complaint: Right facial droop and right-sided weakness Pt is resting comfortably in bed. He was sleeping when I saw him. Pt has right facial droop. 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 BP is elevated. Will optimize BP regimen. Echo shows EF 60 - 65% with grade I diastolic dysfunction. Waiting for inpatient rehab placement. Continue PT. No other complaints. Review of Systems is unable to be obtained Physical Examination - Vital Signs Temperature: 97.5 F Blood Pressure: 176/82 Pulse: 81 Respirations: 18 Pulse Ox (%): 96 - Physical Exam General: Alert, In no apparent distress, Confused HEENT: Atraumatic, Normocephalic, PERRLA Neck: Supple, 2+ carotid pulse no bruit, JVD not distended Respiratory: Clear to auscultation bilaterally, Normal air movement Cardiovascular: No edema, Normal pulses, Regular rate/rhythm, Normal S1 S2 Capillary refill: <2 Seconds Gastrointestinal: Normal bowel sounds, Soft and benign, Non-distended Musculoskeletal: No clubbing, No swelling, No contractures Integumentary: No rashes, No breakdown, No significant lesion Neurological: Normal gait, Normal speech, Normal strength at 5/5 x4 extr Lymphatics: No axilla or inguinal lymphadenopathy Assessment And Plan - Plan Right facial drooplikely due to right CVA versus TIA: CT head and CTA head and neck are unremarkable. 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 Allow permissive Htn. Continue prn hydralazine for BP > 220/120. Consulted Neurology/ PT/ Speech therapist. Echo shows EF 60 -65 % with grade I diastolic dysfuntion. Continue aspirin, plavix, and statin when able to swallow. Hypertension: Will allow permissive htn Diabetes mellitus: Continue accuchek, SSI and ADA diet. History of COPD: stable. Not in exacerbation. History of CAD: Continue home meds when cleared to swallow. History of tobacco use: Pt was advised to quit smoking. Will give nicotine patch. CKD stage III: Cr is 1.85<- 1.78<- 1.75<- 1.87. Will avoid nephrotoxins and monitor renal function. Code: Full code DVT ppx: Lovenox Dispo: pending hospital course. Will benefit from inpatient rehab placement
[2024-05-05 18:57] LABS: Homocysteine 21.5 umol/L (<11.4)
[2024-05-06 06:26] LABS: Absolute Basophils 0.1 K/uL (0-0.5); Absolute Eosinophils 0.2 K/uL (0-0.5); Absolute Lymphocytes (CBC) 2.3 K/uL (0.7-4.9); Absolute Monocytes 1.1 K/uL (0.1-1.3); Absolute Neutrophil 4.8 K/uL (1.8-8.0); Basophils % 0.9 % (0-1.3); Eosinophils % 2.3 % (0-4.4); Hematocrit 44.1 % (39.6-49.0); Hemoglobin 14.8 g/dL (13.6-17.9); Lymphocytes % 27.2 % (15.3-44.8); MCH 27.3 pg (27.0-35.0); MCHC 33.6 g/dL (32.0-36.0); MCV 81.5 fL (80-100); MPV 8.1 fL (7.6-11.3); Monocytes % 13.2 % (3.3-12.3); Neutrophils % 56.4 % (41.7-73.7); Nucleated Red Blood Cells % 0.2 % (0-0); Platelets 270 thou/uL (152-406); RBC Red Blood Cell Count 5.41 M/uL (4.33-5.43); Red Cell Distribution Width 19.1 % (12.1-15.2)
[2024-05-06 06:32] LABS: AST/SGOT 15 U/L (15-37); Albumin 2.9 g/dL (3.4-5.0); Albumin/Globulin Ratio 0.8 (1.1-1.8); Alkaline Phosphatase 79 U/L (45-117); Anion Gap 11.7 mEq/L (5.0-15.0); BUN Blood Urea Nitrogen 19 mg/dL (7-18); Bicarbonate 22 mEq/L (21-32); Globulin 3.8 g/dL (2.3-3.5); Glomerular Filtration Rate 43 ml/min (=/>90); Glucose Level 173 mg/dL (74-106); Potassium 3.7 mEq/L (3.5-5.1); Protein, Total 6.7 g/dL (6.4-8.2); Sodium Level 142 mEq/L (136-145)
[2024-05-06 06:35] LABS: ALT/SGPT < 14 U/L (16-61)
[2024-05-06 07:10] LABS: Blood Morphology Comment NOT SEEN (NOT SEEN); Platelet Estimate ADEQ; White Blood Cell Scan OK (OK)
--- NOTE | 2024-05-06 11:45 | P.PN ---
Subjective Date of Service: 05/06/24 Chief Complaint: Right facial droop and right-sided weakness Pt is resting comfortably in bed. He is awake and interactive. Pt has right facial droop. 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 BP is elevated. Will optimize BP regimen. Echo shows EF 60 - 65% with grade I diastolic dysfunction. Waiting for inpatient rehab placement. Continue PT. No other complaints. Review of Systems General: Unremarkable Eyes: Unremarkable ENT: Unremarkable Respiratory: Unremarkable Cardiovascular: Unremarkable Gastrointestinal: Unremarkable Genitourinary: Unremarkable Musculoskeletal: Unremarkable Integumentary: Unremarkable Neurological: Other (facial droop) Lymphatics: Unremarkable Physical Examination - Vital Signs Temperature: 97.6 F Blood Pressure: 182/87 Pulse: 71 Respirations: 19 Pulse Ox (%): 93 - Physical Exam General: Alert, In no apparent distress, Oriented x3 HEENT: Atraumatic, Normocephalic, PERRLA Neck: Supple, 2+ carotid pulse no bruit, JVD not distended Respiratory: Clear to auscultation bilaterally, Normal air movement Cardiovascular: No edema, Normal pulses, Regular rate/rhythm, Normal S1 S2 Capillary refill: <2 Seconds Gastrointestinal: Normal bowel sounds, Soft and benign, Non-distended Musculoskeletal: No clubbing, No swelling, No contractures Integumentary: No rashes, No breakdown, No significant lesion Neurological: Normal gait, Normal speech, Normal strength at 5/5 x4 extr Lymphatics: No axilla or inguinal lymphadenopathy Assessment And Plan - Plan Right facial drooplikely due to right CVA versus TIA: CT head and CTA head and neck are unremarkable. 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 Allow permissive Htn. Continue prn hydralazine for BP > 220/120. Consulted Neurology/ PT/ Speech therapist. Echo shows EF 60 -65 % with grade I diastolic dysfuntion. Continue aspirin, plavix, and statin when able to swallow. Diastolic heart failure: Echo shows EF 60 -65 % with grade I diastolic dysfunction. Will monitor BP and volume status. Hypertension: Will allow permissive htn Diabetes mellitus: Continue accuchek, SSI and ADA diet. History of COPD: stable. Not in exacerbation. History of CAD: Continue home meds when cleared to swallow. History of tobacco use: Pt was advised to quit smoking. Will give nicotine patch. CKD stage III: Cr is 1.69 <- 1.85<- 1.78<- 1.75<- 1.87. Will avoid nephrotoxins and monitor renal function. Code: Full code DVT ppx: Lovenox Dispo: pending hospital course. Will transfer to inpatient rehab tomorrow
[2024-05-06 13:54] LABS: Protein C Antigen 103 % normal (70-140)
--- NOTE | 2024-05-06 20:51 | CON ---
Reason For Consultation: Consultation called because of a stroke affecting the right body and left b rain. History Of Present Illness: Mr. Espinal is a 73-year-old right-handed patient with h ypertension, diabetes, COPD, coronary artery disease, who developed slurred speech, right-sided weakn ess while at dinner with his family on 05/02. Symptoms began around 3 hours prior to him arriving in the emergency room. At [facility], blood pressure was 191/113 with pulse of 90, respirator y rate 18. A CT scan of the head showed no acute ischemic or hemorrhagic changes. NIH Stroke Scale was 5. Although the patient apparently did get to the hospital as noted about 3 hours around the paul e of symptoms, it was actually not clear when the symptoms began and it was felt to be beyond the win aissatou. The patient therefore did not receive TNKs. He was managed medically with aspirin, Plavix, Lip itor, Lovenox, folic acid, and blood pressure is adjusted to be below 170.. Past Medical History: As noted. Allergies: NO KNOWN DRUG ALLERGIES. Past Surgical History: None. Social History: No alcohol, tobacco, or IV drug use. Family History: Noncontributory. Review of Systems: No recent fevers, chills, nausea, vomiting, myalgias, arthralgias, rash. Physical Examination: Vital Signs: Blood pressure 197/93, pulse 63, respiratory rate of 16, temperature 97.6, oxygen satur ation 100% on room air. General: Mr. Espinal is sitting in chair. Family at bedside. HEENT: He appears normocephalic and atraumatic. Sclerae anicteric. Oropharynx moist. Neck: Supple. Chest: Clear. Heart: Regular. No significant edema, cyanosis or clubbing. Neurological: He has a moderate right facial drooping with mild excursion noted in the right nasolab ial fold, drooping of the right corner of the mouth. His right upper extremity, he is at least 3-4 s trength proximally and distally and the right lower extremity similarly so on 3-4 strength and the le ft side 5/5 proximally distally. There is decreased light touch temperature on the right compared to the left upper and lower extremities. With his gait, he was able to ambulate about 15 feet, require d moderate assistance, had some difficulty getting to the right, had to be corrected by cuing to shif t his weight. Laboratory Studies: White blood cell count 8.5, hemoglobin 14.8, platelets 270. INR 1.03. His anti thrombin 3 activity is 100. Total protein S 109, free protein S 91. Protein C antigen 103. Factor 5 Leiden is pending. Creatinine 1.69, BUN 19, chloride 112, glucose ranged from 115-247, calcium 8.8 , total bilirubin 1.0, AST 15, ALT less than 14, albumin 2.9, globulin is 3.8. LDL cholesterol 92, H DL 49, total cholesterol 153, cholesterol to HDL ratio was 3.12. Homocysteine level is elevated at 2 1.5. Vitamin D level is 41.8. Urinalysis did show 500 esterase, red blood cells 5-10, urobilinogen 1+ blood is a trace, total protein 2+. His urine drug screen was negative. Anti-protease 3 less bebo n 1. Anti-myeloperoxidase is less than 1. IgG less than 9. RPR nonreactive. His echoca rdiogram showed ejection fraction 60%-65% with a normal study except for grade 1 diastolic dysfunctio n. The brain MRI done on 05/02/2024 shows a 2.7 cm acute infarct in the left basal ganglia and left periventricular white matter. His CT angiogram of the head showed no significant flow abnormalities and CT angiogram of his neck also showed no significant abnormalities. His chest x-ray showed mild C HF and his electrocardiogram showed normal sinus rhythm, prolonged QT. Assessment: Mr. Espinal is a 73-year-old patient with multiple stroke risk factors as noted, who has a stroke 2.7 cm in the left basal ganglia, periventricular white matter producing right face, arm, an d leg numbness, weakness, dysarthria as well as dysphagia. Plan: He may be a candidate for aggressive physical/occupational therapy. At this point, the patien t and family rather be at home and to continue therapy for speech on outpatient basis with physical t herapy. He should continue with aggressive management of his blood pressures, folic acid to reduce t he homocysteine levels. Plavix and aspirin to continue along with his statin, Lipitor 80 mg at bedti mi. He may follow up in Dr. Alexandre's clinic within the month. LB/MODL Voice ID: [id number] Report ID: [id number]
[2024-05-07 07:54] LABS: Absolute Eosinophils 0.2 K/uL (0-0.5); Absolute Lymphocytes (CBC) 1.8 K/uL (0.7-4.9); Absolute Neutrophil 3.8 K/uL (1.8-8.0); Basophils % 0.5 % (0-1.3); Eosinophils % 2.5 % (0-4.4); Hematocrit 44.4 % (39.6-49.0); Hemoglobin 14.5 g/dL (13.6-17.9); Lymphocytes % 26.5 % (15.3-44.8); MCH 26.6 pg (27.0-35.0); MCHC 32.7 g/dL (32.0-36.0); MCV 81.3 fL (80-100); MPV 7.4 fL (7.6-11.3); Monocytes % 14.3 % (3.3-12.3); Neutrophils % 56.2 % (41.7-73.7); Platelets 299 thou/uL (152-406); RBC Red Blood Cell Count 5.46 M/uL (4.33-5.43); Red Cell Distribution Width 19.2 % (12.1-15.2)
[2024-05-07 08:01] LABS: Albumin 2.8 g/dL (3.4-5.0); Albumin/Globulin Ratio 0.8 (1.1-1.8); Anion Gap 8.7 mEq/L (5.0-15.0); Bilirubin Total 0.8 mg/dL (0.2-1.0); Globulin 3.5 g/dL (2.3-3.5); Potassium 3.7 mEq/L (3.5-5.1); Protein, Total 6.3 g/dL (6.4-8.2)
[2024-05-07] MEDS ORDERED: ALBUTEROL 2.5 MG/3 ML NEB SOL NEB PRN (09:02)
--- NOTE | 2024-05-07 09:56 | P.PN ---
Subjective Date of Service: 05/07/24 Chief Complaint: Right facial droop and right-sided weakness Pt is resting comfortably in bed. He is awake and interactive. Pt has right facial droop. 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 BP is elevated. Will optimize BP regimen. Echo shows EF 60 - 65% with grade I diastolic dysfunction. Waiting to trasnfer to inpatient rehab today. Continue PT. No other complaints. Review of Systems General: Unremarkable Eyes: Unremarkable ENT: Unremarkable Respiratory: Unremarkable Cardiovascular: Unremarkable Gastrointestinal: Unremarkable Genitourinary: Unremarkable Musculoskeletal: Unremarkable Integumentary: Unremarkable Neurological: Change in Speech Lymphatics: Unremarkable Physical Examination - Vital Signs Temperature: 98.8 F Blood Pressure: 155/74 Pulse: 75 Respirations: 20 Pulse Ox (%): 96 - Physical Exam General: Alert, In no apparent distress, Oriented x3 HEENT: Atraumatic, Normocephalic, PERRLA Neck: Supple, 2+ carotid pulse no bruit, JVD not distended Respiratory: Clear to auscultation bilaterally, Normal air movement Cardiovascular: No edema, Normal pulses, Regular rate/rhythm Capillary refill: <2 Seconds Gastrointestinal: Normal bowel sounds, Soft and benign, Non-distended Musculoskeletal: No clubbing, No swelling, No contractures Integumentary: No rashes, No breakdown, No significant lesion, No tenderness/swelling Neurological: Normal gait, Normal speech, Normal strength at 5/5 x4 extr Lymphatics: No axilla or inguinal lymphadenopathy Assessment And Plan - Plan Right facial drooplikely due to right CVA versus TIA: CT head and CTA head and neck are unremarkable. 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 Allow permissive Htn. Continue prn hydralazine for BP > 220/120. Consulted Neurology/ PT/ Speech therapist. Echo shows EF 60 -65 % with grade I diastolic dysfuntion. Continue aspirin, plavix, and statin. Diastolic heart failure: Echo shows EF 60 -65 % with grade I diastolic dysfunction. Will monitor BP and volume status. Hypertension: Will continue amlodipine, lisinopril and metoprolol. Diabetes mellitus: Continue accuchek, SSI and ADA diet. History of COPD: stable. Not in exacerbation. History of CAD: Continue home meds History of tobacco use: Pt was advised to quit smoking. Will give nicotine patch. CKD stage III: Cr is 1.73 <- 1.69 <- 1.85<- 1.78<- 1.75<- 1.87. Will avoid nephrotoxins and monitor renal function. Code: Full code DVT ppx: Lovenox Dispo: pending hospital course. Will transfer to inpatient rehab today
--- NOTE | 2024-05-07 11:28 | P.DS ---
Admission Date: 05/02/24 Discharge Date: 05/07/24 Disposition: TRANSFER TO INPATIENT REHAB Discharge Condition: GOOD Reason for Admission: Right facial droop and right-sided weakness Brief History of Present Illness: 74-year-old male with past medical history of hypertension/diabetes/CAD/COPD, recent COPD exacerbation 3 months ago who developed slurred speech as well as right-sided weakness while at dinner with the family. Symptoms started about 3 hours prior to presenting. symptoms were noted by the family and patient was brought to the emergency room. No similar episodes in the past. No reported headache loss of consciousness or dizziness. reports patient was fine this morning at 9 AM when she gave him his medications. Patient has been with the daughter all day and reportedly had a poor p.o. intake. Daughter did not notice the facial droop on the spouse return back from work this evening and noticed DVT. On arrival in the ED blood pressure was elevated at 191/113, pulse of 90 respiratory rate of 18. Afebrile. Head CT shows no acute intracranial pathology. CT of the head and neck also was normal with normal flow. CBC was unremarkable, BMP shows creatinine of 1.87 about baseline EKG was unremarkable. Initial NIH score of 5. Patient has been admitted for presumed right-sided CVA Hospital Course: Pt is a 74 yo male with past medical history of hypertension, diabetes, CAD, and COPD who developed slurred speech and right-sided weakness while at dinner with the family. Symptoms started about 3 hours prior to presenting. His daughter noticed poor oral intake during the day but did not notice any facial droop. On admission, his BP was 191/113. CT head was unremarkable. CTA head and neck was unremarkable. Lab studies show cr 1.87. We admitted pt for CVA symptoms. MRI br ain showed a 2.7cm acute infarction in the left basal ganglia. We allowed permissive htn but gave prn hydralazine for BP > 220/120. We consulted Neurology/ PT/ Speech therapist. Echo showed EF 60 -65 % with grade I diastolic dysfunction. We continued aspirin, plavix, folic acid, and statin. Cr trended down with IVF. We continued home med for other chronic medical problems. Physical therapy worked with pt and deemed him a good candidate for inpatient rehab. Pt was in NAD prior to discharge to inpatient rehab. Vital Signs/Physical Exam: Temp Pulse Resp BP Pulse Ox 98.8 F 75 20 155/74 H 96 05/07/24 09:56 05/07/24 09:56 05/07/24 09:56 05/07/24 09:56 05/07/24 09:56 Laboratory Data at Discharge: WBC 6.80 thou/uL (4.3-10.9) 05/07/24 06:48 Hgb 14.5 g/dL (13.6-17.9) 05/07/24 06:48 Hct 44.4 % (39.6-49.0) 05/07/24 06:48 Plt Count 299 thou/uL (152-406) 05/07/24 06:48 PT 11.5 SECONDS (9.4-12.5) 05/01/24 21:50 INR 1.03 05/01/24 21:50 APTT 31.7 SECONDS (24.3-36.9) 05/01/24 21:50 Sodium 142 mEq/L (136-145) 05/07/24 06:48 Potassium 3.7 mEq/L (3.5-5.1) 05/07/24 06:48 BUN 17 mg/dL (7-18) 05/07/24 06:48 Creatinine 1.73 mg/dL (0.70-1.30) H 05/07/24 06:48 Glucose 201 mg/dL (74-106) H 05/07/24 06:48 Phosphorus 2.9 mg/dL (2.5-4.9) 05/04/24 07:06 Magnesium 1.9 mg/dL (1.6-2.4) 05/04/24 07:06 Total Bilirubin 0.8 mg/dL (0.2-1.0) 05/07/24 06:48 AST 15 U/L (15-37) 05/07/24 06:48 ALT 16 U/L (16-61) 05/07/24 06:48 Alkaline Phosphatase 79 U/L (45-117) 05/07/24 06:48 Triglycerides 59 mg/dL (<150) 05/03/24 05:50 Cholesterol 153 mg/dL (<200) 05/03/24 05:50 LDL Cholesterol Direct 110 mg/dL (100-129) 05/02/24 06:50 HDL Cholesterol 49 mg/dL (40-60) 05/03/24 05:50 Cholesterol/HDL Ratio 3.12 05/03/24 05:50 Home Medications: Aspirin Chewable [Aspirin Chewable*] 81 mg PO DAILY 12/26/23 Insulin Glargine,Hum.rec.anlog [Lantus] 20 unit SQ BEDTIME 12/26/23 Insulin Glargine,Hum.rec.anlog [Lantus] 40 unit SQ BREAKFAST 12/26/23 Lisinopril [Zestril] 40 mg PO DAILY 12/26/23 Hydrocodone 7.5/APAP 325 [[place] 7.5/325 mg*] 1 tab PO BID 12/27/23 Atorvastatin Calcium [Lipitor] 40 mg PO BEDTIME 30 Days #30 tab 12/30/23 Amlodipine [Norvasc*] 10 mg PO DAILY 60 Days #60 tab 05/07/24 Aspirin 81 mg PO DAILY 90 Days #90 tab.chew 05/07/24 Atorvastatin Calcium [Lipitor*] 80 mg PO BEDTIME 90 Days #90 tab 05/07/24 Clopidogrel Bisulfate [Plavix*] 75 mg PO DAILY 30 Days #30 tab 05/07/24 Folic Acid 1 mg PO DAILY 30 Days #30 tab 05/07/24 Metoprolol Succinate [Toprol Xl*] 25 mg PO DAILY 30 Days #30 tab 05/07/24 Nicotine [Nicoderm*] 14 mg TD Q24H 42 Days #42 patch 05/07/24 New Medications: Aspirin 81 mg PO DAILY 90 Days #90 tab.chew Folic Acid 1 mg PO DAILY 30 Days #30 tab Atorvastatin Calcium [Lipitor*] 80 mg PO BEDTIME 90 Days #90 tab Nicotine [Nicoderm*] 14 mg TD Q24H 42 Days #42 patch Amlodipine [Norvasc*] 10 mg PO DAILY 60 Days #60 tab Clopidogrel Bisulfate [Plavix*] 75 mg PO DAILY 30 Days #30 tab Metoprolol Succinate [Toprol Xl*] 25 mg PO DAILY 30 Days #30 tab Physician Discharge Instructions: Continue ad april activity as tolerated in inpatient rehab. Take home meds as prescribed. Follow up with PCP withing 1 - 2 weeks Diet: AHA Activity: Ad april Followup: Isaias Cruz, [Primary Care Provider] - 1-2 Weeks (Call for appointment.)
[2024-05-07 12:19] VITALS: O2SAT 98
[2024-05-07 12:46] VITALS: BP 164/84; TEMP 98.6
[2024-05-09 19:03] LABS: Factor V (Leiden) Interp REPORT; Factor V (Leiden) Result NEGATIVE
== END 2024-05-07 12:40 | DRG 64 ==
LOC: ER 21:43 → 4TH 05-02 00:23
PROVIDERS: ADMIT Internal Medicine; ATTEND Hospitalist
DX: I63.9 Cerebral infarction, unspecified (principal); I50.33 Acute on chronic diastolic (congestive) heart failure; G81.91 Hemiplegia, unspecified affecting right dominant side; I13.0 Hypertensive heart and chronic kidney disease with heart failure and stage 1 through stage 4 chronic kidney disease, or unspecified chronic kidney disease; N18.30 Chronic kidney disease, stage 3 unspecified; E11.22 Type 2 diabetes mellitus with diabetic chronic kidney disease; E78.5 Hyperlipidemia, unspecified; J44.9 Chronic obstructive pulmonary disease, unspecified; I25.10 Atherosclerotic heart disease of native coronary artery without angina pectoris; R29.702 NIHSS score 2; R29.810 Facial weakness; Z79.4 Long term (current) use of insulin; Z79.82 Long term (current) use of aspirin; Z79.899 Other long term (current) drug therapy; Z87.891 Personal history of nicotine dependence
CPT/HCPCS: 36415; 70450; 70496; 70498; 70551; 71045; 80048; 80053; 80061; 80076; 80307; 81001; 81240; 81241; 82306; 82565; 82607; 82947; 83090; 83516; 83735; 84100; 84132; 84165; 84484; 85025; 85300; 85302; 85305; 85306; 85610; 85730; 86021; 86146; 86147; 86592; 86593; 92507; 92523; 92610; 93005; 93306; 94640; 97110; 97112; 97116; 97161; 97165; 97530; 99285; J0360; J1650; J7121; J7613; Q9967

== ENCOUNTER 2024-05-10 15:37 | Inpatient (IN) | payer OTHER ==
--- OUTSIDE RECORDS SUMMARY | 2024-05-10 15:42 | XMS REPORT | Continuity of Care Document ---
Author Name Unknown Address [address] [facility] [address] [place] [address] [facility] thconnect Address [address] [facility] [address] [place] [address] Care Team Providers Care Methods Specialist Engineer Name Role Phone Franko Jessica Primary Care Physician [phone] Isaias Cruz Attending Clinician Unavailable Chhaya Morocho MD Attending Clinician [phone] CHHAYA MOROCHO Attending Clinician UnavailCHHAYA Lindquist Attending Clinician Unavaillesly Patel RN, Nisreen Attending Clinician Unavailable JEROME PIEDRA Attending Clinician Unavailable Vern oJhns DO Attending Clinician [phone] Amado Herring MD Attending Clinician [phone] Jerome Piedra MD Attending Clinician [phone] MOOKIE Attending Clinician Unavailable KNOW, DOES_NOT Attending Clinician Unavailable Jignesh Vargas Attending Clinician Unavailable JEROME PIEDRA Admitting Clinician Unavailable Jerome Piedra MD Admitting Clinician [phone] MOOKIE Admitting Clinician Unavailable Physician, No Primary or Family Admitting Clinic hans Unavailable Payers Payer Name Policy Type Policy Number Effective Date Expirati on Date Source [employer] 53 [id number] 2023 00:00:00 [place] [address] [id number] 2020 00:00:00 [facility] C1 [id number] 2020 00:00:00 [place] [address] [id number] 2020 00:00:00 [facility] Problems Condition Name Condition Details Condition Category Status Onset Date Resolution Date Last Treatment Date Treating Clinician Comments Source Altered mental status Altered mental status Disease Active 03-17 00:00: 00 [facility] Hyperglyce demond Hyperglyce demond Disease Active 03-17 00:00: 00 [facility] Chronic kidney disease stage 3B (disorder) Stage 3b chronic kidney disease Problem [facility] [id number] Encounter for examinatio n of eyes and vision without abnormal findings Problem [facility] [id number] Other obesity due to excess calories Problem [facility] Amnesia Memory changes Problem [facility] [id number] half-way current use of insulin Problem [facility] [id number] Type 2 diabetes mellitus with diabetic chronic kidney disease Problem [facility] [id number] Onychomyco sis Problem [facility] Emphysema Emphysema Problem [facility] Seasonal allergic rhinitis Allergic rhinitis, seasonal Problem [facility] Hyperlipid emia Hyperlipid emia Problem [facility] Chronic pain syndrome Chronic pain syndrome Problem [facility] Impotence of organic origin ED (erectile dysfunctio n) Problem [facility] Diabetic renal disease Chronic kidney disease in type 2 diabetes mellitus Problem [facility] Essential hypertensi on Benign essential HTN Problem [facility] [id number] Chronic obstructiv e pulmonary disease, unspecifie d COPD type Problem [facility] Vitamin D deficiency Vitamin D deficiency Problem [facility] Chronic kidney disease stage 3 (disorder) Stage 3 chronic kidney disease, unspecifie d whether stage 3a or 3b CKD Problem [facility] [id number] Alcohol abuse Problem [facility] [id number] Current every day smoker Problem [facility] [id number] Acute exacerbati on of emphysema Problem [facility] Allergies, Adverse Reactions, Alerts Allergy Name Allergy Type Status Severity Reaction(s) Onset Date Inactive Date Treating Clinician Comments Source No Known Allergie s DA Active U 01-20 00:00: 00 [facility] No Known Allergie s DA Active U 01-20 00:00: 00 [facility] NO KNOWN ALLERGIE S Drug Class Active [facility] Social History Social Habit Start Date Stop Date Quantity Comments Source Sexual orientation U [facility] History of Tobacco Use Current Smoker [facility] Sex Assigned At [facility] Alcoholic beverage intake 2024-02-15 00:00:00 2024-02-15 00:00:00 Current drinker of alcohol (finding) [facility] History of Social function 2024-02-15 00:00:00 2024-02-15 00:00:00 [facility] Exposure to SARS-CoV-2 (event) 2022-03-07 00:00:00 2022-03-17 17:21:00 Not sure [facility] Alcohol intake 2022-03-17 00:00:00 2022-03-17 00:00:00 Current drinker of alcohol (finding) [facility] Tobacco use and exposure 2022-03-17 00:00:00 2022-03-17 00:00:00 Smokeless tobacco non-user [facility] Smoking Status Start Date Stop Date Source Smokes tobacco daily 2022-03-17 00:00:00 [facility] Medications Ordered Medication Name Filled Medication Name Start Date Stop Date Current Medication? Ordering Clinician Indication Dosage Frequency Signature (SIG) Comments Components Source Carvedilol 25 MG Carvedilol 25 MG 1- 00:00: 00 No 1{table t_with_ food} BID Carvedilol 25 MG metFORMIN HCl ER 750 MG metFORMIN HCl ER 750 MG 2021-08 2-05 00:00: 00 No 1{table t_with_ evening _meal} QD metFORMIN HCl ER 750 MG lisinopriL 40 mg tablet 03-18 19:32: 03-18 00:00 :00 No 40mg Take 40 mg by mouth in the morning. [facility] aspirin 81 mg chewable tablet 03-18 19:32: 03-18 00:00 :00 No 81mg Take 81 mg by mouth in the morning. [facility] simvastatin 20 mg tablet 03-18 19:32: 03-18 00:00 :00 No 20mg Take 20 mg by mouth at bedtime. [facility] insulin glarginejamesonanlog (LANTUS SC) 03-18 19:32: 03-18 00:00 :00 No 20U inject 20 Units under the skin daily. [facility] Sliding Scale Insulin - Lispro (HumaLOG) + Fsbg Testing 03-18 17:00: 00 Yes Subcutaneo us, TID MEALS+HS, First dose (after last modificati on) on Thu03/18/22 at 1200, Until Discontinu ed, Routine [facility] insulin glargine (LANTUS U-100) injection 20 Units 03-18 15:00: 00 Yes 20U 20 Units, Subcutaneo us, DAILY, First dose on Thu03/18/22 at 1000, Until Discontinu ed, Routine [facility] aspirin chewable tablet 81 mg 03-18 14:00: 00 Yes 81mg 81 mg, Oral, DAILY, First dose on Thu03/18/22 at 0900, Until Discontinu ed, Routine [facility] insulin glargine (LANTUS U-100) injection 20 Units 03-18 14:00: 00 03-18 13:50 :26 No 20U 20 Units, Subcutaneo us, DAILY, First dose (after last modificati on) on Thu03/18/22 at 0900, Until Discontinu ed [facility] simvastatin (ZOCOR) tablet 20 mg 03-18 02:00: 00 Yes 20mg 20 mg, Oral, QHS, First dose on Thu03/17/22 at 2100, Until Discontinu ed, Routine [facility] Sliding Scale Insulin - Lispro (HumaLOG) + Fsbg Testing 03-18 02:00: 00 03-18 13:50 :43 No Subcutaneo us, TID MEALS+HS, First dose (after last modificati on) on Thu03/17/22 at 2100, Until Discontinu ed, Routine [facility] amLODIPine (NORVASC) tablet 5 mg 03-18 00:45: 00 Yes 5mg 5 mg, Oral, DAILY, First dose on Thu03/17/22 at 1945, Until Discontinu ed, Routine [facility] enoxaparin (LOVENOX) injection 40 mg 03-17 22:00: 00 Yes 40mg 40 mg, Subcutaneo us, DAILY, First dose on Thu03/17/22 at 1700, Until Discontinu ed, Routine [facility] NaCl 0.45% (1/2NS) IV infusion 1,000 mL 03-17 21:00: 00 Yes 1000mL at 125 mL/hr, 1,000 mL, IV Infusion, CONTINUOUS , Starting on Thu03/17/22 at 1600, Until Discontinu ed, Routine [facility] Sliding Scale Insulin - Lispro (HumaLOG) + Fsbg Testing 03-17 20:00: 00 03-18 00:50 :54 No Subcutaneo us, Q4H, First dose on Thu03/17/22 at 1500, Until Discontinu ed, Routine [facility] HYDROcodone -acetaminop hen (NORCO) 10-325 mg tablet 1 tablet 03-17 19:51: 46 Yes 1{tbl} 1 tablet, Oral, Q6HPRN, Starting on Thu03/17/22 at 1451, Until Discontinu ed, Routine, Pain (scale 7-10) [facility] HYDROcodone -acetaminop hen (NORCO 5) 5-325 mg tablet 1 tablet 03-17 19:51: 44 03-19 19:50 :44 No 1{tbl} 1 tablet, Oral, Q6HPRN, Starting on Thu03/17/22 at 1451, Until Thu03/19/22 at 1450, Routine, Pain (scale 4-6) [facility] acetaminoph en (TYLENOL) tablet 650 mg 03-17 19:51: 42 Yes 650mg 650 mg, Oral, Q6HPRN, Starting on Thu03/17/22 at 1451, Until Discontinu ed, Routine, Pain (scale 1-3) [facility] dextrose 10% (D10W) bolus infusion 250 mL [...] blood glucose is < 80 mg/dL, repeat.
[facility] glucagon (GLUCAGEN DIAGNOSTIC KIT) injection 1 mg 03-17 19:49: 02 Yes 1mg 1 mg, Intramuscu lar, PRN, Starting on Thu03/17/22 at 1449, Until Discontinu ed, TATI, Blood Glucose < or = 70 mg/dL and patient is unable to swallow or has mental changes. [facility] insulin regular human (HUMULIN R) injection 12 Units 03-17 19:30: 00 03-17 18:41 :00 No 12U 12 Units, Subcutaneo us, ONCE, 1 dose, On Thu03/17/22 at 1430, Routine [facility] No known medications 03-17 17:21: 51 No No known medication s [facility] Pen [place]nard 32G X 4 MM Pen [place] 32G X 4 MM 03-01 00:00: 00 No QD Pen [place] 32G X 4 MM Accu-Chek SoftClix Lancet [...] one) 2018-08 0-15 00:00: 00 No 40mg [facility] Lantus SoloStar 100 UNIT/ML Lantus SoloStar 100 [...] Comments Source FluAD FluAD 2020-05-31 15:02:00 Completed [facility] FluAD FluAD 2020-05-31 15:02:00 Completed [facility] FluAD FluAD 2020-05-31 15:02:00 Completed [facility] FluAD FluAD 2020-05-31 15:02:00 Completed [facility] FluAD FluAD 2020-05-31 15:02:00 Completed [facility] FluAD FluAD 2020-05-31 15:02:00 Completed [facility] FluAD FluAD 2020-05-31 15:02:00 Completed [facility] FluAD FluAD 2020-05-31 15:02:00 Completed [facility] FluAD FluAD 2020-05-31 15:02:00 Completed [facility] FluAD FluAD 2020-05-31 15:02:00 Completed [facility] FluAD FluAD 2020-05-31 15:02:00 Completed [facility] FluAD FluAD 2020-05-31 15:02:00 Completed [facility] FluAD FluAD 2020-05-31 15:02:00 Completed [facility] FluAD FluAD 2020-05-31 15:02:00 Completed [facility] FluAD FluAD 2020-05-31 15:02:00 Completed [facility] Kenalog (Triamcinolone) Kenalog (Triamcinolone) 2019-06-07 08:39:00 Completed [facility] Kenalog (Triamcinolone) Kenalog (Triamcinolone) 2019-06-07 08:39:00 Completed [facility] FluAD FluAD Unknown Completed [facility] FluAD Unknown Completed [facility] FluAD FluAD Unknown Completed [facility] FluAD FluAD Unknown Completed [facility] FluAD FluAD Unknown Completed [facility] FluAD FluAD Unknown [facility]pleted [facility] FluAD FluAD Unknown Completed [facility] FluAD FluAD Unknown Completed [facility] FluAD FluAD Unknown Completed [facility] FluAD FluAD Unknown Completed [facility] FluAD Unknown Completed [facility]AD FluAD Unknown Completed [facility] FluAD FluAD Unknown Completed [facility] FluAD FluAD Unknown Completed [facility] FluAD FluAD Unknown Completed [facility] FluAD FluAD Unknown Completed [facility] FluAD FluAD Unknown Completed [facility] FluAD FluAD Unknown Completed [facility] FluAD FluAD Unknown Completed [facility] Vital Signs Vital Name Observation Time Observation Value Comments S ource Body height 2024-02-15 20:49:00 172.7 cm [facility] Body weight 2024-02-15 20:49:00 82.101 kg [facility] BMI 2024-02-15 20:49:00 27.52 kg/m2 [facility] height 2023-09-23 14:10:00 67.5 [in_i] [facility] weight 2023-09-23 14:10:00 183.6 [lb_av] Co mmon [facility] temperature 2023-09-23 14:10:00 97.8 [degF] Com mon [facility] bmi 2023-09-23 14:10:00 28.33 kg/m2 [facility] oximetry 2023-09-23 14:10:00 99 % Commo n [facility] blood pressure systolic 2023-09-23 14:10:00 144 mm[Hg] [facility] blood pressure diastolic 2023-09-23 14:10:00 87 mm[Hg] [facility] height 2023-09-23 14:20:00 67.5 [in_i] Comm on [facility] weight 2023-09-23 14:20:00 183.6 [lb_av] Co [facility] temperature 2023-09-23 14:20:00 97.8 [degF] Com [facility] bmi 2023-09-23 14:20:00 28.33 kg/m2 [facility] oximetry 2023-09-23 14:20:00 99 % Commo n [facility] blood pressure systolic 2023-09-23 14:20:00 135 mm[Hg] [facility] blood pressure diastolic 2023-09-23 14:20:00 71 mm[Hg] [facility] height 2023-05-13 14:40:00 67.5 [in_i] [facility] on [facility] weight 2023-05-13 14:40:00 186.0 [lb_av] Co on [facility] temperature 2023-05-13 14:40:00 97.7 [degF] Com [facility] bmi 2023-05-13 14:40:00 28.7 kg/m2 Com[facility] oximetry 2023-05-13 14:40:00 98 % Commo [facility] respiratory rate 2023-05-13 14:40:00 18 /min [facility] blood pressure systolic 2023-05-13 14:40:00 124 mm[Hg] [facility] blood pressure diastolic 2023-05-13 14:40:00 70 mm[Hg] [facility] height 2022-10-09 11:20:00 67.5 [in_i] Comm on [facility] weight 2022-10-09 11:20:00 186.1 [lb_av] Co on [facility] temperature 2022-10-09 11:20:00 97.3 [degF] Com [facility] bmi 2022-10-09 11:20:00 28.71 kg/m2 Comm on [facility] oximetry 2022-10-09 11:20:00 98 % Commo n [facility] respiratory rate 2022-10-09 11:20:00 18 /min Common [facility] blood pressure systolic 2022-10-09 11:20:00 142 mm[Hg] [facility] blood pressure diastolic 2022-10-09 11:20:00 77 mm[Hg] [facility] height 2022-10-09 11:20:00 67.5 [in_i] Comm on [facility] weight 2022-10-09 11:20:00 186.1 [lb_av] Co mmon [facility] temperature 2022-10-09 11:20:00 97.3 [degF] Com [facility] bmi 2022-10-09 11:20:00 28.71 kg/m2 [facility] oximetry 2022-10-09 11:20:00 98 % Commo n [facility] respiratory rate 2022-10-09 11:20:00 18 /min Common [facility] blood pressure systolic 2022-10-09 11:20:00 142 mm[Hg] [facility] blood pressure diastolic 2022-10-09 11:20:00 77 mm[Hg] [facility] height 2022-07-28 13:00:00 67.5 [in_i] Comm on [facility] weight 2022-07-28 13:00:00 183.3 [lb_av] Co mmon [facility] temperature 2022-07-28 13:00:00 97.8 [degF] Com [facility] bmi 2022-07-28 13:00:00 28.28 kg/m2 [facility] oximetry 2022-07-28 13:00:00 96 % Commo n [facility] respiratory rate 2022-07-28 13:00:00 17 /min [facility] blood pressure systolic 2022-07-28 13:00:00 138 mm[Hg] [facility] blood pressure diastolic 2022-07-28 13:00:00 76 mm[Hg] [facility] height 2022-04-25 09:40:00 67.5 [in_i] Comm on [facility] weight 2022-04-25 09:40:00 179 [lb_av] Comm on [facility] temperature 2022-04-25 09:40:00 97.9 [degF] Com mon [facility] bmi 2022-04-25 09:40:00 27.62 kg/m2 [facility] oximetry 2022-04-25 09:40:00 97 % Commo n [facility] respiratory rate 2022-04-25 09:40:00 18 /min [facility] blood pressure systolic 2022-04-25 09:40:00 137 mm[Hg] [facility] blood pressure diastolic 2022-04-25 09:40:00 67 mm[Hg] [facility] Systolic blood pressure 2022-03-18 21:23:00 168 mm[Hg] [facility] Diastolic blood pressure 2022-03-18 21:23:00 90 mm[Hg] [facility] Heart rate 2022-03-18 21:23:00 63 /min [facility] Body temperature 2022-03-18 21:23:00 36.72 Corry [facility] Respiratory rate 2022-03-18 21:23:00 16 /min [facility] Oxygen saturation in Arterial blood by Pulse oximetry 2022-03-18 21:23:00 97 /min [facility] Body weight 2022-03-18 09:04:00 79.969 kg [facility] BMI 2022-03-18 09:04:00 26.81 kg/m2 [facility] Body height 2022-03-17 22:24:00 172.7 cm [facility] height 2022-01-31 08:40:00 68 [in_i] Commo n [facility] weight 2022-01-31 08:40:00 182.4 [lb_av] Co mmon [facility] temperature 2022-01-31 08:40:00 98.2 [degF] Com mon [facility] bmi 2022-01-31 08:40:00 27.73 kg/m2 Comm on [facility] oximetry 2022-01-31 08:40:00 98 % Commo n [facility] respiratory rate 2022-01-31 08:40:00 17 /min Common [facility] blood pressure systolic 2022-01-31 08:40:00 133 mm[Hg] [facility] blood pressure diastolic 2022-01-31 08:40:00 72 mm[Hg] Common [facility] height 2021-11-04 11:50:00 68 [in_i] Commo n [facility] weight 2021-11-04 11:50:00 188 [lb_av] Comm on [facility] temperature 2021-11-04 11:50:00 98 [degF] Comm on [facility] bmi 2021-11-04 11:50:00 28.58 kg/m2 [facility] blood pressure systolic 2021-11-04 11:50:00 132 mm[Hg] [facility] blood pressure diastolic 2021-11-04 11:50:00 77 mm[Hg] [facility] height 2021-07-30 15:50:00 68 [in_i] Commo n [facility] weight 2021-07-30 15:50:00 189.4 [lb_av] Co mmon [facility] temperature 2021-07-30 15:50:00 97.2 [degF] Com mon [facility] bmi 2021-07-30 15:50:00 28.8 kg/m2 Commo n [facility] oximetry 2021-07-30 15:50:00 99 % Commo n [facility] respiratory rate 2021-07-30 15:50:00 17 /min Common [facility] blood pressure systolic 2021-07-30 15:50:00 142 mm[Hg] [facility] blood pressure diastolic 2021-07-30 15:50:00 80 mm[Hg] [facility] Procedures Procedure Date / Time Performed Performing Clinician Source POCT GLUCOSE (AUTOMATED) 2022-03-18 21:49:00 Bobo Piedra [facility] POCT GLUCOSE (AUTOMATED) 2022-03-18 16:35:00 Amado Herring [facility] POCT GLUCOSE (AUTOMATED) 2022-03-18 12:32:00 Amado Herring [facility] PHOSPHORUS 2022-03-18 11:21:00 [facility] MAGNESIUM 2022-03-18 11:21:00 Amado Herring [facility] BASIC METABOLIC PANEL (NA, K, CL, CO2, GLUCOSE, BUN, CREATININE, CA) 2022-03-18 11:21:00 Amado Herring [facility] CBC WITH DIFF 2022-03-18 08:40:00 Amado Herring [facility] POCT GLUCOSE (AUTOMATED) 2022-03-18 04:34:00 Amado Herring [facility] POCT GLUCOSE (AUTOMATED) 2022-03-18 01:39:00 Amado Herring [facility] POCT GLUCOSE (AUTOMATED) 2022-03-17 22:21:00 Amado Herring [facility] POCT GLUCOSE (AUTOMATED) 2022-03-17 21:35:00 Amado Herring [facility] URINALYSIS 2022-03-17 20:15:00 Vern Johns [facility] URINE DRUG (IMMUNOASSAY) - COMPREHENSIVE DRUG SCREEN W/O REFLEX 2022-03-17 20:15:00 Singer [facility] COVID-19 (ID NOW RAPID TESTING) 2022-03-17 20:02:00 Singer [facility] LAB ONLY COVID INTERPRETATION 2022-03-17 20:02:00 Singer [facility] POCT GLUCOSE(AGE >30DAYS) 2022-03-17 19:49:00 Singer [facility] POCT GLUCOSE (AUTOMATED) 2022-03-17 19:46:00 Amado Herring [facility] CT HEAD WO CONTRAST 2022-03-17 18:29:00 Mckayla Johns [facility] THYROID STIMULATING HORMONE 2022-03-17 18:15[facility] METABOLIC PANEL ([id number]) 2022-03-17 18:15:00 Singer [facility] SALICYLATE 2022-03-17 18:15:00 Vern Johns [facility] ETHANOL 2022-03-17 18:15:00 Vern Johns [facility] CBC WITH DIFF 2022-03-17 18:15[facility] GL[facility]EMOGLOBIN (A1C) 2022-03-17 18:15:00 Amado Herring [facility] VBG+VCOOX+NA+K+GLU+CA2+ 2022-03-17 18:15:00 , Karla [facility] LACTIC ACID WHOLE BLOOD 2022-03-17 18:15:00 , Karla [facility] XR CHEST 1 VW 2022-03-17 18:13:15 Singer [facility] Encounters Start Date/Time End Date/Time Encounter Type Admission Type Attending [facility] Care Facility Care Department Encounter ID Source 2024-02-22 14:35:00 Outpatient Cruz, Isaias STLMLC ST[facility] [id number] [facility] 2024-02-11 14:48:00 Outpatient Cruz, Isaias ST[facility] STLMLC [id number] [facility] 2024-02-05 13:59:00 Outpatient Cruz, Isaias ST[facility] STLMLC [id number] [facility] 2022-07-28 13:37:01 Outpatient Cruz, Isaias ST[facility] STLMLC [id number] [facility] 2022-07-24 13:01:01 Outpatient Cruz, Isaias [facility] ST[facility] [id number] [facility] 2022-04-29 14:47:02 Outpatient Cruz, Isaias ST[facility] ST[facility] [id number] [facility] 2022-04-11 12:25:01 Outpatient Cruz, Isaias ST[facility] ST[facility] [id number] [facility] 2021-10-29 17:14:00 Outpatient Cruz, Isaias [facility] ST[facility] [id number] [facility] 2021-09-18 14:14:25 Outpatient Cruz, Isaias ST[facility] STLMLC [id number] [facility] 2021-09-18 13:39:15 Outpatient Cruz, Isaias [facility] STLMLC [id number] [facility] 2021-09-18 13:35:35 Outpatient Cruz, Isaias ST[facility] STLMLC [id number] [facility] 2021-09-18 13:02:14 Outpatient Cruz, Isaias ST[facility] STLMLC [id number] [facility] 2021-09-18 13:02:08 Outpatient Cruz, Isaias ST[facility] STLMLC [id number] [facility] 2021-09-18 12:57:54 [facility] [id number] 2021-09-18 12:49:19 Outpatient Cruz, [facility] [id number] [facility] 2021-09-18 12:24:40 Outpatient Cruz, [facility] [id number] [facility] 2021-09-18 12:24:21 Outpatient Cruz, [facility] [id number] [facility] 2021-09-18 12:22:02 Outpatient Cruz, [facility] [id number] [facility] 2021-09-18 11:53:29 Outpatient Cruz, [facility] [id number] [facility] 2020-01-21 03:16:00 Inpatient HCABM KEIRA [id number] [facility] 2024-03-24 00:00:00 2024-03-24 00:00:00 (TEL) STLMLC STLMLC [id number] [facility] 2024-02-22 00:00:00 2024-02-22 00:00:00 (TEL) STLMLC STLMLC [id number] [facility] 2024-02-16 00:00:00 2024-02-16 16:26:55 Telephone Chhaya [place] [facility] 1.2.840.114 350.1.13.10 4.2.7.2.686 [id number] [facility] 2024-02-15 15:49:13 2024-02-15 23:59:00 Outpatient R CHHAYA MOROCHO [facility] [id number] [facility] 2024-02-15 15:49:13 2024-02-15 23:59:00 Hospital Encounter Chhaya [place]ocho [facility] 1.2.840.114 350.1.13.10 4.2.7.2.686 [id number] [facility] 2024-02-15 15:30:00 2024-02-15 15:45:00 Office Visit Chhaya [facility]o [facility] 1.2.840.114 350.1.13.10 4.2.7.2.686 [id number] [facility] 2024-02-05 00:00:00 2024-02-05 00:00:00 (TEL) STLMLC STLMLC [id number] [facility] 2024-01-28 00:00:00 2024-01-29 10:55:53 Telephone Chhaya [facility]o [facility] 1.2.840.114 350.1.13.10 4.2.7.2.686 [id number] [facility] 2024-01-20 00:00:00 2024-01-20 00:00:00 (TEL) STLMLC STLMLC [id number] [facility] 2024-01-14 00:00:00 2024-01-14 00:00:00 (TEL) STLMLC STLMLC [id number] [facility] 2024-01-12 00:00:00 2024-01-12 12:18:13 Telephone Chhaya [place]o [facility] 1.2.840.114 350.1.13.10 4.2.7.2.686 [id number] [facility] 2024-01-12 00:00:00 2024-01-12 00:00:00 (TEL) STLMLC STLMLC [id number] [facility] 2024-01-01 00:00:00 2024-01-01 09:18:37 [facility]phone [facility] 1.2.840.114 350.1.13.10 4.2.7.2.686 [id number] [facility] 2023-11-26 00:00:00 2023-11-26 00:00:00 (TEL) STLMLC STLMLC [id number] [facility] 2023-10-30 00:00:00 2023-10-30 00:00:00 (TEL) STLMLC STLMLC [id number] [facility] 2023-10-07 00:00:00 2023-10-07 00:00:00 (TEL) STLMLC STLMLC [id number] [facility] 2023-09-23 00:00:00 2023-09-23 00:00:00 OFFICE VISIT ESTAB PT LEVEL 4 STLMLC STLMLC [id number] [facility] 2023-09-23 00:00:00 2023-09-23 00:00:00 SUB ANNUAL [facility] WELLNESS VISIT STLMLC STLMLC [id number] [facility] 2023-09-09 00:00:00 2023-09-09 00:00:00 (TEL) STLMLC STLMLC [id number] [facility] 2023-06-25 00:00:00 2023-06-25 00:00:00 (TEL) STLMLC STLMLC [id number] [facility] 2023-05-29 00:00:00 2023-05-29 00:00:00 (TEL) STLMLC STLMLC [id number] [facility] 2023-05-13 00:00:00 2023-05-13 00:00:00 OFFICE VISIT ESTAB PT LEVEL 4 STLMLC STLMLC [id number] [facility] 2023-05-13 00:00:00 2023-05-13 00:00:00 (TEL) STLMLC STLMLC [id number] [facility] 2023-02-12 00:00:00 2023-02-12 00:00:00 (TEL) STLMLC STLMLC [id number] [facility] 2022-11-12 00:00:00 2022-11-12 00:00:00 (TEL) STLMLC STLMLC [id number] [facility] 2022-11-04 00:00:00 2022-11-04 00:00:00 (TEL) STLMLC STLMLC [id number] [facility] 2022-10-22 00:00:00 2022-10-22 00:00:00 (TEL) STLMLC STLMLC [id number] [facility] 2022-10-09 00:00:00 2022-10-09 00:00:00 OFFICE VISIT ESTAB PT LEVEL 4 STLMLC STLMLC [id number] [facility] 2022-10-09 00:00:00 2022-10-09 00:00:00 SUB ANNUAL [facility] WELLNESS VISIT STLMLC STLMLC [id number] [facility] 2022-10-09 00:00:00 2022-10-09 00:00:00 (TEL) STLMLC STLMLC [id number] [facility] 2022-07-28 00:00:00 2022-07-28 00:00:00 OFFICE VISIT ESTAB PT LEVEL 4 STLMLC STLMLC [id number] [facility] 2022-04-25 00:00:00 2022-04-25 00:00:00 OFFICE VISIT ESTAB PT LEVEL 4 STLMLC STLMLC [id number] [facility] 2022-04-17 00:00:00 2022-04-17 00:00:00 (TEL) STLMLC STLMLC [id number] [facility] 2022-04-10 00:00:00 2022-04-10 00:00:00 (TEL) STLMLC STLMLC [id number] [facility] 2022-03-31 00:00:00 2022-03-31 00:00:00 (TEL) STLMLC STLMLC [id number] [facility] 2022-03-19 00:00:00 2022-03-19 00:00:00 Transition of Care Nisreen Patel 1.2.840.114 350.1.13.10 4.2.7.2.686 [id number] [facility] 2022-03-17 12:54:00 2022-03-18 19:20:00 Outpatient X JEROME PIEDRA [facility] [id number] [facility] 2022-03-17 12:54:00 2022-03-18 19:20:00 Emergency [facility] Angel [facility] 1.2.840.114 350.1.13.10 4.2.7.2.686 [id number] [facility] 2022-02-05 00:00:00 2022-02-05 00:00:00 (TEL) STLC STLC [id number] [facility] 2022-01-31 00:00:00 2022-01-31 00:00:00 (WELLNESS) Wellness Visit STLC STLC [id number] [facility] 2022-01-31 00:00:00 2022-01-31 00:00:00 (TEL) STLMLC STLMLC [id number] [facility] 2022-01-30 00:00:00 2022-01-30 00:00:00 (TEL) STLMLC STLMLC [id number] [facility] 2021-11-04 00:00:00 2021-11-04 00:00:00 (TELEAUD) AUDIO TELEMEDICI NE STLC STLC [id number] [facility] 2021-10-29 00:00:00 2021-10-29 00:00:00 (TEL) STLMLC STLMLC [id number] [facility] 2021-09-18 04:36:00 2021-09-18 04:36:00 Outpatient BRI LANIER YANNICK [id number] [facility] 2021-07-30 00:00:00 2021-07-30 00:00:00 OFFICE VISIT ESTAB PT LEVEL 4 STLMLC STLMLC [id number] [facility] 2021-07-17 00:00:00 2021-07-17 00:00:00 (TEL) STLMLC STLMLC [id number] [facility] 2021-05-27 00:00:00 2021-05-27 00:00:00 (TEL) STLMLC STLMLC [id number] [facility] 2021-04-29 00:00:00 2021-04-29 00:00:00 (TEL) STLMLC STLMLC [id number] [facility] 2021-04-10 00:00:00 2021-04-10 00:00:00 Outpatient STLMLC STLMLC [id number] [facility] 2021-03-14 00:00:00 2021-03-14 00:00:00 Outpatient STLMLC STLMLC [id number] [facility] 2021-03-07 00:00:00 2021-03-07 00:00:00 Outpatient STLMLC STLMLC [id number] [facility] 2021-03-01 00:00:00 2021-03-01 00:00:00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 Coll[place]worth # (Auto) (0 - 0.8 K/mm3) 0.95 [...] best of my knowledge. at 1442 RPT #:[id number] END OF REPORT [facility] 2020-01-23 14:39:00 [facility] ([facility] Hospitalist Discharge Summary REPORT#:[id number] REPORT STATUS: Signed DATE:01/23/20 TIME: 1439 PATIENT: KATERINA LEE UNIT #: [id number] ROOM/BED: [address] : [birth year] AGE: 69 SEX: M [...] PRN IV (DCD) Sodium Chloride 1,000 ML .[id number] IV (DCD) Tramadol HCl 50 MG Q6H [...] rebound Extremities: moves all Musculoskeletal: normal inspection Neuro/KINESIOLOGY INTERNSHIP: alert, oriented X 3, CNII-XII intact, normal speech Skin: dry, intact Psychiatry: normal affect Results Findings/Data: Laboratory Tests 01/22 01/22 01/22 01/22 01/21 1111 0549 0547 0547 2035 Chemistry Sodium (136 - 145 mmol/L) 141 [...] (Auto) (25.0 - 55.0 %) 20.0 L Collingsworth % (Auto) (0.0 - 10.0 %) 14.4 H Eos % (Auto) (0.0 - 5.0 %) 1.2 Baso % (Auto) (0.0 - 1.0 %) 0.3 Neut # (Auto) (1.8 - 7.7 K/mm3) 4.20 Lymph # (Auto) (1.0 - 5.0 K/mm3) 1.32 Collingsworth # (Auto) (0 - 0.8 K/mm3) 0.95 [...] best of my knowledge. at 1442 at 6842 RPT #:[id number] END OF REPORT [facility] 2020-01-22 16:05:00 [facility] ([facility]) Neurosurgical Progress Note REPORT#:[id number] REPORT STATUS: Signed DATE:01/22/20 TIME: 1605 PATIENT: KATERINA LEE UNIT #: [id number] ROOM/BED: : 51 AGE: 69 SEX: M [...] I will sign off. at 1607 RPT #:[id number] END OF REPORT [facility] 2020-01-22 13:40:00 [facility]) Hospitalist Progress Note REPORT#:[id number] REPORT STATUS: Signed DATE:01/22/20 TIME: 1340 PATIENT: KATERINA LEE UNIT #: [id number] ROOM/BED: : 51 AGE: 69 SEX: M ATTEND: Poncho Dumont MD ADM AUTHOR: Jordyn Robison ELECTRIC APPLIANCE INSTALLER * ALL edits or amendments must be [...] PRN PRN IV Sodium Chloride 1,000 ML .[id number] IV Tramadol HCl 50 MG Q6H PRN [...] rebound Extremities: moves all Musculoskeletal: normal inspection Neuro/KINESIOLOGY INTERNSHIP: alert, oriented X 3, CNII-XII intact, normal [...] best of my knowledge. at 1426 RPT #:[id number] END OF REPORT [facility] 2020-01-22 13:40:00 [facility] ([facility]) Hospitalist Progress Note REPORT#:[id number] REPORT STATUS: Signed DATE:01/22/20 TIME: 1340 PATIENT: KATERINA LEE UNIT #: [id number] ROOM/BED: [address] : [birth year] AGE: 69 SEX: M [...] PRN PRN IV Sodium Chloride 1,000 ML .[id number] IV Tramadol HCl 50 MG Q6H PRN [...] rebound Extremities: moves all Musculoskeletal: normal inspection Neuro/KINESIOLOGY INTERNSHIP: alert, oriented X 3, CNII-XII intact, normal [...] best of my knowledge. at 1426 RPT #:[id number] END OF REPORT [facility] 2020-01-22 13:40:00 [facility] Hospitalist Progress Note REPORT#:[id number] REPORT STATUS: Signed DATE:01/22/20 TIME: 1340 PATIENT: KATERINA LEE UNIT #: [id number] ROOM/BED: [address] : [birth year] AGE: 69 SEX: M [...] PRN PRN IV Sodium Chloride 1,000 ML .[id number] IV Tramadol HCl 50 MG Q6H PRN [...] rebound Extremities: moves all Musculoskeletal: normal inspection Neuro/KINESIOLOGY INTERNSHIP: alert, oriented X 3, CNII-XII intact, normal [...] best of my knowledge. at 1426 at 6297 RPT #:[id number] END OF REPORT [facility] 2020-01-21 16:09:00 [id number] [facility] PATIENT NAME: KATERINA LEE ADMIT DATE: 01/21/20 ACCOUNT NO: [id number] ROOM NO: [facility] AGE: 69 REPORT TYPE: eECHOCARDIOGRAM REPORT SEX: M DATE OF : 52 ADMITTING PHYSICIAN:Poncho Dumont MD ATTENDING PHYSICIAN:Poncho Dumont MD *[facility]* [address] [place], [place] [address] Transthoracic Echocardiogram Patient: Katerina Lee Study Date: 01/21/2020 BP: Location: [facility] URN: [id number] : 1950 Age: 69 Height: 68 in / 172.7 cm Gender: M Weight: 177.6 lb / 80.7 kg BMI/BSA: 27.1 kg/m 2 / 1.95 m 2 *Ordering Physician: * Jignesh Vargas *Interpreting Physician: * Andreas Peres MD *Loader Magazine Grinder: * [facility] -------- Indications: SYNCOPAL EPISODE. -------- Study data: [...] Peak grad, S 3 mm Hg --------- ME v, ED 1.48 m/sec ---- Mean grad, S 1 mm Hg --------- ME grad, ED 9 mm Hg ---- SV [...] 16:09 at 1609 PATIENT NAME: KATERINA LEE [facility] 2020-01-21 10:27:00 [facility] ([facility]) Neurosurgical Consultation REPORT#:[id number] REPORT STATUS: Signed DATE:01/21/20 TIME: 1027 PATIENT: KATERINA LEE UNIT #: [id number] ROOM/BED: [address] : [birth year] AGE: 69 SEX: M [...] Delivery Room air 01/21 920 Temp 97.7 01/21 920 Pulse 67 01/20 09 Resp 14 01/21 [...] Results were verbally communicated by telephone to Cloette Vergara MD on 01/21/2020 4:38 AM. FOR INTERNAL CODING PURPOSES ONLY RESULT CODE: CVR Impression By: Jose [email or web address] - Jennyfer Mcclain M.D. CAT SCAN - CT HEAD/BRAIN W/O CONT 01/200 Report Impression - Status: SIGNED Entered: 01/21/2020441 [...] RESULT CODE: CVR Impression By: Jose [email or web address] Lacy Mcclain M.D. Diagnosis, Assessment Plan Free Text A P: C4 and C5 nondisplaced spinous process fracture and C7 transverse process fracture. These do not require any intervention. We will proceed with MRI of the cervical spine to rule out any associated injury. at 1031 RPT #:[id number] END OF REPORT [facility] 2020-01-21 09:32:00 [facility] ([facility]) Clinical Note REPORT#:[id number] REPORT STATUS: Signed DATE:01/21/20 TIME: 931 PATIENT: KATERINA LEE UNIT #: [id number] ROOM/BED: : 51 AGE: 69 SEX: M [...] 5. DVT ppx lovenox at 0938 RPT #:[id number] END OF REPORT [facility] 2020-01-21 09:32:00 [facility] ([facility]) Clinical Note REPORT#:[id number] REPORT STATUS: Signed DATE:01/21/20 TIME: 931 PATIENT: KATERINA LEE UNIT #: [id number] ROOM/BED: : 51 AGE: 69 SEX: M [...] ppx lovenox at 0938 at 1737 RPT #:[id number] END OF REPORT [facility] 2020-01-21 04:44:00 [facility] ([facility]) Hospitalist History Physical REPORT#:[id number] REPORT STATUS: Signed DATE:01/21/20 TIME: 0444 PATIENT: KATERINA LEE UNIT #: [id number] ROOM/BED: [address] : [birth year] AGE: 69 SEX: M [...] rebound Extremities: moves all Musculoskeletal: normal inspection Neuro/KINESIOLOGY INTERNSHIP: alert, oriented X 3, CNII-XII intact, normal [...] IMPRESSION: No active pulmonary findings. Impression By: Yesenia Mcclain M.D. CAT SCAN - CT C-SPINE [...] Swallow studyPrior to feeding at 0411 RPT #:[id number] END OF REPORT [facility] 2020-01-21 04:29:00 [facility] ([facility]) EMERGENCY PROVIDER REPORT REPORT#:[id number] REPORT STATUS: Signed DATE:01/21/20 TIME: 042 PATIENT: KATERINA LEE UNIT #: [id number] ROOM/BED: [address] AGE: 69 SEX: M PCP PHYS: No Primary or Family Physician SERVICE AUTHOR: Colette Vergara MD * ALL edits or amendments must be made on the electronic/computer document * HPI-Neck Pain General Initial Greet Date/Time 01/21/207 Presentation Chief Complaint Neck injury Hx Obtained [...] with EMS. Patient was taken to [facility] emergency department. He was found to [...] Diagnostics Lab Results Interpretation Results Laboratory Tests 01/21/20 0420: [Embedded Image Not Available] 01/21/20 042: [Embedded Image Not Available] Laboratory Tests: 01/20 [...] Ox 96 01/20 317 B/P 154/88 01/20 031 B/P Mean 110 01/20 317 O2 Delivery Room air 01/20 317 Temp 36.7 01/20 317 Pulse 66 01/20 317 Resp 16 01/20 317 Last Documented: Result Date Time Pulse Ox 98 01/20 0426 B/P 154/88 01/20 0317 B/P Mean 110 01/20 317 O2 Delivery Room air 01/20 317 Temp 36.7 01/20 317 Pulse 66 05316 Resp 16 01/20 317 All vital signs available at the time of this entry have been reviewed. Condition Stable Clinical Impression Clinical Impression Primary Impression: Cervical spine fracture Secondary Impressions: Hypoglycemia, Syncope Disposition Decision Admit Admit Physician Name Jignesh Vargas MD Admit Physician Hospitalist Request Time 05 Request Date 01/21/20 )( Admission Accepts Yes )( Accepted Time 05 )( Accepted Date 01/21/20 Discharge/Care Plan Counseled Regarding Diagnosis, Lab results, Imaging studies Referrals No Primary or Family Physician (PCP/Family) at 0832 RPT #:[id number] END OF REPORT [facility]
[2024-05-10] MEDS ORDERED: NA CHLORIDE 0.9% 500 ML IV PRN (15:46)
[2024-05-10] MEDS ORDERED: ONDANSETRON 4 MG/2 ML VIAL IV PRN (15:46)
[2024-05-10] MEDS ORDERED: ACETAMINOPHEN 500 MG TAB PO PRN (15:46)
[2024-05-10] MEDS ORDERED: ALBUTEROL 2.5 MG/3 ML NEB SOL NEB PRN (15:46)
[2024-05-10] MEDS ORDERED: GLUCAGON 1 MG/VIAL IM PRN (15:59)
[2024-05-10] MEDS ORDERED: D10W 125 ML IV PRN (15:59)
--- NOTE | 2024-05-10 16:06 | P.HP ---
Certification for Inpatient Patient admitted to: Inpatient With expected LOS: >2 Midnights Practitioner: I am a practitioner with admitting privileges, knowledge of patient current condition, hospital course, and medical plan of care. Services: Services provided to patient in accordance with Admission requirements found in Title 42 Section 412.3 of the Code of Federal Regulations Patient History Date of Service: 05/10/24 Reason for admission: Altered mental status History of Present Illness: 73-year-old gentleman with a history of COPD, diabetes, coronary artery disease recently hospitalized for basal ganglia stroke with right-sided weakness, right facial paralysis and dysarthria, discharged to inpatient rehab to continue rehabilitation became confused since yesterday. Patient also noted to be febrile with temperature up to 100.7. UA suggest the presence of UTI. Patient seen and noted to be lethargic. According to report, patient was ambulatory yesterday with PT but there has been significant change in his functional status since then. He is hospitalized for further management. Allergies No Known Drug Allergies Allergy (Verified 05/07/24 13:01) Unknown Home Medications: Albuterol Neb [Proventil 0.083% Neb Soln] 2.5 mg NEB C0ENDDE PRN amp 05/10/24 Amlodipine [Norvasc*] 10 mg PO DAILY tab 05/10/24 Aspirin Chewable [Aspirin Chewable*] 81 mg PO DAILY tab.chew 05/10/24 Atorvastatin Calcium [Lipitor] 80 mg PO BEDTIME tab 05/10/24 Clopidogrel Bisulfate [Plavix*] 75 mg PO DAILY 05/10/24 Enoxaparin Sodium [Lovenox 40 MG INJ*] 40 mg SQ DAILY syr 05/10/24 Furosemide [Lasix*] 10 mg PO DAILY tab 05/10/24 Hydrocodone 7.5/APAP 325 [Eldridge 7.5/325 mg*] 1 tab PO BID PRN tab 05/10/24 Insulin Glargine,Hum.rec.anlog [Semglee] 20 unit SQ BEDTIME ml 05/10/24 Insulin Regular, Human [Novolin R] See Protocol SQ ACHS ml 05/10/24 Metoprolol Succinate [Toprol Xl*] 25 mg PO BID tab 05/10/24 Nicotine [Nicoderm*] 14 mg TD DAILY 05/10/24 Potassium Oral Tab [Klor-Con 10 mEq Tab*] 10 meq PO DAILY tab 05/10/24 cloNIDine HCL [Catapres*] 0.1 mg PO TID PRN tab 05/10/24 lisinopriL [Prinivil*] 40 mg PO DAILY tab 05/10/24 - Past Medical/Surgical History Diabetic: Yes -: Diabetes mellitus type 2 -: Hypertension -: Coronary artery disease -: Hyperlipidemia -: Chronic renal disease -: Tobacco abuse -: Alcohol use -: Heart catheterization Psychosocial/ Personal History: Patient is . He has 2 children. He does not work. - Family History Father -: Cancer - Social History Alcohol use: No CD- Drugs: No Caffeine use: Yes Review of Systems Other: I am unable to obtain review of systems due to altered mental status. Physical Examination - Physical Exam General: In no apparent distress, Confused (Lethargic), Obese HEENT: Mucous membr. moist/pink, Other (Oxygen by nasal cannula), Sclerae nonicteric Respiratory: Clear to auscultation bilaterally, Normal air movement Cardiovascular: No edema, Regular rate/rhythm, Normal S1 S2 Capillary refill: <2 Seconds Gastrointestinal: Normal bowel sounds, Soft and benign, Non-distended, No tenderness Musculoskeletal: No swelling, No tenderness Integumentary: No rashes, No cyanosis Neurological: Other (Right facial droop, patient moves all extremities.) Lymphatics: No axilla or inguinal lymphadenopathy Assessment and Plan - Problems (Diagnosis) (1) Sepsis secondary to UTI Current Visit: Yes Status: Acute - Plan Sepsis secondary to UTI Acute cystitis with hematuria. Admit patient to the medical floor Sepsis protocol initiated Check lactate levels. Urine culture and blood cultures obtained in inpatient rehab Start broad-spectrum antibiotics Keep n.p.o. for now given history of dysphagia IV hydration. Cannot give full sepsis IV fluid bolus given chest x-ray reported mild CHF. IV fluid maintenance-D5 NS. CVA with right-sided weakness Continue aspirin and Plavix Resume PT. Speech therapy as needed. Diabetes mellitus type 2 Hypoglycemia Hypoglycemia corrected. Accu-Cheks and insulin sliding scale for glucose management. COPD Not in acute exacerbation Bronchodilators as needed Supplemental oxygen as needed. DVT prophylaxis: Lovenox Advanced directive: I could not discuss CODE STATUS given altered mental status. Will keep him full code for now and reevaluate. - Advance Directives Does patient have a Living Will: No Does patient have a Durable POA for Healthcare: No
[2024-05-10] MEDS: INSULIN REGULAR (HUMAN) 100 UNIT/ML SQ SCH (16:30)
[2024-05-10] MEDS: CEFEPIME 2 GM in NA CHLORIDE 0.9% 100 ML IV SCH ×2 (17:00→18:00)
--- NOTE | 2024-05-10 17:45 | RAD REPORT ---
EXAMINATION: CT ABDOMEN AND PELVIS WITHOUT CONTRAST CLINICAL INDICATION: Male, 73 years old. [facility] UTI with sepsis TECHNIQUE: CT abdomen and pelvis was performed, without IV contrast, as per department protocol. Axia l, sagittal and coronal reconstructions were obtained. One or more of the following dose reduction techniques were used: Automated exposure control, adjustment of the mA and kV according to the patien t size, and iterative reconstruction. Unless otherwise specified, incidental findings do not require dedicated imaging follow-up. COMPARISON: No prior exam. FINDINGS: The lack of intravenous contrast limits the sensitivity of this exam for evaluation of solid visceral organs, vascular structures, and retroperitoneum. LOWER CHEST: The visualized lung bases are clear. LIVER: Normal in size and contour. No focal lesion. BILIARY SYSTEM: Cholelithiasis. No pericholecystic fluid or fat stranding. SPLEEN: Normal size. No focal lesion. PANCREAS: Extensive coarse calcifications throughout the pancreatic parenchyma, suggesting sequelae o f chronic pancreatitis. No mass, ductal dilation, or araseli-pancreatic fluid. ADRENALS: Normal; no mass. KIDNEYS AND URETERS: Normal size and contour. No hydronephrosis. URINARY BLADDER: Normal contour. GASTROINTESTINAL TRACT: No evidence of bowel obstruction, significant free fluid, free air or abscess . APPENDIX: Normal appendix. LYMPH NODES: No lymphadenopathy. MUSCULOSKELETAL: No acute or suspicious osseous abnormality. ADDITIONAL FINDINGS: Prostatomegaly is. IMPRESSION: No acute abnormalities in the abdomen or pelvis, with evaluation limited by lack of IV contrast. Results of findings including cholelithiasis, sequelae of chronic pancreatitis and prostatomegaly.
[2024-05-10] MEDS: D5 0.9 NS 1,000 ML IV SCH (17:49)
[2024-05-10] MEDS: VANCOMYCIN 1.5 GM in NA CHLORIDE 0.9% 500 ML IVPB SCH (17:50)
[2024-05-10] MEDS: SODIUM CHL 0.9% 1000 ML BAG IV ONE (17:50)
[2024-05-10 18:09] VITALS: BMI 27.8
[2024-05-10] MEDS ORDERED: VANCOMYCIN 1.25 GM in NA CHLORIDE 0.9% 250 ML IVPB SCH (21:00)
[2024-05-11] MEDS: HYDRALAZINE HCL 20 MG/ML VIAL IV ONE (00:47)
[2024-05-11] MEDS: NA CHLORIDE 0.9% 100 ML ONE (05:16)
[2024-05-11 06:17] LABS: Absolute Lymphocytes (CBC) 1.3 K/uL (0.7-4.9); Absolute Monocytes 2.3 K/uL (0.1-1.3); Absolute Neutrophil 21.5 K/uL (1.8-8.0); Basophils % 0.1 % (0-1.3); Hematocrit 46.1 % (39.6-49.0); Hemoglobin 14.8 g/dL (13.6-17.9); Lymphocytes % 5.3 % (15.3-44.8); MCH 26.5 pg (27.0-35.0); MCHC 32.2 g/dL (32.0-36.0); MCV 82.2 fL (80-100); MPV 8.6 fL (7.6-11.3); Monocytes % 9.1 % (3.3-12.3); Neutrophils % 85.5 % (41.7-73.7); Platelets 282 thou/uL (152-406); Red Cell Distribution Width 19.7 % (12.1-15.2)
[2024-05-11 06:26] LABS: Albumin 2.8 g/dL (3.4-5.0); Albumin/Globulin Ratio 0.7 (1.1-1.8); Anion Gap 11.8 mEq/L (5.0-15.0); Bilirubin Total 1.1 mg/dL (0.2-1.0); Globulin 4.1 g/dL (2.3-3.5); Magnesium 2.2 mg/dL (1.6-2.4); Potassium 3.8 mEq/L (3.5-5.1); Protein, Total 6.9 g/dL (6.4-8.2)
[2024-05-11] MEDS: NA CHLORIDE 0.9% 1,000 ML IV SCH (09:40)
[2024-05-11] MEDS: ENOXAPARIN 40 MG/0.4 ML SQ SCH (09:40)
[2024-05-11 09:51] LABS: Blood Morphology Comment NOT SEEN (NOT SEEN); Platelet Estimate ADEQ; White Blood Cell Scan OK (OK)
--- NOTE | 2024-05-11 15:12 | P.PN ---
Subjective Date of Service: 05/11/24 Chief Complaint: Altered mental status Patient is more awake today. No issues overnight, no reported agitation. Patient has been hypertensive. No recorded fever today. Physical Examination - Vital Signs Temperature: 98.1 F Blood Pressure: 137/66 Pulse: 88 Respirations: 24 Pulse Ox (%): 97 - Studies Laboratory Data (last 24 hrs) 05/11/24 05/11/24 05:39 05:39 WBC 25.10 H Hgb 14.8 Hct 46.1 Plt Count 282 Sodium 141 Potassium 3.8 BUN 21 H Creatinine 1.81 H Glucose 212 H Phosphorus 3.0 Magnesium 2.2 Total Bilirubin 1.1 H AST 23 ALT 36 Alkaline Phosphatase 111 Assessment And Plan - Current Problems (Diagnosis) (1) Sepsis secondary to UTI Current Visit: Yes Status: Acute - Plan Physical examination General: Alert and oriented x 2, NAD, HEENT: Conjunctiva not pale, anicteric sclera Neck: Supple, no elevated JVD Heart: Heart sounds 1 and 2 normal, regular rhythm, normal rate, no pedal edema Lungs: Clear to auscultation bilaterally, adequate breath sounds bilaterally, no rhonchi or crackles. Abdomen: Soft, nondistended, nontender, normal bowel sounds. Extremities: No tenderness, no deformity Skin: Normal skin turgor, no rash, no nodules or ulcers. Neuro: Right facial droop, right-sided weakness, dysarthria. Psychiatry: Awake, no agitation. Assessment and plan Sepsis secondary to UTI Acute cystitis with hematuria. Leukocytosis trended up. Sepsis protocol initiated Lactate level was normal. Urine culture: GNR Blood cultures: No growth. Continue IV cefepime and vancomycin for now Start dysphagia diet. Continue IV fluid maintenance, change D5 NS to NS once patient tolerates diet. CVA with right-sided weakness Continue aspirin and Plavix Resume PT. Speech therapy as needed. Diabetes mellitus type 2 Hypoglycemia Hypoglycemia corrected. Accu-Cheks and insulin sliding scale for glucose management. COPD Not in acute exacerbation Bronchodilators as needed Supplemental oxygen as needed. DVT prophylaxis: Lovenox Advanced directive: Full code.
[2024-05-12 05:32] LABS: Absolute Eosinophils 0.1 K/uL (0-0.5); Absolute Monocytes 2.2 K/uL (0.1-1.3); Absolute Neutrophil 18.6 K/uL (1.8-8.0); Basophils % 0.1 % (0-1.3); Eosinophils % 0.2 % (0-4.4); Hematocrit 41.6 % (39.6-49.0); Hemoglobin 13.6 g/dL (13.6-17.9); Lymphocytes % 8.7 % (15.3-44.8); MCH 26.5 pg (27.0-35.0); MCHC 32.7 g/dL (32.0-36.0); MCV 81.1 fL (80-100); MPV 8.2 fL (7.6-11.3); Monocytes % 9.6 % (3.3-12.3); Neutrophils % 81.4 % (41.7-73.7); Platelets 274 thou/uL (152-406); RBC Red Blood Cell Count 5.14 M/uL (4.33-5.43); Red Cell Distribution Width 19.6 % (12.1-15.2)
[2024-05-12 05:46] LABS: Anion Gap 8.7 mEq/L (5.0-15.0); Potassium 3.7 mEq/L (3.5-5.1)
[2024-05-12] MEDS: NA CHLORIDE 0.9% 1,000 ML IV SCH (08:29)
--- NOTE | 2024-05-12 13:24 | P.PN ---
Subjective Date of Service: 05/12/24 Chief Complaint: Altered mental status Patient is awake and interactive. No issues overnight, no reported agitation. No recorded fever today. Patient is tolerating diet. Physical Examination - Vital Signs Temperature: 97.2 F Blood Pressure: 123/63 Pulse: 77 Respirations: 17 Pulse Ox (%): 99 - Studies Laboratory Data (last 24 hrs) 05/12/24 05/12/24 05:00 05:00 WBC 22.80 H Hgb 13.6 D Hct 41.6 Plt Count 274 Sodium 142 Potassium 3.7 BUN 26 H Creatinine 2.02 H Glucose 160 H Assessment And Plan - Current Problems (Diagnosis) (1) Sepsis secondary to UTI Current Visit: Yes Status: Acute - Plan Physical examination General: Alert and oriented x 2, NAD, HEENT: Conjunctiva not pale, anicteric sclera Neck: Supple, no elevated JVD Heart: Heart sounds 1 and 2 normal, regular rhythm, normal rate, no pedal edema Lungs: Clear to auscultation bilaterally, adequate breath sounds bilaterally, no rhonchi or crackles. Abdomen: Soft, nondistended, nontender, normal bowel sounds. Extremities: No tenderness, no deformity Skin: Normal skin turgor, no rash, no nodules or ulcers. Neuro: Right facial droop, right-sided weakness, dysarthria. Psychiatry: Awake, no agitation. Assessment and plan Sepsis secondary to UTI Acute cystitis with hematuria. Leukocytosis is now trending down. Urine culture growing Citrobacter. Blood cultures have yielded no growth. Lactate level was normal. Continue IV cefepime. Vancomycin discontinued Continue IV fluid maintenance. CVA with right-sided weakness Continue aspirin and Plavix PT. Speech therapy as needed. Diabetes mellitus type 2 Hypoglycemia Hypoglycemia corrected. Accu-Cheks and insulin sliding scale for glucose management. COPD Not in acute exacerbation Bronchodilators as needed Supplemental oxygen as needed. DVT prophylaxis: Lovenox Advanced directive: Full code.
--- NOTE | 2024-05-12 23:33 | CON ---
Date of Consultation: 05/12/2024 Chief Complaint: Altered mental status. History Of Present Illness: The patient was admitted to the hospital because of altered mental statu s. He was found to have elevated BUN and creatinine level. Nephrology consultation was requested. The patient is a 73-year-old man with history of COPD, diabetes mellitus, coronary artery disease. Paresh kumari recently was hospitalized for basal ganglia stroke with right-sided weakness, right facial paralysi s, and dysarthria. He was discharged to inpatient rehab to continue rehabilitation because of confus ion, which was found to get worse. The patient was admitted to telemetry floor. The patient had low -grade fever. Temperature was up to 100.7. The patient is treated for urinary tract infection and N ephrology consultation is requested for chronic kidney disease and abnormal BUN and creatinine levels . Medications: The patient is taking multiple medication including amlodipine, aspirin, atorvastatin, Plavix, Lovenox, furosemide, hydrocodone, insulin, potassium chloride tablets, clonidine, and lisinop ril. Review of Systems: Unobtainable, patient is confused. Past Medical History: Diabetes mellitus type 2; hypertension; coronary artery disease; hyperlipidemi a; chronic kidney disease, stage 3 advancing to stage IV; alcohol abuse; cardiac catheterization. Family History: cancer. Social History: Denies alcohol. Denies drugs. He drinks coffee. Physical Examination: General: Not in acute distress. Eyes: Anicteric sclerae. Neck: Supple. No bruits. Lungs: Few rhonchi. Heart: S1, S2. No pericardial friction rub. Abdomen: Soft, benign, nontender. No rebound, no guarding. Extremities: No edema. Neurological: Right facial droop. The patient moves all extremities. Impression And Plan: 1.The patient is treated for urosepsis. He developed urinary tract infection with urosepsis. He goodman s acute cystitis with hematuria. Urinalysis showed leukocyturia and hematuria. The patient has hist ory of proteinuria and chronic kidney disease, stage 3 advancing to stage 4. The patient will contin ue IV fluids to prevent volume depletion. He has diminished p.o. intake. He is on IV fluids. Plan is to check lactic acid. Monitor renal panel. Currently, patient does not have metabolic acidosis. Continue to monitor electrolytes closely and check CK level to rule out rhabdomyolysis. 2.Hematuria in setting of urinary tract infection. The patient may benefit from Urology workup when he is stable and urinary tract infection is resolved and sepsis is treated adequately with antibioti cs. 3.Diabetes mellitus. Hypoglycemia in setting of sepsis. Adjust insulin. 4.Chronic obstructive pulmonary disease. Continue bronchodilators. 5.Chronic kidney disease with proteinuria. Check urine protein electrophoresis to quantify proteinu thomas and check his urine serum protein electrophoresis . JENNY/MODL Voice ID: [id number] Report ID: [id number]
[2024-05-13 05:06] LABS: Absolute Eosinophils 0.1 K/uL (0-0.5); Absolute Lymphocytes (CBC) 1.8 K/uL (0.7-4.9); Absolute Monocytes 1.5 K/uL (0.1-1.3); Absolute Neutrophil 10.7 K/uL (1.8-8.0); Basophils % 0.2 % (0-1.3); Hematocrit 39.5 % (39.6-49.0); Lymphocytes % 12.7 % (15.3-44.8); MCH 26.7 pg (27.0-35.0); MCHC 32.9 g/dL (32.0-36.0); MCV 81.2 fL (80-100); MPV 8.4 fL (7.6-11.3); Monocytes % 10.4 % (3.3-12.3); Neutrophils % 75.7 % (41.7-73.7); Platelets 263 thou/uL (152-406); RBC Red Blood Cell Count 4.87 M/uL (4.33-5.43); Red Cell Distribution Width 19.6 % (12.1-15.2)
[2024-05-13 05:14] LABS: Albumin 2.4 g/dL (3.4-5.0); Albumin/Globulin Ratio 0.6 (1.1-1.8); Anion Gap 7.6 mEq/L (5.0-15.0); Bilirubin Total 0.8 mg/dL (0.2-1.0); Globulin 4.1 g/dL (2.3-3.5); Phosphorus 1.9 mg/dL (2.5-4.9); Potassium 3.6 mEq/L (3.5-5.1); Protein, Total 6.5 g/dL (6.4-8.2)
[2024-05-13 06:56] LABS: UR PROTEIN 66.7 mg/dL (<11.9); Urine Protein/Creatinine Ratio 2.08 ratio (<0.15)
--- NOTE | 2024-05-13 07:20 | RAD REPORT ---
EXAMINATION: US RETROPERITONEUM CLINICAL INDICATION: [facility] ckd TECHNIQUE: Real-time ultrasonography of the abdomen was performed. COMPARISON: CT 05/10/2024 FINDINGS: RIGHT KIDNEY: Right renal length measurement: 10.2 cm. Normal echotexture. Some areas of renal cortic al thinning are noted in portions of the kidney. 10 mm benign cyst. LEFT KIDNEY: Left renal length measurement: 9.1 cm. Normal echotexture. Some mild renal cortical thin marcia is seen at places. ADDITIONAL FINDINGS: Thick-walled bladder. IMPRESSION: No hydronephrosis. Mild renal cortical thinning. 10 mm benign right renal cyst.
[2024-05-13] MEDS: POTASSIUM PHOS IN 0.9 % NACL 15 MMOL/250 ML BAG IV ONE (08:11)
--- NOTE | 2024-05-13 16:42 | P.PN ---
Subjective Date of Service: 05/13/24 Chief Complaint: Altered mental status Patient is awake. He denies any complain. He has been tolerating diet. No recorded fever today. . Physical Examination - Vital Signs Temperature: 98.9 F Blood Pressure: 175/83 Pulse: 75 Respirations: 20 Pulse Ox (%): 98 - Studies Laboratory Data (last 24 hrs) 05/13/24 05/13/24 05/13/24 05:00 04:03 04:03 WBC 14.10 H Hgb 13.0 L Hct 39.5 L Plt Count 263 Sodium Cancelled 142 Potassium Cancelled 3.6 BUN Cancelled 22 H Creatinine Cancelled 1.74 H Glucose Cancelled 173 H Phosphorus Cancelled 1.9 L Total Bilirubin 0.8 AST 17 ALT 28 Alkaline Phosphatase 109 Microbiology Data (last 24 hrs): 05/11/24 15:25 Clean Catch Urine [place] Count - Final No growth. 05/11/24 15:25 Clean Catch Urine - Final No growth. Assessment And Plan - Current Problems (Diagnosis) (1) Sepsis secondary to UTI Current Visit: Yes Status: Acute - Plan Physical examination General: Alert and oriented x 2, NAD, Neck: No elevated JVD Heart: Heart sounds 1 and 2 normal, regular rhythm, normal rate, no pedal edema Lungs: Clear to auscultation bilaterally, adequate breath sounds bilaterally, no rhonchi or crackles. Abdomen: Soft, nondistended, nontender, normal bowel sounds. Extremities: No tenderness, no deformity Skin: Normal skin turgor, no rash, no nodules or ulcers. Neuro: Right facial droop, right-sided weakness, dysarthria. Psychiatry: Awake, no agitation. Assessment and plan Sepsis secondary to UTI Acute cystitis with hematuria. Leukocytosis continue to trend down Urine culture: Citrobacter. Blood cultures have yielded no growth. Lactate level was normal. Continue IV cefepime for 1 more day and transition to oral antibiotics. Continue IV fluid maintenance. Patient is tolerating diet. CVA with right-sided weakness Continue aspirin and Plavix. Patient ambulated with therapy today. Continue PT. Speech therapy and OT consult. Social service/CM evaluating patient for inpatient rehab. Diabetes mellitus type 2 Hypoglycemia Hypoglycemia corrected. Accu-Cheks and insulin sliding scale for glucose management. COPD Not in acute exacerbation Bronchodilators as needed Supplemental oxygen as needed. DVT prophylaxis: Lovenox Advanced directive: Full code.
[2024-05-13] MEDS: HYDRALAZINE HCL 20 MG/ML VIAL IV PRN (21:24)
[2024-05-13 22:17] VITALS: O2SAT 97
--- NOTE | 2024-05-13 22:54 | PN ---
Date of Progress Note: 05/13/2024 Chief Complaint: Acute kidney injury on chronic kidney disease. Subjective: The patient is admitted to the hospital because of altered mental status. He was found to have elevated BUN and creatinine levels. Nephrology consultation was requested for abnormal renal function test. The patient has underlying chronic kidney disease, stage 3B. He was found to have p rerenal azotemia, although renal function is stabilizing. 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 Right facial paralysis and dysarthria. Review of Systems: Denies chest pain, palpitation. Physical Examination: Lungs: Clear to auscultation bilaterally. Heart: S1, S2. Abdomen: Soft, benign. Extremities: No edema. Neurological: Rate facial droop. The patient is moving all extremities. Impression And Plan: 1.The patient is on antibiotics. He has urosepsis. The patient has a stage 3 chronic kidney diseas e, advancing to stage 4, history of proteinuria. Continue IV fluids. Monitor electrolytes closely. Avoid nephrotoxic medication. Hematuria in setting of urine urinary tract infection. Currently, golden parkinson is on antibiotics for urinary tract infection. The patient will need to follow up with Urology outpatient. 2.Diabetes mellitus. The patient was found to have hypoglycemia due to sepsis, insulin adjusted. M onitor blood glucose. 3.Chronic obstructive pulmonary disease. Continue bronchodilators. 4.Chronic kidney disease with proteinuria. Urine protein electrophoresis was ordered. Monitor resu lts. EB/MODL Voice ID: [id number] Report ID: [id number]
[2024-05-14 07:02] LABS: Absolute Eosinophils 0.2 K/uL (0-0.5); Absolute Lymphocytes (CBC) 1.8 K/uL (0.7-4.9); Absolute Monocytes 1.5 K/uL (0.1-1.3); Basophils % 0.4 % (0-1.3); Eosinophils % 1.9 % (0-4.4); Hematocrit 42.2 % (39.6-49.0); Hemoglobin 14.1 g/dL (13.6-17.9); Lymphocytes % 18.7 % (15.3-44.8); MCHC 33.4 g/dL (32.0-36.0); MPV 7.8 fL (7.6-11.3); Monocytes % 16.3 % (3.3-12.3); Neutrophils % 62.7 % (41.7-73.7); Nucleated Red Blood Cells % 0.1 % (0-0); Platelets 300 thou/uL (152-406); RBC Red Blood Cell Count 5.21 M/uL (4.33-5.43); Red Cell Distribution Width 19.4 % (12.1-15.2)
[2024-05-14 07:22] LABS: Albumin 2.5 g/dL (3.4-5.0); Anion Gap 9.8 mEq/L (5.0-15.0); Phosphorus 2.5 mg/dL (2.5-4.9); Potassium 3.8 mEq/L (3.5-5.1)
[2024-05-14] MEDS: lisinopriL 20 MG TAB PO SCH (08:32)
--- NOTE | 2024-05-14 12:09 | P.PN ---
Subjective Date of Service: 05/14/24 Chief Complaint: Altered mental status Patient is doing much better today. Functional status is also improved He has been tolerating diet. Physical Examination - Vital Signs Temperature: 97.3 F Blood Pressure: 176/83 Pulse: 70 Respirations: 16 Pulse Ox (%): 99 - Physical Exam General: Alert, In no apparent distress, Oriented x3 HEENT: Mucous membr. moist/pink Neck: Supple, JVD not distended Respiratory: Clear to auscultation bilaterally, Normal air movement Cardiovascular: No edema, Regular rate/rhythm, Normal S1 S2 Gastrointestinal: Soft and benign, Non-distended, No tenderness Musculoskeletal: No swelling Neurological: Other (Dysarthria, right-sided weakness) - Studies Laboratory Data (last 24 hrs) 05/14/24 05/14/24 06:39 06:39 WBC 9.50 Hgb 14.1 D Hct 42.2 Plt Count 300 Sodium 145 Potassium 3.8 BUN 18 Creatinine 1.57 H Glucose 159 H Phosphorus 2.5 Microbiology Data (last 24 hrs): 05/11/24 15:25 Clean Catch Urine [place] Count - Final No growth. 05/11/24 15:25 Clean Catch Urine - Final No growth. Assessment And Plan - Current Problems (Diagnosis) (1) Sepsis secondary to UTI Current Visit: Yes Status: Acute - Plan Sepsis secondary to UTI Acute cystitis with hematuria. Leukocytosis resolved Urine culture: Citrobacter. Blood cultures: No growth Change IV cefepime to oral Augmentin. Discontinue IV fluid. Patient is tolerating diet. CVA with right-sided weakness Continue aspirin and Plavix. Patient is ambulating with therapy. Continue PT. Speech therapy and OT consult. Social service/CM evaluating patient for inpatient rehab. Diabetes mellitus type 2 Hypoglycemia Hypoglycemia corrected. Accu-Cheks and insulin sliding scale for glucose management. COPD Not in acute exacerbation Bronchodilators as needed Supplemental oxygen as needed. Acute on chronic kidney disease stage III TRUPTI resolved with IV hydration Nephrology is following. DVT prophylaxis: Lovenox Advanced directive: Full code.
--- NOTE | 2024-05-14 20:48 | PN ---
Date of Progress Note: 05/14/2024 Subjective: No overnight event. Creatinine stable. White count is trending down. Physical Examination: Vital Signs: Temperature 97.3, blood pressure 177/83. General: Sleeping, not in distress. Neck: Supple. No elevated JVD. Heart: Regular rate and rhythm. Normal S1, S2. Chest: Clear to auscultation bilaterally. No rales or wheezes. Abdomen: Soft, nontender. Extremities: No edema. Laboratory Data: Sodium 145, potassium 3.8, BUN 18, creatinine 1.5. Assessment And Plan: This is a 73-year-old man with past medical history of hypertension, chronic ki dney disease, was admitted for sepsis. 1.Acute on chronic kidney disease. Creatinine is improving. Discontinue IV fluids. Continue lisin opril. Avoid NSAID and contrast. Renally dose medication. 2.Urosepsis. White count 2500. The patient is improving. Continue antibiotic. 3.Diabetes mellitus. Continue insulin. 4.Hypertension. Lisinopril resumed. Blood pressure remains elevated. We will add calcium channel ronak. 5.Chronic obstructive pulmonary disease. Continue bronchodilators as needed. KAVITA/LANE Voice ID: [id number] Report ID: [id number]
[2024-05-15 08:09] LABS: Albumin 2.6 g/dL (3.4-5.0); Anion Gap 9.6 mEq/L (5.0-15.0); Phosphorus 2.4 mg/dL (2.5-4.9); Potassium 3.6 mEq/L (3.5-5.1)
[2024-05-15] MEDS: POTASSIUM CL SA 10 MEQ TAB PO ONE (12:00)
[2024-05-15] MEDS: POTASS/SODIUM PHOSPHATE 1 PKT POWD.PACK PO SCH (12:00)
--- NOTE | 2024-05-15 14:29 | P.PN ---
Subjective Date of Service: 05/15/24 Chief Complaint: Altered mental status Patient has no complaints today Functional status is also improved. Spouse stated patient is ambulating better. Spouse reported patient seemed a bit confused last night. Physical Examination - Vital Signs Temperature: 98.5 F Blood Pressure: 147/69 Pulse: 73 Respirations: 20 Pulse Ox (%): 97 - Physical Exam General: Alert, In no apparent distress, Oriented x3 HEENT: Mucous membr. moist/pink Neck: JVD not distended Respiratory: Clear to auscultation bilaterally, Normal air movement Cardiovascular: No edema, Regular rate/rhythm, Normal S1 S2 Gastrointestinal: Soft and benign, Non-distended, No tenderness Musculoskeletal: No swelling Integumentary: No cyanosis Neurological: Other (Right-sided weakness, right facial droop) - Studies Laboratory Data (last 24 hrs) 05/15/24 07:21 Sodium 142 Potassium 3.6 BUN 19 H Creatinine 1.65 H Glucose 184 H Phosphorus 2.4 L Assessment And Plan - Current Problems (Diagnosis) (1) Sepsis secondary to UTI Current Visit: Yes Status: Acute - Plan Sepsis secondary to UTI Acute cystitis with hematuria. Leukocytosis resolved Urine culture: Citrobacter. Blood cultures: No growth IV cefepime transitioned to oral ciprofloxacin Patient is tolerating diet. CVA with right-sided weakness Continue aspirin and Plavix. Patient is ambulating with therapy. Continue PT. Speech therapy input appreciated. OT to evaluate. Social service/CM evaluating patient for inpatient rehab. Diabetes mellitus type 2 Hypoglycemia Hypoglycemia corrected. Accu-Cheks and insulin sliding scale for glucose management. COPD Not in acute exacerbation Bronchodilators as needed Supplemental oxygen as needed. Acute on chronic kidney disease stage III TRUPTI resolved with IV hydration Nephrology is following. DVT prophylaxis: Lovenox Advanced directive: Full code.
--- NOTE | 2024-05-15 14:59 | P.PN ---
Subjective Date of Service: 05/15/24 Chief Complaint: Altered mental status Subjective: No overnight event. Creatinine stable. White count 9.4 Physical Examination: General: Sleeping, not in distress. Neck: Supple. No elevated JVD. Heart: Regular rate and rhythm. Normal S1, S2. Chest: Clear to auscultation bilaterally. No rales or wheezes. Abdomen: Soft, nontender. Extremities: No edema. Assessment And Plan: This is a 73-year-old man with past medical history of hypertension, chronic kidney disease, was admitted for sepsis. #. Acute on chronic kidney disease. Creatinine is improving. Discontinue IV fluids. Continue lisinopril. Avoid NSAID and contrast. Renally dose medication. #. Urosepsis. White count 2500. The patient is improving. Continue antibiotic. #. Diabetes mellitus. Continue insulin. #. Hypertension. Lisinopril resumed. Blood pressure remains elevated. We will add calcium channel ronak. #. Chronic obstructive pulmonary disease. Continue bronchodilators as needed. Physical Examination - Vital Signs Temperature: 98.5 F Blood Pressure: 147/69 Pulse: 73 Respirations: 20 Pulse Ox (%): 97 - Studies Laboratory Data (last 24 hrs) 05/15/24 07:21 Sodium 142 Potassium 3.6 BUN 19 H Creatinine 1.65 H Glucose 184 H Phosphorus 2.4 L
[2024-05-15] MEDS: CIPROFLOXACIN HCL 500 MG TAB PO SCH (20:57)
[2024-05-16 05:37] LABS: Anion Gap 8.9 mEq/L (5.0-15.0); Phosphorus 3.6 mg/dL (2.5-4.9); Potassium 3.9 mEq/L (3.5-5.1)
[2024-05-16] MEDS: POTASSIUM CL SA 10 MEQ TAB PO ONE (08:07)
--- NOTE | 2024-05-16 10:20 | P.PN ---
Subjective Date of Service: 05/16/24 Chief Complaint: Altered mental status Patient has no complaints today Functional status is also improved. Spouse stated patient is ambulating better. Spouse reported patient seemed a bit confused last night. Physical Examination - Vital Signs Temperature: 98.5 F Blood Pressure: 154/75 Pulse: 71 Respirations: 20 Pulse Ox (%): 97 - Physical Exam General: Alert, In no apparent distress, Oriented x3 HEENT: Mucous membr. moist/pink, Sclerae nonicteric Neck: Supple, JVD not distended Respiratory: Clear to auscultation bilaterally, Normal air movement Cardiovascular: No edema, Regular rate/rhythm, Normal S1 S2 Gastrointestinal: Normal bowel sounds, Soft and benign, Non-distended Musculoskeletal: No swelling Integumentary: No rashes, No cyanosis Neurological: Other (Right-sided weakness) Lymphatics: No axilla or inguinal lymphadenopathy - Studies Laboratory Data (last 24 hrs) 05/16/24 05:08 Sodium 141 Potassium 3.9 BUN 16 Creatinine 1.66 H Glucose 209 H Phosphorus 3.6 Assessment And Plan - Current Problems (Diagnosis) (1) Sepsis secondary to UTI Current Visit: Yes Status: Acute - Plan Sepsis secondary to UTI Acute cystitis with hematuria. Leukocytosis resolved. Clinically improved Urine culture: Citrobacter. Blood cultures: No growth IV cefepime transitioned to oral ciprofloxacin. Continue oral ciprofloxacin Patient is tolerating diet. CVA with right-sided weakness Continue aspirin and Plavix. Patient is ambulating with therapy. Continue PT. Speech therapy input appreciated. OT to evaluate. Social service/CM evaluating patient for inpatient rehab. Diabetes mellitus type 2 Hypoglycemia Hypoglycemia corrected. Accu-Cheks and insulin sliding scale for glucose management. COPD Not in acute exacerbation Bronchodilators as needed Supplemental oxygen as needed. Acute on chronic kidney disease stage III TRUPTI resolved with IV hydration. Unremarkable renal ultrasound except right benign renal cyst and thickened urinary bladder wall. Nephrology is following. DVT prophylaxis: Lovenox Advanced directive: Full code.
--- NOTE | 2024-05-16 17:02 | P.DS ---
Admission Date: 05/10/24 Discharge Date: 05/16/24 Disposition: TRANSFER TO INPATIENT REHAB Reason for Admission: Altered mental status - Problems (1) Sepsis secondary to UTI Current Visit: Yes Status: Acute Brief History of Present Illness: 73-year-old gentleman with a history of COPD, diabetes, coronary artery disease recently hospitalized for basal ganglia stroke with right-sided weakness, right facial paralysis and dysarthria, discharged to inpatient rehab to continue rehabilitation became confused. Patient also noted to be febrile with temperature up to 100.7. UA suggested the presence of UTI. Patient seen and noted to be lethargic. According to report, patient was ambulatory with PT recently, indicating significant change in his functional status. He is [facility] for further management of UTI with sepsis. Hospital Course: Patient was admitted to the medical floor and the following medical problems addressed: Sepsis secondary to UTI Acute cystitis with hematuria. Patient had severe leukocytosis which resolved with antibiotics No more fever during the hospital stay Urine culture grew Citrobacter. Blood cultures: No growth Patient was on IV cefepime which was transitioned to oral ciprofloxacin. Patient prescribed oral Cipro for 7 more days to complete 14 days of treatment for complicated UTI with sepsis. Patient tolerated diet. CVA with right-sided weakness Continued aspirin and Plavix. Patient clinical condition improved and was able to ambulate with physical therapy. Speech therapy evaluated patient Patient accepted to return to inpatient rehab. Diabetes mellitus type 2 Hypoglycemia Patient had an episode of hypoglycemia which was corrected. Blood sugar managed with insulin sliding scale. Patient was mostly hyperglycemic the rest of the hospital stay. Lantus insulin resumed on discharge but dose reduced to 20 units at bedtime. COPD Not in acute exacerbation Treated with bronchodilators as needed Acute on chronic kidney disease stage III TRUPTI resolved with IV hydration. Unremarkable renal ultrasound except right benign renal cyst and thickened urinary bladder wall. Nephrology evaluated patient and assisted with management. Vital Signs/Physical Exam: Temp Pulse Resp BP Pulse Ox 98.5 F 71 20 154/75 H 97 05/16/24 13:20 05/16/24 13:20 05/16/24 13:20 05/16/24 13:20 05/16/24 13:20 General: Alert, In no apparent distress, Oriented x3 HEENT: Mucous membr. moist/pink Neck: Supple, JVD not distended Respiratory: Clear to auscultation bilaterally, Normal air movement Cardiovascular: No edema, Regular rate/rhythm, Normal S1 S2 Gastrointestinal: Normal bowel sounds, Soft and benign, Non-distended, No tenderness Musculoskeletal: No swelling, No tenderness Integumentary: No rashes, No cyanosis Neurological: Other (Right-sided weakness, right facial weakness.) Laboratory Data at Discharge: WBC 9.50 thou/uL (4.3-10.9) 05/14/24 06:39 Hgb 14.1 g/dL (13.6-17.9) D 05/14/24 06:39 Hct 42.2 % (39.6-49.0) 05/14/24 06:39 Plt Count 300 thou/uL (152-406) 05/14/24 06:39 Sodium 141 mEq/L (136-145) 05/16/24 05:08 Potassium 3.9 mEq/L (3.5-5.1) 05/16/24 05:08 BUN 16 mg/dL (7-18) 05/16/24 05:08 Creatinine 1.66 mg/dL (0.70-1.30) H 05/16/24 05:08 Glucose 209 mg/dL (74-106) H 05/16/24 05:08 Phosphorus 3.6 mg/dL (2.5-4.9) 05/16/24 05:08 Magnesium 2.2 mg/dL (1.6-2.4) 05/11/24 05:39 Total Bilirubin 0.8 mg/dL (0.2-1.0) 05/13/24 04:03 AST 17 U/L (15-37) 05/13/24 04:03 ALT 28 U/L (16-61) 05/13/24 04:03 Alkaline Phosphatase 109 U/L (45-117) 05/13/24 04:03 Home Medications: Lisinopril [Zestril] 40 mg PO DAILY 05/13/24 Aspirin Chewable [Aspirin Chewable*] 81 mg PO DAILY #30 tab.chew 05/16/24 Atorvastatin Calcium [Lipitor] 80 mg PO BEDTIME #30 tab 05/16/24 Ciprofloxacin HCl [Cipro 500 MG Tablet] 500 mg PO BID #14 tab 05/16/24 Hydrocodone 7.5/APAP 325 [[place] 7.5/325 mg*] 1 tab PO BID PRN #10 tab 05/16/24 Insulin Glargine,Hum.rec.anlog [Lantus] 20 unit SQ DAILY #15 ml 05/16/24 New Medications: Aspirin Chewable [Aspirin Chewable*] 81 mg PO DAILY #30 tab.chew Ciprofloxacin HCl [Cipro 500 MG Tablet] 500 mg PO BID #14 tab Insulin Glargine,Hum.rec.anlog [Lantus] 20 unit SQ DAILY #15 ml Atorvastatin Calcium [Lipitor] 80 mg PO BEDTIME #30 tab Hydrocodone 7.5/APAP 325 [[place] 7.5/325 mg*] 1 tab PO BID PRN #10 tab PRN Reason: Pain Scale 5-7 (Moderate) Time spent managing pt's care (in minutes): 36
[2024-05-16 21:48] VITALS: BP 168/79; TEMP 98.5
[2024-05-16] MEDS: AMLODIPINE 5 MG TAB PO ONE (22:11)
--- NOTE | 2024-05-16 23:44 | PN ---
Date of Progress Note: 05/16/2024 Chief Complaint: Acute on chronic kidney injury. Subjective: The patient is admitted to the hospital because of altered mental status. He was found to have elevated BUN and creatinine levels. Nephrology consultation was requested for acute kidney i njury. Renal function is stabilizing. The patient tolerates p.o. intake. The patient has right-marquita ed weakness, right facial paralysis, and dysarthria and he had workup done by primary team. Review of Systems: Denies chest pain, palpitation. Physical Examination: Lungs: Clear to auscultation bilaterally. Heart: S1, S2. Abdomen: Soft, benign. Extremities: The patient has right facial droop. Assessment And Plan: 1.The patient is on antibiotics for urosepsis. Continue to monitor urine culture and blood culture. Continue IV fluids. The patient is tolerating p.o. intake. Advance p.o. intake as tolerated. Mon itor renal panel. Avoid nephrotoxic medication. The patient cannot take nonsteroidal anti-inflammat ory medication. 2.The patient has underlying chronic kidney disease due to diabetes mellitus and hypertension. Cont inue blood pressure medication. 3.Obstructive pulmonary disease. Continue bronchodilator. 4.Chronic kidney disease with proteinuria. Urine protein electrophoresis was ordered to rule out monoclonal gammopathy of unknown significance. EB/MODL Voice ID: [id number] Report ID: [id number]
== END 2024-05-16 23:45 | DRG 872 ==
LOC: 2ND 15:37
PROVIDERS: ADMIT Internal Medicine; ATTEND Internal Medicine
DX: A41.9 Sepsis, unspecified organism (principal); I69.351 Hemiplegia and hemiparesis following cerebral infarction affecting right dominant side; N30.01 Acute cystitis with hematuria; I13.0 Hypertensive heart and chronic kidney disease with heart failure and stage 1 through stage 4 chronic kidney disease, or unspecified chronic kidney disease; N18.4 Chronic kidney disease, stage 4 (severe); N17.9 Acute kidney failure, unspecified; I50.9 Heart failure, unspecified; E11.22 Type 2 diabetes mellitus with diabetic chronic kidney disease; E11.649 Type 2 diabetes mellitus with hypoglycemia without coma; E78.5 Hyperlipidemia, unspecified; N28.1 Cyst of kidney, acquired; E66.9 Obesity, unspecified; J44.9 Chronic obstructive pulmonary disease, unspecified; I25.10 Atherosclerotic heart disease of native coronary artery without angina pectoris; I69.322 Dysarthria following cerebral infarction; Z79.4 Long term (current) use of insulin; Z95.1 Presence of aortocoronary bypass graft; Z79.82 Long term (current) use of aspirin; Z68.27 Body mass index [BMI] 27.0-27.9, adult; Z79.02 Long term (current) use of antithrombotics/antiplatelets; Z79.899 Other long term (current) drug therapy
CPT/HCPCS: 36415; 74176; 76770; 80048; 80053; 80069; 80202; 82550; 82570; 82947; 83605; 83735; 84100; 84156; 84443; 85025; 87086; 87088; 92523; 93005; 94760; 97110; 97112; 97116; 97161; 97530; J0360; J0692; J1650; J7030; J7040; J7042

== ENCOUNTER 2024-05-16 19:48 | Inpatient (IN) | payer OTHER ==
--- OUTSIDE RECORDS SUMMARY | 2024-05-16 23:52 | XMS REPORT | Continuity of Care Document ---
Author Name Unknown Address [address] [facility] [address] [place] [address] [facility] thconnect Address [address] [facility] [address] [place] [address] Care Team Providers Care Gold Plater Name Role Phone Franko Jessica Primary Care Physician [phone] Isaias Cruz Attending Clinician Unavailable Chhaya Morocho MD Attending Clinician [phone] CHHAYA MOROCHO Attending Clinician UnavailCHHAAY Lindquist Attending Clinician Unavaillesly Patel RN, Nisreen Attending Clinician Unavailable JEROME PIEDRA Attending Clinician Unavailable Vern Johns DO Attending Clinician [phone] Amado Herring MD Attending Clinician [phone] Jerome Piedra MD Attending Clinician [phone] MOOKIE Attending Clinician Unavailable KNOW, DOES_NOT Attending Clinician Unavailable Jignesh Vargas Attending Clinician Unavailable JEROME PIEDRA Admitting Clinician Unavailable Jerome Piedra MD Admitting Clinician MOOKIE Admitting Clinician Unavailable Physician, No Primary or Family Admitting Clinic hans Unavailable Payers Payer Name Policy Type Policy Number Effective Date Expirati on Date Source [employer] 53 [id number] 2023 00:00:00 [place] [address] [id number] 2020 00:00:00 [facility] C1 [id number] 2020 00:00:00 [place] [address] [id number] 2020 00:00:00 [facility] Problems Condition Name Condition Details Condition Category Status Onset Date Resolution Date Last Treatment Date Treating Clinician Comments Source Altered mental status Altered mental status Disease Active 03-17 00:00: 00 [facility] Hyperglyce demond Hyperglyce demond Disease Active 03-17 00:00: 00 [facility] Chronic kidney disease stage 3B (disorder) Stage 3b chronic kidney disease Problem [facility] [id number] Encounter for examinatio n of eyes and vision without abnormal findings Problem [facility] [id number] Other obesity due to excess calories Problem [facility] Amnesia Memory changes Problem [facility] [id number] [facility] current use of insulin Problem [facility] [id number] Type 2 diabetes mellitus with diabetic chronic kidney disease Problem [facility] [id number] Onychomyco sis Problem [facility] Emphysema Emphysema Problem [facility] Seasonal allergic rhinitis Allergic rhinitis, seasonal Problem [facility] Hyperlipid emia Hyperlipid emia Problem [facility] Chronic pain syndrome Chronic pain syndrome Problem [facility] Impotence of organic origin ED (erectile dysfunctio n) Problem [facility] Diabetic renal disease Chronic kidney disease in type 2 diabetes mellitus Problem [facility] Essential hypertensi on Benign essential HTN Problem [facility] [id number] Chronic obstructiv e pulmonary disease, unspecifie d COPD type Problem [facility] Vitamin D deficiency Vitamin D deficiency Problem [facility] Chronic kidney disease stage 3 (disorder) Stage 3 chronic kidney disease, unspecifie d whether stage 3a or 3b CKD Problem [facility] [id number] Alcohol abuse Problem [facility] [id number] Current every day smoker Problem [facility] [id number] Acute exacerbati on of emphysema Problem [facility] Allergies, Adverse Reactions, Alerts Allergy Name Allergy Type Status Severity Reaction(s) Onset Date Inactive Date Treating Clinician Comments Source No Known Allergie s DA Active U 01-20 00:00: 00 [facility] No Known Allergie s DA Active U 01-20 00:00: 00 [facility] NO KNOWN ALLERGIE S Drug Class Active [facility] Social History Social Habit Start Date Stop Date Quantity Comments Source Sexual orientation U [facility] History of Tobacco Use Current Smoker [facility] Sex Assigned At [facility] Alcoholic beverage intake 2024-02-15 00:00:00 2024-02-15 00:00:00 Current drinker of alcohol (finding) [facility] History of Social function 2024-02-15 00:00:00 2024-02-15 00:00:00 [facility] Exposure to SARS-CoV-2 (event) 2022-03-07 00:00:00 2022-03-17 17:21:00 Not sure [facility] Alcohol intake 2022-03-17 00:00:00 2022-03-17 00:00:00 Current drinker of alcohol (finding) [facility] Tobacco use and exposure 2022-03-17 00:00:00 2022-03-17 00:00:00 Smokeless tobacco non-user [facility] Smoking Status Start Date Stop Date Source Smokes tobacco daily 2022-03-17 00:00:00 [facility] Medications Ordered Medication Name Filled Medication [...] 40 mg by mouth in the morning. [facility] aspirin 81 mg chewable tablet 03-18 19:32: 03-18 00:00 :00 No 81mg Take 81 mg by mouth in the morning. [facility] simvastatin 20 mg tablet 03-18 19:32: 03-18 00:00 :00 No 20mg Take 20 mg by mouth at bedtime. [facility] insulin glarginejamesonanlog (LANTUS SC) 03-18 19:32: 03-18 00:00 :00 No 20U inject 20 Units under the skin daily. [facility] Sliding Scale Insulin - Lispro (HumaLOG) + Fsbg Testing 03-18 17:00: 00 Yes Subcutaneo us, TID MEALS+HS, First dose (after last modificati on) on Thu03/18/22 at 1200, Until Discontinu ed, Routine [facility] insulin glargine (LANTUS U-100) injection 20 Units 03-18 15:00: 00 Yes 20U 20 Units, Subcutaneo us, DAILY, First dose on Thu03/18/22 at 1000, Until Discontinu ed, Routine [facility] aspirin chewable tablet 81 mg 03-18 14:00: 00 Yes 81mg 81 mg, Oral, DAILY, First dose on Thu03/18/22 at 0900, Until Discontinu ed, Routine [facility] insulin glargine (LANTUS U-100) injection 20 Units 03-18 14:00: 00 03-18 13:50 :26 No 20U 20 Units, Subcutaneo us, DAILY, First dose (after last modificati on) on Thu03/18/22 at 0900, Until Discontinu ed [facility] simvastatin (ZOCOR) tablet 20 mg 03-18 02:00: 00 Yes 20mg 20 mg, Oral, QHS, First dose on Thu03/17/22 at 2100, Until Discontinu ed, Routine [facility] Sliding Scale Insulin - Lispro (HumaLOG) + Fsbg Testing 03-18 02:00: 00 03-18 13:50 :43 No Subcutaneo us, TID MEALS+HS, First dose (after last modificati on) on Thu03/17/22 at 2100, Until Discontinu ed, Routine [facility] amLODIPine (NORVASC) tablet 5 mg 03-18 00:45: 00 Yes 5mg 5 mg, Oral, DAILY, First dose on Thu03/17/22 at 1945, Until Discontinu ed, Routine [facility] enoxaparin (LOVENOX) injection 40 mg 03-17 22:00: 00 Yes 40mg 40 mg, Subcutaneo us, DAILY, First dose on Thu03/17/22 at 1700, Until Discontinu ed, Routine [facility] NaCl 0.45% (1/2NS) IV infusion 1,000 mL 03-17 21:00: 00 Yes 1000mL at 125 mL/hr, 1,000 mL, IV Infusion, CONTINUOUS , Starting on Thu03/17/22 at 1600, Until Discontinu ed, Routine [facility] Sliding Scale Insulin - Lispro (HumaLOG) + Fsbg Testing 03-17 20:00: 00 03-18 00:50 :54 No Subcutaneo us, Q4H, First dose on Thu03/17/22 at 1500, Until Discontinu ed, Routine [facility] HYDROcodone -acetaminop hen (NORCO) 10-325 mg tablet 1 tablet 03-17 19:51: 46 Yes 1{tbl} 1 tablet, Oral, Q6HPRN, Starting on Thu03/17/22 at 1451, Until Discontinu ed, Routine, Pain (scale 7-10) [facility] HYDROcodone -acetaminop hen (NORCO 5) 5-325 mg tablet 1 tablet 03-17 19:51: 44 03-19 19:50 :44 No 1{tbl} 1 tablet, Oral, Q6HPRN, Starting on Thu03/17/22 at 1451, Until Thu03/19/22 at 1450, Routine, Pain (scale 4-6) [facility] acetaminoph en (TYLENOL) tablet 650 mg 03-17 19:51: 42 Yes 650mg 650 mg, Oral, Q6HPRN, Starting on Thu03/17/22 at 1451, Until Discontinu ed, Routine, Pain (scale 1-3) [facility] dextrose 10% (D10W) bolus infusion 250 [...] blood glucose is < 80 mg/dL, repeat.
[facility] glucagon (GLUCAGEN DIAGNOSTIC KIT) injection 1 mg 03-17 19:49: 02 Yes 1mg 1 mg, Intramuscu lar, PRN, Starting on Thu03/17/22 at 1449, Until Discontinu ed, TATI, Blood Glucose < or = 70 mg/dL and patient is unable to swallow or has mental changes. [facility] insulin regular human (HUMULIN R) injection 12 Units 03-17 19:30: 00 03-17 18:41 :00 No 12U 12 Units, Subcutaneo us, ONCE, 1 dose, On Thu03/17/22 at 1430, Routine [facility] No known medications 03-17 17:21: 51 No No known medication s [facility] Pen [place] 32G X 4 MM [place] 32G X 4 MM 03-01 00:00: 00 No QD [place] 32G X 4 MM Accu-Chek SoftClix Lancet [...] one) 2018-08 0-15 00:00: 00 No 40mg [facility] Lantus SoloStar 100 UNIT/ML Lantus SoloStar [...] Comments Source FluAD FluAD 2020-05-31 15:02:00 Completed [facility] FluAD FluAD 2020-05-31 15:02:00 Completed [facility] FluAD FluAD 2020-05-31 15:02:00 Completed [facility] FluAD FluAD 2020-05-31 15:02:00 Completed [facility] FluAD FluAD 2020-05-31 15:02:00 Completed [facility] FluAD FluAD 2020-05-31 15:02:00 Completed [facility] FluAD FluAD 2020-05-31 15:02:00 Completed [facility] FluAD FluAD 2020-05-31 15:02:00 Completed [facility] FluAD FluAD 2020-05-31 15:02:00 Completed [facility] FluAD FluAD 2020-05-31 15:02:00 Completed [facility] FluAD FluAD 2020-05-31 15:02:00 Completed [facility] FluAD FluAD 2020-05-31 15:02:00 Completed [facility] FluAD FluAD 2020-05-31 15:02:00 Completed [facility] FluAD FluAD 2020-05-31 15:02:00 Completed [facility] FluAD FluAD 2020-05-31 15:02:00 Completed [facility] Kenalog (Triamcinolone) Kenalog (Triamcinolone) 2019-06-07 08:39:00 Completed [facility] Kenalog (Triamcinolone) Kenalog (Triamcinolone) 2019-06-07 08:39:00 Completed [facility] FluAD FluAD Unknown Completed [facility] FluAD FluAD Unknown Completed [facility] FluAD FluAD Unknown Completed [facility] FluAD FluAD Unknown Completed [facility] Flu[facility] FluAD Unknown Completed [facility] Flu[facility] FluAD Unknown [facility]pleted [facility] FluAD FluAD Unknown Completed [facility] FluAD FluAD Unknown Completed [facility] FluAD FluAD Unknown Completed [facility] FluAD FluAD Unknown Completed [facility] FluAD FluAD Unknown Completed [facility] FluAD FluAD Unknown Completed [facility] FluAD FluAD Unknown Completed [facility] FluAD FluAD Unknown Completed [facility] FluAD FluAD Unknown Completed [facility] FluAD FluAD Unknown Completed Common [facility] FluAD FluAD Unknown Completed Common [facility] FluAD FluAD Unknown Completed Common [facility] FluAD FluAD Unknown Completed Common [facility] Vital Signs Vital Name Observation Time Observation Value Comments S ource Body height 2024-02-15 20:49:00 172.7 cm [facility] Body weight 2024-02-15 20:49:00 82.101 kg [facility] BMI 2024-02-15 20:49:00 27.52 kg/m2 [facility] height 2023-09-23 14:10:00 67.5 [in_i] [facility] weight 2023-09-23 14:10:00 183.6 [lb_av] Co mmon [facility] temperature 2023-09-23 14:10:00 97.8 [degF] Com mon [facility] bmi 2023-09-23 14:10:00 28.33 kg/m2 [facility] oximetry 2023-09-23 14:10:00 99 % Commo n [facility] blood pressure systolic 2023-09-23 14:10:00 144 mm[Hg] [facility] blood pressure diastolic 2023-09-23 14:10:00 87 mm[Hg] [facility] height 2023-09-23 14:20:00 67.5 [in_i] Comm on [facility] weight 2023-09-23 14:20:00 183.6 [lb_av] Co [facility] temperature 2023-09-23 14:20:00 97.8 [degF] Com [facility] bmi 2023-09-23 14:20:00 28.33 kg/m2 [facility] oximetry 2023-09-23 14:20:00 99 % Commo n [facility] blood pressure systolic 2023-09-23 14:20:00 135 mm[Hg] [facility] blood pressure diastolic 2023-09-23 14:20:00 71 mm[Hg] [facility] height 2023-05-13 14:40:00 67.5 [in_i] [facility] on [facility] weight 2023-05-13 14:40:00 186.0 [lb_av] Co on [facility] temperature 2023-05-13 14:40:00 97.7 [degF] Com [facility] bmi 2023-05-13 14:40:00 28.7 kg/m2 [facility] oximetry 2023-05-13 14:40:00 98 % [facility] respiratory rate 2023-05-13 14:40:00 18 /min Common [facility] blood pressure systolic 2023-05-13 14:40:00 124 mm[Hg] [facility] blood pressure diastolic 2023-05-13 14:40:00 70 mm[Hg] [facility] height 2022-10-09 11:20:00 67.5 [in_i] Comm on [facility] weight 2022-10-09 11:20:00 186.1 [lb_av] Co on [facility] temperature 2022-10-09 11:20:00 97.3 [degF] Com [facility] bmi 2022-10-09 11:20:00 28.71 kg/m2 Comm on [facility] oximetry 2022-10-09 11:20:00 98 % Commo [facility] respiratory rate 2022-10-09 11:20:00 18 /min Common [facility] blood pressure systolic 2022-10-09 11:20:00 142 mm[Hg] [facility] blood pressure diastolic 2022-10-09 11:20:00 77 mm[Hg] [facility] height 2022-10-09 11:20:00 67.5 [in_i] Comm on [facility] weight 2022-10-09 11:20:00 186.1 [lb_av] Co mmon [facility] temperature 2022-10-09 11:20:00 97.3 [degF] Com [facility] bmi 2022-10-09 11:20:00 28.71 kg/m2 Comm [facility] oximetry 2022-10-09 11:20:00 98 % Commo [facility] respiratory rate 2022-10-09 11:20:00 18 /min Common [facility] blood pressure systolic 2022-10-09 11:20:00 142 mm[Hg] [facility] blood pressure diastolic 2022-10-09 11:20:00 77 mm[Hg] [facility] height 2022-07-28 13:00:00 67.5 [in_i] Comm on [facility] weight 2022-07-28 13:00:00 183.3 [lb_av] Co mmon [facility] temperature 2022-07-28 13:00:00 97.8 [degF] Com [facility] bmi 2022-07-28 13:00:00 28.28 kg/m2 Comm [facility] oximetry 2022-07-28 13:00:00 96 % Com[facility] respiratory rate 2022-07-28 13:00:00 17 /min [facility] blood pressure systolic 2022-07-28 13:00:00 138 mm[Hg] [facility] blood pressure diastolic 2022-07-28 13:00:00 76 mm[Hg] [facility] height 2022-04-25 09:40:00 67.5 [in_i] Comm on [facility] weight 2022-04-25 09:40:00 179 [lb_av] Comm on [facility] temperature 2022-04-25 09:40:00 97.9 [degF] Com mon [facility] bmi 2022-04-25 09:40:00 27.62 kg/m2 [facility] oximetry 2022-04-25 09:40:00 97 % [facility] respiratory rate 2022-04-25 09:40:00 18 /min [facility] blood pressure systolic 2022-04-25 09:40:00 137 mm[Hg] [facility] blood pressure diastolic 2022-04-25 09:40:00 67 mm[Hg] [facility] Systolic blood pressure 2022-03-18 21:23:00 168 mm[Hg] [facility] Diastolic blood pressure 2022-03-18 21:23:00 90 mm[Hg] [facility] Heart rate 2022-03-18 21:23:00 63 /min [facility] Body temperature 2022-03-18 21:23:00 36.72 Corry [facility] Respiratory rate 2022-03-18 21:23:00 16 /min [facility] Oxygen saturation in Arterial blood by Pulse oximetry 2022-03-18 21:23:00 97 /min [facility] Body weight 2022-03-18 09:04:00 79.969 kg [facility] BMI 2022-03-18 09:04:00 26.81 kg/m2 [facility] Body height 2022-03-17 22:24:00 172.7 cm [facility] height 2022-01-31 08:40:00 68 [in_i] Commo n [facility] weight 2022-01-31 08:40:00 182.4 [lb_av] Co mmon [facility] temperature 2022-01-31 08:40:00 98.2 [degF] Com mon [facility] bmi 2022-01-31 08:40:00 27.73 kg/m2 [facility] oximetry 2022-01-31 08:40:00 98 % Commo n [facility] respiratory rate 2022-01-31 08:40:00 17 /min Common [facility] blood pressure systolic 2022-01-31 08:40:00 133 mm[Hg] [facility] blood pressure diastolic 2022-01-31 08:40:00 72 mm[Hg] [facility] height 2021-11-04 11:50:00 68 [in_i] Commo n [facility] weight 2021-11-04 11:50:00 188 [lb_av] Comm on [facility] temperature 2021-11-04 11:50:00 98 [degF] Comm on [facility] bmi 2021-11-04 11:50:00 28.58 kg/m2 [facility] blood pressure systolic 2021-11-04 11:50:00 132 mm[Hg] [facility] blood pressure diastolic 2021-11-04 11:50:00 77 mm[Hg] [facility] height 2021-07-30 15:50:00 68 [in_i] Commo n [facility] weight 2021-07-30 15:50:00 189.4 [lb_av] Co mmon [facility] temperature 2021-07-30 15:50:00 97.2 [degF] Com mon [facility] bmi 2021-07-30 15:50:00 28.8 kg/m2 [facility] oximetry 2021-07-30 15:50:00 99 % Commo [facility] respiratory rate 2021-07-30 15:50:00 17 /min [facility] blood pressure systolic 2021-07-30 15:50:00 142 mm[Hg] [facility] blood pressure diastolic 2021-07-30 15:50:00 80 mm[Hg] [facility] Procedures Procedure Date / Time Performed Performing Clinician Source POCT GLUCOSE (AUTOMATED) 2022-03-18 21:49:00 Bobo Piedra [facility] POCT GLUCOSE (AUTOMATED) 2022-03-18 16:35:00 Amado Herring [facility] POCT GLUCOSE (AUTOMATED) 2022-03-18 12:32:00 Amado Herring [facility] PHOSPHORUS 2022-03-18 11:21:00 Amado Herring [facility] MAGNESIUM 2022-03-18 11:21:00 Amado Herring [facility] BASIC METABOLIC PANEL (NA, K, CL, CO2, GLUCOSE, BUN, CREATININE, CA) 2022-03-18 11:21:00 Amado Herring [facility] CBC WITH DIFF 2022-03-18 08:40:00 Amado Herring [facility] POCT GLUCOSE (AUTOMATED) 2022-03-18 04:34:00 Amado Herring [facility] POCT GLUCOSE (AUTOMATED) 2022-03-18 01:39:00 Amado Herring [facility] POCT GLUCOSE (AUTOMATED) 2022-03-17 22:21:00 Amado Herring [facility] POCT GLUCOSE (AUTOMATED) 2022-03-17 21:35:00 Amado Herring [facility] URINALYSIS 2022-03-17 20:15:00 [facility] URINE DRUG (IMMUNOASSAY) - COMPREHENSIVE DRUG SCREEN W/O REFLEX 2022-03-17 20:15:00 Singer [facility] COVID-19 (ID NOW RAPID TESTING) 2022-03-17 20:02:00 Singer [facility] LAB ONLY COVID INTERPRETATION 2022-03-17 20:02:00 Singer [facility] POCT GLUCOSE(AGE >30DAYS) 2022-03-17 19:49:00 Singer [facility] POCT GLUCOSE (AUTOMATED) 2022-03-17 19:46:00 Amado Herring [facility] CT HEAD WO CONTRAST 2022-03-17 18:29:00 Mckayla Johns [facility] THYROID STIMULATING HORMONE 2022-03-17 18:15[facility] METABOLIC PANEL (56119) 2022-03-17 18:15:00 Singer [facility] SALICYLATE 2022-03-17 18:15:00 [facility] ETHANOL 2022-03-17 18:15:00 [facility] CBC WITH DIFF 2022-03-17 18:15[facility] (A1C) 2022-03-17 18:15:00 Amado Herring [facility] VBG+VCOOX+NA+K+GLU+CA2+ 2022-03-17 18:15:00 , [facility] LACTIC ACID WHOLE BLOOD 2022-03-17 18:15:00 , [facility] XR CHEST 1 VW 2022-03-17 18:13:15 Singer [facility] Encounters Start Date/Time End Date/Time Encounter Type Admission Type Attending [facility] Care Facility Care Department Encounter ID Source 2024-02-22 14:35:00 Outpatient Cruz, Isaias STLMLC ST[facility] [id number] [facility] 2024-02-11 14:48:00 Outpatient Cruz, Isaias ST[facility] STLMLC [id number] [facility] 2024-02-05 13:59:00 Outpatient Cruz, Isaias ST[facility] STLMLC [id number] [facility] 2022-07-28 13:37:01 Outpatient Cruz, Isaias ST[facility] STLMLC [id number] [facility] 2022-07-24 13:01:01 Outpatient Cruz, Isaias [facility] ST[facility] [id number] [facility] 2022-04-29 14:47:02 Outpatient Cruz, Isaias ST[facility] ST[facility] [id number] [facility] 2022-04-11 12:25:01 Outpatient Cruz, Isaias [facility] [id number] [facility] 2021-10-29 17:14:00 Outpatient Cruz, Isaias ST[facility] ST[facility] [id number] [facility] 2021-09-18 14:14:25 Outpatient Cruz, Isaias ST[facility] STLMLC [id number] [facility] 2021-09-18 13:39:15 Outpatient Cruz, Isaias ST[facility] STLMLC [id number] [facility] 2021-09-18 13:35:35 Outpatient Cruz, Isaias ST[facility] STLMLC [id number] [facility] 2021-09-18 13:02:14 Outpatient Cruz, Isaias ST[facility] STLMLC [id number] [facility] 2021-09-18 13:02:08 Outpatient Cruz, Isaias ST[facility] STLMLC [id number] [facility] 2021-09-18 12:57:54 [id number] 2021-09-18 12:49:19 Outpatient Cruz, [facility] [id number] [facility] 2021-09-18 12:24:40 Outpatient Cruz, [facility] [id number] [facility] 2021-09-18 12:24:21 Outpatient Cruz, [facility] [id number] [facility] 2021-09-18 12:22:02 Outpatient Cruz, [facility] [id number] [facility] 2021-09-18 11:53:29 Outpatient Cruz, [facility] [id number] [facility] 2020-01-21 03:16:00 Inpatient HCABM KEIRA [id number] [facility] 2024-03-24 00:00:00 2024-03-24 00:00:00 (TEL) STLMLC STLMLC [id number] [facility] 2024-02-22 00:00:00 2024-02-22 00:00:00 (TEL) STLMLC STLMLC [id number] [facility] 2024-02-16 00:00:00 2024-02-16 16:26:55 Telephone Chhaya Morocho [facility] [id number] [facility] 2024-02-15 15:49:13 2024-02-15 23:59:00 Outpatient R CHHAYA MOROCHO [facility] [id number] [facility] 2024-02-15 15:49:13 2024-02-15 23:59:00 [facility] [id number] [facility] 2024-02-15 15:30:00 2024-02-15 15:45:00 Office Visit Chhaya Morocho [facility] [id number] [facility] 2024-02-05 00:00:00 2024-02-05 00:00:00 (TEL) STLMLC STLMLC [id number] [facility] [facility]-01-28 00:00:00 2024-01-29 10:55:53 Telephone Chhaya Morocho [facility] MEDICAL OFFICE BUILDING 1.2.840.114 350.1.13.10 4.2.7.2.686 [id number] [facility] 2024-01-20 00:00:00 2024-01-20 00:00:00 (TEL) STLMLC STLMLC [id number] [facility] 2024-01-14 00:00:00 2024-01-14 00:00:00 (TEL) STLMLC STLMLC [id number] [facility] 2024-01-12 00:00:00 2024-01-12 12:18:13 Telephone Chhaya Morocho [facility] MEDICAL OFFICE BUILDING 1.2.840.114 350.1.13.10 [id number] [id number] [facility] 2024-01-12 00:00:00 2024-01-12 00:00:00 (TEL) STLMLC STLMLC [id number] [facility] 2024-01-01 00:00:00 2024-01-01 09:18:37 Telephone [facility] 1.2.840.114 350.1.13.10 4.2.7.2.686 [id number] [facility] 2023-11-26 00:00:00 2023-11-26 00:00:00 (TEL) STLMLC STLMLC [id number] [facility] 2023-10-30 00:00:00 2023-10-30 00:00:00 (TEL) STLMLC STLMLC [id number] [facility] 2023-10-07 00:00:00 2023-10-07 00:00:00 (TEL) STLMLC STLMLC [id number] [facility] 2023-09-23 00:00:00 2023-09-23 00:00:00 OFFICE VISIT ESTAB PT LEVEL 4 STLMLC STLMLC [id number] [facility] 2023-09-23 00:00:00 2023-09-23 00:00:00 SUB ANNUAL [facility] WELLNESS VISIT STLMLC STLMLC [id number] [facility] 2023-09-09 00:00:00 2023-09-09 00:00:00 (TEL) STLMLC STLMLC [id number] [facility] 2023-06-25 00:00:00 2023-06-25 00:00:00 (TEL) STLMLC STLMLC [id number] [facility] 2023-05-29 00:00:00 2023-05-29 00:00:00 (TEL) STLMLC STLMLC [id number] [facility] 2023-05-13 00:00:00 2023-05-13 00:00:00 OFFICE VISIT ESTAB PT LEVEL 4 STLMLC STLMLC [id number] [facility] 2023-05-13 00:00:00 2023-05-13 00:00:00 (TEL) STLMLC STLMLC [id number] [facility] 2023-02-12 00:00:00 2023-02-12 00:00:00 (TEL) STLMLC STLMLC [id number] [facility] 2022-11-12 00:00:00 2022-11-12 00:00:00 (TEL) STLMLC STLMLC [id number] [facility] 2022-11-04 00:00:00 2022-11-04 00:00:00 (TEL) STLMLC STLMLC [id number] [facility] 2022-10-22 00:00:00 2022-10-22 00:00:00 (TEL) STLMLC STLMLC [id number] [facility] 2022-10-09 00:00:00 2022-10-09 00:00:00 OFFICE VISIT ESTAB PT LEVEL 4 STLMLC STLMLC [id number] [facility] 2022-10-09 00:00:00 2022-10-09 00:00:00 SUB ANNUAL [facility] WELLNESS VISIT STLMLC STLMLC [id number] [facility] 2022-10-09 00:00:00 2022-10-09 00:00:00 (TEL) STLMLC STLMLC [id number] [facility] 2022-07-28 00:00:00 2022-07-28 00:00:00 OFFICE VISIT ESTAB PT LEVEL 4 STLMLC STLMLC [id number] [facility] 2022-04-25 00:00:00 2022-04-25 00:00:00 OFFICE VISIT ESTAB PT LEVEL 4 STLMLC STLMLC [id number] [facility] 2022-04-17 00:00:00 2022-04-17 00:00:00 (TEL) STLMLC STLMLC [id number] [facility] 2022-04-10 00:00:00 2022-04-10 00:00:00 (TEL) STLMLC STLMLC [id number] [facility] 2022-03-31 00:00:00 2022-03-31 00:00:00 (TEL) STLMLC STLMLC [id number] [facility] 2022-03-19 00:00:00 2022-03-19 00:00:00 Transition of Care Nisreen Patel 1.2.840.114 350.1.13.10 4.2.7.2.686 [id number] [facility] 2022-03-17 12:54:00 2022-03-18 19:20:00 Outpatient [facility] [id number] [facility] 2022-03-17 12:54:00 2022-03-18 19:20:00 Emergency [facility], Jerome Angel [facility] 1.2.840.114 350.1.13.10 4.2.7.2.686 [id number] [facility] 2022-02-05 00:00:00 2022-02-05 00:00:00 (TEL) STLC STLC [id number] [facility] 2022-01-31 00:00:00 2022-01-31 00:00:00 (WELLNESS) Wellness Visit STLC STLC [id number] [facility] 2022-01-31 00:00:00 2022-01-31 00:00:00 (TEL) STLMLC STLMLC [id number] [facility] 2022-01-30 00:00:00 2022-01-30 00:00:00 (TEL) STLMLC STLMLC [id number] [facility] 2021-11-04 00:00:00 2021-11-04 00:00:00 (TELEAUD) AUDIO TELEMEDICI NE STLC STLC [id number] [facility] 2021-10-29 00:00:00 2021-10-29 00:00:00 (TEL) STLMLC STLMLC [id number] [facility] 2021-09-18 04:36:00 2021-09-18 04:36:00 Outpatient BRI LANIER YANNICK [id number] [facility] 2021-07-30 00:00:00 2021-07-30 00:00:00 OFFICE VISIT ESTAB PT LEVEL 4 STLMLC STLMLC [id number] [facility] 2021-07-17 00:00:00 2021-07-17 00:00:00 (TEL) STLMLC STLMLC [id number] [facility] 2021-05-27 00:00:00 2021-05-27 00:00:00 (TEL) STLMLC STLMLC [id number] [facility] 2021-04-29 00:00:00 2021-04-29 00:00:00 (TEL) STLMLC STLMLC [id number] [facility] 2021-04-10 00:00:00 2021-04-10 00:00:00 Outpatient STLMLC STLMLC [id number] [facility] 2021-03-14 00:00:00 2021-03-14 00:00:00 Outpatient STLMLC STLMLC [id number] [facility] 2021-03-07 00:00:00 2021-03-07 00:00:00 Outpatient STLMLC STLMLC [id number] [facility] 2021-03-01 00:00:00 2021-03-01 00:00:00 Outpatient STLMLC STLMLC [id number] [facility] 2021-01-03 00:00:00 2021-01-03 00:00:00 Outpatient STLMLC STLMLC [id number] [facility] 2020-12-13 00:00:00 2020-12-13 00:00:00 Outpatient STLMLC STLMLC [id number] [facility] 2020-11-23 00:00:00 2020-11-23 00:00:00 Outpatient STLMLC STLMLC [id number] [facility] 2020-11-21 00:00:00 2020-11-21 00:00:00 Outpatient STLMLC STLMLC [id number] [facility] 2020-09-17 00:00:00 2020-09-17 00:00:00 Outpatient STLMLC STLMLC [id number] [facility] 2020-09-12 00:00:00 2020-09-12 00:00:00 Outpatient STLMLC STLMLC [id number]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 [facility]) Hospitalist Progress Note REPORT#:[id number] REPORT STATUS: Signed DATE:01/22/20 TIME: 1340 PATIENT: KATERINA LEE UNIT #: [id number] ROOM/BED: : 51 AGE: 69 SEX: M ATTEND: Poncho Dumont MD ADM AUTHOR: Jordyn Robison EYEDOTTER * ALL edits or amendments must be [...] PRN PRN IV Sodium Chloride 1,000 ML .[id number] IV Tramadol HCl 50 MG Q6H PRN [...] rebound Extremities: moves all Musculoskeletal: normal inspection Neuro/ACADEMIC INTERN: alert, oriented X 3, CNII-XII intact, normal [...] best of my knowledge. at 1426 RPT #:[id number] [facility] 2020-01-22 13:40:00 [facility] ([facility]) Hospitalist Progress Note REPORT#:[id number] REPORT STATUS: Signed DATE:01/22/20 TIME: 1340 PATIENT: KATERINA LEE UNIT #: [id number] ROOM/BED: [address] : [birth year] AGE: 69 SEX: M [...] PRN PRN IV Sodium Chloride 1,000 ML .[id number] IV Tramadol HCl 50 MG Q6H PRN [...] rebound Extremities: moves all Musculoskeletal: normal inspection Neuro/ACADEMIC INTERN: alert, oriented X 3, CNII-XII intact, normal [...] best of my knowledge. at 1426 RPT #:[id number] [facility] 2020-01-22 13:40:00 [facility] Hospitalist Progress Note REPORT#:[id number] REPORT STATUS: Signed DATE:01/22/20 TIME: 1340 PATIENT: KATERINA LEE UNIT #: [id number] ROOM/BED: [address] : [birth year] AGE: 69 SEX: M [...] PRN PRN IV Sodium Chloride 1,000 ML .L45U36G IV Tramadol HCl 50 MG Q6H PRN [...] rebound Extremities: moves all Musculoskeletal: normal inspection Neuro/ACADEMIC INTERN: alert, oriented X 3, CNII-XII intact, normal [...] best of my knowledge. at 1426 at 6417 RPT #:[id number] [facility] 2020-01-21 16:09:00 [id number] [facility] PATIENT NAME: KATERINA LEE ADMIT DATE: 01/21/20 ACCOUNT NO: [id number] ROOM NO: [facility] AGE: 69 REPORT TYPE: eECHOCARDIOGRAM REPORT SEX: M DATE OF : 52 ADMITTING PHYSICIAN:Poncho Dumont MD ATTENDING PHYSICIAN:Poncho Dumont MD *[facility]* [address] [place], [place] [address] Transthoracic Echocardiogram Patient: Katerina Lee Study Date: 01/21/2020 BP: Location: [facility] URN: [id number] : 1950 Age: 69 Height: 68 in / 172.7 cm Gender: M Weight: 177.6 lb / 80.7 kg BMI/BSA: 27.1 kg/m 2 / 1.95 m 2 *Ordering Physician: * Jignesh Vargas *Interpreting Physician: * Andreas Peres MD *Hob Grinder: * Chan Stubbs [facility] -------- Indications: SYNCOPAL EPISODE. -------- Study data: [...] Value Ref Aortic valve continued Value Ref GSIEL, LAX 3.4 cm 4.2 - 5.8 Mean [...] Peak grad, S 3 mm Hg --------- AK v, ED 1.48 m/sec ---- Mean grad, S 1 mm Hg --------- AK grad, ED 9 mm Hg ---- SV [...] 16:09 at 1609 PATIENT NAME: KATERINA LEE [facility] 2020-01-21 10:27:00 [facility] ([facility]) Neurosurgical Consultation REPORT#:[id number] REPORT STATUS: Signed DATE:01/21/20 TIME: 1027 PATIENT: KATERINA LEE UNIT #: [id number] ROOM/BED: [address] : [birth year] AGE: 69 SEX: M [...] out any associated injury. at 1031 RPT #:[id number] [facility] 2020-01-21 09:32:00 [facility] ([facility]) Clinical Note REPORT#:[id number] REPORT STATUS: Signed DATE:01/21/20 TIME: 931 PATIENT: KATERINA LEE UNIT #: [id number] ROOM/BED: : 51 AGE: 69 SEX: M [...] 5. DVT ppx lovenox at 0938 RPT #:[id number] [facility] 2020-01-21 09:32:00 [facility] ([facility]) Clinical Note REPORT#:[id number] REPORT STATUS: Signed DATE:01/21/20 TIME: 931 PATIENT: KATERINA LEE UNIT #: [id number] ROOM/BED: : 51 AGE: 69 SEX: M [...] ppx lovenox at 0938 at 1737 RPT #:[id number] [facility] 2020-01-21 04:44:00 [facility] ([facility]) Hospitalist History Physical REPORT#:[id number] REPORT STATUS: Signed DATE:01/21/20 TIME: 0444 PATIENT: KATERINA LEE UNIT #: [id number] ROOM/BED: [address] : [birth year] AGE: 69 SEX: M [...] rebound Extremities: moves all Musculoskeletal: normal inspection Neuro/ACADEMIC INTERN: alert, oriented X 3, CNII-XII intact, normal [...] Swallow studyPrior to feeding at 0411 RPT #:[id number] [facility] 2020-01-21 04:29:00 [facility] ([facility]) EMERGENCY PROVIDER REPORT REPORT#:[id number] REPORT STATUS: Signed DATE:01/21/20 TIME: 042 PATIENT: KATERINA LEE UNIT #: [id number] ROOM/BED: [address] AGE: 69 SEX: M PCP PHYS: [...] scene with EMS. Patient was taken to [facility] emergency department. He was found to [...] or Family Physician (PCP/Family) at 0832 RPT #:[id number] [facility]
[2024-05-17] MEDS ORDERED: ACETAMINOPHEN 500 MG TAB PO PRN (00:09)
[2024-05-17] MEDS ORDERED: HYDROCODONE/APAP 7.5/325 MG TAB PO PRN (00:15)
[2024-05-17 01:02] VITALS: BMI 27.8
[2024-05-17 05:17] LABS: Absolute Basophils 0.1 K/uL (0-0.5); Absolute Eosinophils 0.3 K/uL (0-0.5); Absolute Lymphocytes (CBC) 2.1 K/uL (0.7-4.9); Absolute Monocytes 1.1 K/uL (0.1-1.3); Absolute Neutrophil 4.8 K/uL (1.8-8.0); Basophils % 1.2 % (0-1.3); Eosinophils % 3.2 % (0-4.4); Hemoglobin 13.6 g/dL (13.6-17.9); Lymphocytes % 24.9 % (15.3-44.8); MCHC 33.2 g/dL (32.0-36.0); MCV 81.3 fL (80-100); MPV 7.7 fL (7.6-11.3); Neutrophils % 57.7 % (41.7-73.7); Nucleated Red Blood Cells % 0.1 % (0-0); Platelets 317 thou/uL (152-406); RBC Red Blood Cell Count 5.05 M/uL (4.33-5.43); Red Cell Distribution Width 19.5 % (12.1-15.2)
[2024-05-17 05:38] LABS: Albumin 2.5 g/dL (3.4-5.0); Anion Gap 7.3 mEq/L (5.0-15.0); Magnesium 2.2 mg/dL (1.6-2.4); Potassium 4.3 mEq/L (3.5-5.1); Prealbumin 13.8 mg/dL (20-40)
[2024-05-17 05:52] LABS: Specific Gravity 1.013 (1.005-1.030); Sqamous Epithelial <5 /HPF (None Seen); Transitional Epithelial <5 /HPF (None Seen); Urine Bacteria None Seen /HPF (<20); Urine Bilirubin NEGATIVE (Negative); Urine Blood 1+ (Negative); Urine Clarity Clear (Clear); Urine Color Light-Yellow (Yellow); Urine Culture Reflex Order NOT NEEDED; Urine Glucose 1+ (Negative); Urine Ketones NEGATIVE (Negative); Urine Micro Reflex YN NO BILL MICROSCOPIC; Urine Mucus Slight /HPF (None Seen); Urine Nitrite NEGATIVE (Negative); Urine Protein 2+ (Negative); Urine RBC <5 /HPF (None Seen); Urine Urobilinogen Normal (Normal); Urine WBC <5 /HPF (<5)
[2024-05-17] MEDS: INSULIN REGULAR (HUMAN) 100 UNIT/ML SQ SCH (08:04)
[2024-05-17] MEDS: lisinopriL 20 MG TAB PO SCH (08:05)
[2024-05-17] MEDS: CIPROFLOXACIN HCL 500 MG TAB PO SCH (08:05)
[2024-05-17] MEDS: INSULIN GLARGINE 100 UNIT/ML SQ SCH ×2 (08:05→14:32)
[2024-05-17] MEDS: ASPIRIN 81 MG CHEWABLE TABLET PO SCH (08:06)
[2024-05-17] MEDS: APIXABAN 2.5 MG TABLET PO SCH (08:06)
[2024-05-17] MEDS: ATORVASTATIN 80 MG TAB PO SCH (21:16)
[2024-05-17] MEDS: ENSURE ENLIVE 237 ML CAN PO SCH (21:17)
--- NOTE | 2024-05-18 07:03 | HP ---
Date of Admission: 05/16/2024 Time Of Service: 12 noon. Chief Complaint: "I had a stroke and my right side is weak, and I need to get stronger." History Of Present Illness: Mr. 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 After acute hospita lization, he was seen in rehab on 05/07, to regain his strength. However, while in rehab, he was mor e confused and had failure to thrive and was sent back to the acute care floor for additional workup. He was found to have sepsis secondary to urinary tract infection and acute cystitis, hematuria, and continued right-sided weakness. He was managed for his diabetes mellitus, also had an episode of hy poglycemia, COPD also managed. He did receive IV hydration, antibiotics, and CHF medications and diu retics. He was kept on anticoagulation and blood pressure and blood sugar managed, also on bronchodi lators. Diet was adjusted to soft bite size, low sodium, thin liquids due to dysphagia. As noted, meggan kumari had more confusion and weakness, dysphagia and dysarthria. Laboratory studies did show elevated cr eatinine and chloride with fluctuating glucose. As a result of his comorbid issues, recent stroke, a nd confusion, which has returned to his baseline, he was now felt to be ready for aggressive therapy in inpatient rehabilitation unit and was therefore admitted to the unit to improve his ability to ret urn back home and to have improved his dysarthria, dysphagia, and weakness in his right upper and low er extremities. Inpatient rehabilitation will help reduce risk of him returning to the hospital and to help him return to prior level of functioning. Past Medical History: As noted above. He did have cardiac catheterization done. Allergies: NO KNOWN DRUG ALLERGIES. Medications: Tylenol 500 mg every 4 hours as needed; Eliquis 2.5 mg twice daily; aspirin 81 mg daily ; Lipitor 80 mg at bedtime; ciprofloxacin started at 500 mg twice daily for urinary tract infection; Semglee insulin 25 units at bedtime; Prinivil 40 mg daily; Ensure Enlive 237 mL twice daily. X-ray And Imaging: Abdomen and pelvis CT scan on 05/10, shows no acute abnormalities. Renal ultraso und on 05/13, no hydronephrosis. There is mild renal cortical thinning, 10 mm benign right renal cys t identified. Family History: Noncontributory. Laboratory Studies: His complete blood count with differential is normal, except for slightly elevat ed RDW of 19.5 and monocytes 13.0. Otherwise, white blood cell count normal at 8.4, hemoglobin 13.6, platelets are 317. Sodium 140, potassium 4.3, chloride 112, carbon dioxide 25, BUN 18, creatinine 1 .74. His blood sugars ranged from 80 up to 349, calcium 8.5, magnesium 2.2, albumin 2.5, prealbumin 13.8. Urinalysis: 1+ glucose, 1+ blood, 2+ protein, otherwise unremarkable. Review of Systems: The patient is complaining about the food. He wants it to be better. Otherwise, he denies any fever s or chills. No myalgias or arthralgias. No rash. No active psychiatric issues. No active gastroi ntestinal issues. Current Level Of Functioning: He is at setup assistance for eating, oral hygiene; moderate assistanc e for toileting, bathing, upper body dressing, lower body dressing, donning and doffing footwear. Fo r rolling left to right and right to left, for sit to lying and lying to sitting at the side of bed, moderate assistance. For sit to stand, contact guard assistance. Transfer from bed to chair to toil et, contact guard assistance. Ambulation, he did ambulate 100 feet with a rolling walker with contact guard assistance. Physical Examination: Vital Signs: Blood pressure is 144/72, pulse 67, respiratory rate of 16, temperature 98, oxygen satu ration 98%. General: Mr. Espinal is resting comfortably in a chair beside his bed. He did not finish lunch as he was not happy with the type of lunch. He wanted some more home-cooked meals. HEENT: Otherwise, he is normocephalic, atraumatic. Sclerae are anicteric. Oropharynx pink, moist. Neck: Supple. Chest: Clear. Extremities: No significant edema, cyanosis, or clubbing. Neurological: In terms of his stroke, he does have the right-sided paresis of upper and lower extrem ities and face involved and sensation decreased on the right compared to the left side of his body. Rehabilitation And Medical Assessment And Plan: Mr. Espinal is admitted to the inpatient rehabilitati on unit with impairment category 01, stroke. His impairment group code is 01.2 right body involvemen t, left brain. Etiologic diagnosis, acute infarct of left basal ganglia. Comorbidities are chronic kidney disease, COPD, decreased mobility, decreased physical functioning, diabetes mellitus type 2. He had hematuria, hypoglycemia and hyperglycemia of course, sepsis, urinary tract infection. Antibio tic treatment. Plan: 1.He will have physical, occupational, and speech therapy for 3.5 hours, 5 of 7 days. 2.We will add the Semglee insulin for his diabetes mellitus, ciprofloxacin for his urinary tract inf ection, Lipitor for dyslipidemia, aspirin for stroke risk reduction, Eliquis for DVT risk reduction. He has [place] and regular Tylenol for pain. He has Prinivil for blood pressure management and Ensure Enlive for his malnutrition. Note again, he will do the physical, occupation, and speech therapy for 3.5 hours, 5 of 7 days. Comorbidities That Are Impacting Rehabilitation: As noted, blood sugars require better control. We will make adjustments to his insulin dosage on a daily basis based upon his blood sugars. The patien jose is complaining somewhat about the food and did advise about the importance of a diabetic heart heal thy diet to reduce the risk of additional strokes. Also, there is an infection ongoing for which he is receiving antibiotics and the urinary tract infection. Rehab Specific Plans: Mr. Espinal will have physical, occupation, and speech therapy for 3.5 hours, 5 of 7 days, to work on his ability to transfer from bed to chair, to a rolling walker, to mobilize at least 250 feet, to go up and down 10 steps, and to perform all of his activities of daily living ind ependently. Speech Therapy will work with him to improve his safety awareness, his information proce ssing, his management of medications, and addressing his comorbid conditions safely while at home and be able to understand his condition and to reduce his risk of complications that may occur from fall ing given his stroke and weakness. Mr. Espinal has a good understanding of the process of admission to the inpatient rehabilitation unit and how he will benefit from physical, occupational, and speech therapy. He will have 24 hours a day , 7 days a week skilled rehabilitation nursing for evaluating him on ongoing basis, reporting to [facility] about any changes in his status and for immediate ordering of blood work, imaging, medication c hanges as needed. He will have daily physician evaluation and management for integrating his comorbi d conditions and his physical therapy. He will have Market [employer]igator evaluation and management for di scharge planning, home equipment, followup, and how to continue his therapy while discharged. If nee d be, additional help from the hospitalist service will be consulted. Given his complex medical cond ition and risk of further complications, rehabilitation cannot be safely or effectively performed at a lower level facility. Barriers To Discharge: His barriers may involve the patient having high risk of falling and impulsiv ity. We will strongly patient financial counselor him about planning his transfers and having the appropriate assistive device, which will likely be the rolling walker as he mobilizes at home. His difficulty adjusting to a heart healthy diet may put him at risk for additional strokes and that was addressed with the tio ent. Length Of Stay: About 14 days. Disposition: Home with family and continuing therapy via Home Health. Prognosis: Good. Rehab Specific Goals: 1.Become independent with upper and lower body dressing and donning doffing footwear. 2.Independently mobilize a wheelchair 250 feet. 3.Independently ambulate with a rolling walker 250 feet. 4.Independently go up and down 10 steps with bilateral handrails. 5.Independently perform cognitive functioning. The above goals were reviewed with Teddy, and he is in agreement. By signing this document, I acknowledge I personally performed a full physical examination on Mr. Alexy swenson no later than 24 hours after his admission to the inpatient rehabilitation facility and determine d that he is able to tolerate the above course of treatment at an intensive level for a reasonable pe riod of time. A detailed individualized plan of care for him will be completed by hospital day #4 based on the preadmission screen, History and Ph ysical, and therapy evaluations. DEYVI/LANE Voice ID: [id number]
[2024-05-18] MEDS ORDERED: INSULIN GLARGINE 100 UNIT/ML SQ SCH (08:00)
[2024-05-18] MEDS: GLUCERNA SHAKE 237 ML CAN PO SCH (20:42)
[2024-05-19 06:02] LABS: Absolute Eosinophils 0.3 K/uL (0-0.5); Absolute Lymphocytes (CBC) 2.3 K/uL (0.7-4.9); Absolute Monocytes 0.8 K/uL (0.1-1.3); Absolute Neutrophil 4.3 K/uL (1.8-8.0); Basophils % 0.6 % (0-1.3); Eosinophils % 3.6 % (0-4.4); Hematocrit 39.4 % (39.6-49.0); Hemoglobin 13.1 g/dL (13.6-17.9); Lymphocytes % 29.6 % (15.3-44.8); MCH 26.8 pg (27.0-35.0); MCHC 33.3 g/dL (32.0-36.0); MCV 80.6 fL (80-100); MPV 7.6 fL (7.6-11.3); Monocytes % 10.7 % (3.3-12.3); Neutrophils % 55.5 % (41.7-73.7); Nucleated Red Blood Cells % 0.2 % (0-0); Platelets 353 thou/uL (152-406); RBC Red Blood Cell Count 4.89 M/uL (4.33-5.43); Red Cell Distribution Width 19.5 % (12.1-15.2)
[2024-05-19 06:25] LABS: Albumin 2.7 g/dL (3.4-5.0); Anion Gap 10.2 mEq/L (5.0-15.0); Magnesium 2.3 mg/dL (1.6-2.4); Potassium 4.2 mEq/L (3.5-5.1); Prealbumin 15.2 mg/dL (20-40)
--- NOTE | 2024-05-19 23:18 | PN ---
Date of Progress Note: 05/19/2024 Time Of Service: 1:40 p.m. Subjective: Mr. Espinal is resting comfortably in bed. He is not liking the food, but his says he will do what he is told. He is feeling much better with therapy. He is ambulating around the uni t much better. Has more strength in the right upper and lower extremities. Review of Systems: No fevers, chills, nausea, vomiting, myalgias, arthralgias, rash, headache, weight change. Physical Examination: Vital Signs: Blood pressure 162/77, pulse 68, respiratory rate 18, temperature 97.2, oxygen saturati on 98%. General: Mr. Espinal is resting in bed in between therapy sessions. HEENT: He is normocephalic, atraumatic. Sclerae anicteric. Oropharynx pink and moist. Neck: Supple. Chest: Clear. Heart: Regular. Extremities: His right upper and lower extremities, mild incoordination and weakness from his left b jimena ganglia stroke. Laboratory Studies: White blood cell count 7.7, hemoglobin 13.1, platelets are 353. Sodium 139, pot assium 4.2, chloride 108, carbon dioxide 25, BUN 21, creatinine 1.59, glucose ranged from 87 to 225, calcium 8.8. Magnesium 2.3. Albumin is 2.7, prealbumin is 15.2. X-ray/imaging: No new x-rays or imaging. Medications: Tylenol 500 mg every 4 hours as needed, [place] 7.5/3 25 twice daily as needed, Eliquis 2 .5 mg twice daily, aspirin 81 mg daily, Lipitor 80 mg at bedtime, ciprofloxacin 500 mg twice daily fo r urinary tract infection. He has Glucerna shake 237 mL twice daily, Semglee insulin 25 units daily, lisinopril 40 mg daily, and glucose sliding scale. Progress Made With Physical, Occupational, And Speech Therapy: Today, with his physical therapy, he was able to ambulate 50 feet twice with a rolling walker with moderate assistance. He did also ambul ate 8 feet forward and backwards, left handrail. He ambulated another 100 feet with a rolling walker . He did sit to stand with arm rests. With occupational therapy, he did functional transfers from w heelchair to rolling walker with contact guard assistance. [id number]-vu-[id number] transfers with wheelchair, c ontact guard assistance. With his speech, recalled picture scenes between 5 minute delay with 90% ac curacy. Organizational thinking used through abstract category naming with 100% accuracy and moderat e assistance. Assessment: Mr. Espinal is a 73-year-old with acute infarct, left basal ganglia with some right-sided weakness and incoordination from which he is recovering very well. His comorbidities are urinary tr act infection, hypertension, diabetes mellitus, dyslipidemia, pain, and again deep vein thrombosis ri sk. Plan: 1.He will have physical, occupational, and speech therapy. Continue 3.5 hours, 5 of 7 days. 2.Continue with comorbid condition medications, which are noted above. DEYVI/MODL Voice ID: [id number] Report ID: [id number]
[2024-05-20] MEDS: DOCUSATE NA/SENNA CONC 1 TAB PO PRN (19:41)
--- NOTE | 2024-05-20 23:00 | PN ---
Date of Progress Note: 05/20/2024 Time Of Service: 1:30 p.m. Subjective: Mr. Espinal is sitting in his chair beside bed. He has no complaints. He is aware that he will tend to fall to the right and as he is ambulating based on the location of stroke, exhibiting features of parkinsonism. Objective: No fevers, chills. No nausea, vomiting. No myalgias, arthralgias. No other complaints. Physical Examination: Vital Signs: Blood pressure 146/73, pulse 50, respiratory rate 16, temperature 97.2, oxygen saturati on 99%. General: Mr. Espinal is sitting in a chair beside bed. HEENT: He is normocephalic, atraumatic. Sclerae anicteric. Oropharynx pink and moist. Neck: Supple. Chest: Clear. Heart: Regular. Neurologic: Does have a prior right nasolabial fold decrease, slurred speech, some drooling noted in the right corner of his mouth. Does have mild weakness, but difficulty initiating movement with the right hand. With handwriting, he has micrographia and difficulty initiating the movements, is minim um. Laboratory Studies: Complete blood count with differential essentially unremarkable. Today, blood sugars ranged from 80-171. Progress Made With Physical, Occupational, And Speech Therapy: Today, with his physical therapy, he ambulated 50 feet with a rolling walker and another 100 feet and 150 feet with moderate assistance wi th a rolling walker, requiring some cues. He was up and down 5 steps with bilateral handrails and mo derate assistance. With his occupational therapy, able to perform bed mobility with sit on edge of b ed with contact guard assistance. Wheelchair to shower and shower bench transfers with contact guard assistance. With speech therapy, he produced word and phrase level production with 80% accuracy. W ord retrieval skills demonstrated during open ended sentences with 100% accuracy. Assessment And Plan: Mr. Espinal is a 73-year-old patient in the rehabilitation unit with an infarct in the left basal ganglia and some right-sided weakness incoordination and parkinsonism. He has decr eased mobility, decreased physical functioning, atrial fibrillation, currently treated for urinary tr act infection with ciprofloxacin. Has diabetes mellitus, treated with simply insulin 25 units daily. He has Glucerna for malnutrition, lisinopril for hypertension, Senokot S for constipation. He will continue with physical, occupational, speech therapy 3.5 hours, 5 of 7 days. Comorbidities That Are Impacting Rehabilitation: His parkinsonism is part of his stroke is making it difficult for him to ambulate without a tendency to drift towards the right side. He has difficulty initiating movement and will be at a significant risk of falling due to his postural instability. Faraz andersen will need to be worked on after he leaves and of course while he is in acute rehab. DEYVI/LANE Voice ID: [id number] Report ID: [id number]
[2024-05-22] MEDS ORDERED: BISACODYL 10 MG RECTAL SUPP PR PRN (01:02)
[2024-05-22] MEDS: MAGNESIUM HYDROXIDE 8% 30 ML PO PRN (01:13)
[2024-05-22] MEDS: DOCUSATE NA/SENNA CONC 1 TAB PO SCH (08:41)
[2024-05-23] MEDS ORDERED: lisinopriL 20 MG TAB PO SCH (12:30)
[2024-05-23] MEDS: lisinopriL 20 MG TAB PO SCH (20:00)
--- NOTE | 2024-05-23 21:30 | PN ---
Date of Progress Note: 05/23/2024 Time Of Service: 1:35 p.m. Subjective: Mr. Espinal is resting comfortably in his room between therapy sessions. He is happy so far with his recovery of his stroke, which affected his right body, left brain. Review of Systems: No fevers, chills, nausea, vomiting. No significant myalgias, arthralgias, rash, or other complaints . Physical Examination: Vital Signs: Blood pressure 131/79, pulse 75, respiratory rate 18, temperature 98.3, oxygen saturati on 95%. General: Mr. Espinal again is sitting in a chair beside bed. He has finished his lunch. HEENT: He is normocephalic, atraumatic. Sclerae anicteric. Extremities: He has right-sided weakness in the right upper extremity, but he is recovering fairly w ell, able to move the arm and lift and beginning to attempt to open and close the wrist. Laboratory Studies: Blood sugars ranged from 188 to 221. X-ray/imaging: No new x-rays or imaging. Medications: Medications have been reviewed and continued unchanged. He does have Semglee insulin 2 5 units daily. It is noted that earlier the patient did have a decreased blood sugar to 65 with a hi gh of 221. Progress Made With Physical, Occupational, And Speech Therapy: Today with physical therapy, he ambul ated 75 feet twice with a rolling walker. Myc-fv-xrupv done with a rolling walker with contact guard assistance. Regarding occupational therapy, required minimum assist with toilet hygiene while using a urinal as well. With his speech, he provided open ended sentences while using compensatory speech strategies and did so with 80% intelligibility at word level. Assessment: Mr. Espinal is a 73-year-old patient in rehabilitation unit with left basal ganglia strok e with right-sided weakness, which he is recovering fairly well. He has comorbid decreased mobility, decreased physical functioning, essential hypertension with symptoms of parkinsonism, atrial fibrill ation, diabetes mellitus, urinary tract infection. He has constipation as well. Plan: Continue with physical, occupational, and speech therapy for 3.5 hours, 5 of 7 days. He will continue with comorbid condition medications, which have been noted above including the Semglee insul in, Lipitor, aspirin, Eliquis, [place], Tylenol, Senokot, milk of magnesia, Prinivil. LB/MODL Voice ID: [id number] Report ID: [id number]
--- NOTE | 2024-05-24 21:00 | PN ---
Date of Progress Note: 05/24/2024 Time Of Service: 1:40 p.m. Subjective: Mr. Espinal is happy. He is resting in bed. He is in between therapy sessions. He has no complaints. Review of Systems: No fevers, chills, nausea, vomiting, myalgias, arthralgias, rash, headache, weight change. Does repo rt better movement of the right upper extremity and right lower extremity as he mobilizes. Physical Examination: Vital Signs: Blood pressure 127/72, pulse 72, respiratory rate 18, temperature 97.0, oxygen saturati on 97%. General: Mr. Espinal is in bed, in no significant distress. He is happy now with his food. HEENT: He is normocephalic, atraumatic. Sclerae anicteric. Oropharynx pink, moist. Neck: Supple. Chest: Clear. Heart: Regular. Extremities: Right side shows improved strength around 3 to 4/5. Laboratory Studies: No new laboratory studies except blood glucose ranged from 96 to 230. X-ray/imaging: No new x-rays or imaging. Medications: Medications have been reviewed and remain unchanged. Progress Made With Physical, Occupational, And Speech Therapy: Today with physical therapy, he was a ble to do [id number] transfers with standby assistance. Ook-zq-wvmeu transfers also standby nimo tance, verbal cues needed. He ambulated 90 feet with a rolling walker and contact guard assistance a nd mobilized wheelchair 90 feet with standby assistance and verbal cues. With occupational therapy, contact guard assistance for shower transfers using grab bars, supervision for bathing with verbal cu es for maintaining midline positioning. Use an assistive device to don and doff lower body clothes. With speech, improved short-term recall. Asked to recall 4 unrelated pictures after 3 minutes delay . He had 3 opportunities and recalled 2 of 4 on each attempt. Assessment: Mr. Espinal is a 73-year-old patient in rehabilitation unit with acute infarct of left ba idania ganglia with which he has right-sided weakness from which he is improving. His comorbid conditio ns include his DVT risk, stroke risk, dyslipidemia, diabetes mellitus, hypertension, constipation. Plan: We will have physical, occupational, and speech therapy. Continue 3.5 hours, 5/7 days. His c omorbid condition medications will be continued for managing his comorbid conditions including for DV T risk reduction. LB/MODL Voice ID: [id number] Report ID: [id number]
[2024-05-26 06:35] LABS: Absolute Basophils 0.1 K/uL (0-0.5); Absolute Eosinophils 0.2 K/uL (0-0.5); Absolute Lymphocytes (CBC) 2.9 K/uL (0.7-4.9); Absolute Monocytes 0.8 K/uL (0.1-1.3); Absolute Neutrophil 2.9 K/uL (1.8-8.0); Eosinophils % 3.4 % (0-4.4); Hematocrit 40.6 % (39.6-49.0); Hemoglobin 13.5 g/dL (13.6-17.9); Lymphocytes % 41.5 % (15.3-44.8); MCH 26.9 pg (27.0-35.0); MCHC 33.3 g/dL (32.0-36.0); MCV 80.8 fL (80-100); MPV 7.7 fL (7.6-11.3); Monocytes % 11.8 % (3.3-12.3); Neutrophils % 42.3 % (41.7-73.7); Nucleated Red Blood Cells % 0.1 % (0-0); Platelets 456 thou/uL (152-406); RBC Red Blood Cell Count 5.03 M/uL (4.33-5.43); Red Cell Distribution Width 19.5 % (12.1-15.2)
[2024-05-26 06:58] LABS: Magnesium 2.7 mg/dL (1.6-2.4); Prealbumin 17.7 mg/dL (20-40)
[2024-05-26 06:59] VITALS: BP 136/69; TEMP 96.9
--- NOTE | 2024-05-26 11:00 | PN ---
Date of Progress Note: 05/25/2024 Time Of Service: 1:35 p.m. Subjective: Mr. Espinal is resting in bed between therapy sessions. He is very happy with therapy. He has no complaints. He is ready for discharge in the morning. We will continue all physical thera py. Review of Systems: No fevers, chills, nausea, vomiting, myalgias, arthralgias, rash, headache, weight change. Strength in the right upper extremity is improving significantly. There is stroke in the left basal ganglia. Physical Examination: Vital Signs: Blood pressure 124/66, pulse 68, respiratory rate 17, temperature 97.5, O2 saturation 9 6%. General: Mr. Espinal is lying in bed. He is in no severe distress. HEENT: He is normocephalic, atraumatic. Sclerae anicteric. Oropharynx pink, moist. Neck: Supple. Chest: Clear. Extremities: Right upper extremity has improving strength. weakness is improving. Laboratory Studies: Blood sugars ranged from 222 up to 342. Lowest was 80 earlier in the morning. Medications: Medications have been reviewed and are unchanged. He has no x-rays or imaging. Progress Made With Physical, Occupational, And Speech Therapy: Today, ambulated 150 feet wi th contact guard assistance. He was able to walk down 5 steps with bilateral handrails, requiring ve rbal cues for hand placement. [id number] with standby assistance to minimal assistance. With occu pational therapy, independent with upper body dressing, contact guard for lower body dressing. The nuvia camara's was educated on the durable medical equipment use and home safety awareness, fall preve ntion, and visual cues to maintain proper midline as he mobilizes. He was discharged home with famil y. Regarding speech, the patient declined on the BIMS score from 13-9, missing temporal orientation. __ . Did improve on the SLUMS score from 14-15 noted. He will continue to benefit from ongoing speech therapy after his discharge. Assessment: Mr. Espinal in 73-year-old patient in the rehabilitation unit with an acute infarct in th e basal ganglia with some right upper and lower extremity incoordination and weakness. He has debili ty, decreased mobility, decreased physical functioning. In addition, dyslipidemia, diabetes mellitus , hypertension, constipation. Plan: 1.Continue aspirin for stroke risk reduction. Eliquis for DVT risk reduction. Lipitor for dyslipid emia. for malnutrition. Insulin for his diabetes mellitus. Prinivil 20 mg twice daily fo r hypertension. Senokot for constipation. Milk of magnesia for constipation. 2.He will continue with his physical, occupational, and speech therapy 3.5 hours, 5 of 7 days until he is discharge . DEYVI/LANE Voice ID: [id number] Report ID: [id number]
== END 2024-05-26 10:15 | disposition home or self-care (01) | DRG 57 ==
LOC: 5TH 23:30
PROVIDERS: ADMIT Psychiatry & Neurology Neurology with Special Qualifications in Child Neurology; ATTEND Psychiatry & Neurology Neurology with Special Qualifications in Child Neurology
DX: I69.351 Hemiplegia and hemiparesis following cerebral infarction affecting right dominant side (principal); N39.0 Urinary tract infection, site not specified; E46 Unspecified protein-calorie malnutrition; I69.322 Dysarthria following cerebral infarction; I69.391 Dysphagia following cerebral infarction; I10 Essential (primary) hypertension; E78.5 Hyperlipidemia, unspecified; E11.9 Type 2 diabetes mellitus without complications; J44.9 Chronic obstructive pulmonary disease, unspecified; G20.C Parkinsonism, unspecified; K59.00 Constipation, unspecified; Z68.27 Body mass index [BMI] 27.0-27.9, adult
CPT/HCPCS: 36415; 80048; 81001; 82040; 82947; 83735; 84134; 85025; 87086; 87088; 92507; 92523; 97110; 97112; 97116; 97129; 97161; 97165; 97530; 97542

== ENCOUNTER 2024-09-25 18:15 | Inpatient (IN) | payer OTHER ==
--- OUTSIDE RECORDS SUMMARY | 2024-09-25 18:19 | XMS REPORT | Continuity of Care Document ---
Author Name Unknown Address [address] [facility] [address] [place] [address] [facility] thconnect Address [address] [facility] [address] [place] [address] Care Team Providers Care Repairer [employer] Name Role Phone Franko Jessica Primary Care Physician [phone] Isaias Cruz Attending Clinician Unavailable Chhaya Morocho MD Attending Clinician [phone] Chhaya Morocho MD Attending Clinician [phone] CHHAYA MOROCHO Attending Clinician UnavailCHHAYA Lindquist Attending Clinician Unavaillesly Patel RN, Nisreen Attending Clinician Unavailable JEROME PIEDRA Attending Clinician Unavailable Vern Johns DO Attending Clinician [phone] Amado Herring MD Attending Clinician [phone] Jerome Piedra MD Attending Clinician [phone] MOOKIE Attending Clinician Unavailable KNOW, DOES_NOT Attending Clinician Unavailable Jignesh Vargas Attending Clinician Unavailable JEROME PIEDRA Admitting Clinician Unavailable Jerome Piedra MD Admitting Clinician [phone] MOOKIE Admitting Clinician Unavailable Physician, No Primary or Family Admitting Clinic hans Unavailable Payers Payer Name Policy Type Policy Number Effective Date Expirati on Date Source [employer] 53 [id number] 2023 00:00:00 [facility] C1 [id number] 2020 00:00:00 [place] [address] [id number] 2020 00:00:00 [place] [address] [id number] 2020 00:00:00 [facility] Problems Condition Name Condition Details Condition Category Status Onset Date Resolution Date Last Treatment Date Treating Clinician Comments Source Altered mental status Altered mental status Disease Active 03-17 00:00: 00 [facility] Hyperglyce demond Hyperglyce demond Disease Active 03-17 00:00: 00 [facility] Chronic kidney disease stage 3B (disorder) Stage 3b chronic kidney disease Problem [facility] [id number] Encounter for examinatio n of eyes and vision without abnormal findings Problem [facility] [id number] Other obesity due to excess calories Problem [facility] Amnesia Memory changes Problem [facility] [id number] FPC current use of insulin Problem [facility] [id number] Type 2 diabetes mellitus with diabetic chronic kidney disease Problem [facility] [id number] Onychomyco sis Problem [facility] Emphysema Emphysema Problem Comm on [facility] Seasonal allergic rhinitis Allergic rhinitis, seasonal Problem [facility] Hyperlipid emia Hyperlipid emia Problem [facility] Chronic pain syndrome Chronic pain syndrome Problem [facility] Impotence of organic origin ED (erectile dysfunctio n) Problem [facility] Diabetic renal disease Chronic kidney disease in type 2 diabetes mellitus Problem [facility] Essential hypertensi on Benign essential HTN Problem [facility] [id number] Chronic obstructiv e pulmonary disease, unspecifie d COPD type Problem [facility] Vitamin D deficiency Vitamin D deficiency Problem [facility] Chronic kidney disease stage 3 (disorder) Stage 3 chronic kidney disease, unspecifie d whether stage 3a or 3b CKD Problem [facility] [id number] Alcohol abuse Problem [facility] [id number] Current every day smoker Problem [facility] [id number] Acute exacerbati on of emphysema Problem [facility] Allergies, Adverse Reactions, Alerts Allergy Name Allergy Type Status Severity Reaction(s) Onset Date Inactive Date Treating Clinician Comments Source No Known Allergie s DA Active U 01-20 00:00: 00 [facility] No Known Allergie s DA Active U 01-20 00:00: 00 [facility] NO KNOWN ALLERGIE S Drug Class Active [facility] Social History Social Habit Start Date Stop Date Quantity Comments Source Sexual orientation U [facility] History of Tobacco Use Current Smoker [facility] Sex Assigned At [facility] Alcoholic beverage intake 2024-02-15 00:00:00 2024-02-15 00:00:00 Current drinker of alcohol (finding) [facility] History of Social function 2024-02-15 00:00:00 2024-02-15 00:00:00 [facility] Exposure to SARS-CoV-2 (event) 2022-03-07 00:00:00 2022-03-17 17:21:00 Not sure [facility] Alcohol intake 2022-03-17 00:00:00 2022-03-17 00:00:00 Current drinker of alcohol (finding) [facility] Tobacco use and exposure 2022-03-17 00:00:00 2022-03-17 00:00:00 Smokeless tobacco non-user [facility] Smoking Status Start Date Stop Date Source Smokes tobacco daily 2022-03-17 00:00:00 [facility] Medications Ordered Medication Name Filled Medication Name Start Date Stop Date Current Medication? Ordering Clinician Indication Dosage Frequency Signature (SIG) Comments Components Source Carvedilol 25 MG Carvedilol 25 MG 1-31 00:00: 00 No 1{table t_with_ food} BID Carvedilol 25 MG metFORMIN HCl ER 750 MG metFORMIN HCl ER 750 MG 2021-08 2-05 00:00: 00 No 1{table t_with_ evening _meal} QD metFORMIN HCl ER 750 MG lisinopriL 40 mg tablet 03-18 19:32: 03-18 00:00 :00 No 40mg Take 40 mg by mouth in the morning. [facility] aspirin 81 mg chewable tablet 03-18 19:32: 03-18 00:00 :00 No 81mg Take 81 mg by mouth in the morning. [facility] simvastatin 20 mg tablet 03-18 19:32: 03-18 00:00 :00 No 20mg Take 20 mg by mouth at bedtime. [facility] insulin glarginejamesonanlog (LANTUS SC) 03-18 19:32: 03-18 00:00 :00 No 20U inject 20 Units under the skin daily. [facility] Sliding Scale Insulin - Lispro (HumaLOG) + Fsbg Testing 03-18 17:00: 00 Yes Subcutaneo us, TID MEALS+HS, First dose (after last modificati on) on Thu03/18/22 at 1200, Until Discontinu ed, Routine [facility] insulin glargine (LANTUS U-100) injection 20 Units 03-18 15:00: 00 Yes 20U 20 Units, Subcutaneo us, DAILY, First dose on Thu03/18/22 at 1000, Until Discontinu ed, Routine [facility] aspirin chewable tablet 81 mg 03-18 14:00: 00 Yes 81mg 81 mg, Oral, DAILY, First dose on Thu03/18/22 at 0900, Until Discontinu ed, Routine [facility] insulin glargine (LANTUS U-100) injection 20 Units 03-18 14:00: 00 03-18 13:50 :26 No 20U 20 Units, Subcutaneo us, DAILY, First dose (after last modificati on) on Thu03/18/22 at 0900, Until Discontinu ed [facility] simvastatin (ZOCOR) tablet 20 mg 03-18 02:00: 00 Yes 20mg 20 mg, Oral, QHS, First dose on Thu03/17/22 at 2100, Until Discontinu ed, Routine [facility] Sliding Scale Insulin - Lispro (HumaLOG) + Fsbg Testing 03-18 02:00: 00 03-18 13:50 :43 No Subcutaneo us, TID MEALS+HS, First dose (after last modificati on) on Thu03/17/22 at 2100, Until Discontinu ed, Routine [facility] amLODIPine (NORVASC) tablet 5 mg 03-18 00:45: 00 Yes 5mg 5 mg, Oral, DAILY, First dose on Thu03/17/22 at 1945, Until Discontinu ed, Routine [facility] enoxaparin (LOVENOX) injection 40 mg 03-17 22:00: 00 Yes 40mg 40 mg, Subcutaneo us, DAILY, First dose on Thu03/17/22 at 1700, Until Discontinu ed, Routine [facility] NaCl 0.45% (1/2NS) IV infusion 1,000 mL 03-17 21:00: 00 Yes 1000mL at 125 mL/hr, 1,000 mL, IV Infusion, CONTINUOUS , Starting on Thu03/17/22 at 1600, Until Discontinu ed, Routine [facility] Sliding Scale Insulin - Lispro (HumaLOG) + Fsbg Testing 03-17 20:00: 00 03-18 00:50 :54 No Subcutaneo us, Q4H, First dose on Thu03/17/22 at 1500, Until Discontinu ed, Routine [facility] HYDROcodone -acetaminop hen (NORCO) 10-325 mg tablet 1 tablet 03-17 19:51: 46 Yes 1{tbl} 1 tablet, Oral, Q6HPRN, Starting on Thu03/17/22 at 1451, Until Discontinu ed, Routine, Pain (scale 7-10) [facility] HYDROcodone -acetaminop hen (NORCO 5) 5-325 mg tablet 1 tablet 03-17 19:51: 44 03-19 19:50 :44 No 1{tbl} 1 tablet, Oral, Q6HPRN, Starting on Thu03/17/22 at 1451, Until Thu03/19/22 at 1450, Routine, Pain (scale 4-6) [facility] acetaminoph en (TYLENOL) tablet 650 mg 03-17 19:51: 42 Yes 650mg 650 mg, Oral, Q6HPRN, Starting on Thu03/17/22 at 1451, Until Discontinu ed, Routine, Pain (scale 1-3) [facility] dextrose 10% (D10W) bolus infusion 250 [...] blood glucose is < 80 mg/dL, repeat.
[facility] glucagon (GLUCAGEN DIAGNOSTIC KIT) injection 1 mg 03-17 19:49: 02 Yes 1mg 1 mg, Intramuscu lar, PRN, Starting on Thu03/17/22 at 1449, Until Discontinu ed, TATI, Blood Glucose < or = 70 mg/dL and patient is unable to swallow or has mental changes. [facility] insulin regular human (HUMULIN R) injection 12 Units 03-17 19:30: 00 03-17 18:41 :00 No 12U 12 Units, Subcutaneo us, ONCE, 1 dose, On Thu03/17/22 at 1430, Routine [facility] No known medications 03-17 17:21: 51 No No known medication s [facility] Pen [place] 32G X 4 MM Pen [place] 32G X 4 MM 03-01 00:00: 00 No QD Pen [place] 32G X 4 MM Accu-Chek SoftClix Lancet 1 Accu-Chek SoftClix Lancet 1 11-23 00:00: 00 No 1{puff} BID Accu-Chek SoftClix Lancet 1 Accu-Chek Bonnie Plus - Accu-Chek Bonnie Plus - 11-22 00:00: 00 No Accu-Chek Bonnie Plus - Accu-Chek Bonnie Plus w/Device Accu-Chek Bonnie Plus w/Device - 00:00: 00 No Accu-Chek Bonnie Plus w/Device Kenalog (Triamcinol one) Kenalog (Triamcinol one) 2018-08 0-15 00:00: 00 No 40mg [facility] Lantus SoloStar 100 UNIT/ML Lantus SoloStar [...] Comments Source FluAD FluAD 2020-05-31 15:02:00 Completed [facility] FluAD FluAD 2020-05-31 15:02:00 Completed [facility] FluAD FluAD 2020-05-31 15:02:00 Completed [facility] FluAD FluAD 2020-05-31 15:02:00 Completed [facility] Kenalog (Triamcinolone) Kenalog (Triamcinolone) 2019-06-07 08:39:00 Completed [facility] FluAD FluAD Unknown Completed [facility] FluAD FluAD Unknown Completed [facility] FluAD FluAD Unknown Completed [facility] FluAD FluAD Unknown Completed [facility] FluAD FluAD Unknown Completed [facility] FluAD FluAD Unknown Completed [facility] FluAD FluAD Unknown Completed [facility] FluAD FluAD Unknown Completed [facility] FluAD FluAD Unknown Completed [facility] FluAD FluAD Unknown Completed [facility] FluAD FluAD Unknown Completed [facility] FluAD FluAD Unknown Completed [facility] FluAD FluAD Unknown Completed [facility] FluAD FluAD Unknown Completed [facility] FluAD FluAD Unknown Completed [facility] FluAD FluAD Unknown Completed [facility] FluAD FluAD Unknown Completed [facility] FluAD FluAD Unknown Completed [facility] FluAD FluAD Unknown Completed [facility] Vital Signs Vital Name Observation Time Observation Value Comments S jonah Body height 2024-02-15 20:49:00 172.7 cm [facility] Body weight 2024-02-15 20:49:00 82.101 kg [facility] BMI 2024-02-15 20:49:00 27.52 kg/m2 [facility] height 2023-09-23 14:10:00 67.5 [in_i] Comm on [facility] weight 2023-09-23 14:10:00 183.6 [lb_av] Co mmon [facility] temperature 2023-09-23 14:10:00 97.8 [degF] Com [facility] bmi 2023-09-23 14:10:00 28.33 kg/m2 Comm on [facility] oximetry 2023-09-23 14:10:00 99 % Commo n [facility] blood pressure systolic 2023-09-23 14:10:00 144 mm[Hg] Common [facility] blood pressure diastolic 2023-09-23 14:10:00 87 mm[Hg] [facility] height 2023-09-23 14:20:00 67.5 [in_i] Comm on [facility] weight 2023-09-23 14:20:00 183.6 [lb_av] Co on [facility] temperature 2023-09-23 14:20:00 97.8 [degF] Com [facility] bmi 2023-09-23 14:20:00 28.33 kg/m2 Comm on [facility] oximetry 2023-09-23 14:20:00 99 % Commo n [facility] blood pressure systolic 2023-09-23 14:20:00 135 mm[Hg] [facility] blood pressure diastolic 2023-09-23 14:20:00 71 mm[Hg] [facility] height 2023-05-13 14:40:00 67.5 [in_i] Comm on [facility] weight 2023-05-13 14:40:00 186.0 [lb_av] Co [facility] temperature 2023-05-13 14:40:00 97.7 [degF] Com [facility] bmi 2023-05-13 14:40:00 28.7 kg/m2 Commo n [facility] oximetry 2023-05-13 14:40:00 98 % Commo n [facility] respiratory rate 2023-05-13 14:40:00 18 /min Common [facility] blood pressure systolic 2023-05-13 14:40:00 124 mm[Hg] [facility] blood pressure diastolic 2023-05-13 14:40:00 70 mm[Hg] [facility] height 2022-10-09 11:20:00 67.5 [in_i] Comm on [facility] weight 2022-10-09 11:20:00 186.1 [lb_av] Co mmon [facility] temperature 2022-10-09 11:20:00 97.3 [degF] Com [facility] bmi 2022-10-09 11:20:00 28.71 kg/m2 Comm on [facility] oximetry 2022-10-09 11:20:00 98 % Commo n [facility] respiratory rate 2022-10-09 11:20:00 18 /min [facility] blood pressure systolic 2022-10-09 11:20:00 142 mm[Hg] [facility] blood pressure diastolic 2022-10-09 11:20:00 77 mm[Hg] [facility] height 2022-10-09 11:20:00 67.5 [in_i] Comm on [facility] weight 2022-10-09 11:20:00 186.1 [lb_av] Co [facility] temperature 2022-10-09 11:20:00 97.3 [degF] Com [facility] bmi 2022-10-09 11:20:00 28.71 kg/m2 Comm on [facility] oximetry 2022-10-09 11:20:00 98 % Commo n [facility] respiratory rate 2022-10-09 11:20:00 18 /min Common [facility] blood pressure systolic 2022-10-09 11:20:00 142 mm[Hg] Common [facility] blood pressure diastolic 2022-10-09 11:20:00 77 mm[Hg] [facility] height 2022-07-28 13:00:00 67.5 [in_i] Comm on [facility] weight 2022-07-28 13:00:00 183.3 [lb_av] Co mmon [facility] temperature 2022-07-28 13:00:00 97.8 [degF] Com [facility] bmi 2022-07-28 13:00:00 28.28 kg/m2 Comm on [facility] oximetry 2022-07-28 13:00:00 96 % Commo n [facility] respiratory rate 2022-07-28 13:00:00 17 /min Common [facility] blood pressure systolic 2022-07-28 13:00:00 138 mm[Hg] Common [facility] blood pressure diastolic 2022-07-28 13:00:00 76 mm[Hg] [facility] height 2022-04-25 09:40:00 67.5 [in_i] Comm on [facility] weight 2022-04-25 09:40:00 179 [lb_av] Comm on [facility] temperature 2022-04-25 09:40:00 97.9 [degF] Com [facility] bmi 2022-04-25 09:40:00 27.62 kg/m2 Comm on [facility] oximetry 2022-04-25 09:40:00 97 % Commo n [facility] respiratory rate 2022-04-25 09:40:00 18 /min Common [facility] blood pressure systolic 2022-04-25 09:40:00 137 mm[Hg] [facility] blood pressure diastolic 2022-04-25 09:40:00 67 mm[Hg] [facility] Systolic blood pressure 2022-03-18 21:23:00 168 mm[Hg] [facility] Diastolic blood pressure 2022-03-18 21:23:00 90 mm[Hg] [facility] Heart rate 2022-03-18 21:23:00 63 /min General acute hospital Body temperature 2022-03-18 21:23:00 36.72 Corry [facility] Respiratory rate 2022-03-18 21:23:00 16 /min [facility] Oxygen saturation in Arterial blood by Pulse oximetry 2022-03-18 21:23:00 97 /min [facility] Body weight 2022-03-18 09:04:00 79.969 kg [facility] BMI 2022-03-18 09:04:00 26.81 kg/m2 [facility] Body height 2022-03-17 22:24:00 172.7 cm [facility] height 2022-01-31 08:40:00 68 [in_i] Commo n [facility] weight 2022-01-31 08:40:00 182.4 [lb_av] Co mmon [facility] temperature 2022-01-31 08:40:00 98.2 [degF] Com mon [facility] bmi 2022-01-31 08:40:00 27.73 kg/m2 Comm on [facility] oximetry 2022-01-31 08:40:00 98 % Commo n [facility] respiratory rate 2022-01-31 08:40:00 17 /min [facility] blood pressure systolic 2022-01-31 08:40:00 133 mm[Hg] [facility] blood pressure diastolic 2022-01-31 08:40:00 72 mm[Hg] [facility] height 2021-11-04 11:50:00 68 [in_i] Commo n [facility] weight 2021-11-04 11:50:00 188 [lb_av] Comm on [facility] temperature 2021-11-04 11:50:00 98 [degF] Comm on [facility] bmi 2021-11-04 11:50:00 28.58 kg/m2 Comm on [facility] blood pressure systolic 2021-11-04 11:50:00 132 mm[Hg] [facility] blood pressure diastolic 2021-11-04 11:50:00 77 mm[Hg] [facility] height 2021-07-30 15:50:00 68 [in_i] Commo n [facility] weight 2021-07-30 15:50:00 189.4 [lb_av] Co mmon [facility] temperature 2021-07-30 15:50:00 97.2 [degF] Com mon [facility] bmi 2021-07-30 15:50:00 28.8 kg/m2 Commo n [facility] oximetry 2021-07-30 15:50:00 99 % Commo n [facility] respiratory rate 2021-07-30 15:50:00 17 /min Common [facility] blood pressure systolic 2021-07-30 15:50:00 142 mm[Hg] [facility] blood pressure diastolic 2021-07-30 15:50:00 80 mm[Hg] [facility] Procedures Procedure Date / Time Performed Performing Clinician Source POCT GLUCOSE (AUTOMATED) 2022-03-18 21:49:00 Bobo Piedra [facility] POCT GLUCOSE (AUTOMATED) 2022-03-18 16:35:00 Amado Herring [facility] POCT GLUCOSE (AUTOMATED) 2022-03-18 12:32:00 Amado Herring [facility] PHOSPHORUS 2022-03-18 11:21:00 Amado Herring [facility] MAGNESIUM 2022-03-18 11:21:00 [facility] BASIC METABOLIC PANEL (NA, K, CL, CO2, GLUCOSE, BUN, CREATININE, CA) 2022-03-18 11:21:00 Amado Herring [facility] CBC WITH DIFF 2022-03-18 08:40:00 Amado Herring [facility] POCT GLUCOSE (AUTOMATED) 2022-03-18 04:34:00 Nevaeh Amado [facility] POCT GLUCOSE (AUTOMATED) 2022-03-18 01:39:00 Nevaeh [facility] POCT GLUCOSE (AUTOMATED) 2022-03-17 22:21:00 Nevaeh [facility] POCT GLUCOSE (AUTOMATED) 2022-03-17 21:35:00 Nevaeh [facility] URINALYSIS 2022-03-17 20:15:00 [facility] Johns [facility] URINE DRUG (IMMUNOASSAY) - COMPREHENSIVE DRUG SCREEN W/O REFLEX 2022-03-17 20:15:00 Singer [facility] COVID-19 (ID NOW RAPID TESTING) 2022-03-17 20:02:00 Singer [facility] LAB ONLY COVID INTERPRETATION 2022-03-17 20:02:00 Vern Johns [facility] POCT GLUCOSE(AGE >30DAYS) 2022-03-17 19:49:00 Singer [facility] POCT GLUCOSE (AUTOMATED) 2022-03-17 19:46:00 Amado Herring [facility] CT HEAD WO CONTRAST 2022-03-17 18:29:00 Mckayla Johns [facility] THYROID STIMULATING HORMONE 2022-03-17 18:15:00 Nevaeh [facility] COMP. METABOLIC PANEL ([id number]) 2022-03-17 18:15:00 Vern Johns [facility] SALICYLATE 2022-03-17 18:15:00 Vern Johns [facility] ETHANOL 2022-03-17 18:15:00 Vern Johns [facility] CBC WITH DIFF 2022-03-17 18:15:00 Vern Johns [facility] GLYCOSYLATED HEMOGLOBIN (A1C) 2022-03-17 18:15:00 Amado Herring [facility] VBG+VCOOX+NA+K+GLU+CA2+ 2022-03-17 18:15:00 Karla Johns [facility] LACTIC ACID WHOLE BLOOD 2022-03-17 18:15:00 Karla Johns [facility] XR CHEST 1 VW 2022-03-17 18:13:15 Vern Johns [facility] Encounters Start Date/Time End Date/Time Encounter Type Admission Type Attending [facility] Care Facility Care Department Encounter ID Source 2024-02-22 14:35:00 Outpatient Cruz, [facility] [id number] [facility] 2024-02-11 14:48:00 Outpatient Cruz, [facility] [id number] [facility] 2024-02-05 13:59:00 Outpatient Cruz, [facility] [id number] [facility] 2022-07-28 13:37:01 Outpatient Cruz, [facility] [id number] [facility] 2022-07-24 13:01:01 [facility] [id number] [facility] 2022-04-29 14:47:02 Outpatient Cruz, [facility] [id number] [facility] 2022-04-11 12:25:01 Outpatient Cruz, [facility] [id number] [facility] 2021-10-29 17:14:00 Outpatient Cruz, Isaias STLMLC ST[facility] [id number] [facility] 2021-09-18 14:14:25 Outpatient Cruz, Isaias [facility] [id number] [facility] 2021-09-18 13:39:15 Outpatient Cruz, Isaias ST[facility] ST[facility] [id number] [facility] 2021-09-18 13:35:35 Outpatient Cruz, Isaias ST[facility] [id number] [facility] 2021-09-18 13:02:14 Outpatient Cruz, Isaias ST[facility] [id number] [facility] 2021-09-18 13:02:08 Outpatient Cruz, Isaias ST[facility] ST[facility] [id number] [facility] 2021-09-18 12:57:54 Outpatient Cruz, Isaias [facility] [id number] [facility] 2021-09-18 12:49:19 Outpatient Cruz, Isaias ST[facility] [id number] [facility] 2021-09-18 12:24:40 Outpatient Cruz, Isaias ST[facility] ST[facility] [id number] [facility] 2021-09-18 12:24:21 Outpatient Cruz, Isaias [facility] [id number] [facility] 2021-09-18 12:22:02 Outpatient Cruz, Isaias ST[facility] ST[facility] [id number] [facility] 2021-09-18 11:53:29 Outpatient Cruz, Isaias ST[facility] ST[facility] [id number] [facility] 2020-01-21 03:16:00 Inpatient HCABM KEIRA [id number] [facility] 2024-09-15 00:00:00 2024-09-15 13:11:03 Telephone Chhaya Morocho [facility] [id number] [facility] 2024-03-24 00:00:00 2024-03-24 00:00:00 (TEL) STLMLC ST[facility]C [id number] [facility] 2024-02-22 00:00:00 2024-02-22 00:00:00 (TEL) STLMLC STLMLC [id number] [facility] 2024-02-16 00:00:00 2024-02-16 16:26:55 Telephone Chhaya Morocho [facility] MEDICAL OFFICE BUILDING 1..840.114 350.1.13.10 4.2.7.2.686 [id number] [facility] 2024-02-15 15:49:13 2024-02-15 23:59:00 Outpatient R MOROCHOCHHAYA BAILEE [facility] [id number] [facility] 2024-02-15 15:49:13 2024-02-15 23:59:00 Hospital Encounter Chhaya Morocho [facility] MEDICAL OFFICE BUILDING 1..840.114 350.1.13.10 4.2.7.2.686 [id number] [facility] 2024-02-15 15:30:00 2024-02-15 15:45:00 Office Visit Chhaya Morocho [facility] BUILDING 1..840.114 350.1.13.10 4.2.7.2.686 [id number] [facility] 2024-02-05 00:00:00 2024-02-05 00:00:00 (TEL) STLMLC STLMLC [id number] [facility] 2024-01-28 00:00:00 2024-01-29 10:55:53 Telephone Chhaya Morocho [facility] MEDICAL OFFICE BUILDING 1.2.840.114 350.1.13.10 4.2.7.2.686 [id number] [facility] 2024-01-20 00:00:00 2024-01-20 00:00:00 (TEL) STLMLC STLMLC [id number] [facility] 2024-01-14 00:00:00 2024-01-14 00:00:00 (TEL) STLMLC STLMLC [id number] [facility] 2024-01-12 00:00:00 2024-01-12 12:18:13 Telephone Chhaya Morocho [facility] MEDICAL OFFICE BUILDING 1.2.840.114 350.1.13.10 4.2.7.2.686 [id number] [facility] 2024-01-12 00:00:00 2024-01-12 00:00:00 (TEL) STLMLC STLMLC [id number] [facility] 2024-01-01 00:00:00 2024-01-01 09:18:37 Telephone Chhaya Morocho [facility] MEDICAL OFFICE BUILDING 1.2.840.114 350.1.13.10 4.2.7.2.686 [id number] [facility] 2023-11-26 00:00:00 2023-11-26 00:00:00 (TEL) STLMLC STLMLC [id number] [facility] 2023-10-30 00:00:00 2023-10-30 00:00:00 (TEL) STLMLC STLMLC [id number] [facility] 2023-10-07 00:00:00 2023-10-07 00:00:00 (TEL) STLMLC STLMLC [id number] [facility] 2023-09-23 00:00:00 2023-09-23 00:00:00 OFFICE VISIT ESTAB PT LEVEL 4 STLMLC STLMLC [id number] [facility] 2023-09-23 00:00:00 2023-09-23 00:00:00 SUB ANNUAL [facility] WELLNESS VISIT STLMLC STLMLC [id number] [facility] 2023-09-09 00:00:00 2023-09-09 00:00:00 (TEL) STLMLC STLMLC [id number] [facility] 2023-06-25 00:00:00 2023-06-25 00:00:00 (TEL) STLMLC STLMLC [id number] [facility] 2023-05-29 00:00:00 2023-05-29 00:00:00 (TEL) STLMLC STLMLC [id number] [facility] 2023-05-13 00:00:00 2023-05-13 00:00:00 OFFICE VISIT ESTAB PT LEVEL 4 STLMLC STLMLC [id number] [facility] 2023-05-13 00:00:00 2023-05-13 00:00:00 (TEL) STLMLC STLMLC [id number] [facility] 2023-02-12 00:00:00 2023-02-12 00:00:00 (TEL) STLMLC STLMLC [id number] [facility] 2022-11-12 00:00:00 2022-11-12 00:00:00 (TEL) STLMLC STLMLC [id number] [facility] 2022-11-04 00:00:00 2022-11-04 00:00:00 (TEL) STLMLC STLMLC [id number] [facility] 2022-10-22 00:00:00 2022-10-22 00:00:00 (TEL) STLMLC STLMLC [id number] [facility] 2022-10-09 00:00:00 2022-10-09 00:00:00 OFFICE VISIT ESTAB PT LEVEL 4 STLMLC STLMLC [id number] [facility] 2022-10-09 00:00:00 2022-10-09 00:00:00 SUB ANNUAL [facility] WELLNESS VISIT STLMLC STLMLC [id number] [facility] 2022-10-09 00:00:00 2022-10-09 00:00:00 (TEL) STLMLC STLMLC [id number] [facility] 2022-07-28 00:00:00 2022-07-28 00:00:00 OFFICE VISIT ESTAB PT LEVEL 4 STLMLC STLMLC [id number] [facility] 2022-04-25 00:00:00 2022-04-25 00:00:00 OFFICE VISIT ESTAB PT LEVEL 4 STLMLC STLMLC [id number] [facility] 2022-04-17 00:00:00 2022-04-17 00:00:00 (TEL) STLMLC STLMLC [id number] [facility] 2022-04-10 00:00:00 2022-04-10 00:00:00 (TEL) STLMLC STLMLC [id number] [facility] 2022-03-31 00:00:00 2022-03-31 00:00:00 (TEL) STLMLC STLMLC [id number] [facility] 2022-03-19 00:00:00 2022-03-19 00:00:00 Transition of Care Jorge Nisreen KRISSY ARANDA 1.2.840.114 350.1.13.10 4.2.7.2.686 [id number] [facility] 2022-03-17 12:54:00 2022-03-18 19:20:00 Outpatient X JEROME PIEDRA [facility] [id number] [facility] 2022-03-17 12:54:2022-03-18 19:20:00 Emergency Johns, Vern Herirng, Jerome Angel [facility] 1.2.840.114 350.1.13.10 4.2.7.2.686 [id number] [facility] 2022-02-05 00:00:00 2022-02-05 00:00:00 (TEL) STLMLC STLMLC [id number] [facility] 2022-01-31 00:00:00 2022-01-31 00:00:00 (WELLNESS) Wellness Visit STLMLC STLMLC [id number] [facility] 2022-01-31 00:00:00 2022-01-31 00:00:00 (TEL) STLMLC STLMLC [id number] [facility] 2022-01-30 00:00:00 2022-01-30 00:00:00 (TEL) STLMLC STLMLC [id number] [facility] 2021-11-04 00:00:00 2021-11-04 00:00:00 (TELEAUD) AUDIO TELEMEDICI NE STLMLC STLMLC [id number] [facility] 2021-10-29 00:00:00 2021-10-29 00:00:00 (TEL) STLMLC STLMLC [id number] [facility] 2021-09-18 04:36:00 2021-09-18 04:36:00 Outpatient BRI LANIER [id number] 2021-07-30 00:00:00 2021-07-30 00:00:00 OFFICE VISIT ESTAB PT LEVEL 4 STLMLC STLMLC [id number] [facility] 2021-07-17 00:00:00 2021-07-17 00:00:00 (TEL) STLMLC STLMLC [id number] [facility] 2021-05-27 00:00:00 2021-05-27 00:00:00 (TEL) STLMLC STLMLC [id number] [facility] 2021-04-29 00:00:00 2021-04-29 00:00:00 (TEL) STLMLC STLMLC [id number] [facility] 2021-04-10 00:00:00 2021-04-10 00:00:00 Outpatient STLMLC STLMLC [id number] [facility] 2021-03-14 00:00:00 2021-03-14 00:00:00 Outpatient STLMLC STLMLC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
--- NOTE | 2024-09-25 19:22 | RAD REPORT ---
EXAM: Chest Single View HISTORY: COUGH COMPARISON: 05/10/2024 FINDINGS: LUNGS/PLEURA: Diffuse vascular prominence and peribronchial cuffing. New right midlung nodular opacit y MEDIASTINUM: The mediastinal silhouette is within normal limits. CARDIAC: The cardiac silhouette is within normal limits. UPPER ABDOMEN: No significant abnormality. BONES: No acute abnormality. LINES/TUBES/OTHER: N/A IMPRESSION: Interstitial pulmonary edema. New right midlung nodular opacity. Consider chest CT for further evalua tion to exclude neoplasm.
[2024-09-25 19:38] LABS: Absolute Monocytes 0.7 K/uL (0.1-1.3)
[2024-09-25 19:41] LABS: Absolute Basophils 0.1 K/uL (0-0.5); Absolute Eosinophils 0.1 K/uL (0-0.5); Absolute Lymphocytes (CBC) 2.4 K/uL (0.7-4.9); Absolute Neutrophil 4.2 K/uL (1.8-8.0); Basophils % 0.9 % (0-1.3); Eosinophils % 1.3 % (0-4.4); Hemoglobin 16.8 g/dL (13.6-17.9); Lymphocytes % 31.7 % (15.3-44.8); MCH 27.8 pg (27.0-35.0); MCV 84.2 fL (80-100); MPV 8.6 fL (7.6-11.3); Monocytes % 9.8 % (3.3-12.3); Neutrophils % 56.3 % (41.7-73.7); Nucleated Red Blood Cells % 0.2 % (0-0); Platelets 295 thou/uL (152-406); RBC Red Blood Cell Count 6.05 M/uL (4.33-5.43)
[2024-09-25 19:46] LABS: PT Prothrombin Time 11.8 SECONDS (9.4-12.5); Protime INR 1.13
[2024-09-25 19:53] LABS: Albumin 3.3 g/dL (3.4-5.0); Albumin/Globulin Ratio 0.8 (1.1-1.8); Alkaline Phosphatase 110 U/L (45-117); Anion Gap 11.2 mEq/L (5.0-15.0); BUN Blood Urea Nitrogen 54 mg/dL (7-18); Bicarbonate 24 mEq/L (21-32); Bilirubin Total 0.7 mg/dL (0.2-1.0); Globulin 4.4 g/dL (2.3-3.5); Glomerular Filtration Rate 13 ml/min (=/>90); Glucose Level 165 mg/dL (74-106); Potassium 4.2 mEq/L (3.5-5.1); Protein, Total 7.7 g/dL (6.4-8.2); Sodium Level 138 mEq/L (136-145)
[2024-09-25 19:57] LABS: ALT/SGPT < 14 U/L (16-61); AST/SGOT < 10 U/L (15-37)
[2024-09-25 21:08] LABS: Specific Gravity 1.014 (1.005-1.030); Sqamous Epithelial <5 /HPF (None Seen); Urine Bacteria <20 /HPF (<20); Urine Bilirubin NEGATIVE (Negative); Urine Blood 1+ (Negative); Urine Clarity Extremely Turbid (Clear); Urine Color Yellow (Yellow); Urine Crystals Unidentified Few /HPF (None Seen); Urine Culture Reflex Order REFLEXED; Urine Glucose NEGATIVE (Negative); Urine Ketones NEGATIVE (Negative); Urine Microscopic Reflex YN ORDER UMIC; Urine Mucus Slight /HPF (None Seen); Urine Nitrite NEGATIVE (Negative); Urine Protein 1+ (Negative); Urine Urobilinogen Normal (Normal); Urine WBC >50 /HPF (<5); Urine WBC Clump Rare /HPF (None Seen); Urine Yeast (Budding) Occasional /HPF (None Seen); Urine pH 6.5 (5.0-7.0)
[2024-09-25] MEDS ORDERED: NA CHLORIDE 0.9% 100 ML ONE (21:36)
[2024-09-25] MEDS ORDERED: CEFTRIAXONE 1000 MG/VIAL ONE (21:36)
--- NOTE | 2024-09-25 21:53 | RAD REPORT ---
EXAMINATION: Pelvis CLINICAL INDICATION: Male, 73 years old. Left Hip Pain COMPARISON: No prior exam. FINDINGS: No acute fracture. Left hip arthroplasty without evidence of hardware complications.. No malalignment/dislocation. Mild right acetabular degenerative changes. Other: n/a IMPRESSION: No acute osseous abnormality.
--- NOTE | 2024-09-25 21:55 | EDPHYS ---
Physician Documentation [facility] Name: Eric Espinal Age: 73 yrs Sex: Male : 1950 Arrival Date: 09/25/2024 Time: 18:15 Bed 18 Private MD: ED Physician Freddy Fatima HPI: 09/25 21:57 This 73 yrs old Black Male presents to ER via EMS with complaints of Flank Pain. dr5 21:57 The patient complains of pain in the left low back. Onset: The symptoms/episode dr5 began/occurred acutely. Patient is a 73-year-old male with history of asthma, diabetes, COPD coming in with fall that happened today landing on back. Patient has a history of left hip replacement. Patient arrived by EMS and was alone during my initial assessment. Patient reported lower back pain that has improved while laying flat.. Historical: - Allergies: 18:20 No Known Drug Allergies; hb - PMHx: 18:20 asthma-denies issues in a while; Diabetes - NIDDM; Chronic obstructive lung disease; hb - Immunization history:: Adult Immunizations up to date. - Infectious Disease History:: Denies. - Social history:: Smoking status: Patient denies any tobacco usage or history of. ROS: 21:57 Constitutional: as per hpi dr5 Exam: 21:57 Constitutional: This is a well developed, well nourished patient who is awake, alert, dr5 and in no acute distress. Head/Face: Normocephalic, atraumatic. Eyes: Pupils equal round and reactive to light, extra-ocular motions intact. Lids and lashes normal. Conjunctiva and sclera are non-icteric and not injected. Cornea within normal limits. Periorbital areas with no swelling, redness, or edema. ENT: Nares patent. No nasal discharge, no septal abnormalities noted. Tympanic membranes are normal and external auditory canals are clear. Oropharynx with no redness, swelling, or masses, exudates, or evidence of obstruction, uvula midline. Mucous membranes moist. Chest/axilla: Normal chest wall appearance and motion. Nontender with no deformity. No lesions are appreciated. Cardiovascular: Regular rate and rhythm with a normal S1 and S2. Normal PMI, no JVD. No pulse deficits. Respiratory: Lungs have equal breath sounds bilaterally, clear to auscultation. No rales, rhonchi or wheezes noted. No increased work of breathing, no retractions or nasal flaring. Abdomen/GI: Soft, non-tender, non-distended Back: No spinal tenderness. No costovertebral tenderness. Full range of motion. Skin: Warm, dry with normal turgor. Normal color with no rashes, no lesions, and no evidence of cellulitis. Neuro: Awake and alert, GCS 15, oriented to person, place, time. Cranial nerves II-XII grossly intact. Sensory grossly intact. Vital Signs: 18:19 BP 115 / 91; Pulse 87; Resp 16; Temp 98.5(O); Pulse Ox 100% on R/A; Pain 8/10; hb 21:15 BP 118 / 81; Pulse 81; Resp 16; Pulse Ox 99% on R/A; jb4 22:00 BP 118 / 77; Pulse 87; Resp 16; Pulse Ox 98% on R/A; jb4 09/26 00:00 BP 115 / 75; Pulse 88; Resp 16; Pulse Ox 100% on R/A; jb4 09/25 18:19 Pain Scale: Adult hb MDM: 09/25 18:30 Medical Screening Exam initiated dr5 21:58 Differential diagnosis: nephrolithiasis, UTI, Hip Fracture. Data reviewed: vital signs, dr5 nurses notes, lab test result(s), CBC, urinalysis, bacteruria. I considered the following discharge prescriptions or medication management in the emergency department Medications were administered in the Emergency Department. See MAR. Historians other than the Patient: Spouse/Significant Other: and Daughter at bedside. Care significantly affected by the following chronic conditions: Diabetes, COPD, asthma. Care significantly affected by the following Social Determinants of Health: Poor access to healthcare and/or lack of insurance, Poor access to transportation, Problems related to employment. Counseling: I had a detailed discussion with the patient and/or guardian regarding the historical points, exam findings, and any diagnostic results supporting the discharge/admit diagnosis, the presence of at least one elevated blood pressure reading (>120/80) during this emergency department visit, lab results, radiology results, the need for outpatient follow up, for definitive care, a family practitioner, to return to the emergency department if symptoms worsen or persist or if there are any questions or concerns that arise at home. ED course: Hip x-ray was negative for fracture. Patient found to have UTI on urinalysis. 1 g Rocephin IV given in ER. Will send patient home with Robert with kidney adjusted dosed to take once a day given patient has history of kidney disease. reports that kidney function is stable and at baseline. Labs and x-ray report were printed out and given to . I did discuss that patient has new chest nodule and needs to follow-up with primary care doctor for CT scan for further management and concerns for neoplasm. verbalized understanding and will follow-up.. 23:18 ED course: Upon discharge, patient has pain to left lower back and unable to sit up dr5 straight. Went back into room and at bedside stated that I did not give her blood work results,, she was unaware as to why did a chest x-ray, and was concerned about amount of pain that he is in. I sat down with patient and patient's and explained that the pain was likely from muscle pain from left lower back as well as combination of urinary tract infection. Will trial muscle relaxers and [place] to help with pain.. 09/26 00:03 ED course: Patient is unable to set up after given muscle relaxers and [place]. Will dr5 admit patient for urinary tract infection with CKD with worsening creatinine. Lumbar CT without contrast ordered to rule out fracture not caught by x-ray.. 09/25 18:39 Order name: Urinalysis w/ reflexes; Complete Time: 21:18 [facility] 09/25 18:39 Order name: CBC with Diff; Complete Time: 19:48 [facility] 09/25 18:39 Order name: CMP; Complete Time: 20:04 [facility] 09/25 18:40 Order name: Blood Culture Adult (2) [facility] 09/25 18:40 Order name: Lactate w/ 2H reflex if indic.; Complete Time: 20:04 [facility] 09/25 18:40 Order name: Protime (+inr); Complete Time: 19:48 [facility] 09/25 18:40 Order name: Ptt, Activated; Complete Time: 19:48 [facility] 09/25 19:15 Order name: Glucose, Ancillary Testing; Complete Time: 19:18 [facility] 09/25 21:17 Order name: Urine Culture [facility] 09/26 00:12 Order name: Magnesium [facility] 09/26 00:12 Order name: Phosphorus [facility] 09/26 00:12 Order name: Urinalysis w/ reflexes EDMS 09/26 00:12 Order name: Urinalysis w/ reflexes EDMS 09/26 00:12 Order name: Basic Metabolic Panel EDMS 09/26 00:12 Order name: Basic Metabolic Panel EDMS 09/26 00:12 Order name: CBC with Automated Diff EDMS 09/26 00:12 Order name: CBC with Automated Diff EDMS 09/26 08:01 Order name: Glucose, Ancillary Testing EDMS 09/26 08:03 Order name: CBC with Automated Diff EDMS 09/26 08:45 Order name: Comprehensive Metabolic Panel EDMS 09/26 08:45 Order name: Creatine Phosphokinase EDMS 09/26 11:35 Order name: Glucose, Ancillary Testing EDMS 09/25 18:40 Order name: Chest Single View XRAY; Complete Time: 19:28 dr5 09/25 21:22 Order name: Pelvis XRAY; Complete Time: 21:54 dr5 09/26 00:17 Order name: Renal Ultrasound-Complete EDMS 09/26 02:06 Order name: CT EDMI 09/26 02:06 Order name: CT EDMS 09/26 00:12 Order name: Physical Therapy Consult EDMI 09/25 18:40 Order name: Accucheck; Complete Time: 19:04 dr5 09/25 18:40 Order name: Cardiac monitoring; Complete Time: 19:04 dr5 09/25 18:40 Order name: Cath; Complete Time: 20:58 dr5 09/25 18:40 Order name: EKG - Nurse/Tech; Complete Time: 19:04 dr5 09/25 18:40 Order name: IV Saline Lock - Large Bore; Complete Time: 19:28 dr5 09/25 18:40 Order name: Labs collected and sent; Complete Time: 19:28 dr5 09/25 18:40 Order name: O2 Per Protocol; Complete Time: 19:04 dr5 09/25 18:40 Order name: O2 Sat Monitoring; Complete Time: 19:04 dr5 09/25 18:40 Order name: Vital Signs; Complete Time: 19:04 dr5 EC/02 19:01 Rhythm is regular. QRS Armstrong is Normal. PA interval is normal at 154 msec. QRS interval dr5 is normal at 94 msec. QT interval is normal at 402 msec. Administered Medications: 21:39 Drug: Rocephin IV 1 grams IV at per protocol once; Given slow IV push per pharmacy dr5 instructions Route: IV; Rate: per protocol; Infused Over: 30 mins; Site: right antecubital; Delivery: Primary tubing; 23:27 Drug: HYDROcodone-acetaminophen PO 5 mg-325 mg 2 tabs PO once Route: PO; jb4 23:28 Drug: Cyclobenzaprine PO 10 mg PO once Route: PO; jb4 Disposition: 09/27 01:40 Co-signature as Attending Physician, Freddy Fatima MD I agree with the assessment sp4 and plan of care. I reviewed the patient's care provided by the Advanced Practice Provider and agree with the diagnosis and treatment plan. Disposition Summary: 09/26/24 00:02 Hospitalization Ordered Notes: Hospitalization Status: Observation dr5 Provider: [place] dr5 Condition: Stable(09/26/24 00:02) dr5 Problem: new dr5 Symptoms: are unchanged dr5 Bed/Room Type: Standard dr5 Location: Telemetry/MedSurg (observation)(09/26/24 16:59) bd Room Assignment: 405(09/26/24 18:04) 1 Diagnosis - UTI/ Urinary tract infection, site not specified(09/26/24 00:02) dr5 Forms: - Medication Reconciliation Form dr5 - SBAR form dr5 - Leadership Thank You Letter dr5 Signatures: Dispatcher [employer] EDMS Nahed Cosby Shelby, RN RN Nola Desir RN RN Bryan Decker RN RN jb4 Luis Chapa RN RN Robert Elkins, RN RN ll1 Kenyatta Arcos, RN STEPHANIE [email or web address] Freddy Fatima MD MD sp4 Paul Wells, RN ED-C RN ED-Cdr5 Corrections: (The following items were deleted from the chart) 09/25 18:40 18:40 BLOOD CULTURE*+BA.LAB.BRZ ordered. EDMS EDMS 18:40 18:40 LACTATE+C.LAB.BRZ ordered. EDMS EDMS 18:40 18:40 PROTIME (+INR)+COAG.LAB.BRZ ordered. EDMS EDMS 18:40 18:40 PTT, ACTIVATED+COAG.LAB.BRZ ordered. EDMS EDMS 21:58 21:57 Constitutional: This is a well developed, well nourished patient who is awake, dr5 alert, and in no acute distress. Head/Face: Normocephalic, atraumatic. Eyes: Pupils equal round and reactive to light, extra-ocular motions intact. Lids and lashes normal. Conjunctiva and sclera are non-icteric and not injected. Cornea within normal limits. Periorbital areas with no swelling, redness, or edema. ENT: Nares patent. No nasal discharge, no septal abnormalities noted. Tympanic membranes are normal and external auditory canals are clear. Oropharynx with no redness, swelling, or masses, exudates, or evidence of obstruction, uvula midline. Mucous membranes moist. Chest/axilla: Normal chest wall appearance and motion. Nontender with no deformity. No lesions are appreciated. Cardiovascular: Regular rate and rhythm with a normal S1 and S2. Normal PMI, no JVD. No pulse deficits. Respiratory: Lungs have equal breath sounds bilaterally, clear to auscultation. No rales, rhonchi or wheezes noted. No increased work of breathing, no retractions or nasal flaring. Abdomen/GI: Soft, non-tender, non-distended Back: No spinal tenderness. No costovertebral tenderness. Full range of motion. Skin: Warm, dry with normal turgor. Normal color with no rashes, no lesions, and no evidence of cellulitis. Neuro: Awake and alert, GCS 15, oriented to person, place, time, and situation. Cranial nerves II-XII grossly intact. Motor strength 5/5 in all extremities. Sensory grossly intact. Cerebellar exam normal. Normal gait. dr5 23:18 21:57 Patient is a 73-year-old male with history of asthma, diabetes, COPD coming in [facility] with fall that happened today landing on left hip. Patient has a history of left hip replacement. Patient also wears diaper and states that when he has left hip pain it often leads to urinary tract infection.. dr5 23:21 21:55 Home [facility] dr5 23:21 21:55 Stable [place] [id number] 23:21 21:55 UTI/ Urinary tract infection, site not specified [place] [id number] 09/26 00:03 00:03 Spine Lumbar Wo Con+CT.RAD.BRZ ordered. EDMS EDMS 02: 00:02 Telemetry/MedSurg (observation) dr5 ss 02:27 00:02 dr5 ss 16:59 02:27 [facility] ER HOLD ss bd 16:59 02:27 ERHOLD- ss bd 17:00 16:59 405 bd bd 17: 17:00 bd kb3 18:04 17:29 405 kb3 ja1 18:04 18:04 ja1 ll1
--- NOTE | 2024-09-25 21:55 | ER ---
Nurse's Notes [facility] Name: Eric Espinal Age: 73 yrs Sex: Male : 1950 Arrival Date: 09/25/2024 Time: 18:15 Bed 18 Private MD: Diagnosis: UTI/ Urinary tract infection, site not specified Presentation: 09/25 18:19 Chief complaint: EMS states: Bilateral flank pain that started this afternoon. [place] hb administered at 1800 by family. Coronavirus screen: At this time, the client does not indicate any symptoms associated with coronavirus-19. Ebola Screen: No symptoms or risks identified at this time. Initial Sepsis Screen: Does the patient meet any 2 criteria? No. Patient's initial sepsis screen is negative. Does the patient have a suspected source of infection? No. Patient's initial sepsis screen is negative. Risk Assessment: Do you want to hurt yourself or someone else? Patient reports no desire to harm self or others. Onset of symptoms was September 25, 2024. 18:19 Method Of Arrival: EMS: [facility] hb 18:19 Acuity: BRENDA 3 hb Historical: - Allergies: 18:20 No Known Drug Allergies; hb - PMHx: 18:20 asthma-denies issues in a while; Diabetes - NIDDM; Chronic obstructive lung disease; hb - Immunization history:: Adult Immunizations up to date. - Infectious Disease History:: Denies. - Social history:: Smoking status: Patient denies any tobacco usage or history of. Screenin/03 12:15 [facility] ED Fall Risk Assessment (Adult) History of falling in the last 3 months, kj2 including since admission No falls in past 3 months (0 pts) Confusion or Disorientation No (0 pts) Intoxicated or Sedated No (0 pts) Impaired Gait Yes (1 pt) Mobility Assist Device Used Yes (1 pt) Altered Elimination Yes (1 pt) Score/Fall Risk Level 3 or more points = High Risk Maintained a safe environment, Hourly rounding (assess needs \T\ fall precautionary measures) done, Utilized family, sitter, or virtual weld lay out worker as indicated. Abuse screen: Denies threats or abuse. Denies injuries from another. Nutritional screening: No deficits noted. Tuberculosis screening: No symptoms or risk factors identified. Assessment: 09/25 18:30 General: Appears in no apparent distress. uncomfortable, Behavior is calm, cooperative, jb4 appropriate for age. Pain: Complains of pain in low back area Pain does not radiate. Pain currently is 4 out of 10 on a pain scale. at worst was 10 out of 10 on a pain scale. Neuro: Level of Consciousness is awake, alert, obeys commands, Oriented to person, place, situation. Cardiovascular: Patient's skin is warm and dry. Respiratory: Airway is patent Respiratory effort is even, unlabored, Respiratory pattern is regular, symmetrical. EENT: No signs and/or symptoms were reported regarding the EENT system. Derm: Skin is intact, Skin is dry, Skin is normal, Skin temperature is warm. Musculoskeletal: Circulation, motion, and sensation intact. Range of motion: intact in all extremities. 19:30 Reassessment: Patient appears in no apparent distress at this time. Patient and/or jb4 family updated on plan of care and expected duration. Pain level reassessed. Patient is alert, oriented x 3, equal unlabored respirations, skin warm/dry/pink. 20:30 Reassessment: Patient appears in no apparent distress at this time. Patient and/or jb4 family updated on plan of care and expected duration. Pain level reassessed. Patient is alert, oriented x 3, equal unlabored respirations, skin warm/dry/pink. 20:58 Reassessment: Changed brief. void x 1. at bedside UA sent to lab. ss 21:30 Reassessment: Patient appears in no apparent distress at this time. Patient and/or jb4 family updated on plan of care and expected duration. Pain level reassessed. Patient is alert, oriented x 3, equal unlabored respirations, skin warm/dry/pink. 22:28 Reassessment: Patient appears in no apparent distress at this time. Patient and/or jb4 family updated on plan of care and expected duration. Pain level reassessed. Patient is alert, oriented x 3, equal unlabored respirations, skin warm/dry/pink. D/c pending ride home. 23:54 Reassessment: Patient appears in no apparent distress at this time. Patient and/or jb4 family updated on plan of care and expected duration. Pain level reassessed. Patient is alert, oriented x 3, equal unlabored respirations, skin warm/dry/pink. Vital Signs: 18:19 BP 115 / 91; Pulse 87; Resp 16; Temp 98.5(O); Pulse Ox 100% on R/A; Pain 8/10; hb 21:15 BP 118 / 81; Pulse 81; Resp 16; Pulse Ox 99% on R/A; jb4 22:00 BP 118 / 77; Pulse 87; Resp 16; Pulse Ox 98% on R/A; jb4 09/26 00:00 BP 115 / 75; Pulse 88; Resp 16; Pulse Ox 100% on R/A; jb4 09/25 18:19 Pain Scale: Adult hb ED Course: 09/25 18:19 Patient arrived in ED. hb 18:19 Triage completed. hb 18:20 Arm band placed on. hb 18:22 Paul Wells FNP-C is PHCP. eb 18:57 Chest Single View XRAY In Process Unspecified. EDMS 19:04 Bryan Lopez, RN is Primary Nurse. jb4 19:10 First set of blood cultures drawn by ED staff, Second set of blood cultures drawn by ED af3 staff. 19:27 Inserted saline lock: 20 gauge in right antecubital area, using aseptic technique. af3 Blood collected. Flushed with 10 mL NS. 19:28 Blood Culture Adult (2) Sent. af3 19:28 Lactate w/ 2H reflex if indic. Sent. af3 19:28 Protime (+inr) Sent. af3 19:28 Ptt, Activated Sent. af3 19:28 Initial lab(s) drawn, by me, sent to lab. af3 20:58 No provider procedures requiring assistance completed. Straight cath inserted, using ss sterile technique, 16 Fr. Specimen obtained. Returned 200 mL. Patient tolerated well. 21:49 Pelvis XRAY In Process Unspecified. EDMS 21:55 Freddy Fatima MD is Attending Physician. dr5 02 00:02 Prince Hastings MD is Hospitalizing Provider. dr5 00:39 Inserted saline lock: 20 gauge in left antecubital area, using aseptic technique. Blood af3 collected. Flushed with 10 mL NS. 12:15 Patient has correct armband on for positive identification. Placed in gown. Bed in low kj2 position. Side rails up X 1. Adult w/ patient. Provided Education on: call light. 19:46 Patient admitted, IV remains in place. ha1 Administered Medications: 09/25 21:39 Drug: Rocephin IV 1 grams IV at per protocol once; Given slow IV push per pharmacy dr5 instructions Route: IV; Rate: per protocol; Infused Over: 30 mins; Site: right antecubital; Delivery: Primary tubing; 23:27 Drug: HYDROcodone-acetaminophen PO 5 mg-325 mg 2 tabs PO once Route: PO; jb4 23:28 Drug: Cyclobenzaprine PO 10 mg PO once Route: PO; jb4 Outcome: 21:55 Discharge ordered by MD. dr5 09/26 00:02 Decision to Hospitalize by Provider. dr5 19:44 Admitted to Tele room 405, ha1 19:44 Condition: stable 19:44 Instructed on the need for admit, Demonstrated understanding of instructions, 19:46 Patient left the ED. aa5 Signatures: Dispatcher [employer] EDMS Adele Luis RN RN aa5 Sophia Wellington RN RN Nola Desir RN RN Bryan Lopez RN RN jb4 Renae Corley Heidy RN RN ha1 Consuelo Pizano RN RN kj2 Moon Rosario af3 Paul Wells, SHIP CEILER-C SHIP CEILER-Cdr5 Corrections: (The following items were deleted from the chart) 19:47 19:44 Condition: stable ha1 ha1 19:47 19:44 Admitted to Tele room 401, ha1 ha1
[2024-09-25] MEDS ORDERED: CYCLOBENZAPRINE 10 MG TAB ONE (23:21)
[2024-09-25] MEDS ORDERED: HYDROCODONE/APAP 5/325 MG TAB ONE (23:21)
[2024-09-26] MEDS ORDERED: ONDANSETRON 4 MG/2 ML VIAL IV PRN (00:08)
[2024-09-26] MEDS ORDERED: ACETAMINOPHEN 500 MG TAB PO PRN (00:08)
[2024-09-26] MEDS: CEFTRIAXONE 1,000 MG in NA CHLORIDE 0.9% 50 ML IVPB SCH (00:11)
--- NOTE | 2024-09-26 00:18 | P.HP ---
Certification for Inpatient Patient admitted to: Inpatient With expected LOS: >2 Midnights Practitioner: I am a practitioner with admitting privileges, knowledge of patient current condition, hospital course, and medical plan of care. Services: Services provided to patient in accordance with Admission requirements found in Title 42 Section 412.3 of the Code of Federal Regulations Patient History Date of Service: 09/26/24 Reason for admission: FLANK pain History of Present Illness: Patient is a 73-year-old -[place] male who presents with low back pain following a fall incident. Patient was reportedly getting out of the shower when he fell. He is unable to sit and stand due to intractable pain. Additional workup in the ER revealed abnormal UA and significant rise in creatinine from 1.8-4.4. Patient is also having flank pain. He is being admitted for UTI complicated by acute on chronic CKD. During my evaluation, did not complain much. His pain is controlled as long as he is at rest. He had just received [place] and Flexeril. This helped his range of motion. He was now able to sit up. CT abdomen pelvis ordered to assess for pelvic fracture Allergies No Known Drug Allergies Allergy (Verified 05/07/24 13:01) Unknown Home Medications: Lisinopril [Zestril] 20 mg PO BID 05/13/24 Aspirin Chewable [Aspirin Chewable*] 81 mg PO DAILY #30 tab.chew 05/16/24 Atorvastatin Calcium [Lipitor] 80 mg PO BEDTIME #30 tab 05/16/24 Hydrocodone 7.5/APAP 325 [[place] 7.5/325 mg*] 1 tab PO BID PRN #10 tab 05/16/24 Insulin Glargine,Hum.rec.anlog [Lantus] 20 unit SQ DAILY #15 ml 05/16/24 - Past Medical/Surgical History Diabetic: Yes -: Diabetes mellitus type 2 -: Hypertension -: Coronary artery disease -: Hyperlipidemia -: Chronic renal disease -: Tobacco abuse -: Alcohol use -: lt basal ganglia stroke -: dysrythmia -: uti -: Heart catheterization Psychosocial/ Personal History: Patient is . He has 2 children. He does not work. - Family History Father -: Cancer - Social History Alcohol use: No CD- Drugs: No Caffeine use: Yes Physical Examination - Physical Exam General: In no apparent distress HEENT: Atraumatic, Normocephalic Respiratory: Clear to auscultation bilaterally, Normal air movement Cardiovascular: No edema, Normal pulses, Regular rate/rhythm, Normal S1 S2 Musculoskeletal: No erythema, No warmth Neurological: Normal speech - Studies Laboratory Data (last 24 hrs) 09/25/24 09/25/24 09/25/24 19:24 19:24 19:24 WBC 7.50 Hgb 16.8 Hct 51.0 H Plt Count 295 PT 11.8 INR 1.13 APTT 31.0 Sodium 138 Potassium 4.2 BUN 54 H Creatinine 4.68 H Glucose 165 H Total Bilirubin 0.7 AST < 10 L ALT < 14 L Alkaline Phosphatase 110 Assessment and Plan - Problems (Diagnosis) (1) UTI (urinary tract infection) Current Visit: Yes Status: Acute (2) Acute worsening of stage 3 chronic kidney disease Current Visit: Yes Status: Acute (3) Chronic renal disease Onset Date: 08/05/17 Current Visit: No Status: Acute (4) Dehydration Onset Date: 08/05/17 Current Visit: No Status: Acute (5) CAD (coronary artery disease) Onset Date: 08/05/17 Current Visit: No Status: Chronic (6) Diabetes mellitus Onset Date: 08/05/17 Current Visit: No Status: Chronic Qualifiers: (7) Hyperlipidemia Onset Date: 08/05/17 Current Visit: No Status: Chronic Qualifiers: (8) Hypertension Onset Date: 08/05/17 Current Visit: No Status: Chronic (9) COPD (chronic obstructive pulmonary disease) Onset Date: 08/05/17 Current Visit: No Status: Suspected Qualifiers: - Plan Assessment Patient is a 73-year-old -[place] male with a past medical history of hypertension, type 2 diabetes mellitus, hyperlipidemia and CKD stage III. Patient is being admitted with a chief complaint of flank pain. He had a fall getting out of the shower. He has been experiencing low back pain as well. Workup in the ER is significant for abnormal urine analysis and renal panel. UTI Acute on chronic CKD stage III Status post fall Hypertension Hyperlipidemia Type 2 diabetes mellitus Plan: Will admit inpatient with telemetry Start patient on ceftriaxone for urinary tract infection IV fluid infusion with normal saline for acute on chronic CKD stage III Will also go ahead and obtain a renal ultrasound and nephrology consult given the degree of renal insufficiency Follow urine cultures and blood cultures Follow CT abdomen pelvis to assess for pelvic fracture Resume rest of home medications upon reconciliation - Advance Directives Does patient have a Living Will: No Does patient have a Durable POA for Healthcare: No
--- NOTE | 2024-09-26 02:04 | RAD REPORT ---
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 Sagittal and coronal reformatted images are reviewed as well. Reformatted images of the lumbar spine are obtained. All CT scans at this facility use dose modulation, iterative reconstruction, and/or weight-based dosi ng when appropriate to reduce radiation dose to as low as reasonably achievable. Findings: Lung bases: There is mild dependent atelectasis. Liver: There is low attenuation suggesting fatty changes. Gallbladder/biliary: Several small stones in the dependent gallbladder are present. Gallbladder appea rs normal in size. No evidence of pericholecystic inflammation. No evidence of biliary ductal dilatation. Pancreas: Multiple pancreatic calcifications are present. Spleen: Several tiny calcified granulomas are present. Adrenals: Unremarkable. Kidneys and ureters: No evidence of renal or ureteral stones. No hydronephrosis. There are few small cysts in both kidneys measuring up to 0.9 cm. Bladder: Unremarkable. Pelvic organs: Prostate appears mildly enlarged. Bowel: No evidence of bowel obstruction. No bowel wall thickening. Appendix appears unremarkable. Peritoneum: No free air. No significant free fluid. Lymph nodes: Unremarkable. Vasculature: Aortoiliac atherosclerosis is present. Soft tissues: At 2.5 cm lesion with irregular margins involving the cutaneous/subcutaneous tissues of the right anterior thigh is again noted. Bones: There is an acute, mildly depressed fracture involving the superior vertebral body of L1 witho ut retropulsion. Degenerative changes of the lumbar spine are present involving primarily the facet joints. Left hip arthroplasty changes are present. Impression: 1. Acute, mildly depressed fracture involving the superior vertebral body of L1. 2. Cholelithiasis. 3. Hepatic steatosis. 4. Multiple pancreatic calcifications suggestive of chronic pancreatitis. 5. Lesion involving the cutaneous/subcutaneous tissues of the right anterior thigh again demonstrat ed which can be correlated clinically. Electronically signed by: Neri Corona MD 09/26/2024 01:46 AM HOT TAMALE WORKER Due to temporary technical issues with the [employer] reporting system, reports are being gabriela d by the in-house radiologist without review as a courtesy to ensure prompt reporting the interpreting radiologist is fully responsible for the content of the report. Transcribed Date/Time: 09/26/2024 2:04 AM
--- NOTE | 2024-09-26 02:04 | RAD REPORT ---
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 Sagittal and coronal reformatted images are reviewed as well. Reformatted images of the lumbar spine are obtained. All CT scans at this facility use dose modulation, iterative reconstruction, and/or weight-based dosi ng when appropriate to reduce radiation dose to as low as reasonably achievable. Findings: Lung bases: There is mild dependent atelectasis. Liver: There is low attenuation suggesting fatty changes. Gallbladder/biliary: Several small stones in the dependent gallbladder are present. Gallbladder appea rs normal in size. No evidence of pericholecystic inflammation. No evidence of biliary ductal dilatation. Pancreas: Multiple pancreatic calcifications are present. Spleen: Several tiny calcified granulomas are present. Adrenals: Unremarkable. Kidneys and ureters: No evidence of renal or ureteral stones. No hydronephrosis. There are few small cysts in both kidneys measuring up to 0.9 cm. Bladder: Unremarkable. Pelvic organs: Prostate appears mildly enlarged. Bowel: No evidence of bowel obstruction. No bowel wall thickening. Appendix appears unremarkable. Peritoneum: No free air. No significant free fluid. Lymph nodes: Unremarkable. Vasculature: Aortoiliac atherosclerosis is present. Soft tissues: At 2.5 cm lesion with irregular margins involving the cutaneous/subcutaneous tissues of the right anterior thigh is again noted. Bones: There is an acute, mildly depressed fracture involving the superior vertebral body of L1 witho ut retropulsion. Degenerative changes of the lumbar spine are present involving primarily the facet joints. Left hip arthroplasty changes are present. Impression: 1. Acute, mildly depressed fracture involving the superior vertebral body of L1. 2. Cholelithiasis. 3. Hepatic steatosis. 4. Multiple pancreatic calcifications suggestive of chronic pancreatitis. 5. Lesion involving the cutaneous/subcutaneous tissues of the right anterior thigh again demonstrat ed which can be correlated clinically. Electronically signed by: Neri Corona MD 09/26/2024 01:46 AM PARTY PLAN SALES AGENT Due to temporary technical issues with the [employer]ACS[employer] reporting system, reports are being gabriela d by the in-house radiologist without review as a courtesy to ensure prompt reporting the interpreting radiologist is fully responsible for the content of the report. Transcribed Date/Time: 09/26/2024 2:04 AM
[2024-09-26] MEDS: HEPARIN 5000 UNIT/ML 1 ML VIAL SQ SCH (02:45)
[2024-09-26] MEDS: NA CHLORIDE 0.9% 1,000 ML IV SCH (02:45)
[2024-09-26 02:49] VITALS: BMI 22.8
[2024-09-26] MEDS ORDERED: HEPARIN 5000 UNIT/ML 1 ML VIAL ONE ×2 (03:00→08:21)
[2024-09-26] MEDS ORDERED: NA CHLORIDE 0.9% 1,000 ML ONE ×2 (03:00→08:22)
--- NOTE | 2024-09-26 07:23 | P.PN ---
Date of Service: 09/26/24 Subjective: confused ROS: 10 point ROS as noted above, otherwise negative Physical Exam: GEN: confused CV: Regular rate and rhythm, no edema Pulm: Nonlabored respirations on room air, clear bilaterally ABD: soft, nontender, nondistended Integumentary: No rashes Problem List: Acute mildly displaced L1 fracture s/p fall Possible UTI TRUPTI on CKD3 IDDM2 Hypertension Hyperlipidemia Tobacco/alcohol use Hx of CVA (Left basal ganglia 04/2024) Hx of CAD Hx of COPD Acute mildly displaced L1 fracture s/p fall Possible UTI on admission, presents with bilateral flank pain, lower back pain after sustaining a fall at home. Pt reportedly landed on his back. CT Abd/Pelvis/Lumbar Spine (09/26): Acute, mildly depressed fracture involving the superior vertebral body of L1. Cholelithiasis, Hepatic Steatosis, Multiple panc reatic calcifications suggestive of chronic pancreatitis. Also incidentally noted lesion involving the cutaneous/subcutaneous tissues of the right anterior thigh again demonstrated which can be correlated clinically Pelvis xray negative UA concerning for possible UTI. Follow urine and blood cultures continue empiric rocephin (/-) PT/OT consult pain control TRUPTI on CKD3 Creatinine 4.68 on admission; baseline 1.7-1.8 renal u/s (/): no acute findings. continue to monitor renal function Monitor and replete electrolytes as needed Nephrology consulted continue IV fluids New right midlung nodule, incidental Finding CXR (09/25): interstitial pulmonary Edema. NEW right midlung nodular opacity. consider CT to r/o neoplasm IDDM2 accu-cheks, SSI confirm home insulin regimen Tobacco/alcohol use cessation advised Hypertension Hyperlipidemia Hx of CVA (Left basal ganglia 04/2024) Hx of CAD Hx of COPD confirm home meds, restart as appropriate VTE: heparin sq Code: Full Dispo: Home Time Spent Managing Pts Care (In Minutes): 55
--- NOTE | 2024-09-26 07:51 | RAD REPORT ---
EXAMINATION: US RENAL CLINICAL INDICATION: Abdominal pain TECHNIQUE: Real-time ultrasonography of the kidneys performed. COMPARISON: September 25, 2024 CT. FINDINGS: Right kidney measures 10 cm with a normal echotexture.. 1 cm cyst. Additional 9 mm cyst. Left kidney measures 10 cm with normal echotexture. No hydronephrosis No gross abnormality bladder. IMPRESSION: No significant abnormalities displayed
[2024-09-26 08:03] LABS: Absolute Basophils 0.1 K/uL (0-0.5); Absolute Eosinophils 0.1 K/uL (0-0.5); Absolute Lymphocytes (CBC) 2.5 K/uL (0.7-4.9); Absolute Monocytes 0.8 K/uL (0.1-1.3); Absolute Neutrophil 3.7 K/uL (1.8-8.0); Basophils % 0.9 % (0-1.3); Eosinophils % 1.5 % (0-4.4); Hematocrit 48.9 % (39.6-49.0); Lymphocytes % 35.1 % (15.3-44.8); MCH 27.6 pg (27.0-35.0); MCHC 32.8 g/dL (32.0-36.0); MCV 84.4 fL (80-100); MPV 8.6 fL (7.6-11.3); Neutrophils % 51.5 % (41.7-73.7); Nucleated Red Blood Cells % 0.2 % (0-0); Platelets 291 thou/uL (152-406); RBC Red Blood Cell Count 5.79 M/uL (4.33-5.43); Red Cell Distribution Width 16.6 % (12.1-15.2)
[2024-09-26] MEDS ORDERED: CEFTRIAXONE 1000 MG/VIAL ONE (08:21)
[2024-09-26] MEDS ORDERED: NA CHLORIDE 0.9% 100 ML ONE (08:22)
[2024-09-26] MEDS ORDERED: HYDROCODONE/APAP 7.5/325 MG TAB ONE (08:22)
[2024-09-26 08:34] LABS: AST/SGOT 11 U/L (15-37); Albumin/Globulin Ratio 0.7 (1.1-1.8); Alkaline Phosphatase 97 U/L (45-117); Anion Gap 9.9 mEq/L (5.0-15.0); BUN Blood Urea Nitrogen 55 mg/dL (7-18); Bicarbonate 23 mEq/L (21-32); Bilirubin Total 0.5 mg/dL (0.2-1.0); Creatine Phosphokinase 334 U/L (39-308); Globulin 4.3 g/dL (2.3-3.5); Glomerular Filtration Rate 14 ml/min (=/>90); Glucose Level 133 mg/dL (74-106); Potassium 3.9 mEq/L (3.5-5.1); Protein, Total 7.3 g/dL (6.4-8.2); Sodium Level 139 mEq/L (136-145)
[2024-09-26 08:44] LABS: ALT/SGPT < 14 U/L (16-61)
[2024-09-26] MEDS: HYDROCODONE/APAP 7.5/325 MG TAB PO PRN (08:52)
[2024-09-26 09:00] LABS: Magnesium 2.7 mg/dL (1.6-2.4); Phosphorus 6.8 mg/dL (2.5-4.9)
[2024-09-26] MEDS: HYDROMORPHONE HCL 1 MG/ML INJ IV PRN (20:21)
[2024-09-27 06:55] LABS: Absolute Eosinophils 0.2 K/uL (0-0.5); Absolute Lymphocytes (CBC) 1.6 K/uL (0.7-4.9); Absolute Monocytes 0.9 K/uL (0.1-1.3); Absolute Neutrophil 4.5 K/uL (1.8-8.0); Basophils % 0.5 % (0-1.3); Eosinophils % 2.5 % (0-4.4); Hemoglobin 14.4 g/dL (13.6-17.9); Lymphocytes % 22.1 % (15.3-44.8); MCH 27.6 pg (27.0-35.0); MCHC 32.8 g/dL (32.0-36.0); MCV 84.1 fL (80-100); MPV 8.9 fL (7.6-11.3); Monocytes % 12.7 % (3.3-12.3); Neutrophils % 62.2 % (41.7-73.7); Nucleated Red Blood Cells % 0.2 % (0-0); Platelets 277 thou/uL (152-406); RBC Red Blood Cell Count 5.23 M/uL (4.33-5.43); Red Cell Distribution Width 16.6 % (12.1-15.2)
[2024-09-27 07:21] LABS: Anion Gap 8.1 mEq/L (5.0-15.0); Potassium 4.1 mEq/L (3.5-5.1)
--- NOTE | 2024-09-27 12:17 | EKG ---
Test Date: 2024-09-25 Test Time: 19:01:35 Client Advocate: HAKAN MEASUREMENT RESULTS: Intervals: Rate: 83 OR: 154 QRSD: 94 QT: 402 QTc: 472 [place]: P: 65 OR: 154 QRS: 71 T: 34 INTERPRETIVE STATEMENTS: Normal sinus rhythm Normal ECG Compared to ECG 05/01/2024 22:10:36 Prolonged QT interval no longer present Electronically Signed On 09-27-24 12:15:00 SYSTEMS ANALYSIS MANAGER by Hugh Rose
--- NOTE | 2024-09-27 14:24 | CON ---
Date of Consultation: 09/26/2024 Chief Complaint: Flank pain, generalized weakness. History Of Present Illness: Patient came to the emergency room because of flank pain. He is a 73-ye ar-old male who presented to the hospital because of . He had incremental falls prior to this admission. The patient was getting out of the shower when he fell. intractable pain, he came to emergency room and was found to have creatinine level of 4.4, previous b aseline was 1.8. Patient is admitted to the hospital for acute kidney injury. He is started on IV f luids. The patient has complicated UTI, acute on chronic kidney disease. Patient denies chest pain or syncope. Denies nausea, vomiting. CT scan of the abdomen and pelvis . Past Medical History: Diabetes mellitus type 2, hypertension, coronary artery disease, chronic renal disease, . Family History: cancer. Social History: Patient is , has 2 children. Does not work. Denies tobacco. Denies alcohol . Denies caffeine. Physical Examination: General: Not in acute distress. HEENT: Atraumatic, normocephalic. Respiratory: Clear to auscultation bilaterally. Normal air movement. Cardiovascular: General: S1, S2. No pericardial friction rub. Abdomen: Soft benign nontender. Extremities: Edema present. Neurologic: No tremor. Normal speech. Laboratory Data: WBC 7.5, hemoglobin 16.8, and platelet count is 295,000. Sodium 138, potassium 4.2 , BUN 54, creatinine 4.66, glucose 165. AST less than 10, ALT less than 14. Impression And Plan: 1. Urinary tract infection. Continue antibiotics and adjust per renal dose. 2. Acute worsening of chronic kidney disease. Continue IV fluids for volume depletion and avoid neph rotoxic medication. Chronic renal disease. Imaging study was done to rule out obstructive uropathy. 3. Volume depletion. Continue IV fluids. Current . 4. Diabetes mellitus. Continue insulin sliding scale. 5. Hyperlipidemia. Re-evaluate lipid panel. 6. Hypertension. Continue current medication. 7. Chronic obstructive pulmonary disease, per Primary Team. The patient is a 73-year-old man with past medical history of hypertension, diabetes mellitus type 2, hyperlipidemia, chronic kidney disease stage 3. He is admitted for flank pain and he sustained fall at home, so workup will be done for flank pain and possible other fractures. Urinary tract infectio n, acute on chronic stage 3 chronic kidney, the patient was started on IV fluids. JENNY/LANE Voice ID: [id number] Report ID: [id number]
--- NOTE | 2024-09-27 14:39 | CON ---
Date of Consultation: 09/27/2024 Reason For Consultation: Elevated BUN and creatinine, UTI, fluid management. History Of Present Illness: This is a pleasant 73-year-old gentleman, well known to me from the [facility] with significant past medical history of all the information has been obtained from the record as the patient altered mental status. 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 Upon arrival to the hospital, found to have UTI with elevation in BUN, creatinine, creatin ine 4.6, and GFR of 14. For that reason, we have been consulted. The patient denied taking any nons teroidal. The patient was started on hydration, creatinine down to 3, GFR of 20. The patient still confused. The patient had poor intake and home medication apparently the patient being on lisinopril . Past Medical History: Includes: 1. Diabetes, complicated with neuropathy and nephropathy. 2. Hypertension. 3. CAD. 4. Hyperlipidemia. 5. Chronic kidney disease stage 3b/4. 6. Baseline creatinine 1.6 with GFR of 38 as of May 2024. Past Surgical History: Include cardiac cath. Family History: Positive for diabetes, hypertension, and lung cancer. Social History: Active smoker, active alcohol. Denied drugs abuse. Medications: Home medications include lisinopril, insulin, hydrocodone, atorvastatin, aspirin. Curr ent medication; ceftriaxone, hydrocodone, heparin, Zofran. Review of Systems: None obtainable. Physical Examination: Vital Signs: When I saw the patient, the patient is lying in bed, comfortable, not on any distress, confused. Vital Signs: Blood pressure 158/80, pulse of 86, afebrile. Chest: Crackles in the base. Heart: S1, S2. Systolic murmur. Abdomen: Soft, nontender. Extremities: No edema. Neurologic: Alert, confused. Laboratory Data: Upon admission sodium 139, potassium 3.9, bicarb 23, BUN 55, creatinine 4.3, calciu m 8.4, GFR of 14. WBC 7.1, hemoglobin 16. Today lab data; hemoglobin 14.4. Sodium 141, potassium 4 .1, bicarb 22, BUN 56, creatinine 3.1, GFR of 20, calcium 8.4. CT abdomen negative for hydronephrosi s. Urinalysis positive for infection, wbc's more than 50. Assessment And Plan: 1. Acute kidney injury secondary to prerenal, obstructive uropathy has been ruled out, superimposed w ith toxic ATN secondary to UTI. On the recovery, I am going to continue hydration for the patient. We will hold lisinopril and we will follow up. 2. Hypertension, controlled, not optimal, hold lisinopril with the presence of acute kidney injury. We will start the patient on beta-ronak. 3. Urinary tract infection, complicated urinary tract infection has been ruled out. Continue current treatment. We will follow up culture. 4. Diabetes, as by primary. 5. Hypokalemia, recovered, resolved. 6. Contraction alkalosis. Continue IV fluid. 7. Mild rhabdo. We will continue hydration. Time spent examining the patient [id number], reviewing data, lab and radiology, placing order, discussing the case with the steam presser including hospitalist and nursing staff more than 75 minutes. ANNABEL Voice ID: [id number] Report ID: [id number]
--- NOTE | 2024-09-27 18:59 | P.PN ---
Subjective Date of Service: 09/27/24 Chief Complaint: FLANK pain Patient appears mildly confused. He has no new complain. He could not provide history. Physical Examination - Vital Signs Temperature: 98.2 F Blood Pressure: 164/76 Pulse: 87 Respirations: 16 Pulse Ox (%): 96 Assessment And Plan - Plan Physical Exam: GEN: Alert, oriented x 2, NAD CV: Regular rate and rhythm, no edema Pulm: Nonlabored respirations on room air, clear bilaterally. ABD: soft, nontender, nondistended Integumentary: No rashes Neuro: Normal speech, normal affect Problem List: Acute mildly displaced L1 fracture s/p fall Possible UTI TRUPTI on CKD3 IDDM2 Hypertension Hyperlipidemia Tobacco/alcohol use Hx of CVA (Left basal ganglia 04/2024) Hx of CAD Hx of COPD Acute mildly displaced L1 fracture s/p fall Possible UTI CT Abd/Pelvis/Lumbar Spine (09/26): Acute, mildly depressed fracture involving the superior vertebral body of L1. Cholelithiasis, Hepatic Steatosis, Multiple pancreatic calcifications suggestive of chronic pancreatitis. Incidentally noted lesion involving the cutaneous/subcutaneous tissues of the right anterior thigh again demonstrated which can be correlated clinically Pelvis xray negative UA concerning for possible UTI. Urine culture: No growth. Blood cultures: No growth Patient is on IV rocephin (2/3-) PT/OT Analgesics as needed. TRUPTI on CKD3 Creatinine 4.68 on admission; baseline 1.7-1.8 renal u/s (2/): no acute findings. Serum creatinine is improving continue to monitor renal function Monitor and replete electrolytes as needed Nephrology input appreciated. continue IV fluids New right midlung nodule, incidental Finding CXR (09/25): interstitial pulmonary Edema. NEW right midlung nodular opacity. consider CT to r/o neoplasm if renal function improved otherwise PET scan as outpatient. IDDM2 accu-cheks, SSI Tobacco/alcohol use cessation advised Hypertension Hyperlipidemia Hx of CVA (Left basal ganglia 04/2024) Hx of CAD Hx of COPD Continue home medications. VTE: heparin sq Code: Full Dispo: Home 55
[2024-09-27] MEDS: HYDRALAZINE HCL 20 MG/ML VIAL IV ONE (20:39)
[2024-09-28 06:20] LABS: Absolute Eosinophils 0.2 K/uL (0-0.5); Absolute Lymphocytes (CBC) 1.7 K/uL (0.7-4.9); Absolute Monocytes 0.8 K/uL (0.1-1.3); Absolute Neutrophil 4.1 K/uL (1.8-8.0); Basophils % 0.6 % (0-1.3); Hematocrit 42.2 % (39.6-49.0); Hemoglobin 13.9 g/dL (13.6-17.9); Lymphocytes % 25.1 % (15.3-44.8); MCH 27.9 pg (27.0-35.0); MCV 84.6 fL (80-100); MPV 8.7 fL (7.6-11.3); Neutrophils % 59.3 % (41.7-73.7); Nucleated Red Blood Cells % 0.1 % (0-0); Platelets 277 thou/uL (152-406); RBC Red Blood Cell Count 4.99 M/uL (4.33-5.43); Red Cell Distribution Width 16.5 % (12.1-15.2)
[2024-09-28 06:52] LABS: Anion Gap 8.2 mEq/L (5.0-15.0); Potassium 4.2 mEq/L (3.5-5.1)
[2024-09-28] MEDS: lisinopriL 20 MG TAB PO SCH (09:58)
--- NOTE | 2024-09-28 15:34 | PN ---
Date of Progress Note: 09/28/2024 Subjective: The patient was admitted to the hospital with acute kidney injury secondary to prerenal, overdiuresis, and fall. The patient after hydration, kidney function has been trending down, close back to normal. The patient is feeling well. Blood pressure has been elevated. Objective: Vital Signs: Blood pressure of 170/79, pulse of 78, afebrile. Chest: Clear to auscultation. Heart: S1, S2. Regular. Abdomen: Soft, nontender. Extremities: No edema. Neurologic: Alert. No focality. Laboratory Data: Sodium 143, potassium 4.2, bicarb 22, BUN 36, creatinine 1.8, calcium 8. Current Medications: The patient on include lisinopril 20 mg, IV fluid, hydromorphone. Assessment And Plan: 1. Acute kidney injury secondary to prerenal, obstructive uropathy has been ruled out. I am going to go ahead and discontinue IV fluid. Resume lisinopril and we will follow up. 2. Hypertension, not controlled. Discontinue IV fluid. Resume the lisinopril, and we will follow up . 3. Fall secondary to dehydration. We will follow up with the Primary. 4. Urinary tract infection. I the patient on antibiotic. ANNABEL Voice ID: [id number] Report ID: [id number]
--- NOTE | 2024-09-28 15:39 | PN ---
Date of Progress Note: 09/28/2024 Subjective: The patient was admitted to the hospital with fall, acute kidney injury secondary to pre renal. The patient was hydrated very well. Kidney function back to baseline. The patient feeling well. Objective: Vital Signs: When I saw the patient, blood pressure 170/79, pulse of 78, afebrile. Chest: Clear to auscultation. Heart: S1, S2. Regular. Abdomen: Soft, nontender. Extremities: No edema. Neurologic: Alert. No focality. Laboratory Data: Hemoglobin 13.3, sodium 143, potassium 4.2, bicarb 22, BUN 36, creatinine 1.8, GFR of 37, calcium 8.1. Assessment And Plan: 1. Acute kidney injury secondary to prerenal/toxic acute tubular necrosis secondary to urinary tract infection, recovered, back close to baseline. Looked to me normal volume. I am going to go ahead an d discontinue IV fluid. 2. Hypertension, controlled, optimal. DICTATION ENDS HERE. ANNABEL Voice ID: [id number] Report ID: [id number]
--- NOTE | 2024-09-28 18:27 | P.PN ---
Subjective Date of Service: 09/28/24 Chief Complaint: FLANK pain Patient has no new complaint. He has good oral intake. He appears more functional today. Patient was able to sit up and ambulate today. Physical Examination - Vital Signs Temperature: 97.9 F Blood Pressure: 161/84 Pulse: 72 Respirations: 18 Pulse Ox (%): 97 - Studies Microbiology Data (last 24 hrs): 09/25/24 20:56 Clean Catch Urine [place] Count - Final No growth. 09/25/24 20:56 Clean Catch Urine - Final No growth. Assessment And Plan - Plan Physical Exam: GEN: Alert, oriented x 2, NAD CV: Regular rate and rhythm, no edema Pulm: Nonlabored respirations on room air, clear bilaterally. ABD: soft, nontender, nondistended Integumentary: No rashes Neuro: Normal speech, normal affect Problem List: Acute mildly displaced L1 fracture s/p fall TRUPTI on CKD3 IDDM2 Hypertension Hyperlipidemia Tobacco/alcohol use Hx of CVA (Left basal ganglia 04/2024) Hx of CAD Hx of COPD Acute mildly displaced L1 fracture s/p fall CT Abd/Pelvis/Lumbar Spine (2): Acute, mildly depressed fracture involving the superior vertebral body of L1. Cholelithiasis, Hepatic Steatosis, Multiple pancreatic calcifications suggestive of chronic pancreatitis. Incidentally noted lesion involving the cutaneous/subcutaneous tissues of the right anterior thigh again demonstrated which can be correlated clinically Pelvis xray negative UA concerning for possible UTI. Urine culture: No growth. Blood cultures: No growth Antibiotics discontinued. PT/OT Analgesics as needed. TRUPTI on CKD3 Creatinine 4.68 on admission; baseline 1.7-1.8 renal u/s (2): no acute findings. Serum creatinine improved to baseline. continue to monitor renal function Nephrology input appreciated. IV fluid discontinued. New right midlung nodule, incidental Finding CXR (09/25): interstitial pulmonary Edema. NEW right midlung nodular opacity. consider CT to r/o neoplasm if renal function improved otherwise PET scan as outpatient. IDDM2 accu-cheks, SSI Tobacco/alcohol use cessation advised Hypertension Hyperlipidemia Hx of CVA (Left basal ganglia 04/2024) Hx of CAD Hx of COPD Continue home medications. VTE: heparin sq Code: Full Dispo: Home 55
[2024-09-28 23:51] VITALS: O2SAT 96
[2024-09-29] MEDS: HYDRALAZINE HCL 20 MG/ML VIAL IV PRN (00:45)
[2024-09-29 07:22] LABS: Anion Gap 10.2 mEq/L (5.0-15.0); Potassium 4.2 mEq/L (3.5-5.1)
[2024-09-29 07:23] LABS: Absolute Basophils 0.1 K/uL (0-0.5); Absolute Eosinophils 0.3 K/uL (0-0.5); Absolute Lymphocytes (CBC) 1.6 K/uL (0.7-4.9); Absolute Monocytes 0.7 K/uL (0.1-1.3); Absolute Neutrophil 3.6 K/uL (1.8-8.0); Basophils % 1.1 % (0-1.3); Eosinophils % 5.2 % (0-4.4); Hematocrit 44.1 % (39.6-49.0); Hemoglobin 14.5 g/dL (13.6-17.9); Lymphocytes % 25.1 % (15.3-44.8); MCH 27.5 pg (27.0-35.0); MCHC 32.7 g/dL (32.0-36.0); MCV 84.1 fL (80-100); MPV 8.6 fL (7.6-11.3); Monocytes % 10.6 % (3.3-12.3); Nucleated Red Blood Cells % 0.2 % (0-0); Platelets 286 thou/uL (152-406); RBC Red Blood Cell Count 5.25 M/uL (4.33-5.43)
[2024-09-29] MEDS: levoFLOXacin 250 MG TAB PO SCH (09:28)
--- NOTE | 2024-09-29 15:10 | PN ---
Date of Progress Note: 09/29/2024 Subjective: The patient was admitted to the hospital with acute kidney injury secondary to prerenal. After hydration, kidney function has been improved significantly. Physical Examination: Vital Signs: When I saw the patient, blood pressure 159/79, pulse of 82, afebrile. Chest: Clear to auscultation. Heart: S1, S2. Regular. Abdomen: Soft, nontender. Extremities: No edema. Neurologic: Alert. No focality. Laboratory Data: Hemoglobin 14.5, sodium 142, potassium 4.2, bicarb 21, BUN 24, creatinine down to 1 .5, GFR 49, calcium 8.6. Assessment And Plan: 1. Acute kidney injury secondary to prerenal, toxic acute tubular necrosis, secondary to urinary trac t infection, recovered, back to baseline, normal volume, off IV fluid. I am going to continue to mon itor the patient. 2. Hypertension, controlled, optimal. Continue current treatment. Keep holding diuresis. 3. Urinary tract infection, status post treatment, as by Primary. 4. Mild rhabdomyolysis, resolved. 5. Fall secondary to urinary tract infection. Follow up with the Primary. Continue PT, OT. Patient cleared from the Renal standpoint for discharge planning. ANNABEL Voice ID: [id number] Report ID: [id number]
--- NOTE | 2024-09-29 15:52 | P.DS ---
Admission Date: 09/26/24 Discharge Date: 09/29/24 Disposition: [place] HOME/HOME HEALTH CARE Discharge Condition: FAIR Reason for Admission: FLANK pain Brief History of Present Illness: Patient is a 73-year-old -[place] male who presented with low back pain following a fall incident. Patient was reportedly getting out of the shower when he fell. He was unable to sit and stand due to intractable pain. Additional workup in the ER revealed abnormal UA concerning for UTI, and significant rise in creatinine from 1.8-4.4. CT abdomen pelvis was ordered to assess for pelvic fracture. Patient given analgesics and admitted for further management. Hospital Course: Problem List: Acute mildly displaced L1 fracture s/p fall TRUPTI on CKD3 IDDM2 Hypertension Hyperlipidemia Tobacco/alcohol use Hx of CVA (Left basal ganglia 04/2024) Hx of CAD Hx of COPD Patient admitted to the medical floor and the following medical problems addressed: Acute mildly displaced L1 fracture s/p fall CT Abd/Pelvis/Lumbar Spine (09/26): Acute, mildly depressed fracture involving the superior vertebral body of L1. Cholelithiasis, Hepatic Steatosis, Multiple pancreatic calcifications suggestive of chronic pancreatitis. Incidentally noted lesion involving the cutaneous/subcutaneous tissues of the right anterior thigh again demonstrated which can be correlated clinically Pelvis xray negative UA concerning for possible UTI. Urine culture: No growth. Blood cultures: No growth Patient treated briefly with IV Rocephin and antibiotics discontinued. He received PT/OT, patient was able to ambulate a 100 ft with AD and contact- guard assist. Analgesics as needed. TRUPTI on CKD3 Creatinine 4.68 on admission; baseline 1.7-1.8 renal u/s (09/26): no acute findings. Serum creatinine improved to baseline with IV hydration. Nephrology evaluated patient and assisted with management. New right midlung nodule, incidental Finding CXR (09/25): NEW right midlung nodular opacity. Patient informed to follow-up with pulmonary Dr. Guerin for arrangement for PET scan as outpatient. IDDM2 Managed with accu-cheks, SSI Tobacco/alcohol use cessation advised Hypertension Hyperlipidemia Hx of CVA (Left basal ganglia 04/2024) Hx of CAD Hx of COPD Continued home medications. Vital Signs/Physical Exam: Temp Pulse Resp BP Pulse Ox 98.1 F 82 18 159/79 H 99 09/29/24 12:00 09/29/24 12:00 09/29/24 12:00 09/29/24 12:00 09/29/24 12:00 General: Alert, In no apparent distress, Oriented x3 HEENT: Mucous membr. moist/pink, Sclerae nonicteric Neck: JVD not distended Respiratory: Clear to auscultation bilaterally, Normal air movement Cardiovascular: Regular rate/rhythm, Normal S1 S2 Gastrointestinal: Soft and benign, Non-distended, No tenderness Integumentary: No rashes, No cyanosis Neurological: Normal strength at 5/5 x4 extr Laboratory Data at Discharge: WBC 6.20 thou/uL (4.3-10.9) 09/29/24 06:56 Hgb 14.5 g/dL (13.6-17.9) 09/29/24 06:56 Hct 44.1 % (39.6-49.0) 09/29/24 06:56 Plt Count 286 thou/uL (152-406) 09/29/24 06:56 PT 11.8 SECONDS (9.4-12.5) 09/25/24 19:24 INR 1.13 09/25/24 19:24 APTT 31.0 SECONDS (24.3-36.9) 09/25/24 19:24 Sodium 142 mEq/L (136-145) 09/29/24 06:56 Potassium 4.2 mEq/L (3.5-5.1) 09/29/24 06:56 BUN 24 mg/dL (7-18) H 09/29/24 06:56 Creatinine 1.51 mg/dL (0.70-1.30) H 09/29/24 06:56 Glucose 215 mg/dL (74-106) H 09/29/24 06:56 Phosphorus 6.8 mg/dL (2.5-4.9) H 09/26/24 07:48 Magnesium 2.7 mg/dL (1.6-2.4) H 09/26/24 07:48 Total Bilirubin 0.5 mg/dL (0.2-1.0) 09/26/24 07:48 AST 11 U/L (15-37) L 09/26/24 07:48 ALT < 14 U/L (16-61) L 09/26/24 07:48 Alkaline Phosphatase 97 U/L (45-117) 09/26/24 07:48 Home Medications: Lisinopril [Zestril] 20 mg PO BID 05/13/24 Aspirin Chewable [Aspirin Chewable*] 81 mg PO DAILY #30 tab.chew 05/16/24 Insulin Glargine,Hum.rec.anlog [Lantus] 20 unit SQ DAILY #15 ml 05/16/24 Atorvastatin Calcium [Lipitor] 40 mg PO BEDTIME 09/26/24 Hydrocodone 10/APAP 325 [[place] 10/325*] 1 tab PO Q6H PRN #20 tab 09/29/24 levoFLOXacin [Levaquin*] 250 mg PO DAILY #5 tab 09/29/24 New Medications: levoFLOXacin [Levaquin*] 250 mg PO DAILY #5 tab Hydrocodone 10/APAP 325 [[place] 10/325*] 1 tab PO Q6H PRN #20 tab PRN Reason: Pain Physician Discharge Instructions: Acute mildly displaced L1 fracture s/p fall CT Abd/Pelvis/Lumbar Spine (09/26): Acute, mildly depressed fracture involving the superior vertebral body of L1. Cholelithiasis, Hepatic Steatosis, Multiple pancreatic calcifications suggestive of chronic pancreatitis. Incidentally noted lesion involving the cutaneous/subcutaneous tissues of the right anterior thigh again demonstrated which can be correlated clinically Pelvis xray negative UA concerning for possible UTI, however urine culture showed no growth. Blood cultures: No growth Patient treated briefly with IV Rocephin and antibiotics discontinued. He received PT/OT, patient was able to ambulate a 100 ft with AD and contact- guard assist. Patient is on [place] for pain. TRUPTI on CKD3 Creatinine 4.68 on admission; baseline 1.7-1.8 renal u/s (09/26): no acute findings. Serum creatinine improved to baseline with IV hydration. Nephrology evaluated patient and assisted with management. New right midlung nodule, incidental Finding CXR (09/25): NEW right midlung nodular opacity. PET scan as outpatient to further evaluate. Please follow with Dr. Guerin to further evaluate the lung nodule. Diet: ADA Activity: Fall precautions Followup: Darrell Guerin MD [ACTIVE - CAN ADMIT] - 1-2 Weeks NONE,NONE [Primary Care Provider] - 1-2 Weeks Time spent managing pt's care (in minutes): 40
[2024-09-29 16:34] VITALS: TEMP 97.8
[2024-09-29 18:45] VITALS: BP 154/78
== END 2024-09-29 18:46 | disposition home health service (06) | DRG 551 ==
LOC: ER 18:15 → ERHOLD 09-26 00:07 → 4TH 09-26 19:04
PROVIDERS: ADMIT Internal Medicine; ATTEND Internal Medicine
DX: S32.019A Unspecified fracture of first lumbar vertebra, initial encounter for closed fracture (principal); N17.0 Acute kidney failure with tubular necrosis; J81.1 Chronic pulmonary edema; M62.82 Rhabdomyolysis; E87.3 Alkalosis; I12.9 Hypertensive chronic kidney disease with stage 1 through stage 4 chronic kidney disease, or unspecified chronic kidney disease; N18.30 Chronic kidney disease, stage 3 unspecified; E11.22 Type 2 diabetes mellitus with diabetic chronic kidney disease; E11.40 Type 2 diabetes mellitus with diabetic neuropathy, unspecified; E78.5 Hyperlipidemia, unspecified; E86.9 Volume depletion, unspecified; E86.0 Dehydration; E87.6 Hypokalemia; J44.9 Chronic obstructive pulmonary disease, unspecified; I25.10 Atherosclerotic heart disease of native coronary artery without angina pectoris; R91.8 Other nonspecific abnormal finding of lung field; Z79.4 Long term (current) use of insulin; Z79.82 Long term (current) use of aspirin; Z95.1 Presence of aortocoronary bypass graft; Z86.73 Personal history of transient ischemic attack (TIA), and cerebral infarction without residual deficits; Z96.642 Presence of left artificial hip joint; Z79.899 Other long term (current) drug therapy; W18.30XA Fall on same level, unspecified, initial encounter; Y93.9 Activity, unspecified; Y92.019 Unspecified place in single-family (private) house as the place of occurrence of the external cause; Y99.9 Unspecified external cause status
CPT/HCPCS: 36415; 51702; 71045; 72131; 72170; 74176; 76770; 80048; 80053; 81001; 82550; 82947; 83605; 83735; 84100; 85025; 85610; 85730; 87040; 87086; 87088; 93005; 96374; 97110; 97116; 97161; 97165; 97530; 99285; J0360; J0696; J1171; J1644; J7030